=== PATIENT | female | born 1995 | race Caucasian/White ===

== ENCOUNTER 2024-01-06 08:07 | Outpatient (OUT) | payer MEDICAID, SELFPAY ==
--- NOTE | 2024-01-06 08:10 | US_ITS ---
[address] [address] Patient Name: MELE HAAS MRN: [id number] date: 1995 Sex: F Assigned Patient Location: [facility] Current Patient Location: [facility] Accession/Order Number: [id number] Exam Date: 01/06/2024 08:11 Report Date: 01/06/2024 09:13 At the request of: SURYA GARCIA Procedure: US OB growth EXAMINATION: US OB growth HISTORY: SIZE INCONSISTENT WITH DATES COMPARISON: No relevant comparison available. FINDINGS: Heart Rate: 152 bpm Amniotic Fluid Volume: 13.3 cm, largest fluid pocket 5.4 cm Number: 1 Position: Cephalic presentation, longitudinal lie BIOMETRY: BPD: 7.63 cm; 30 weeks 4 days; 39.30 % HC: 28.74 cm; 31 weeks 4 days; 42.40 % AC: 27.92 cm; 32 weeks 0 days; 83.90 % FL: 5.85 cm; 30 weeks 4 days; 34.90 % EFW: 1729.91 g; 66.30 %, 3 lbs. 14 oz. FL/AC: 20.95 FL/BPD: 76.67 HC/AC: 1.03 GESTATIONAL AGE: Age by EDC: 30 weeks 4 days KAREY by EDC: 2024-03-12 Age by US: 31 weeks 1 day KAREY by US: 2024-03-08 US/US OB growth IMPRESSION: Normal growth Electronically authenticated by: YAKOV DAWSON Date: 01/06/2024 09:13
== END 2024-01-06 08:08 | disposition home or self-care (01) ==
LOC: NOMS 08:08
PROVIDERS: Visit Provider Obstetrics & Gynecology
DX: O26.843 Uterine size-date discrepancy, third trimester (principal); Z3A.31 31 weeks gestation of pregnancy
CPT/HCPCS: 76816

== ENCOUNTER 2024-01-17 13:52 | Observation (INO) | payer MEDICAID, SELFPAY ==
[2024-01-17 14:08] VITALS: BP 131/81; PULSE 93
[2024-01-17 14:15] VITALS: TEMP 37
--- NOTE | 2024-01-17 14:28 | PC.NURSE ---
1400- Pt arrives to [facility] with officer. Pt taken to room 254. Pt given urine specimen cup to obtain urine lab order. Pt c/o contractions that started this morning and were occurring q3min at times but at current moment they are occurring here and there. Pt states they are mild pain intensity. Pt denies vaginal bleeding or leaking of fluid. Pt denies recent UTI/yeast infection. Pt history reviewed. Pt reports very active movement. RN palpates pt abdomen with pt consent. Abdomen palpated soft.
[2024-01-17 14:30] LABS: Bilirubin Urine NEGATIVE (NEGATIVE); Blood Urine NEGATIVE (NEGATIVE); Clarity Urine SL CLOUDY (CLEAR); Color Urine LT. YELLOW (YELLOW); Glucose Urine UA NEGATIVE (NEGATIVE); Ketones Urine NEGATIVE (NEGATIVE); Leukocyte Esterase Urine NEGATIVE (NEGATIVE); Nitrite Urine NEGATIVE (NEGATIVE); Protein Urine NEGATIVE (NEG/TRACE); Urobilinogen Urine 0.2 EU/dL (0.2-1.0)
[2024-01-17 15:00] LABS: Urine Microscopic Indicated NO
--- NOTE | 2024-01-17 15:19 | US_ITS ---
The [address] [address] Patient Name: MELE HAAS MRN: [id number] date: 1995 Sex: F Assigned Patient Location: [facility] Current Patient Location: [facility] Accession/Order Number: [id number] Exam Date: 01/17/2024 15:59 Report Date: 01/17/2024 18:18 At the request of: HERIBERTO PURCELL Procedure: US OB cervical length EXAM: US OB cervical length HISTORY: Cxt's COMPARISON: None. TECHNIQUE: Limited ultrasound for assessment of the amniotic fluid FINDINGS and impression: There is a single live intrauterine with the fetus in the cephalic presentation lies longitudinal. Comminuted fluid measures 16.2 cm (between the 50th and 95th percentile). The largest fluid pocket measures 5.3 cm. heart rate is 139 bpm. The cervical length measures 3.9 cm and is close. There is a small amount of fluid in the canal. Electronically authenticated by: YIMI ACEVEDO Date: 01/17/2024 18:18
--- NOTE | 2024-01-17 15:19 | US_ITS ---
The [address] [address] Patient Name: MELE HAAS MRN: [id number] date: 1995 Sex: F Assigned Patient Location: [facility] Current Patient Location: [facility] Accession/Order Number: [id number] Exam Date: 01/17/2024 15:59 Report Date: 01/17/2024 18:17 At the request of: HERIBERTO PURCELL Procedure: US OB amniotic fluid vol EXAM: US OB amniotic fluid vol HISTORY: Cxt's COMPARISON: None. TECHNIQUE: Limited ultrasound for assessment of the amniotic fluid FINDINGS and impression: There is a single live intrauterine with the fetus in the cephalic presentation lies longitudinal. Comminuted fluid measures 16.2 cm (between the 50th and 95th percentile). The largest fluid pocket measures 5.3 cm. heart rate is 139 bpm. The cervical length measures 3.9 cm and is close. There is a small amount of fluid in the canal. Electronically authenticated by: YIMI ACEVEDO Date: 01/17/2024 18:17
--- NOTE | 2024-01-17 17:34 | US_ITS ---
[address] [address] Patient Name: MELE HAAS MRN: [id number] date: 1995 Sex: F Assigned Patient Location: [facility] Current Patient Location: [facility] Accession/Order Number: [id number] Exam Date: 01/17/2024 18:23 Report Date: 01/17/2024 20:59 At the request of: HERIBERTO PURCELL Procedure: US OB BPP wo non-stress EXAM: US OB BPP wo non-stress HISTORY: Non-reassuring FHR COMPARISON: None. TECHNIQUE: Limited OB ultrasound is performed for evaluation of biophysical profile. Multiple grayscale images are submitted for review. FINDINGS: Single live intrauterine is seen with cephalic presentation. heart rate is 152 beats per minute. Normal amniotic fluid volume is seen. The REKHA measures 15.3 cm. Biophysical profile: breathing movements: 2 Gross body movements: 2 tone: 2 Qualitative amniotic fluid volume: 2 Total biophysical profile score is 8 out of 8. US/US OB BPP wo non-stress IMPRESSION: Single live intrauterine with cephalic presentation. Total biophysical profile score is 8 out of 8. Electronically authenticated by: PEYTON JOHN Date: 01/17/2024 20:59
[2024-01-17 17:56] VITALS: BP 130/74; PULSE 98
[2024-01-17] MEDS: NIFEdipine 10 MG CAPSULE 20 MG PO (18:43)
[2024-01-17 18:45] VITALS: BP 115/61; PULSE 87; TEMP 36.5
[2024-01-17] MEDS: LACTATED RINGER'S SOLUTION 1,000 ML 125 ML IV (19:04)
[2024-01-17 19:29] LABS: Basophils Absolute Auto 0.1 10^3/uL (0.0-0.1); Basophils Percent Auto 0.5 % (0.2-2.0); Eosinophils Absolute Auto 0.1 10^3/uL (0.0-0.7); Eosinophils Percent Auto 0.7 % (0.9-7.0); Hematocrit 34.9 % (36.0-48.0); Hemoglobin 11.9 g/dL (12.0-16.0); Immature Granulocytes Abs Auto 0.18 10^3/uL (0.00-0.03); Immature Granulocytes Pct Auto 1.4 % (0.0-0.5); Lymphocytes Absolute Auto 2.4 10^3/uL (1.2-3.8); Lymphocytes Percent Auto 18.8 % (20.5-60.0); Mean Corpuscular HGB Conc 34.1 g/dL (29.9-35.2); Mean Corpuscular Hemoglobin 33.1 pg (26.7-34.0); Mean Corpuscular Volume 96.9 fL (81.0-99.0); Mean Platelet Volume 9.6 fL (9.5-13.5); Monocytes Percent Auto 7.7 % (1.7-12.0); Neutrophils Absolute Auto 8.9 10^3/uL (1.4-6.5); Neutrophils Percent Auto 70.9 % (43.0-75.0); Platelet Count 317 10^3/uL (150-450); Red Cell Distribution Width 11.9 % (11.0-15.0); White Blood Count 12.6 10^3/uL (4.0-11.0)
--- NOTE | 2024-01-17 19:56 | P.OBPN_ITS ---
OB - PN: Subj Subjective Interval history: PATIENT BROUGHT FROM [facility] FOR COMPLAINT OF CRAMPING. MAGNETIC TESTER WITH PATIENT. . LAST FULL TERM. CHIEF COMPLAINT: CRAMPING. DENIES LOSS OF FLUID, VAGINAL BLEEDING, ABNORMAL VAGINAL DISCHARGE. HAS BEEN TREATED FOR SYPHILIS IN THE PAST. IS A PATIENT OF DR. GARCIA. EDC MAR 12, 2024. GESTATIONAL AGE 31 WEEKS. RATES THE CRAMPING 3 OUT OF 10. Exam Narrative Exam Narrative: REMOTE CHARTING FROM HOME WITH COMPUTER LOGGED ON TO Xtime. RECEIVED EXAM ASSESSMENT FROM NURSE. ABDOMEN SOFT AND NONTENDER. CERVIX IS CLOSED. ULTRASOUND MEASURED LENGTH AT 3.8 CM. TOCO IS RECORDING CONTRACTIONS INITIALLY EVERY 3 TO 4 MIN APART. BPP WAS PERFORMED BECAUSE BABY ON CUSP OF GESTATIONAL AGE WHEN HEART TRACINGS REACTIVE. THE BPP WAS 8/8. AFTER THE BPP DONE, THE HEART RATE STRIP WAS CAT I Constitutional Vital Signs, click to edit/add: Last Vital Signs Temp 98.6 F 01/17/24 14:15 Pulse 87 01/17/24 18:45 Resp 16 01/17/24 14:15 BP 115/61 01/17/24 18:45 O2 Del Method Room Air 01/17/24 14:15 Results Labs Labs: Short CBC 01/17/24 Range/Units 18:41 WBC 12.6 H (4.0-11.0) 10^3/uL Hgb 11.9 L (12.0-16.0) g/dL Hct 34.9 L (36.0-48.0) % Plt Count 317 (150-450) 10^3/uL Urine 01/17/24 Range/Units 14:13 Urine Color Lt. yellow (YELLOW) Urine Clarity Sl cloudy (CLEAR) Urine pH 7.0 (5.0-9.0) Ur Specific [place] 1.020 (1.005-1.025) Urine Protein Negative (NEG/TRACE) mg/dL Urine Glucose (UA) Negative (NEGATIVE) mg/dL OB - PN: A/P Assessment and Plan (1) contractions: Assessment and Plan: CERVIX NOT CHANGING. URINE DEMONSTRATES NO DEHYDRATION NO KETONES, NO BLOOD, NO NITRITES, NO BACTERIA. ULTRASOUND SHOWS NORMAL REKHA AT 16. BPP 8/8 AND FHR REACTIVE...CAT I Plan NOT LABOR BUT NEED TO HAVE CONTRACTIONS LESS THAN OR EQUAL TO 6 IN ONE HOUR BEFORE DISCHARGING BACK TO [facility]. WILL PLACE ON NIFEDIPINE PROTOCOL. WILL START IV OF LR AT 125CC PER HOUR. HAS PO HYDRATED A LITTLE OVER 500 CC SINCE ON MATERNITY. OF NOTE, CBC NORMAL WITH NO ELEVATED WHITE COUNT. MATERNAL VSS ARE NORMAL AND AFECBRILE. HAVE ADMITTED OBSERVATION STATUS TO WATCH FOR DISSIPATION OF CONTRACTIONS TO < OR = TO 6 PER HOUR. IF THERE IS A CHANGE IN CLINICAL STATUS AND CONTRACTION BECOME PAINFUL AND OR EVERY 2 TO THREE MIN CONSISTENTLY, WILL TRANSFER TO [facility]. Time Spent with Patient Time: Total time spent is greater than 50% in coordination of care (as documented) at patient's floor/unit and/or counseling patient: Total time spent with greater than 50% in coordination of care (as documented) at patient's floor/unit and/or counseling patient: less than 15 minutes (THIS NOTE WRITTEN AT HOME BASED ON REVIEW OF CHART AND NURSES REPORT)
[2024-01-17] MEDS: NALBUPHINE HCL 10 MG/ML AMPULE 5 MG IV (20:05)
--- NOTE | 2024-01-17 20:38 | PC.NURSE ---
1610- Pr removed from monitors at this time. Ultrasound at bedside. Cervical length 3.8.
--- NOTE | 2024-01-17 20:39 | PC.NURSE ---
0234-3024: Pt eating dinner at this time. Per pt request monitors remain off.
[2024-01-17] MEDS: ZOLPIDEM TARTRATE 5 MG TABLET PO (23:24)
[2024-01-17 23:25] VITALS: BP 118/76; PULSE 77; TEMP 36.3
[2024-01-18 01:08] VITALS: BP 121/68
[2024-01-18] MEDS: NIFEdipine 10 MG CAPSULE PO ×2 (01:08→07:24)
[2024-01-18 01:09] VITALS: BP 121/68; PULSE 101
[2024-01-18] MEDS: ACETAMINOPHEN 500 MG TABLET 1000 MG PO ×2 (01:09→07:56)
[2024-01-18] MEDS: LACTATED RINGER'S SOLUTION 1,000 ML 125 ML IV (03:03)
[2024-01-18 07:24] VITALS: BP 102/50
[2024-01-18 07:25] VITALS: BP 102/50; PULSE 74
== END 2024-01-18 08:07 ==
LOC: FBC 13:55
PROVIDERS: Admitting Provider Obstetrics & Gynecology; Visit Provider Obstetrics & Gynecology
DX: O47.03 False labor before 37 completed weeks of gestation, third trimester (principal); Z3A.31 31 weeks gestation of pregnancy
CPT/HCPCS: 36415; 59025; 76815; 76817; 76819; 81003; 85025; 96374; G0378; G0379; J2300

== ENCOUNTER 2024-02-09 07:01 | Outpatient (OUT) | payer MEDICAID, SELFPAY ==
--- OUTSIDE RECORDS SUMMARY | 2024-02-09 07:03 | XMS_ITS | CCD ---
Author Organization [facility] Care Team Providers Care Professor Of Violin Name Role Phone MISC, DOCTOR Primary Care Unavailable LISHA SAENZ Admitting Unavailable LISHA SAENZ Attending Unavailable JUAN PABLO CANELA Consulting Unavailable LISHA SAENZ Consulting Unavailable Jude Mcdaniel Consulting Unavailable ASIA, HELENA Admitting Unavailable PAZANDER, HELENA Attending Unavailable TIESHA CASTILLO Consulting Unavailable HIGHLANDER, HELENA Consulting Unavailable HIGHLANDER, HELENA Admitting Unavailable HIGHLANDER, HELENA Attending Unavailable YAKOV DAWSON V Consulting Unavailable HIGHLANDER, HELENA Consulting Unavailable CATHRYN BARNES Admitting Unavailable CATHRYN BARNES Attending Unavailable MISJoan, DOCTOR Primary Care Unavailable CATHRYN BARNES Consulting Unavailable ASIA, HELENA Admitting Unavailable PAZANDER, HELENA Attending Unavailable TIESHA CASTILLO Consulting Unavailable HIGHLANDER, HELENA Consulting Unavailable HIGHLANDER, HELENA Admitting Unavailable PAZANDER, HELENA Attending Unavailable Janny Gonzalez Unavailable Inessa Lewis Unavailable NIURKA Lewis Attending Provider [phone] Inessa Lewis Attending Unavailable Inessa Lewis Admitting Unavailable SONAM TENORIO Referring Unavailable ROMI RIDER Primary Care Unavailable SONAM TENORIO Attending Unavailable ROMI RIDER Referring Unavailable ROMI RIDER A Primary Care Unavailable ROMI RIDER Referring Unavailable ROMI RIDER A Primary Care Unavailable ROMI RIDER A Referring Unavailable ROMI RIDER A Primary Care Unavailable LIZZETTE, ROMI A Referring Unavailable LIZZETTE, ROMI A Primary Care Unavailable DANDY RAMSEY Attending Unavailable LIZZETTE, ROMI A Referring Unavailable LIZZETTE, ROMI A Primary Care Unavailable SONAM TENORIO Referring Unavailable LIZZETTE, ROMI A Primary Care Unavailable EDELMIRA WEBSTER Attending Unavailable LIZZETTE, ROMI A Referring Unavailable LIZZETTE, ROMI A Primary Care Unavailable KROTZERSONAM M Attending Unavailable KROTZER, SONAM M Referring Unavailable LIZZETTE, ROMI A Primary Care Unavailable LIZZETTE, ROMI A Referring Unavailable LIZZETTE, ROMI A Primary Care Unavailable KROTZER, SONAM M Referring Unavailable LIZZETTE, ROMI A Primary Care Unavailable LIZZETTE, ROMI A Primary Care Unavailable JEANNE SMART Attending Unavailable RIOSONYA FOWLER Admitting Unavailable SONYA PATE Attending Unavailable LIZZETTE, ROMI A Primary Care Unavailable LIZZETTE, ROMI A Primary Care Unavailable OSVALDO, TIBERIU S Admitting Unavailable OSVALDO, TIBERIU S Attending Unavailable LIZZETTE, ROMI A Primary Care Unavailable ROSALINO THOMAS Attending Unavailable JOSE, SURYA Attending Unavailable ROSALINO THOMAS Attending Unavailable SURYA GARCIA Attending Unavailable WILLIAM, ROSALINO Attending Unavailable Medications Current Medications Medication Drug Class(es) Dates Sig (Normalized) Sig (Original) fluconazole 150 mg oral tablet (3 sources) Azole Antifungal Start: 12-19-2022 take 1 tablet by mouth once Fluconazole 150 MG 1 tablet Orally once for 1 days Nov, Active Start: 08-15-2021 Fluconazole 15 0 MG 1 tablet Orally once, repeat dose in 72 hours if needed for 1 day Jul, Active metroNIDAZOLE 500 mg oral tablet (2 sources) Nitroimidazole Antimicrobial Start: 12-19-2022 take 1 tablet by mouth every twelve hours metroNIDAZOLE 500 MG 1 tablet Orally Twice a day for 7 days Nov, Active Start: 08-19-2021 take 1 tablet by neal th every twelve hours metroNIDAZOLE 500 MG 1 tablet Orally Twice a day for 7 day(s) Jul, Active Completed/Discontinued Medications Medication Drug Class(es) Dates Sig (Normalized) Sig (Original) lidocaine hydrochloride 20 mg/ml mucous membrane topical solution (2 sources) Antiarrhythmic, Amide Local Anesthetic Start: 01-14-2018 take 10 mL by mouth every three hours Lidocaine Viscous 2 % 10 ml swish in mouth, gargle, and spit. DO NOT swallow every 3 hrs for 2 days Dec, Not-Taking Problems Active Problems Problem Classification Problem Date Documented Date Episodic/Chronic Abdominal pain (1 source) Abdominal pain Onset: 11-30-2023 Episodic Administrative/social admission (2 sources) Patient encounter status; Translations: [Encounter for pre-employment examination] 06-16-2023 Episodic Disorders of teeth and jaw (3 sources) Other specified disorders of teeth and supporting structures; Translations: [Toothache] Onset: 10-05-2023 Episodic External cause codes: Fall (2 sources) Fall (on) (from) unspecified stairs and steps, initial encounter; Translations: [Fall] Onset: 12-20-2019 Fracture of lower limb (1 source) Other fracture of upper and lower end of left fibula, initial encounter for closed fracture; Translations: [OTH FX UP LOW LT FIB INIT CLOS FX] Onset: 12-20-2019 Episodic Immunizations and screening for infectious disease (5 sources) Contact with and (suspected) exposure to infections with a predominantly sexual mode of transmission; Translations: [Encounter for immunization] Onset: 12-20-2019 Episodic Other complications of (1 source) Syphilis complicating , second trimester; Translations: [Syphilis complicating , second trimester] Onset: 09-21-2023 Episodic Other complications of (1 source) Vomiting of , unspecified; Translations: [Vomiting of , unspecified] Onset: 09-21-2023 Episodic Other connective tissue disease (1 source) Pain in left foot; Translations: [PAIN IN LEFT FOOT] Onset: 12-20-2019 Episodic Other female genital disorders (3 sources) Vaginal discharge; Translations: [Other specified noninflammatory disorders of vagina] Episodic Other female genital disorders (2 sources) Other specified noninflammatory disorders of vagina Onset: 08-15-2021 Resolved: 08-15-2021 Episodic Other female genital disorders (1 source) Other specified noninflammatory disorders of vagina; Translations: [Other specified noninflammatory disorders of vagina] Onset: 12-19-2022 Episodic Other injuries and conditions due to external causes (1 source) Elevated urine levels of drugs, medicaments and biological substances; Translations: [Elevated urine levels of drugs, medicaments and biological substances] Onset: 09-23-2023 Episodic Other lower respiratory disease (1 source) Personal history of other diseases of the respiratory system; Translations: [Personal history of other diseases of the respiratory system] Onset: 09-21-2023 Episodic Other non-traumatic joint disorders (4 sources) Pain in left ankle and joints of left foot; Translations: [PAIN IN LEFT ANKLE] Onset: 01-30-2020 Episodic Other non-traumatic joint disorders (3 sources) Pain in left knee; Translations: [PAIN IN LEFT KNEE] Onset: 11-28-2019 Episodic Previous (1 source) Maternal care for unspecified type scar from previous delivery; Translations: [Maternal care for unspecified type scar from previous delivery] Onset: 09-21-2023 Episodic Residual codes; unclassified (1 source) 21 weeks gestation of ; Translations: [21 weeks gestation of ] Onset: 11-04-2023 Episodic Substance-related disorders (1 source) Nicotine dependence, cigarettes, uncomplicated; Translations: [NICOTINE DEPEND CIGARETTES UNCOMP] Onset: 12-20-2019 Chronic Superficial injury; contusion (2 sources) Abrasion, left lower leg, initial encounter; Translations: [Contusion of left knee, initial encounter] Onset: 12-20-2019 Episodic Unclassified (1 source) + syphillis Onset: 11-04-2023 Unclassified (1 source) Initial Visit Onset: 09-21-2023 Past or Other Problems Problem Classification Problem Date Documented Da te Episodic/Chronic Other and delivery including normal (4 sources) Encounter for test, result positive; Translations: [Encounter for supervision of normal , unspecified, second trimester] Onset: 08-13-2023 Episodic Results Test Name Value Interpretation Reference Range Facility URINALYSISon 11-30-2023 Bilirubin Ql (U) Negative Normal NEG [facility] Comment on above: Performed By: #### C BC, 75510-6, AHP, 96385-1, 30131-6, 55887- 4, 32244-4 #### [facility] ([id number]) [address], [address] [place] [address] #### 92766-8, 01197-1 #### [facility] ([id number]) [address] [place] [address]98 BLOOD/HGB Negative Normal NEG [facility] Comment on above: Performed By: #### C BC, 72974-1, AHP, 07787-0, 60960-6, 43645- 4, 84777-4 #### [facility] ([id number]) [address], [address] [place] [address] #### 04515-6, 54341-5 #### [facility] ([id number]) [address] [place] [address] 79291 Color (U) YELLOW Normal YELLOW [facility] Comment on above: Performed By: #### C ERICK, 81694-3, AHP, 33560-5, 27254-2, 13300- 4, 75445-2 #### [facility] ([id number]) [address], [address] [place] [address] #### 27171-8, 01289-6 #### [facility] ([id number]) [address] [place] [address] 70264 Glucose Ql (U) Negative Normal NEG [facility] Comment on above: Performed By: #### Joan BC, 11601-0, AHP, 54958-2, 09645-1, 76694- 4, 48304-4 #### [facility] ([id number]) [address], [address] [place] [address] #### 60446-1, 64535-1 #### [facility] ([id number]) [address] [place] [address] 23012 Ketones Ql (U) Negative Normal NEG [facility] Comment on above: Performed By: #### Joan BC, 92508-8, AHP, 04964-7, 72867-7, 89300- 4, 91539-0 #### [facility] ([id number]) [address] [facility], [address] [place] [address] #### 71504-8, 60854-5 #### [facility] ([id number]) [address] [place] [address] 09115 Leukocyte esterase Test strip Ql (U) Negative Normal NEG [facility] Comment on above: Performed By: #### C BC, 00223-4, AHP, 53148-5, 19276-8, 47652- 4, 90508-6 #### [facility] ([id number]) [address] [facility], [address] [address] #### 94556-9, 47994-2 #### [facility] ([id number]) [address] [place] [address] 95269 Nitrite Ql (U) Negative Normal NEG [facility] Comment on above: Performed By: #### C ERICK, 72747-1, AHP, 00607-5, 72621-6, 87307- 4, 79677-5 #### [facility] ([id number]) [address] [facility], [address] [place] [address] #### 29487-2, 92364-7 #### [facility] ([id number]) [address] [place] [address] 12888 pH (U) 7.0 [pH] Normal 5.0-8.5 [facility] Comment on above: Performed By: #### Joan BC, 43677-3, AHP, 65728-5, 20803-6, 60321- 4, 00029-7 #### [facility] ([id number]) [address] [facility], [address] [place] [address] #### 68495-6, 36205-8 #### [facility] ([id number]) [address] [place] [address] 15612 Protein Ql (U) Negative Normal NEG [facility] Comment on above: Performed By: #### C ERICK, 41979-1, AHP, 36818-6, 44288-4, 84131- 4, 82848-5 #### [facility] ([id number]) [address], [address] [place] [address] #### 56239-9, 15366-5 #### [facility] ([id number]) [address] [place] [address] 49721 Specific gravity (U) [Rel density] 1.025 Normal 1.003-1.035 [facility] Comment on above: Performed By: #### C ERICK, 53565-3, AHP, 45743-5, 11726-0, 86611- 4, 74836-9 #### [facility] ([id number]) [address], [address] [place] [address] #### 49493-6, 46088-1 #### [facility] ([id number]) [address] [place] [address] 66764 TURBIDITY CLEAR Normal CLEAR [facility] Comment on above: Performed By: #### Joan SUAREZ, 30443-8, AHP, 32036-1, 48207-7, 99611- 4, 46862-6 #### [facility] ([id number]) [address], [address] [place] [address] #### 87696-2, 58577-4 #### [facility] ([id number]) [address] [place] [address] 13824 Urobilinogen Qn (U) 0.2 {Saleem'U}/dL Normal <1.1 [facility] Comment on above: Performed By: #### Joan SUAREZ, 27658-3, AHP, 12987-0, 20957-1, 98363- 4, 47664-9 #### [facility] ([id number]) [address], [address] [place] [address] #### 62262-8, 74841-6 #### [facility] ([id number]) [address] [place] [address]377 CHLAMYDIA/GC PCR, FLon 09-20 CHLAMYDIA/GC PCR, FL SPECIMEN SOURCE ThinPrep CHLAMYDIA DNA(PCR) Negative (qualifier value) Chlamydia trachomatis not detected by nucleic acid amplification. This does not exclude the possibility of infection because results are dependent on adequate specimen collection. GONORRHOEAE DNA(PCR) Negative (qualifier value) Neisseria gonorrhoeae not detected by nucleic acid amplification. This does not exclude the possibility of infection because results are dependent on adequate specimen collection. Normal [facility] Comment on above: Performed By: #### C BC, 86986-3, AHP, 73003-3, 47220-5, 61160- 4, 65776-2 #### [facility] ([id number]) [address] [place] [address], [address] [place] [address] #### 65663-7, 34280-2 #### [facility] ([id number]) [address] [place] [address] 41227 DRUG SCREEN, URINEon 024 AMPHETAMINE/METHAMP Negative Normal NEG [facility] Comment on above: Result Comment: AMPH /METH screening cut off = 1000 ng/mL Performed By: #### D DOWNING #### [facility] ([id number]) [address] [place] [address], [address] [place] [address] BARBITURATES Negative Normal NEG [facility] Comment on above: Result Comment: Venita iturates screening cut off value = 200 ng/mL Performed By: #### D DOWNING #### [facility] ([id number]) [address], [address] [place] [address] BENZODIAZEPINES Negative Normal NEG [facility] Comment on above: Result Comment: Ander odiazepines screening cut off value = 200 ng/mL Performed By: #### D DOWNING #### [facility] ([id number]) [address], [address] [place] [address] CANNABINOIDS Positive Abnormal NEG [facility] Comment on above: Result Comment: Conf irmation available upon request. Cannabinoids/THC screening cut off value = 50 ng/mL Performed By: #### D DOWNING #### [facility] ([id number]) [address], [address] [place] [address] COCAINE METABOLITE Negative Normal NEG [facility] Comment on above: Result Comment: Coca ine screening cut off value = 300 ng/mL Performed By: #### D DOWNING #### [facility] ([id number]) [address], [address] [place] [address] ECSTASY Negative Normal NEG [facility] Comment on above: Result Comment: Ecst asy screening cut off value = 500 ng/mL This report is intended for use in clinical monitoring or management of patients. Performed By: #### D DOWNING #### [facility] ([id number]) [address], [address] [place] [address] METHADONE Negative Normal NEG [facility] Comment on above: Result Comment: Meth adone screening cut off value = 300 ng/mL. Performed By: #### D DOWNING #### [facility] ([id number]) [address], [address] [place] [address] OPIATES Negative Normal NEG [facility] Comment on above: Result Comment: Opia monica screening cut off value = 300 ng/mL NOTE: This test is used for the detection of codeine, hydrocodone (>1000 ng/mL), morphine and hydromorphone (>900 ng/mL) in urine. Performed By: #### D DOWNING #### [facility] ([id number]) [address], [address] [place] [address] OXYCODONE Negative Normal NEG [facility] Comment on above: Result Comment: Oxyc odone screening cut off value = 300 ng/mL NOTE: This test is used for the detection of oxycodone and oxymorphone in urine. Performed By: #### D DOWNING #### [facility] ([id number]) [address], [address] [place] [address] PHENCYCLIDINE Negative Normal NEG [facility] Comment on above: Result Comment: Phen cyclidine screening cut off value = 25 ng/mL Performed By: #### D DOWNING #### [facility] ([id number]) [address], [address] [place] [address] URINALYSISon 09-21-2023 Bilirubin Ql (U) Negative Normal NEG [facility] Comment on above: Performed By: #### U A #### [facility] ([id number]) [address], [address] [place] [address] BLOOD/HGB Negative Normal NEG [facility] Comment on above: Performed By: #### U A #### [facility] ([id number]) [address], [address] [place] [address] Color (U) YELLOW Normal YELLOW [facility] Comment on above: Performed By: #### U A #### [facility] ([id number]) [address], [address] [place] [address] Glucose Ql (U) Negative Normal NEG [facility] Comment on above: Performed By: #### U A #### [facility] ([id number]) [address], [address] [place] [address] Ketones Ql (U) >150 Abnormal NEG [facility] Comment on above: Performed By: #### U A #### [facility] ([id number]) [address], [address] [place] [address] Leukocyte esterase Test strip Ql (U) Negative Normal NEG [facility] Comment on above: Performed By: #### U A #### [facility] ([id number]) [address], [address] [place] [address] Nitrite Ql (U) Negative Normal NEG [facility] Comment on above: Performed By: #### U A #### [facility] ([id number]) [address], [address] [place] [address] pH (U) 6.0 [pH] Normal 5.0-8.5 [facility] Comment on above: Performed By: #### U A #### [facility] ([id number]) [address], [address] [place] [address] Protein Ql (U) Negative Normal NEG [facility] Comment on above: Performed By: #### U A #### [facility] ([id number]) [address], [address] [place] [address] Specific gravity (U) [Rel density] 1.019 Normal 1.003-1.035 [facility] Comment on above: Performed By: #### U A #### [facility] ([id number]) [address], [address] [place] [address] TURBIDITY CLEAR Normal CLEAR [facility] Comment on above: Performed By: #### U A #### [facility] ([id number]) [address] [address] [place] [address] Urobilinogen (U) [Mass/Vol] mg/dL Normal <1.1 [facility] Comment on above: Performed By: #### U A #### [facility] ([id number]) [address] [address] [place] [address] URINE CULTUREon 09-21-2023 Bacteria identified Cx Nom (U) CULTURE RESULTS 10,000 to 50,000 ORGANISMS/mL ESCHERICHIA COLI <10,000 ORGANISMS/mL NORMAL URO GENITAL JACKIE Normal [facility] Comment on above: Performed By: #### 6 30-4 #### [facility] ([id number]) [address] [facility], [address] [place] [address] ACUTE HEPATITIS PANELon 08-25 ANTI HCV W/PCR REFLX Non-Reactive [facility] Comment on above: Result Comment: If recent infection suspected, recommend repeat testing (>2 months). Lvngdo-ml-ffckpw ratio is <0.80. Performed By: #### C BC, 17212-0, AHP, 73073-3, 97978-7, 60179-5, 28725-4 #### [facility] ([id number]) [address] [facility], [address] [place] [address] #### 58420-6, 31459-5 #### [facility] ([id number]) [address] [place] [address] HEPATITIS A IGM [facility]-Reactive [facility] Comment on above: Performed By: #### C BC, 25753-5, AHP, 42884-8, 00909-2, 88418- 4, 36210-1 #### [facility] ([id number]) [address] [facility], [address] [place] [address] #### 49051-7, 54781-6 #### [facility] ([id number]) [address] [place] [address] HEPATITIS B CORE IGM Negative Normal NEG [facility] Comment on above: Performed By: #### C BC, 02417-4, AHP, 74325-9, 63706-4, 23110- 4, 36745-3 #### [facility] ([id number]) [address] [facility], [address] [place] [address] #### 95661-0, 37993-6 #### [facility] ([id number]) [address] [place] [address] HEPATITIS B SURF AG Negative Normal NEG [facility] Comment on above: Performed By: #### C BC, 83108-7, AHP, 13239-0, 73224-9, 69199- 4, 81313-8 #### [facility] ([id number]) [address], [address] [place] [address] #### 60551-7, 88360-7 #### [facility] ([id number]) [address] [place] [address] COMPLETE BLOOD COUNTon 09-16 Erythrocyte distribution width (RBC) [Ratio] 13.0 % Normal 11.5-15.0 [facility] Comment on above: Performed By: #### C ERICK, 18347-4, AHP, 09338-5, 12860-9, 88389- 4, 88017-2 #### [facility] ([id number]) [address], [address] [place] [address] #### 04695-8, 35538-0 #### [facility] ([id number]) [address] [place] [address] Hematocrit (Bld) [Volume fraction] 36.1 % Normal 35-47 [facility] Comment on above: Performed By: #### C ERICK, 32313-9, AHP, 21129-0, 32546-9, 57033- 4, 55868-4 #### [facility] ([id number]) [address], [address] [place] [address] #### 07182-4, 71077-1 #### [facility] ([id number]) [address] [place] [address] Hemoglobin (Bld) [Mass/Vol] 12.5 g/dL Normal 11.7-15.5 [facility] Comment on above: Performed By: #### Joan BC, 46914-9, AHP, 64589-8, 46336-0, 57957- 4, 14414-9 #### [facility] ([id number]) [address], [address] [place] [address] #### 32270-8, 88119-2 #### [facility] ([id number]) [address] [place] [address] 40005 MCH (RBC) [Entitic mass] 32.0 pg Normal 27-34 [facility] Comment on above: Performed By: #### C BC, 98613-4, AHP, 01304-3, 55176-6, 33794- 4, 90131-1 #### [facility] ([id number]) [address], [address] [place] [address] #### 31006-9, 87423-0 #### [facility] ([id number]) [address] [place] [address] 16654 MCHC (RBC) [Mass/Vol] 34.6 g/dL Normal 32-36 [facility] Comment on above: Performed By: #### C BC, 61159-3, AHP, 64454-1, 18756-4, 09533- 4, 32572-9 #### [facility] ([id number]) [address], [address] [place] [address] #### 35810-2, 26936-8 #### [facility] ([id number]) [address] [place] [address] 90615 MCV (RBC) [Entitic vol] 93 fL Normal 80-100 [facility] Comment on above: Performed By: #### C BC, 12668-1, AHP, 32789-2, 39494-1, 61822- 4, 17672-8 #### [facility] ([id number]) [address], [address] [place] [address] #### 42718-2, 46189-8 #### [facility] ([id number]) [address] [place] [address] 12121 Platelet mean volume (Bld) [Entitic vol] 8.7 fL Normal 7-12 [facility] Comment on above: Performed By: #### C ERICK, 96623-0, AHP, 00541-8, 74051-7, 46854- 4, 55172-0 #### [facility] ([id number]) [address], [address] [place] [address] #### 19017-9, 57847-2 #### [facility] ([id number]) [address] [place] [address] 10577 Platelets (Bld) [#/Vol] 300 10*3/uL Normal 150-450 [facility] Comment on above: Performed By: #### Joan SUAREZ, 09438-9, P, 04901-3, 21443-1, 22009- 4, 03177-1 #### [facility] ([id number]) [address], [address] [place] [address] #### 00353-0, 74330-0 #### [facility] ([id number]) [address] [place] [address]3850 RBC COUNT 3.90 X10E12/L Normal 3.80-5.20 [facility] Comment on above: Performed By: #### Joan SUAREZ, 51397-6, P, 24075-9, 35793-5, 64015- 4, 04423-0 #### [facility] ([id number]) [address], [address] [place] [address] #### 09293-2, 40500-3 #### [facility] ([id number]) [address] [place] [address] WBC (Bld) [#/Vol] 9.7 10*3/uL Normal 4.0-11.0 [facility] Comment on above: Performed By: #### Joan , 04067-1, P, 03133-3, 33996-2, 21064- 4, 82280-6 #### [facility] ([id number]) [address] [place] [address] #### 14026-8, 41438-6 #### [facility] ([id number]) [address] [place] [address]40 HCG.beta subunit IA 3rd IS Q non 09-17-2023 [place] [address] m[IU]/mL Normal P [facility] Comment on above: Result Comment: NEW REFERENCE RANGE WEEKS (SINCE LMP) MIU/mL 3 WEEKS 5 - 50 4 WEEKS 5 - 426 5 WEEKS 18 - 7,340 6 WEEKS 1,080 - 56,500 7-8 WEEKS 7,650 - 229,000 9-12 WEEKS 25,700 - 288,000 13-16 WEEKS 13,300 - 254,000 17-24 WEEKS 4,060 - 165,400 25-40 WEEKS 3,640 - 117,000 MALES AND NON- FEMALES - <5 MIU/mL This test has been FDA approved for use in only. Elevated levels are not necessarily diagnostic for trophoblastic or nontrophoblastic neoplasms. Performed By: #### Joan , 75927-8, [facility], 32113-7, 17093-0, 56700-7, 74404-7 #### [facility] ([id number]) [address], [address] [place] [address] #### 16059-7, 74797-8 #### [facility] ([id number]) [address] [place] [address] HIV 1+2 Ab+HIV1 p24 Ag IA Ql on 09-17-2023 HIV 1 and 2 Ab/Ag Screen Non-Reactive Normal NR[facility] Comment on above: Result Comment: This information has been disclosed to you from confidential records protected from disclosure by state law. You shall make no further disclosure of this information without the specific, written and informed release of the individual to whom it pertains, or as otherwise permitted by state law. A general authorization for the release of medical or other information is not sufficient for the purpose of the release of HIV test results or diagnoses. Performed By: #### C ERICK, 51648-8, AHP, 56683-1, 30442-2, 73307-1, 63374-2 #### [facility] ([id number]) [address] [place] [address] [address] [place] [address] #### 30857-2, 73779-0 #### [facility] ([id number]) [address] [place] [address], [place] [address] Reagin Ab RPR (S) [Titer]on 09-17-2023 RPR TITER, SERUM SEE COMMENTS 09/21/2023 10:37 AM Abnormal [facility] Comment on above: Result Comment: NOTE Test Result Flag Unit RefValue RPR, Titer, S 1:1 A Negative Results consistent with untreated or recently treated syphilis. Clinical correlation required. For additional information on interpretation of the syphilis reverse algorithm and results, see: [email or web address] it-mmfiles/Syphilis_Serology_Algorithm.pdf Test Performed by: [facility] [address] [place] [address] Office Clin Asst: Luke Downey M.D. Ph.D.; CLIA# [id number] Performed By: #### Joan SUAREZ, 23281-0, AHP, 51448-8, 44727-3, 98421-7, 85373-1 #### [facility] ([id number]) [address] [place] [address], [address] [address] #### 60881-1, 83830-9 #### [facility] ([id number]) [address] [place] [address] Reagin Ab RPR Ql (S)on 09-16 RPR WITH REFLEX TO RTPPA Positive Abnormal Negative [facility] Comment on above: Result Comment: NOTE Specimen reflexed to determine RPR titer. For additional information on interpretation of the syphilis reverse algorithm and results, see: [email or web address] it-[email or web address]_Serology_Algorithm.pdf Test Performed by: [place] [address] Office Clin Asst: Luke Downey M.D. Ph.D.; CLIA# [id number] Performed By: #### Joan SUAREZ, 08291-1, P, 75005-0, 64033-8, 50574-9, 30452-7 #### [facility] ([id number]) [address] [place] [address], [address] [address] #### 81096-6, 59747-8 #### [facility] ([id number]) [address] [place] [address] Rubella virus Ab Ql (S)on RUBELLA IMMUNE IgG 1.0 AI Normal [facility] Comment on above: Result Comment: Interpretation-------- <0.8 NEGATIVE-considered Not Immune 0.8-0.9 EQUIVOCAL-consider retesting with new specimen >0.9 POSITIVE-considered Immune Performed By: #### C BC, 71454-0, AHP, 36826-0, 04476-4, 74194-5, 43795-1 #### [facility] ([id number]) [address] [place] [address], [address] [place] [address] #### 74256-5, 59043-8 #### [facility] ([id number]) [address] [place] [address] T. pallidum IgG+IgM IA Ql (S )on 09-17-2023 Syphilis Total >8.0 High 0.0-0.8 [facility] Comment on above: Result Comment: REAC TIVE This specimen will be sent to a reference lab for additional testing which includes RPR with reflex to TP-PA if RPR is negative. The RPR will help distinguish between infections with T.pallidum (syphilis) versus a falsely reactive treponemal antibody result. Please see the syphilis testing algorithm link below for more information. [email or web address] Performed By: #### C BC, 68082-9, AHP, 64930-7, 81978-1, 04917-2, 73326-5 #### [facility] ([id number]) [address] [place] [address], [address] [address] #### 04856-7, 71146-2 #### [facility] ([id number]) [address] [place] [address] US PREG TRANSABD FU PER FETU on 09-17-2023 US PREG TRANSABD FU PER FETU US PREG TRANSABD FU PER FETU US PREG TRANSABD FU PER FETU: 09/17/2023 8:25 AM Clinical: Check dates and viability. Real-time transabdominal sonography pelvis performed.. Transvaginal sonography pelvis performed for better evaluation of the pelvic organs. No comparison. There is a single live intrauterine . [place]-rump length of 8.8 cm corresponds to 14 week 5 day gestation. Yolk sac, pole, and heart motion 150 beats per minute noted. Amount amniotic fluid is normal. Placenta is developing anteriorly. Maternal ovaries are unremarkable with color flow demonstrated. No cul-de-sac fluid seen. Impression: * Single live intrauterine 14 week 5 day gestation. * Ultrasound KAREY 03/12/2024. Finalized by Fish Frances MD on 09/17/2023 11:55 AM Normal [facility] VZV IgG IA Ql (S)on 09-17-19 VARICELLA IgG 3.1 AI High <0.9 [facility] Comment on above: Result Comment: Interpretation-------- <0.9 Negative 0.9 - 1.0 Equivocal >1.0 Positive Performed By: #### C , 83287-0, [facility], 91266-6, 60577-3, 81520-0, 42037-0 #### [facility] ([id number]) [address] [place] [address], [address] [place] [address] #### 04510-4, 73848-2 #### [facility] ([id number]) [address] [place] [address], [place] [address] Urinalysis - AUTOMATEDon Appearance (U) CLEAR [employer] Other Bilirubin Ql (U) Negative [facility] Other Color (U) YELLOW [employer] Other Glucose Ql (U) Negative [employer] Other Hemoglobin Ql (U) NEGTIVE [employer] Other Ketones Ql (U) Negative [employer] Other Leukocyte esterase Test strip Ql (U) Negative [employer] Other Nitrite Ql (U) Negative [employer] Other pH (U) 7.5 [pH] [employer] Other Protein Ql (U) Negative [employer] Other Specific gravity (U) [Rel density] 1.015 [employer] Other Urobilinogen (U) [Mass/Vol] 0.2 mg/dL [employer] Other Urinalysis - AUTOMATED [employer] Other Vaginitis Plus (VG+)on 12-19 Atopobium Vaginae High - 2 Critically abnormal . [facility] Comment on above: Performed By: #### V AGINITIS+ #### [facility] , BVAB2 High - 2 Critically abnormal . [facility] Comment on above: Performed By: #### V AGINITIS+ #### [facility] , Makenzie Albicans, KENNETH Negative Normal Negative [facility] Comment on above: Result Comment: This test was developed and its performance characteristics determined by [facility]. It has not been cleared or approved by the Food and Drug Administration. Performed By: #### V AGINITIS+ #### [facility] , Makenzie Glabrata, KENNETH Negative Normal Negative [facility] Comment on above: Result Comment: This test was developed and its performance characteristics determined by [facility]. It has not been cleared or approved by the Food and Drug Administration. PERFORMED BY: [address] [address] PATHOLOGIST CORE SHAPER TOP LEO PATEL M.D. Performed By: #### V AGINITIS+ #### [facility] , Chlamydia Trachomotis, KENNETH Positive Critically abnormal Negative [facility] Comment on above: Performed By: #### V AGINITIS+ #### [facility] , Megasphaera High - 2 Critically abnormal . [facility] Comment on above: Result Comment: Calc ulate total score by adding the 3 individual bacterial vaginosis (BV) marker scores together. Total score is interpreted as follows: Total score 0-1: Indicates the absence of BV. Total score 2: Indeterminate for BV. Additional clinical data should be evaluated to establish a diagnosis. Total score 3-6: Indicates the presence of BV. This test was developed and its performance characteristics determined by [employer]. It has not been cleared or approved by the Food and Drug Administration. Performed By: #### V AGINITIS+ #### [facility] , Neisseria Gonorrhoeae, KENNETH Negative Normal Negative [facility] Comment on above: Result Comment: Perf ormed at: =G - [facility] [address] [place] [id number] Office Clin Asst: Brianne Shabazz MD, Phone: [phone] Performed By: #### V AGINITIS+ #### [facility] , Tric Vag KENNETH Negative Normal Negative [facility] Comment on above: Performed By: #### V AGINITIS+ #### [facility] , XR ANKLE LT MIN 3 Von 2019 XR ANKLE LT MIN 3 V PROCEDURE: XR ANKLE LT MIN 3 V HISTORY: Pain of left ankle joint ; follow-up left ankle fracture COMPARISON: 12/27/2019 left ankle radiographs FINDINGS: BONES:Nondisplaced oblique fracture of the distal fibula extending cephalad from the level of the ankle joint. Intact ankle mortise without cortical irregularity. SOFT TISSUES:Mild soft tissue swelling. EFFUSION:None visible. OTHER: Negative. IMPRESSION: 1. Stable, nondisplaced distal fibular fracture with mild callus formation consistent with early bone healing. Electronically authenticated by: TIESHA CASTILLO Date: 2020-01-30 14:39 Normal [facility] XR ANKLE LT MIN 3 Von 2019 XR ANKLE LT MIN 3 V PROCEDURE: XR ANKLE LT MIN 3 V COMPARISON: 11/29/2019 HISTORY: Pain of left ankle joint FINDINGS: BONES:Again observed is a spiral fracture of the distal fibula with distraction up to 2 mm. Increase lytic changes with minimal periosteal reaction. No dislocation. SOFT TISSUES:Negative. No visible soft tissue swelling. EFFUSION:Ankle joint effusion seen on the lateral projection OTHER: Negative. IMPRESSION: Spiral fracture distal fibula with minimal interval healing and slight increase in distraction Electronically authenticated by: YAKOV DAWSON Date: 2019-12-27 09:54 Normal [facility] XR ANKLE LT MIN 3 Von 2019 XR ANKLE LT MIN 3 V PROCEDURE: XR FOOT LT MIN 3 VIEWS, XR ANKLE LT MIN 3 V HISTORY: Pain in left foot ; follow-up fracture of distal fibula, lateral foot pain after falling COMPARISON: 11/28/2019 left tib-fib radiographs FINDINGS: BONES:Nondisplaced spiral fracture of the distal fibula at the level of the ankle joint. Unremarkable tibia and talus. Normal appearance of the bones the foot. SOFT TISSUES:Prominent lateral soft tissue swelling at the level of the ankle. EFFUSION:None visible. OTHER: Negative. IMPRESSION: 1. Stable, nondisplaced spiral fracture of the distal fibula. 2. No acute bone abnormality of the foot. Electronically authenticated by: TIESHA CASTILLO Date: 2019-11-29 13:43 Normal [facility] XR FOOT RT MIN 3 VIEWSon XR FOOT RT MIN 3 VIEWS EXAM: Right foot HISTORY: Pain after a fall. TECHNIQUE: 3 views of the right foot were obtained. FINDINGS: There is no evidence of fracture or dislocation. There are no suspicious bone lesions. Soft tissues are normal. IMPRESSION: Unremarkable exam. Electronically authenticated by: JUDE MCDANIEL Date: 2019-11-28 16:48 Normal [facility] XR TIB_FIB LT 2Von 0 XR TIB_FIB LT 2V EXAM: Left tibia and fibula HISTORY: Pain after a fall. TECHNIQUE: 4 views of the left tibia and fibula were obtained. FINDINGS: There is a nondisplaced spiral fracture of the distal fibula. No other fractures are seen. There are no suspicious bone lesions. There is mild soft tissue swelling over the lateral malleolus. IMPRESSION: Nondisplaced spiral fracture of the distal fibula with mild overlying soft tissue swelling. Electronically authenticated by: JUDE MCDANIEL Date: 2019-11-28 16:47 Normal [facility] Vital Signs Date Time Vital Sign Value Performing Clinician Facility 06-16-2023 13:06-0500 Body temperature 98.6 [degF] [facility] 06-16-2023 13:06-0500 Body weight 63.5 kg [facility] 06-16-2023 13:06-0500 Diastolic blood pressure 76 mm[Hg] [facility] 06-16-2023 13:06-0500 Heart rate 87 /min [facility] 06-16-2023 13:06-0500 Respiratory rate 18 /min [facility] 06-16-2023 13:06-0500 SaO2% (BldA) [Mass fraction] 98 % [facility] 06-16-2023 13:06-0500 Systolic blood pressure 119 mm[Hg] [facility] 12-19-2022 11:25-0400 Body height 160.02 cm Inessa Lewis Other [facility] [employer] Other 12-19-2022 11:25-0400 Body mass index (BMI) [Ratio] 24.3 kg/m2 Inessa Lewis Other [employer] Other 12-19-2022 11:25-0400 Body temperature 98.7 [degF] Inessa Lewis Other [employer] Other 12-19-2022 11:25-0400 Body weight 62.23 kg Inessa Lewis Other [employer] Other 12-19-2022 11:25-0400 Diastolic blood pressure 66 mm[Hg] Inessa Lewis Other [employer] Other 12-19-2022 11:25-0400 Respiratory rate 18 /min Inessa Lewis Other [employer] Other 12-19-2022 11:25-0400 SaO2% (BldA) [Mass fraction] 99 % Inessa Lewis Other [employer] Other 12-19-2022 11:25-0400 Systolic blood pressure 104 mm[Hg] Inessa Lewis Other [employer] Other 08-15-2021 11:45-0400 Body height 160.02 cm Janny Gonzalez Other [employer] Other 08-15-2021 11:45-0400 Body mass index (BMI) [Ratio] 22.32 kg/m2 Janny Gonzalez Other [employer] Other 08-15-2021 11:45-0400 Body temperature 97.9 [degF] Janny Gonzalez Other [employer] Other 08-15-2021 11:45-0400 Body weight 57.15 kg Janny Gonzalez Other [employer] Other 08-15-2021 11:45-0400 Diastolic blood pressure 71 mm[Hg] Janny Gonzalez Other [employer] Other 08-15-2021 11:45-0400 Respiratory rate 18 /min Janny Gonzalez Other [employer] Other 08-15-2021 11:45-0400 SaO2% (BldA) [Mass fraction] 100 % Janny Gonzalez Other [employer] Other 08-15-2021 11:45-0400 Systolic blood pressure 123 mm[Hg] Janny Gonzalez Other [employer] Other Encounters Encounter Date Encounter Type Care Provider Facility Start: 02-07-2024 End: 02-07-2024 ambulatory ROSALINO THOMAS Not Available Start: 01-20-2024 End: 01-20-2024 ambulatory SURYA GARCIA Not Available Start: 01-06-2024 End: 01-06-2024 ambulatory ROSALINO THOMAS Not Available Start: 01-02-2024 End: 01-02-2024 ambulatory YOLANDE RILEY [facility] Start: 01-02-2024 End: 01-02-2024 Emergency department patient visit [facility] Start: 12-23-2023 End: 12-23-2023 ambulatory SURYA GARCIA Not Available Start: 12-02-2023 End: 12-02-2023 ambulatory ROSALINO THOMAS Not Available Start: 11-30-2023 End: 11-30-2023 ambulatory SONYA [facility] Start: 11-04-2023 End: 11-04-2023 ambulatory [facility] Start: 10-06-2023 End: 10-06-2023 ambulatory DANDY [facility] Start: 10-05-2023 End: 10-05-2023 Emergency department patient visit [facility] Start: 09-29-2023 End: 09-29-2023 ambulatory [facility] Start: 09-22-2023 End: 09-22-2023 ambulatory [facility] Start: 09-21-2023 End: 09-22-2023 ambulatory [facility] Start: 09-21-2023 End: 09-21-2023 ambulatory [facility] Start: 09-21-2023 Encounter for gynecological examination (general) (routine) without abnormal findings [facility] Start: 09-21-2023 End: 09-21-2023 ambulatory SONAM Andre [facility] Start: 09-21-2023 Encounter for gynecological examination (general) (routine) without abnormal findings [facility] Start: 09-17-2023 End: 09-17-2023 ambulatory [facility] Start: 08-13-2023 End: 08-13-2023 ambulatory SONAM [facility] Start: 06-16-2023 End: 06-16-2023 ambulatory [facility] Work Phone: Start: 06-16-2023 End: 06-16-2023 Patient encounter procedure [facility] Physician [facility] [place] Work Phone: Start: 12-19-2022 Office outpatient vi sit 15 minutes Inessa Lewis [facility] [place] Start: 12-19-2022 End: 12-19-2022 ambulatory Inessa Andre Debbie [facility] [employer] Other Start: 12-19-2022 End: 12-19-2022 Departed Referred DIRECTOR OF PROMOTIONS Inessa Lewis Work Phone: [facility] [place] Work Phone: Start: 08-19-2021 End: 08-19-2021 ambulatory Janny Gonzalez Other [employer] Other Start: 08-19-2021 Telephone encounter Janny Gonzalez [facility] [address] Start: 08-15-2021 End: 08-15-2021 ambulatory Janny Gonzalez Other [employer] Other Start: 08-15-2021 Office outpatient ne w 20 minutes Janny Gonzalez [facility] [place] Start: 02-27-2020 Patient encounter procedure [facility] Facility:[facility]1 Start: 01-30-2020 End: 01-31-2020 Patient encounter procedure [facility] Facility:[facility] Start: 01-16-2020 End: 01-16-2020 Patient encounter procedure CATHRYN BARNES Facility:[facility]1 Start: 12-27-2019 End: 12-28-2019 Patient encounter procedure [facility] Facility:[facility]1 Start: 11-29-2019 End: 11-30-2019 Patient encounter procedure [facility] Facility:[facility] Start: 11-28-2019 End: 11-28-2019 Patient encounter procedure [facility] Facility:[facility] Plan of Treatment Date Care Activity Detail Author Start: 12-19-2022 [facility] Atopobium vaginae DN A [Presence] in Vaginal fluid by KENNETH with probe detection [facility] Bacterial vaginosis associated bacterium 2 DNA [Presence] in Vaginal fluid by KENNETH with probe detection [facility] Megasphaera sp type 1 DNA [Presence] in Vaginal fluid by KENNETH with probe detection [facility] Payers Date Payer Category Payer Self-pay [id number] 2022 Medicaid [id number] 2. [id number] 2019 Unknown [id number] 1997 Unknown [id number] 2.16.84 0.1.749886.3.579.2.593 1997 Unknown [id number] 2.16.84 0.1.704559.3.579.2.593 1997 Unknown [id number] 2.16.84 0.1.236111.3.579.2.593 1997 Unknown [id number] 2.16.84 0.1.073842.3.579.2.593 1997 Unknown [id number] 2.16.84 0.1.366440.3.579.2.593 1997 Unknown [id number] 2.16.84 0.1.309525.3.579.2.593 1997 Unknown [id number] 2.16.8 40.1.774109.3.579.2.1286 1997 Unknown [id number] 2.16.8 40.1.504125.3.579.2.128 1997 Unknown [id number] 2.16.8 40.1.350024.3.579.2.128 1997 Unknown [id number] 2.16.8 40.1.899362.3.579.2.128 1997 Unknown [id number] 2.16.8 40.1.547211.3.579.2.1285 1997 Unknown [id number] 2.16.8 40.1.831972.3.579.2.1285 1997 Unknown [id number] 2.16.8 40.1.608809.3.579.2.1285 1997 Unknown [id number] 2.16.8 40.1.828772.3.579.2.1285 1997 Unknown [id number] 2.16.8 40.1.030542.3.579.2.1285 1997 Unknown [id number] 2.16.8 40.1.037755.3.579.2.1285 1997 Unknown [id number] 2.16.8 40.1.049949.3.579.2.1285 1997 Unknown [id number] 2.16.8 40.1.371458.3.579.2.1285 1997 Unknown [id number] 2.16.8 40.1.281616.3.579.2.1285 1997 Unknown [id number] 2.16.8 40.1.125829.3.579.2.1285 1997 Unknown [id number] 2.16.8 40.1.307967.3.579.2.1285 1997 Unknown [id number] 2.16.84 0.1.359512.3.579.2.1258 1997 Unknown [id number] 2.16.84 0.1.764885.3.579.2.1258 1997 Unknown [id number] 2.16.84 0.1.966620.3.579.2.1258 1997 Unknown [id number] 2.16.84 0.1.398241.3.579.2.1258 1997 Unknown [id number] 2.16.84 0.1.769484.3.579.2.1258 1959 Unknown [id number] Unknown [id number] 2.1 6.840.1.829220.19 Unknown [id number] 2.16.8 40.1.689853.3.579.2.531 Social History Date Type Detail Facility Unknown if ever smoked [employer] Other Sex Assigned At Sex Assigned At Bir th [employer] Other Start: 1995 Sex Assigned At Female F [facility] Start: 06-16-2023 Tobacco smoking status NHIS Never smoked tobacco (finding) [facility] Evaluation note 12-19-2022 Note Date & Type Note Facility 12-19-2022 Evaluation note Encounter Date Diagnosis Assessment Notes Nov, Vaginal irritation (ICD-10 - N89.8) Patient has no new concerns for STD exposure. However he is agreeable to chlamydia, gonorrhea, trichomonas testing. Self vaginal swab was done for STD testing as well as BV, yeast. Discussed for now we will treat with Flagyl and Diflucan to cover for yeast and BV based on symptoms. Discussed no alcohol use while on Flagyl or will cause vomiting. We will call with results of testing in 4-6 days. FU with PCP or [facility] in not improving over next 5-7 days. [employer] Other Evaluation note 08-15-2021 Note Date & Type Note Facility 08-15-2021 Evaluation note Encounter Date Diagnosis Assessment Notes Jul, Vaginal discharge (ICD-10 - N89.8) Vag + performed in office today. Will treat prophylactically for yeast based on physical exam and symptoms. Specimen was sent to lab and patient will be notified of results. Tx plan may be altered at time of results. Patient to follow with PCP or [employer] as needed for persistent or worsening symptoms. Immediate eval if abdominal pain, fever, chills, body aches, back/flank pain, nausea, urinary complaints. Patient may use OTC external yeast infection creams for external irritation, do not insert creams or meds as Diflucan rx will treat. Avoid scratching and douching. Patient verbalizes understanding and is agreeable to treatment plan [employer] Other Evaluation note Note Date & Type Note Facility Evaluation note No Information [facility] [employer] Other Evaluation note Note Date & Type Note Facility Evaluation note No assessment information availyeison ndiaye [facility] Work Phone: Evaluation note Note Date & Type Note Facility Evaluation note Diagnosis Onset Date Pre-employment examination [employer] [facility] Work Phone: History general Narrative - Reported Note Date & Type Note Facility History general Narrative - Reported Type Surgical History wisdom teeth Hospitalization History Fall Pneumothorax 2021 [employer] Other History general Narrative - Reported Note Date & Type Note Facility History general Narrative - Reported Type Surgical History wisdom teeth Surgical History 1 Hospitalization History Fall Pneumothorax 2021 Hospitalization History 2016 [employer] Other Summary Purpose Family History No Family History Records FoundNo Family History Records FoundNo Family History Records FoundNo Family History Records FoundNo Family History Records FoundNo Family History Records Found Advance Directives No Advanced Directives Records Found Advance Directive Response Recorded Date/ Time Advance Directives No December 4:26pm Advance Directive Response Recorded Date/ Time Advance Directives No December 3:26pm Chief Complaint and Reason for Visit Chief Complaint physical Reason for Visit Pre-employment exami [place] Additional Source Comments INFORMATION SOURCE (unrecogn ized section and content) DATE CREATED AUTHOR 02/19/2020 [facility] DATE CREATED AUTHOR AUTHOR'S ORGANIZ ATION 01/06/2023 [facility] DATE CREATED AUTHOR AUTHOR'S ORGANIZ ATION 09/22/2023 [facility] DATE CREATED AUTHOR AUTHOR'S ORGANIZ ATION 11/10/2023 [facility] DATE CREATED AUTHOR AUTHOR'S ORGANIZ ATION 01/03/2024 [facility] DATE CREATED AUTHOR AUTHOR'S ORGANIZ ATION 02/08/2024 [facility] EPIC REASON FOR VISIT (unrecogniz ed section and content) POSS BVPOSS YEAST INFECTION Care Teams (unrecognized sec tion and content) Team Status: Inactive Member Role Status Dates Inessa Lewis APRN Attending Provider Active Team Status: Active Member Role Status Dates Romi Rider APRN STEWARD/STEWARDESS-C Primary Care Provider Active Team Status: Inactive Member Role Status Dates Romi Rider APRN STEWARD/STEWARDESS-C Primary Care Provider Active Start: June 162023 End: June 16, 2023 NUVIA Godoy Attending Provider Active S tart: June 16, 2023 End: June 16, 2023 Goals (unrecognized section and content) Goals may be documented in a n alternate section FOR RECORDS PERTAINING TO PATIENTS WHO ARE OR HAVE BEEN ENROLLED IN A CHEMICAL DEPENDENCY/SUBSTANCEABUSE PROGRAM, SOME INFORMATION MAY BE OMITTED. This clinical summary was aggregated from multiple sources. Caution should be exercised in using it in the provision of clinical care. This summary normalizes information from multiple sources, and as a consequence, information in this document may materially change the coding, format and clinical context of patient data. In addition, data may be omitted in some cases. CLINICAL DECISIONS SHOULD BE BASED ON THE PRIMARY CLINICAL RECORDS. [facility]. provides no warranty or guarantee of the accuracy or completeness of information in this document.
--- NOTE | 2024-02-09 16:03 | US_ITS ---
[address] [address] Patient Name: MELE HAAS MRN: [id number] date: 1995 Sex: F Assigned Patient [facility]: [facility] Current Patient Location: Accession/Order Number: [id number] Exam Date: 02/09/2024 16:07 Report Date: 02/10/2024 07:19 At the request of: SURYA GARCIA Procedure: US OB BPP w non-stress EXAMINATION: US OB BPP w non-stress HISTORY: CONTRACTIONS O47.00 COMPARISON: No relevant comparison available. TECHNIQUE: Ultrasound biophysical profile was performed in the radiology department. non-reactive stress testing was performed by nursing staff in the birthing center. FINDINGS: BREATHING MOVEMENTS: 0 GROSS BODY MOVEMENTS: 2 TONE: 2 QUALITATIVE AMNIOTIC FLUID VOLUME: 2 PRESENTATION: CEPHALIC HEART RATE: 149.17 bpm AMNIOTIC FLUID VOLUME: 12.2 cm GESTATIONAL AGE: 35 weeks 3 days US/US OB BPP w non-stress IMPRESSION: Total biophysical profile score: 6 Electronically authenticated by: YAKOV DAWSON Date: 02/10/2024 07:19
[2024-02-09 16:56] VITALS: BP 126/71; PULSE 82
== END 2024-02-09 17:34 | disposition home or self-care (01) ==
LOC: US 07:01 → FBC 15:59
PROVIDERS: Visit Provider Obstetrics & Gynecology
DX: O47.00 False labor before 37 completed weeks of gestation, unspecified trimester (principal); Z3A.35 35 weeks gestation of pregnancy
CPT/HCPCS: 76818

== ENCOUNTER 2024-02-12 07:26 | Outpatient (OUT) | payer MEDICAID, SELFPAY ==
--- OUTSIDE RECORDS SUMMARY | 2024-02-12 07:28 | XMS_ITS | CCD ---
Author Organization [facility] CliniSyct Care Team Providers Care Cold Roll Catcher Name Role Phone MISC, DOCTOR Primary Care Unavailable LISHA SAENZ Admitting Unavailable LISHA SAENZ Attending Unavailable JUAN PABLO CANELA Consulting Unavailable LISHA SAENZ Consulting Unavailable Jude Mcdaniel Consulting Unavailable HIGHLANDER, HELENA Admitting Unavailable HIGHLANDER, HELENA Attending Unavailable TIESHA CASTILLO Consulting Unavailable HIGHLANDER, HELENA Consulting Unavailable HIGHLANDER, HELENA Admitting Unavailable HIGHLANDER, HELENA Attending Unavailable YAKOV DAWSON V Consulting Unavailable PAZANDER, HELENA Consulting Unavailable CATHRYN BARNES Admitting Unavailable CATHRYN BARNES Attending Unavailable MISJoan, DOCTOR Primary Care Unavailable CATHRYN BARNES Consulting Unavailable HIGHLANDER, HELENA Admitting Unavailable HIGHLANDER, HELENA Attending Unavailable TIESHA CASTILLO Consulting Unavailable HIGHLANDER, HELENA Consulting Unavailable HIGHLANDER, HELENA Admitting Unavailable HIGHLANDER, HELENA Attending Unavailable Janny Gonzalez Unavailable Inessa Lewis Unavailable NIURKA Lewis Attending Provider Inessa Lewis Attending Unavailable Inessa Lewis Admitting Unavailable SONAM TENORIO Referring Unavailable LIZZETTE, ROMI A Primary Care Unavailable SONAM TENORIO Attending Unavailable LIZZETTE, ROMI A Referring Unavailable [...] LIZZETTE, ROMI A Primary Care Unavailable SONAM JO Attending Unavailable SONAM JO Referring Unavailable LIZZETTE, ROMI A Primary Care Unavailable LIZZETTE, ROMI A Referring Unavailable LIZZETTE, ROMI A Primary Care Unavailable SONAM JO Referring Unavailable LIZZETTE, ROMI A Primary Care Unavailable LIZZETTE, ROMI A Primary Care Unavailable JEANNE SMART Attending Unavailable MALINDA PATE Admitting Unavailable MALINDA PATE Attending Unavailable LIZZETTE, ROMI A Primary Care Unavailable LIZZETTE, ROMI A Primary Care Unavailable OSVALDO, TIBERIU S Admitting Unavailable OSVALDO, TIBERIU S Attending Unavailable LIZZETTE, ROMI A Primary Care Unavailable JENNA THOMAS Attending Unavailable SURYA HAQ Attending Unavailable JENNA THOMAS Attending Unavailable SURYA HAQ Attending Unavailable JENNA THOMAS Attending Unavailable Unavailable Primary Care Provider Unavailabl e Medications Current Medications Medication Drug Class(es) Dates Sig (Normalized) Sig (Original) citalopram 20 mg oral tablet (3 sources) Serotonin Reuptake Inhibitor Start: 12-02-2023 End: 12-01-2024 take 1 tablet by mouth once daily citalopram (CeleXA) 20 MG tablet Indications: Anxiety, generalized (CMS/HCC) Take 1 tablet (20 mg) by mouth Daily 30 tablet 11 12/02/2023 02/07/2024 Discontinued (Other) diphenhydrAMINE hydrochloride 50 mg oral capsule (6 sources) Histamine-1 Receptor Antagonist Start: 12-23-2023 diphenhydrAMINE (Unisom) 50 MG capsule Indications: Other insomnia Take 1 capsule (50 mg) by mouth as needed at bedtime for sleep 30 capsule 1 12/23/2023 Active Start: 12-09-2023 End: 04-07-2024 diphenhydrAMINE (Benadryl Al lergy) 25 MG capsule Indications: Poor sleep Take 1 capsule (25 mg) by mouth as needed at bedtime for itching, allergies or sleep 30 capsule 3 12/09/2023 04/07/2024 Active fluconazole 150 mg oral tablet (3 sources) Azole Antifungal Start: 12-19-2022 take 1 tablet by mouth once Fluconazole 150 MG 1 tablet Orally once for 1 days Nov, Active Start: 08-15-2021 Fluconazole 15 0 MG 1 tablet Orally once, repeat dose in 72 hours if needed for 1 day Jul, Active Magnesium (3 sources) Start: 12-09-2023 End: 03-08-2024 take 1 tablet by mouth once daily magnesium 200 MG tablet Indications: Nonintractable headache, unspecified chronicity pattern, unspecified headache type Take 1 tablet (200 mg) by mouth Daily 90 tablet 12/09/2023 03/08/2024 Active metroNIDAZOLE 500 mg oral tablet (2 sources) Nitroimidazole Antimicrobial Start: 12-19-2022 take 1 tablet by mouth every twelve hours metroNIDAZOLE 500 MG 1 tablet Orally Twice a day for 7 days Nov, Active Start: 08-19-2021 take 1 tablet by neal th every twelve hours metroNIDAZOLE 500 MG 1 tablet Orally Twice a day for 7 day(s) Jul, Active omeprazole 20 mg delayed release oral capsule (3 sources) Proton Pump Inhibitor Start: 12-02-2023 End: 12-01-2024 take 1 capsule by mouth before mealtime omeprazole (PriLOSEC) [address] capsule Indications: Heartburn during , antepartum Take 1 capsule (20 mg) by mouth in the morning. Take before meals. Do not crush or chew.. 30 capsule 11 12/02/2023 12/01/2024 Active ondansetron 4 mg disintegrating oral tablet (3 sources) Serotonin-3 Receptor Antagonist Start: 09-21-2023 take 1 tablet by mouth every eight hours as needed ondansetron ODT (Zofran-ODT) 4 MG disintegrating tablet Take 4 mg by mouth every 8 (eight) hours if needed 09/21/2023 Active Prenat w/o J-DaFra-Dpgo-FA-DHA (TriStart DHA) 31-0.6-0.4-200 MG capsule (3 sources) Start: 08-13-2023 take 1 capsule by mouth in the morning Prenat w/o L-ChRvn-Poer-FA-DHA (TriStart DHA) 31-0.6-0.4-200 MG capsule Take 1 capsule by mouth in the morning. 08/13/2023 Active Vit-Fe Fumarate-FA (WesTab Plus) 27-1 MG tablet (3 sources) Start: 08-26-2023 take 1 tablet by mouth in the morning Vit-Fe Fumarate-FA (WesTab Plus) 27-1 MG tablet Take 1 tablet by mouth in the morning. 08/26/2023 Active Completed/Discontinued Medications Medication Drug Class(es) Dates Sig (Normalized) Sig (Original) lidocaine hydrochloride 20 mg/ml mucous membrane topical solution (2 sources) Antiarrhythmic, Amide Local Anesthetic Start: 01-14-2018 take 10 mL by mouth every three hours Lidocaine Viscous 2 % 10 ml swish in mouth, gargle, and spit. DO NOT swallow every 3 hrs for 2 days Dec, Not-Taking Problems Problem Classification Problem Date Documented Date Episodic/Chronic Abdominal pain (1 source) Abdominal pain Onset: 11-30-2023 Episodic Administrative/social admission (2 sources) Patient encounter status; Translations: [Encounter for pre-employment examination] 06-16-2023 Episodic Disorders of teeth and jaw (3 sources) Other specified disorders of teeth and supporting structures; Translations: [Toothache] Onset: 10-05-2023 Episodic Early or threatened labor (2 sources) Premature uterine contraction; Translations: [False labor before 37 completed weeks of gestation, unspecified trimester] 02-07-2024 Episodic External cause codes: Fall (2 sources) Fall (on) (from) unspecified stairs and steps, initial encounter; Translations: [Fall] Onset: 12-20-2019 Fracture of lower limb (1 source) Other fracture of upper and lower end of left fibula, initial encounter for closed fracture; Translations: [OTH FX UP LOW LT FIB INIT CLOS FX] Onset: 12-20-2019 Episodic Headache; including migraine (2 sources) Headache; Translations: [Nonintractable headache, unspecified chronicity pattern, unspecified headache type] 02-07-2024 Episodic Immunizations and screening for infectious disease [...] of , unspecified] Onset: 09-21-2023 Episodic Other complications of (2 sources) size does not accord with dates; Translations: [Uterine size-date discrepancy, unspecified trimester] 02-07-2024 Episodic Other connective tissue disease (1 source) [...] disorders of vagina] Onset: 12-19-2022 Episodic Other infections; including parasitic (2 sources) History of syphilis; Translations: [Personal history of other infectious and parasitic diseases] 02-07-2024 Episodic Other injuries and conditions due to [...] [PAIN IN LEFT KNEE] Onset: 11-28-2019 Episodic Other and delivery including normal (6 sources) Encounter for test, result positive; Translations: [Encounter for supervision of normal , unspecified, second trimester] Onset: 08-13-2023 02-07-2024 Episodic Previous (1 source) Maternal care for [...] Unclassified (1 source) Initial Visit Onset: 09-21-2023 Results Test Name Value Interpretation Reference Range Facility Urinalysis macro (dipstick) panel (U)on 02-07-2024 Bilirubin, UA Negative Negative - 4(70) +++ mg/dL [facility] Blood, UA Negative Negative - 50 Eriberto/mcL [facility] Clarity, UA Clear [facility] Color, UA Yellow [facility] Glucose, UA Negative Negative - 1999(110) ++++ mg/dL [facility] Interpretation and review of laboratory results Abnormal [facility] Ketones, UA Negative Negative - 160(16) ++++ mg/dL [facility] Leukocytes, UA Negative Negative - 500+++ Pk/mcL [facility] Nitrite, UA Negative Negative - Positive [facility] pH, UA 5.5 5 - 9 [facility] Protein, UA Negative Negative - 1999(20) ++++ mg/dL [facility] Spec Grav, UA 1.025 1 - 1.03 [facility] care Urobilinogen, UA 1.0 0.2 - 12 mg/dL [facility] URINALYSISon 11-30-2023 Bilirubin Ql (U) Negative Normal NEG [facility] Comment on above: Performed By: #### C BC, 10311-4, AHP, 58214-6, 98753-6, 19468- 4, 36289-7 #### [facility] ([id number]) [address] [place] [address], [address] [place] [address] #### 09508-8, 02920-4 #### [facility] ([id number]) [address] [place] [address] BLOOD/HGB Negative Normal NEG [facility] Comment on above: Performed By: #### Joan SUAREZ, 67908-4, AHP, 52047-4, 08508-6, 33753- 4, 07311-2 #### [facility] ([id number]) [address], [address] [place] [address] #### 22577-2, 04385-1 #### [facility] ([id number]) [address] [place] [address] Color (U) YELLOW Normal YELLOW [facility] Comment on above: Performed By: #### Joan SUAREZ, 05578-5, AHP, 37209-6, 57122-4, 16286- 4, 49291-2 #### [facility] ([id number]) [address], [address] [place] [address] #### 03470-4, 49875-6 #### [facility] ([id number]) [address] [place] [address] Glucose Ql (U) Negative Normal NEG [facility] Comment on above: Performed By: #### Joan SUAREZ, 91496-6, AHP, 70953-8, 44471-9, 81728- 4, 32769-2 #### [facility] ([id number]) [address], [address] [place] [address] #### 65609-7, 90712-3 #### [facility] ([id number]) [address] [place] [address]68 Ketones Ql (U) Negative Normal NEG [facility] Comment on above: Performed By: #### Joan SUAREZ, 08683-7, AHP, 33689-4, 18351-2, 82310- 4, 42670-4 #### [facility] ([id number]) [address], [address] [place] [address] #### 38233-4, 05753-5 #### [facility] ([id number]) [address] [place] [address]8110 Leukocyte esterase Test strip Ql (U) Negative Normal NEG [facility] Comment on above: Performed By: #### Joan SUAREZ, 64216-2, AHP, 58976-2, 09230-8, 20870- 4, 71684-7 #### [facility] ([id number]) [address], [address] [place] [address] #### 29738-8, 14134-1 #### [facility] ([id number]) [address] [place] [address] Nitrite Ql (U) Negative Normal NEG [facility] Comment on above: Performed By: #### Joan SUAREZ, 36974-4, AHP, 84564-0, 15311-1, 87313- 4, 68230-9 #### [facility] ([id number]) [address], [address] [place] [address] #### 39792-8, 27198-7 #### [facility] ([id number]) [address] [place] [address] 99167 pH (U) 7.0 [pH] Normal 5.0-8.5 [facility] Comment on above: Performed By: #### Joan SUAREZ, 00754-3, AHP, 09642-4, 62306-9, 61857- 4, 39718-0 #### [facility] ([id number]) [address], [address] [place] [address] #### 14506-9, 72036-0 #### [facility] ([id number]) [address] [place] [address] 94774 Protein Ql (U) Negative Normal NEG [facility] Comment on above: Performed By: #### Joan SUAREZ, 06912-5, AHP, 27322-5, 87600-0, 20166- 4, 94665-0 #### [facility] ([id number]) [address], [address] [place] [address] #### 11284-6, 84449-5 #### [facility] ([id number]) [address] [place] [address]91 Specific gravity (U) [Rel density] 1.025 Normal 1.003-1.035 [facility] Comment on above: Performed By: #### C ERICK, 63091-1, AHP, 25600-0, 30689-9, 48893- 4, 44293-0 #### [facility] ([id number]) [address], [address] [place] [address] #### 86592-5, 14985-6 #### [facility] ([id number]) [address] [place] [address] TURBIDITY CLEAR Normal CLEAR [facility] Comment on above: Performed By: #### Joan SUAREZ, 51252-7, AHP, 91849-8, 70849-2, 52649- 4, 27604-0 #### [facility] ([id number]) [address], [address] [place] [address] #### 78380-4, 85103-4 #### [facility] ([id number]) [address] [place] [address]661 Urobilinogen Qn (U) 0.2 {Saleem'U}/dL Normal <1.1 [facility] Comment on above: Performed By: #### Joan SUAREZ, 65761-2, AHP, 64756-0, 02044-0, 02399- 4, 96067-0 #### [facility] ([id number]) [address], [address] [place] [address] #### 82390-5, 47385-1 #### [facility] ([id number]) [address] [place] [address] CHLAMYDIA/GC PCR, FLon 09-20 CHLAMYDIA/GC PCR, FL [...] are dependent on adequate specimen collection. Normal [facility] Comment on above: Performed By: #### C BC, 09954-3, P, 75358-4, 28356-9, 54235- 4, 50471-6 #### [facility] ([id number]) [address], [address] [place] [address] #### 06987-5, 68567-2 #### [facility] ([id number]) [address] [place] [address] 22394 DRUG SCREEN, URINEon 024 AMPHETAMINE/METHAMP Negative Normal NEG [facility] Comment on above: Result Comment: AMPH /METH screening cut off = 1000 ng/mL Performed By: #### D DOWNING #### [facility] ([id number]) [address], [address] [place] [address] BARBITURATES Negative Normal NEG Comment on above: Result Comment: Venita iturates screening cut off value = 200 ng/mL Performed By: #### D DOWNING #### [facility] ([id number]) [address], [address] [place] [address] BENZODIAZEPINES Negative Normal NEG Comment on above: Result Comment: Ander odiazepines screening cut off value = 200 ng/mL Performed By: #### D DOWNING #### [facility] ([id number]) [address], [address] [place] [address] CANNABINOIDS Positive Abnormal NEG Comment on above: Result Comment: Conf irmation available upon request. Cannabinoids/THC screening cut off value = 50 ng/mL Performed By: #### D DOWNING #### [facility] ([id number]) [address], [address] [place] [address] COCAINE METABOLITE Negative Normal NEG [facility] Comment on above: Result Comment: Coca ine screening cut off value = 300 ng/mL Performed By: #### D DOWNING #### [facility] ([id number]) [address], [address] [place] [address] ECSTASY Negative Normal NEG Comment on above: Result Comment: Ecst asy screening cut off value = 500 ng/mL This report is intended for use in clinical monitoring or management of patients. Performed By: #### D DOWNING #### [facility] ([id number]) [address], [address] [place] [address] METHADONE Negative Normal NEG Comment on above: Result Comment: Meth adone screening cut off value = 300 ng/mL. Performed By: #### D DOWNING #### [facility] ([id number]) [address], [address] [place] [address] OPIATES Negative Normal NEG Comment on above: Result Comment: Opia monica screening cut off value = 300 ng/mL NOTE: This test is used for the detection of codeine, hydrocodone (>1000 ng/mL), morphine and hydromorphone (>900 ng/mL) in urine. Performed By: #### D DOWNING #### [facility] ([id number]) [address], [address] [place] [address] OXYCODONE Negative Normal NEG Comment on above: Result Comment: Oxyc odone screening cut off value = 300 ng/mL NOTE: This test is used for the detection of oxycodone and oxymorphone in urine. Performed By: #### D DOWNING #### [facility] ([id number]) [address] [place] [address], [address] [place] [address] PHENCYCLIDINE Negative Normal NEG Comment on above: Result Comment: Phen cyclidine screening cut off value = 25 ng/mL Performed By: #### D DOWNING #### [facility] ([id number]) [address] [place] [address], [address] [place] [address] URINALYSISon 09-21-2023 Bilirubin Ql (U) Negative Normal NEG [facility] Comment on above: Performed By: #### U A #### [facility] ([id number]) [address] [place] [address], [address] [place] [address] BLOOD/HGB Negative Normal NEG Comment on above: Performed By: #### U A #### [facility] ([id number]) [address] [place] [address], [address] [place] [address] Color (U) YELLOW Normal YELLOW Comment on above: Performed By: #### U A #### [facility] ([id number]) [address] [place] [address], [address] [place] [address] Glucose Ql (U) Negative Normal NEG Comment on above: Performed By: #### U A #### [facility] ([id number]) [address] [place] [address], [address] [place] [address] Ketones Ql (U) >150 Abnormal NEG Comment on above: Performed By: #### U A #### [facility] ([id number]) [address] [place] [address], [address] [place] [address] Leukocyte esterase Test strip Ql (U) Negative Normal NEG Comment on above: Performed By: #### U A #### [facility] ([id number]) [address] [place] [address], [address] [place] [address] Nitrite Ql (U) Negative Normal NEG Comment on above: Performed By: #### U A #### [facility] ([id number]) [address], [address] [place] [address] pH (U) 6.0 [pH] Normal 5.0-8.5 Comment on above: Performed By: #### U A #### [facility] ([id number]) [address], [address] [place] [address] Protein Ql (U) Negative Normal NEG Comment on above: Performed By: #### U A #### [facility] ([id number]) [address], [address] [place] [address] Specific gravity (U) [Rel density] 1.019 Normal 1.003-1.035 Comment on above: Performed By: #### U A #### [facility] ([id number]) [address] [facility] [address] [place] [address] TURBIDITY CLEAR Normal CLEAR Comment on above: Performed By: #### U A #### [facility] ([id number]) [address] [address] [place] [address] Urobilinogen (U) [Mass/Vol] mg/dL Normal <1.1 Comment on above: Performed By: #### U A #### [facility] ([id number]) [address] [address] [place] [address] URINE CULTUREon 09-21-2023 Bacteria identified Cx Nom (U) CULTURE RESULTS 10,000 to 50,000 ORGANISMS/mL ESCHERICHIA COLI <10,000 ORGANISMS/mL NORMAL URO GENITAL JACKIE Normal Comment on above: Performed By: #### 6 30-4 #### [facility] ([id number]) [address] [address] [place] [address] ACUTE HEPATITIS PANELon 08-25 ANTI HCV W/PCR REFLX Non-Reactive Normal NRCT [facility] Comment on above: Result Comment: If recent infection suspected, recommend repeat testing (>2 months). Mjyvxk-bj-uhfscs ratio is <0.80. Performed By: #### C BC, 26914-7, AHP, 35231-4, 05726-7, 42701-0, 66367-6 #### [facility] ([id number]) [address], [address] [place] [address] #### 38109-1, 27353-0 #### [facility] ([id number]) [address] [place] [address] HEPATITIS A IGM Non-Reactive Normal NRCT [facility] Comment on above: Performed By: #### C ERICK, 46434-5, AHP, 55897-1, 15045-8, 98421- 4, 28152-2 #### [facility] ([id number]) [address], [address] [place] [address] #### 85111-3, 69013-3 #### [facility] ([id number]) [address] [place] [address] HEPATITIS B CORE IGM Negative Normal NEG [facility] Comment on above: Performed By: #### Joan SUAREZ, 40719-4, AHP, 16288-8, 53301-4, 94528- 4, 43988-1 #### [facility] ([id number]) [address], [address] [place] [address] #### 47459-1, 29545-2 #### [facility] ([id number]) [address] [place] [address] HEPATITIS B SURF AG Negative Normal NEG [facility] Comment on above: Performed By: #### C BC, 84209-1, AHP, 90941-6, 55621-1, 68556- 4, 80482-9 #### [facility] ([id number]) [address] [facility] [address] [place] [address] #### 06006-1, 40539-7 #### [facility] ([id number]) [address] [place] [address] COMPLETE BLOOD COUNTon 09-16 Erythrocyte distribution width (RBC) [Ratio] 13.0 % Normal 11.5-15.0 [facility] Comment on above: Performed By: #### C BC, 10893-5, AHP, 50886-0, 05527-0, 93757- 4, 74428-2 #### [facility] ([id number]) [address] [address] #### 37334-9, 78525-3 #### [facility] ([id number]) [address] [place] [address] Hematocrit (Bld) [Volume fraction] 36.1 % Normal 35-47 [facility] Comment on above: Performed By: #### Joan BC, 19082-5, AHP, 68696-5, 21706-0, 18553- 4, 58064-2 #### [facility] ([id number]) [address] [address] #### 46464-7, 22514-0 #### [facility] ([id number]) [address] [place] [address] Hemoglobin (Bld) [Mass/Vol] 12.5 g/dL Normal 11.7-15.5 [facility] Comment on above: Performed By: #### Joan BC, 90592-3, AHP, 55261-3, 63339-7, 99223- 4, 35156-9 #### [facility] ([id number]) [address], [address] [place] [address] #### 86537-6, 43634-6 #### [facility] ([id number]) [address] [place] [address]2212 MCH (RBC) [Entitic mass] 32.0 pg Normal 27-34 [facility] Comment on above: Performed By: #### C BC, 01564-6, AHP, 26199-5, 33740-4, 38626- 4, 89559-4 #### [facility] ([id number]) [address], [address] [place] [address] #### 40838-2, 80381-8 #### [facility] ([id number]) [address] [place] [address]111 MCHC (RBC) [Mass/Vol] 34.6 g/dL Normal 32-36 [facility] Comment on above: Performed By: #### [place], 55626-9, AHP, 86485-9, 47767-8, 14157- 4, 22283-3 #### [facility] ([id number]) [address], [address] [place] [address] #### 73034-4, 31976-7 #### [facility] ([id number]) [address] [place] [address]73 MCV (RBC) [Entitic vol] 93 fL Normal 80-100 [facility] Comment on above: Performed By: #### C BC, 13000-8, AHP, 37547-5, 16560-8, 06205- 4, 18836-0 #### [facility] ([id number]) [address], [address] [place] [address] #### 71162-6, 47212-2 #### [facility] ([id number]) [address] [place] [address]90[address] Platelet mean volume (Bld) [Entitic vol] 8.7 fL Normal 7-12 [facility] Comment on above: Performed By: #### C ERICK, 85493-1, AHP, 10663-2, 89372-1, 86691- 4, 87659-8 #### [facility] ([id number]) [address], [address] [place] [address] #### 17440-6, 43054-7 #### [facility] ([id number]) [address] [place] [address] 22520 Platelets (Bld) [#/Vol] 300 10*3/uL Normal 150-450 [facility] Comment on above: Performed By: #### Joan SUAREZ, 54019-4, AHP, 85402-9, 29653-9, 32242- 4, 99703-9 #### [facility] ([id number]) [address], [address] [place] [address] #### 88282-2, 41808-5 #### [facility] ([id number]) [address] [place] [address] 80095 RBC COUNT 3.90 X10E12/L Normal 3.80-5.20 [facility] Comment on above: Performed By: #### Joan SUAREZ, 91841-7, AHP, 97773-5, 82756-3, 41469- 4, 40816-6 #### [facility] ([id number]) [address], [address] [place] [address] #### 26432-7, 96621-9 #### [facility] ([id number]) [address] [place] [address] 43517 WBC (Bld) [#/Vol] 9.7 10*3/uL Normal 4.0-11.0 [facility] Comment on above: Performed By: #### Joan SUAREZ, 71471-8, AHP, 68407-4, 73861-9, 98389- 4, 31591-5 #### [facility] ([id number]) [address], [address] [place] [address] #### 81399-2, 40236-1 #### [facility] ([id number]) [address] [place] [address] HCG.beta subunit IA 3rd IS Q non 09-17-2023 [place] [address] m[IU]/mL Normal P [facility] Comment on above: Result Comment: NEW REFERENCE [...] trophoblastic or nontrophoblastic neoplasms. Performed By: #### C , 85436-2, [facility], 83263-7, 33777-0, 21819-9, 13233-9 #### [facility] ([id number]) [address], [address] [place] [address] #### 96310-8, 09691-7 #### [facility] ([id number]) [address] [place] [address] HIV 1+2 Ab+HIV1 p24 Ag IA Ql on 09-17-2023 HIV 1 and 2 Ab/Ag Screen Non-Reactive Normal [facility] Comment on above: Result Comment: [...] results or diagnoses. Performed By: #### C BC, 06766-2, AHP, 46538-5, 28179-5, 29427-1, 74085-5 #### [facility] ([id number]) [address] [place] [address], [address] [place] [address] #### 30669-2, 70019-3 #### [facility] ([id number]) [address] [place] [address], [place] [address] Reagin Ab RPR (S) [Titer]on 09-17-2023 RPR TITER, SERUM SEE COMMENTS 09/21/2023 10:37 AM Abnormal [facility] Comment on above: Result Comment: NOTE Test Result Flag Unit RefValue RPR, Titer, S 1:1 A Negative Results consistent with untreated or recently treated syphilis. Clinical correlation required. For additional information on interpretation of the syphilis reverse algorithm and results, see: [email or web address] Test Performed by: [address] [address] Can Cleaner: Luke Downey M.D. Ph.D.; CLIA# [id number] Performed By: #### C BC, 86012-6, AHP, 83926-8, 56579-0, 00191-4, 88337-9 #### [facility] ([id number]) [address] [place] [address], [address] [place] [address] #### 44969-5, 84980-1 #### [facility] ([id number]) [address] [place] [address] Reagin Ab RPR Ql (S)on 09-16 RPR WITH REFLEX TO RTPPA Positive Abnormal Negative [facility] Comment on above: Result Comment: NOTE Specimen reflexed to determine RPR titer. For additional information on interpretation of the syphilis reverse algorithm and results, see: [email or web address] Test Performed by: [facility] [address] [place] [address] Can Cleaner: Luke Downey M.D. Ph.D.; CLIA# [id number] Performed By: #### Joan SUAREZ, 83724-8, AHP, 91871-3, 97774-3, 08898-3, 73335-8 #### [facility] ([id number]) [address] [place] [address], [address] [place] [address] #### 04801-2, 93607-6 #### [facility] ([id number]) [address] [place] [address] Rubella virus Ab Ql (S)on RUBELLA IMMUNE IgG 1.0 AI Normal [facility] Comment on above: Result Comment: Interpretation-------- <0.8 NEGATIVE-considered Not Immune 0.8-0.9 EQUIVOCAL-consider retesting with new specimen >0.9 POSITIVE-considered Immune Performed By: #### Joan SUAREZ, 26209-2, AHP, 05290-9, 53960-0, 43401-9, 68234-5 #### [facility] ([id number]) [address] [place] [address], [address] [place] [address] #### 97575-0, 13479-8 #### [facility] ([id number]) [address] [place] [address] T. pallidum IgG+IgM IA Ql (S )on 09-17-2023 Syphilis Total >8.0 High 0.0-0.8 [facility] Comment on above: Result Comment: REAC TIVE This specimen will be sent to a reference lab for additional testing which includes RPR with reflex to TP-PA if RPR is negative. The RPR will help distinguish between infections with T.pallidum (syphilis) versus a falsely reactive treponemal antibody result. Please see the syphilis testing algorithm link below for more information. [email or web address] Performed By: #### C BC, 50711-3, AHP, 74047-6, 84001-2, 07341-5, 53303-6 #### [facility] ([id number]) [address] [place] [address], [address] [place] [address] #### 43445-5, 36556-4 #### [facility] ([id number]) [address] [place] [address] US PREG TRANSABD FU PER FETU on 09-17-2023 US PREG TRANSABD FU PER FETU US PREG TRANSABD FU PER FETU US PREG TRANSABD FU PER FETU: 09/17/2023 8:25 AM Clinical: Check dates and viability. Real-time transabdominal sonography pelvis performed.. Transvaginal sonography pelvis performed for better evaluation of the pelvic organs. No comparison. There is a single live intrauterine . Longbranch-rump length of 8.8 cm corresponds to 14 [...] Frances MD on 09/17/2023 11:55 AM Normal [facility] VZV IgG IA Ql (S)on 09-17-19 VARICELLA IgG 3.1 AI High <0.9 [facility] Comment on above: Result Comment: Interpretation-------- <0.9 Negative 0.9 - 1.0 Equivocal >1.0 Positive Performed By: #### C , 71905-6, AHP, 47139-3, 29611-7, 38906-7, 05663-9 #### [facility] ([id number]) [address] [place] [address], [address] [place] [address] #### 66950-0, 67895-2 #### [facility] ([id number]) [address] [place] [address], [place] [address] Urinalysis - AUTOMATEDon Appearance (U) CLEAR [employer] Other Bilirubin Ql (U) Negative [employer] Other Color (U) YELLOW [facility] Other Glucose Ql (U) Negative [employer] Other Hemoglobin Ql (U) NEGTIVE [employer] Other Ketones Ql (U) Negative [employer] Other Leukocyte esterase Test strip Ql (U) Negative [facility] Other Nitrite Ql (U) Negative [employer] Other pH (U) 7.5 [pH] [facility] Other Protein Ql (U) Negative [employer] Other Specific gravity (U) [Rel density] 1.015 [facility] Other Urobilinogen (U) [Mass/Vol] 0.2 mg/dL [facility] Other Urinalysis - AUTOMATED [facility] Other Vaginitis Plus (VG+)on 12-19 Atop[employer] Vaginae High - 2 Critically abnormal . [facility] Comment on above: Performed By: #### V AGINITIS+ #### [facility] , BVAB2 High - 2 Critically abnormal . [facility] Comment on above: Performed By: #### V AGINITIS+ #### [facility] , Makenzie Albicans, KENNETH Negative Normal Negative [facility] Comment on above: Result Comment: This test was developed and its performance characteristics determined by [facility]. It has not been cleared or approved by the Food and Drug Administration. Performed By: #### V AGINITIS+ #### [facility] , Makenzie Glabrata, KENNETH Negative Normal Negative [facility] Comment on above: Result Comment: This test was developed and its performance characteristics determined by [facility]. It has not been cleared or approved by the Food and Drug Administration. PERFORMED BY: [address] [address] PATHOLOGIST POOL INSTALLER LEO PATEL M.D. Performed By: #### V AGINITIS+ #### [facility] , Chlamydia Trachomotis, KENNETH Positive Critically abnormal Negative [facility] Comment on above: Performed By: #### V AGINITIS+ #### [facility] , Megasphaera High - 2 Critically abnormal . [facility] Comment on above: Result Comment: Calc ulate [...] , Neisseria Gonorrhoeae, KENNETH Negative Normal Negative [facility] Comment on above: Result Comment: Perf ormed at: =G - [facility] [address] [id number] Can Cleaner: Brianne Shabazz MD, Phone: [phone] Performed By: #### V AGINITIS+ #### [facility] , Tric Vag KENNETH Negative Normal Negative [facility] Comment on above: Performed By: #### V [...] by: TIESHA CASTILLO Date: 2020-01-30 14:39 Normal [facility] XR ANKLE LT MIN 3 Von 2019 [...] YAKOV DAWSON Date: 2019-12-27 09:54 Normal [facility] XR ANKLE LT MIN 3 Von [...] TIESHA CASTILLO Date: 2019-11-29 13:43 Normal [facility] XR FOOT RT MIN 3 VIEWSon XR FOOT RT MIN 3 VIEWS EXAM: Right foot HISTORY: Pain after a fall. TECHNIQUE: 3 views of the right foot were obtained. FINDINGS: There is no evidence of fracture or dislocation. There are no suspicious bone lesions. Soft tissues are normal. IMPRESSION: Unremarkable exam. Electronically authenticated by: JUDE MCDANIEL Date: 2019-11-28 16:48 Normal [facility] XR TIB_FIB LT 2Von 0 XR [...] JUDE MCDANIEL Date: 2019-11-28 16:47 Normal [facility] Vital Signs Date Time Vital Sign Value Performing Clinician Facility 02-07-2024 10:03-0400 Body weight 82.01 kg Jenna TOBIAS Work Phone: [facility] 02-07-2024 10:03-0400 Diastolic blood pressure 70 mm[Hg] Jenna TOBIAS Work Phone: [facility] 02-07-2024 10:03-0400 Systolic blood pressure 114 mm[Hg] Jenna William JATINDER Work Phone: [facility] 06-16-2023 13:06-0500 Body temperature 98.6 [degF] [facility] 06-16-2023 13:06-0500 Body weight 63.5 kg [facility] 06-16-2023 13:06-0500 Diastolic blood pressure 76 mm[Hg] [facility] 06-16-2023 13:06-0500 Heart rate 87 /min [facility] 06-16-2023 13:06-0500 Respiratory rate 18 /min [facility] 06-16-2023 13:06-0500 SaO2% (BldA) [Mass fraction] 98 % [facility] 06-16-2023 13:06-0500 Systolic blood pressure 119 mm[Hg] [facility] 12-19-2022 11:25-0400 Body height 160.02 cm Inessa Lewis Other [employer] [facility] Other 12-19-2022 11:25-0400 Body mass index (BMI) [Ratio] 24.3 kg/m2 Inessa Lewis Other [facility] Other 12-19-2022 11:25-0400 Body temperature 98.7 [degF] Inessa Lewis Other [facility] Other 12-19-2022 11:25-0400 Body weight 62.23 kg Inessa Lewis Other [facility] Other 12-19-2022 11:25-0400 Diastolic blood pressure 66 mm[Hg] Inessa Lewis Other [facility] Other 12-19-2022 11:25-0400 Respiratory rate 18 /min Inessa Lewis Other [facility] Other 12-19-2022 11:25-0400 SaO2% (BldA) [Mass fraction] 99 % Inessa Lewis Other [facility] Other 12-19-2022 11:25-0400 Systolic blood pressure 104 mm[Hg] Inessa Lewis Other [facility] Other 08-15-2021 11:45-0400 Body height 160.02 cm Janny Gonzalez Other [facility] Other 08-15-2021 11:45-0400 Body mass index (BMI) [Ratio] 22.32 kg/m2 Janny Gonzalez Other [facility] Other 08-15-2021 11:45-0400 Body temperature 97.9 [degF] Janny Gonzalez Other [facility] Other 08-15-2021 11:45-0400 Body weight 57.15 kg Janny Gonzalez Other [facility] Other 08-15-2021 11:45-0400 Diastolic blood pressure 71 mm[Hg] Janny Gonzalez Other [facility] Other 08-15-2021 11:45-0400 Respiratory rate 18 /min Janny Gonzalez Other [facility] Other 08-15-2021 11:45-0400 SaO2% (BldA) [Mass fraction] 100 % Janny Gonzalez Other [facility] Other 08-15-2021 11:45-0400 Systolic blood pressure 123 mm[Hg] Janny Gonzalez Other [facility] Other Encounters Encounter Date Encounter Type Care Provider Facility Start: 02-07-2024 End: 02-07-2024 Bamboo flowsheet Jenna TOBIAS Work Phone: [facility] Start: 02-07-2024 End: 02-07-2024 Bamboo flowsheet Jenna TOBIAS Work Phone: [facility] Start: 02-07-2024 End: 02-07-2024 flow sheet Jenna TOBIAS Work Phone: [facility] Comment on above: Third trimester preg emerald; contractions; Size of fetus inconsistent with dates, antepartum; Nonintractable headache, unspecified chronicity pattern, unspecified headache type; History of syphilis Start: 02-07-2024 End: 02-07-2024 ambulatory JENNA THOMAS Not Available Start: 01-20-2024 End: 01-20-2024 ambulatory SURYA GONZALEZO Not Available Start: 01-06-2024 End: 01-06-2024 ambulatory JENNA THOMAS Not Available Start: 01-02-2024 End: 01-02-[facility]24 [facility] Start: 01-02-2024 End: 01-02-2024 Emergency department patient visit [facility] Start: 12-23-2023 End: 12-23-2023 ambulatory SURYA JOSE Not Available Start: 12-02-2023 End: 12-02-2023 ambulatory JENNA WILLIAM Not Available Start: 11-30-2023 End: 11-30-2023 ambulatory MALINDA PATE [facility] Start: 11-04-2023 End: 11-04-2023 ambulatory SONAM TENORIO [facility] Start: 10-06-2023 End: 10-06-2023 ambulatory DANDY PLATANVRICHY [facility] Start: 10-05-2023 End: 10-05-2023 Emergency department patient visit [facility] Start: 09-29-2023 End: 09-29-2023 ambulatory [facility] Start: 09-22-2023 End: 09-22-2023 ambulatory [facility] Start: 09-21-2023 End: 09-22-2023 ambulatory [facility] Start: 09-21-2023 End: 09-21-2023 ambulatory [facility] Start: 09-21-2023 Encounter for gynecological examination (general) (routine) without abnormal findings [facility] Start: 09-21-2023 End: 09-21-2023 ambulatory SONAM Andre [facility] Start: 09-21-2023 Encounter for gynecological examination (general) (routine) without abnormal findings [facility] Start: 09-17-2023 End: 09-17-2023 ambulatory [facility] Start: 08-13-2023 End: 08-13-2023 ambulatory SONAM [facility] Start: 06-16-2023 End: 06-16-2023 ambulatory [facility] Work Phone: Start: 06-16-2023 End: 06-16-2023 Patient encounter procedure [facility] [place] Work Phone: Start: 12-19-2022 Office outpatient vi sit 15 minutes Inessa Lewis [facility] [place] Start: 12-19-2022 End: 12-19-2022 ambulatory Inessa Lewis [facility] Other Start: 12-19-2022 End: 12-19-2022 Departed Referred CONCRETE FINISHER Inessa Lewis Work Phone: [facility] [place] Work Phone: Start: 08-19-2021 End: 08-19-2021 ambulatory Janny Gonzalez Other [facility] Other Start: 08-19-2021 Telephone encounter Janny Carlos [facility] [address] Start: 08-15-2021 End: 08-15-2021 ambulatory Janny Gonzalez Other [facility] Other Start: 08-15-2021 Office outpatient ne w 20 minutes Janny Carlos [facility] [place] Start: 02-27-2020 Patient encounter procedure [facility] 2[facility] Facility:[facility] Start: 01-30-2020 End: 01-31-2020 Patient encounter procedure [facility] 2] Facility:[facility] Start: 01-16-2020 End: 01-16-2020 Patient encounter procedure CATHRYN BARNES Facility:[facility] Start: 12-27-2019 End: 12-28-2019 Patient encounter procedure [facility] 2] Facility:[facility] Start: 11-29-2019 End: 11-30-2019 Patient encounter procedure [facility] Facility:[facility] Start: 11-28-2019 End: 11-28-2019 Patient encounter procedure DOCTOR MISC Facility:[facility] Procedures Date Procedure Procedure Detail Performing Clinician Start: 02-07-2024 Urnls dip stick/tabl et rgnt non-auto w/o micrscp Surya Haq DO Work Phone: Plan of Treatment Date Care Activity Detail Author Start: 02-14-2024 End: 02-14-2024 Patient encounter procedure 02/14/2024 2:30 PM EDT Routine [facility] [address] [place] [address] Surya Haq, DO [address] [place] [address] [facility] Start: 02-07-2024 End: 02-06-2025 US biophysical profile w non stress test US biophysical profile w non stress test Imaging Routine contractions Size of fetus inconsistent with dates, antepartum Nonintractable headache, unspecified chronicity pattern, unspecified headache type History of syphilis Expected: 02/07/2024 (Approximate), Expires: 02/06/2025 [facility] Work Phone: Comment on above: Expected: 02/07/2024 (Approximate), Expires: 02/06/2025 Start: 02-07-2024 End: 02-07-2024 Patient encounter procedure 02/07/2024 9:50 AM EDT Routine [facility] [address] [place] [id number] Jenna Thomas PA [address] [place], [place] [id number] Arrived [facility] Comment on above: Arrived Start: 12-19-2022 [facility] Atopobium vaginae DN A [Presence] in Vaginal fluid by KENNETH with probe detection [facility] Bacterial vaginosis associated bacterium 2 DNA [Presence] in Vaginal fluid by KENNETH with probe detection [facility] Megasphaera sp type 1 DNA [Presence] in Vaginal fluid by KENNETH with probe detection [facility] Payers Date Payer Category Payer Self-pay [id number] 2022 Medicaid [facility] [id number] 2022 Medicaid [id number] 2.16.840.1.621007.19 2019 Unknown [id number] 1997 Unknown [id number] 2..840.1.313754.3.579.2.593 1997 Unknown [id number] 2.840.1.381811.3.579.2.59 1997 Unknown [id number] 2.16.840.1.249823.3.579.2.593 1997 Unknown [id number] 2.16.840.1.837088.3.579.2. 1997 Unknown [id number] 2.16.840.1.671410.3.579.2.59 1997 Unknown [id number] 2.16.840.1.214579.3.579.2. 1997 Unknown [id number] 2.16.840.1.246770.3.579.2.1285 1997 Unknown [id number] 2.16.840.1.609547.3.579.2.1285 1997 Unknown [id number] 2.16.840.1.934436.3.579.2.1285 1997 Unknown [id number] 2.16.840.1.127856.3.579.2.1285 1997 Unknown [id number] 2.16.840.1.450459.3.579.2.1285 1997 Unknown [id number] 2.16.840.1.936330.3.579.2.1285 1997 Unknown [id number] 2.16.840.1.196366.3.579.2.1285 1997 Unknown [id number] 2.16.840.1.278786.3.579.2.1285 1997 Unknown [id number] 2.16.840.1.172676.3.579.2.1285 1997 Unknown [id number] 2.16.840.1.220578.3.579.2.1285 1997 Unknown [id number] 2.16.840.1.939562.3.579.2.1285 1997 Unknown [id number] 2.16.840.1.618891.3.579.2.6 1997 Unknown [id number] 2.16.840.1.875011.3.579.2.1285 1997 Unknown [id number] 2.16.840.1.111969.3.579.2.1285 1997 Unknown [id number] 2.16.840.1.105990.3.579.2.1285 1997 Unknown [id number] 2.16.840.1.175927.3.579.2.9 1997 Unknown [id number] 2.16.840.1.095878.3.579.2.1258 1997 Unknown [id number] 2.16.840.1.303241.3.579.2.9 1997 Unknown [id number] 2.16.840.1.452759.3.579.2.1258 1997 Unknown [id number] 2.16.840.1.581270.3.579.2.1259 1959 Unknown [id number] Unknown [id number] 2.16.840.1.785073.19 Unknown [id number] 2.16.840.1.779327.3.579.2.531 Social History Date Type Detail Facility Unknown if ever smoked [facility] Other Sex Assigned At [facility] Other Start: 1995 Sex Assigned At Female F [facility] Start: 06-16-2023 Tobacco smoking status NJIS Never smoked tobacco (finding) [facility] Tobacco smoking status [facility] Tobacco smoking consumption unknown [facility] Start: 06-20-2023 [facility] Start: 1995 Sex assigned at Not on file [facility] History of Present illness Narrative 02-07-2024 Malinda Bundy LPN - 02/07/2024 9:50 AM EDT Note Date & Type Note Facility 02-07-2024 History of Presen t illness Narrative Reason for Appointment: Patient ID: Kelly Harrell is a 28 y.o. female who presents for Routine Visit Patient presents today for Return OB appointment. MEDICATIONS Current Outpatient Medications Medication Instructions diphenhydrAMINE (BENADRYL ALLERGY) 25 mg, Oral, Nightly PRN diphenhydrAMINE (UNISOM) 50 mg, Oral, Nightly PRN magnesium 200 mg, Oral, Daily omeprazole (PRILOSEC) 20 mg, Oral, Daily before breakfast, Do not crush or chew. ondansetron ODT (ZOFRAN-ODT) 4 mg, Oral, Every 8 hours PRN Prenat w/o C-KfTkt-Hdcn-FA-DHA (TriStart DHA) 31-0.6-0.4-200 MG capsule 1 capsule, Oral, Daily RT Vit-Fe Fumarate-FA (WesTab Plus) 27-1 MG tablet 1 tablet, Oral, Every morning ALLERGIES No Known Allergies PROBLEMS Active Ambulatory Problems Diagnosis Date Noted No Active Ambulatory Problems Resolved Ambulatory Problems Diagnosis Date Noted No Resolved Ambulatory Problems No Additional Past Medical History HISTORY PAST MEDICAL HISTORY SOCIAL HISTORY History reviewed. No pertinent past medical history. Social History Tobacco Use Smoking status: Not on file Smokeless tobacco: Not on file Substance Use Topics Alcohol use: Not on file Drug use: Not on file FAMILY HISTORY No family history on file. SURGICAL HISTORY History reviewed. No pertinent surgical history. REVIEW OF SYSTEMS Review of Systems: Review of Systems All other systems reviewed and are negative. OBJECTIVE Objective: Physical Exam Constitutional: Appearance: Normal appearance. She is well-developed. Cardiovascular: Rate and Rhythm: Normal rate and regular rhythm. Pulmonary: Effort: Pulmonary effort is normal. Breath sounds: Normal breath sounds. Abdominal: General: Bowel sounds are normal. There is no distension. Palpations: Abdomen is soft. Tenderness: There is no abdominal tenderness. There is no guarding or rebound. Musculoskeletal: General: No swelling. Normal range of motion. Right lower leg: No edema. Left lower leg: No edema. Neurological: Mental Status: She is alert and oriented to person, place, and time. Skin: General: Skin is warm and dry. Psychiatric: Mood and Affect: Mood normal. Behavior: Behavior normal. Vitals and nursing note reviewed. Exam conducted with a engraver set up operator present. Vitals: There is no height or weight on file to calculate BMI. BP: 114/70 Patient's last menstrual period was 06/06/2023. ASSESSMENT & PLAN ICD-10-CM 1. Third trimester Z34.93 Urine dip 2. contractions O47.00 US biophysical profile w non stress test 3. Size of fetus inconsistent with dates, antepartum O26.849 US biophysical profile w non stress test 4. Nonintractable headache, unspecified chronicity pattern, unspecified headache type R51.9 US biophysical profile w non stress test 5. History of syphilis Z86.19 US biophysical profile w non stress test Patient presents today for a routine obstetrics appointment. Patient is currently 35w1d with a Estimated Date of Delivery: 03/12/24. Patient to schedule NST/BPP's at [facility]. Order given to patient and also faxed to [facility] scheduling and [facility]. Patient to return to clinic in 1 week. Documented by Malinda Bundy LPN on behalf of: JATINDER Pineda documented in this encounter [facility] Evaluation note 12-19-2022 Note Date & Type [...] in 4-6 days. FU with PCP or womens health in not improving over next 5-7 days. [facility] Other Evaluation note 08-15-2021 Note Date & [...] results. Patient to follow with PCP or PERSONAL ASSISTANT as needed for persistent or worsening symptoms. Immediate eval if abdominal pain, fever, chills, body aches, back/flank pain, nausea, urinary complaints. Patient may use OTC external yeast infection creams for external irritation, do not insert creams or meds as Diflucan rx will treat. Avoid scratching and douching. Patient verbalizes understanding and is agreeable to treatment plan [facility] Other Evaluation note Note Date & Type Note Facility Evaluation note No Information [facility] Other Evaluation note Note Date & Type Note Facility Evaluation note No assessment information availa [facility] Work Phone: Evaluation note Note Date & Type Note Facility Evaluation note Diagnosis Onset Date Pre-employment examination [facility] Work Phone: Evaluation note Note Date & Type Note Facility Evaluation note Diagnosis Third trimester state, incidental contractions Size of fetus inconsistent with dates, antepartum Nonintractable headache, unspecified chronicity pattern, unspecified headache type History of syphilis documented in this encounter [facility] History general Narrative - Reported Note Date & Type Note Facility History general Narrative - Reported Type Surgical History wisdom teeth Hospitalization History Fall Pneumothorax 2021 [facility] Other History general Narrative - Reported Note Date & Type Note Facility History general Narrative - Reported Type Surgical History wisdom teeth Surgical History 1 Hospitalization History Fall Pneumothorax 2021 Hospitalization History 2016 [facility] Other Summary Purpose Family History No Family History Records FoundNo Family History Records FoundNo Family History Records FoundNo Family History Records FoundNo Family History Records FoundNo Family History Records Found Advance Directives Advance Directive Response Recorded Date/ Time Advance Directives No December 4:26pm Advance Directive Response Recorded Date/ Time Advance Directives No December 3:26pm Chief Complaint and Reason for Visit Chief Complaint physical Reason for Visit Pre-employment exami nation Additional Source Comments INFORMATION SOURCE (unrecogn ized section and content) DATE CREATED AUTHOR 02/19/2020 Kiel bustos DATE CREATED AUTHOR AUTHOR'S ORGANIZ ATION 01/06/2023 [facility] DATE CREATED AUTHOR AUTHOR'S ORGANIZ ATION 09/22/2023 DATE CREATED AUTHOR AUTHOR'S ORGANIZ ATION 11/10/2023 [facility] DATE CREATED AUTHOR AUTHOR'S ORGANIZ ATION 01/03/2024 [facility] DATE CREATED AUTHOR AUTHOR'S ORGANIZ ATION 02/08/2024 [facility] EPIC REASON FOR VISIT (unrecogniz ed section and content) Reason Comments Routine Visit POSS BVPOSS YEAST INFECTION Care Teams (unrecognized sec tion and content) Team Status: Inactive Member Role Status Dates Inessa Lewis APRN Attending Provider Active Team Status: Active Member Role Status Dates Romi Rider APRN GRAIN CLEANER AND TRANSFER OPERATOR-C Primary Care Provider Active Team Status: Inactive Member Role Status Dates Romi Rider APRN GRAIN CLEANER AND TRANSFER OPERATOR-C Primary Care Provider Active Start: June 162023 End: June 16, 2023 Vianca Flowers NP-C Attending Provider Active S tart: June 16, [...] BE BASED ON THE PRIMARY CLINICAL RECORDS. [facility] [employer] provides no warranty or guarantee of the accuracy or completeness of information in this document.
[2024-02-12 11:11] VITALS: BP 125/74; PULSE 106
--- NOTE | 2024-02-12 11:28 | US_ITS ---
[address] [address] Patient Name: MELE HAAS MRN: [id number] date: 1995 Sex: F Assigned Patient Location: [facility] Current Patient Location: [facility] Accession/Order Number: [id number] Exam Date: 02/12/2024 11:30 Report Date: 02/12/2024 15:41 At the request of: SURYA GARCIA Procedure: US OB BPP w non-stress EXAM: US OB BPP w non-stress HISTORY: gestational dm COMPARISON: BPP performed 3 days ago TECHNIQUE: Transabdominal images obtained FINDINGS: Single intrauterine . 4 quadrant REKHA 15.6 cm. heart tones of 137 bpm. Normal score of 2 given for breathing, gross body movement, tone, and amniotic fluid. US/US OB BPP w non-stress IMPRESSION: Biophysical profile score 8 out of 8. Electronically authenticated by: BILLIE BEARD Date: 02/12/2024 15:41
== END 2024-02-12 12:01 | disposition home or self-care (01) ==
LOC: FBCO 07:27 → FBC 10:56
PROVIDERS: Visit Provider Obstetrics & Gynecology
DX: O36.5930 Maternal care for other known or suspected poor fetal growth, third trimester, not applicable or unspecified (principal)
CPT/HCPCS: 76818

== ENCOUNTER 2024-02-14 19:50 | Outpatient (REF) | payer MEDICAID, SELFPAY ==
--- OUTSIDE RECORDS SUMMARY | 2024-02-14 19:55 | XMS_ITS | CCD ---
Author Organization [facility] CliniSywy Care Team Providers Care Snow Removal/Plowing Name Role Phone MISC, DOCTOR Primary Care [...] hours if needed 09/21/2023 Active Prenat w/o V-EdLlk-Iybq-FA-DHA (TriStart DHA) 31-0.6-0.4-200 MG capsule (3 sources) Start: 08-13-2023 take 1 capsule by mouth in the morning Prenat w/o D-EvWrk-Page-FA-DHA (TriStart DHA) 31-0.6-0.4-200 MG capsule Take 1 [...] UA Negative Negative - 4(70) +++ mg/dL [facility] Blood, UA Negative Negative - 50 Eriberto/mcL [facility] Clarity, UA Clear [facility] Color, UA Yellow [facility] Glucose, UA Negative Negative - 1999(110) ++++ mg/dL [facility] Interpretation and review of laboratory results Abnormal [facility] Ketones, UA Negative Negative - 160(16) ++++ mg/dL [facility] Leukocytes, UA Negative Negative - 500+++ Pk/mcL [facility] Nitrite, UA Negative Negative - Positive [facility] pH, UA 5.5 5 - 9 [facility] Protein, UA Negative Negative - 1999(20) ++++ mg/dL [facility] Spec Grav, UA 1.025 1 - 1.03 [facility] care Urobilinogen, UA 1.0 0.2 - 12 mg/dL [facility] URINALYSISon 11-30-2023 Bilirubin Ql (U) Negative Normal NEG [facility] Comment on above: Performed By: #### [place], 55306-9, AHP, 97773-5, 09478-7, 90523- 4, 57918-0 #### [facility] ([id number]) [address] [place] [address], [address] [place] [address] #### 67037-9, 15941-8 #### [facility] ([id number]) [address] [place] [address] 17160 BLOOD/HGB Negative Normal NEG [facility] Comment on above: Performed By: #### Joan SUAREZ, 87691-4, AHP, 30974-1, 96483-2, 45261- 4, 12321-1 #### [facility] ([id number]) [address], [address] [place] [address] #### 92271-0, 95709-5 #### [facility] ([id number]) [address] [place] [address] 67631 Color (U) YELLOW Normal YELLOW [facility] Comment on above: Performed By: #### Joan SUAREZ, 91992-9, AHP, 02534-5, 37615-9, 90706- 4, 08063-5 #### [facility] ([id number]) [address], [address] [place] [address] #### 50532-6, 55858-5 #### [facility] ([id number]) [address] [place] [address] 31576 Glucose Ql (U) Negative Normal NEG [facility] Comment on above: Performed By: #### Joan SUAREZ, 59268-9, AHP, 09505-2, 63876-0, 83275- 4, 62566-0 #### [facility] ([id number]) [address], [address] [place] [address] #### 11791-7, 64737-7 #### [facility] ([id number]) [address] [place] [address] 57883 Ketones Ql (U) Negative Normal NEG [facility] Comment on above: Performed By: #### Joan SUAREZ, 24693-0, AHP, 26784-6, 22888-2, 03637- 4, 31100-2 #### [facility] ([id number]) [address], [address] [place] [address] #### 62579-2, 25046-4 #### [facility] ([id number]) [address] [place] [address] 49297 Leukocyte esterase Test strip Ql (U) Negative Normal NEG [facility] Comment on above: Performed By: #### Joan SUAREZ, 74541-1, AHP, 71218-4, 62761-1, 88925- 4, 04793-5 #### [facility] ([id number]) [address], [address] [place] [address] #### 25353-9, 67477-8 #### [facility] ([id number]) [address] [place] [address] 15279 Nitrite Ql (U) Negative Normal NEG [facility] Comment on above: Performed By: #### Joan SUAREZ, 17915-2, AHP, 92932-8, 55277-0, 88099- 4, 75754-3 #### [facility] ([id number]) [address], [address] [place] [address] #### 36893-8, 24596-0 #### [facility] ([id number]) [address] [place] [address] 08805 pH (U) 7.0 [pH] Normal 5.0-8.5 [facility] Comment on above: Performed By: #### Joan SUAREZ, 77947-7, AHP, 38157-7, 98666-1, 47867- 4, 06055-2 #### [facility] ([id number]) [address], [address] [place] [address] #### 92529-3, 33754-9 #### [facility] ([id number]) [address] [place] [address] 32681 Protein Ql (U) Negative Normal NEG [facility] Comment on above: Performed By: #### Joan SUAREZ, 63147-9, AHP, 43151-5, 53014-9, 98367- 4, 79041-3 #### [facility] ([id number]) [address], [address] [place] [address] #### 27430-5, 11345-8 #### [facility] ([id number]) [address] [place] [address] 96703 Specific gravity (U) [Rel density] 1.025 Normal 1.003-1.035 [facility] Comment on above: Performed By: #### C ERICK, 82346-7, AHP, 46180-6, 11119-5, 98552- 4, 68728-7 #### [facility] ([id number]) [address], [address] [place] [address] #### 62371-9, 70869-7 #### [facility] ([id number]) [address] [place] [address] 44949 TURBIDITY CLEAR Normal CLEAR [facility] Comment on above: Performed By: #### Joan SUAREZ, 03330-2, AHP, 16559-3, 58703-5, 31399- 4, 70221-0 #### [facility] ([id number]) [address], [address] [place] [address] #### 50200-3, 09911-9 #### [facility] ([id number]) [address] [place] [address] 15739 Urobilinogen Qn (U) 0.2 {Saleem'U}/dL Normal <1.1 [facility] Comment on above: Performed By: #### Joan SUAREZ, 17210-7, AHP, 38709-7, 59898-5, 83102- 4, 40583-9 #### [facility] ([id number]) [address], [address] [place] [address] #### 17435-0, 12493-1 #### [facility] ([id number]) [address] [place] [address] 68318 CHLAMYDIA/GC PCR, FLon 09-20 CHLAMYDIA/GC PCR, FL [...] are dependent on adequate specimen collection. Normal [facility] Comment on above: Performed By: #### C BC, 34595-7, P, 11457-7, 71507-9, 26431- 4, 17627-2 #### [facility] ([id number]) [address], [address] [place] [address] #### 91595-9, 02523-5 #### [facility] ([id number]) [address] [place] [address] 13166 DRUG SCREEN, URINEon 024 AMPHETAMINE/METHAMP Negative Normal NEG [facility] Comment on above: Result Comment: AMPH /METH screening cut off = 1000 ng/mL Performed By: #### D DOWNING #### [facility] ([id number]) [address], [address] [place] [address] 39259 BARBITURATES Negative Normal NEG [facility] Comment on above: Result Comment: Venita iturates screening cut off value = 200 ng/mL Performed By: #### D DOWNING #### [facility] ([id number]) [address], [address] [place] [address] BENZODIAZEPINES Negative Normal NEG [facility] Comment on above: Result Comment: Ander odiazepines screening cut off value = 200 ng/mL Performed By: #### D DOWNING #### [facility] ([id number]) [address], [address] [place] [address] CANNABINOIDS Positive Abnormal NEG [facility] Comment on above: Result Comment: Conf irmation available upon request. Cannabinoids/THC screening cut off value = 50 ng/mL Performed By: #### D DOWNING #### [facility] ([id number]) [address], [address] [place] [address] COCAINE METABOLITE Negative Normal NEG [facility] Comment on above: Result Comment: Coca ine screening cut off value = 300 ng/mL Performed By: #### D DOWNING #### [facility] ([id number]) [address], [address] [place] [address] ECSTASY Negative Normal NEG [facility] Comment on above: Result Comment: Ecst asy screening cut off value = 500 ng/mL This report is intended for use in clinical monitoring or management of patients. Performed By: #### D DOWNING #### [facility] ([id number]) [address], [address] [place] [address] METHADONE Negative Normal NEG [facility] Comment on above: Result Comment: Meth adone screening cut off value = 300 ng/mL. Performed By: #### D DOWNING #### [facility] ([id number]) [address], [address] [place] [address] OPIATES Negative Normal NEG [facility] Comment on above: Result Comment: Opia monica screening cut off value = 300 ng/mL NOTE: This test is used for the detection of codeine, hydrocodone (>1000 ng/mL), morphine and hydromorphone (>900 ng/mL) in urine. Performed By: #### D DOWNING #### [facility] ([id number]) [address], [address] [place] [address] OXYCODONE Negative Normal NEG [facility] Comment on above: Result Comment: Oxyc odone screening cut off value = 300 ng/mL NOTE: This test is used for the detection of oxycodone and oxymorphone in urine. Performed By: #### D DOWNING #### [facility] ([id number]) [address] [place] [address], [address] [place] [address] PHENCYCLIDINE Negative Normal NEG [facility] Comment on above: Result Comment: Phen cyclidine screening cut off value = 25 ng/mL Performed By: #### D DOWNING #### [facility] ([id number]) [address] [place] [address], [address] [place] [address] URINALYSISon 09-21-2023 Bilirubin Ql (U) Negative Normal NEG [facility] Comment on above: Performed By: #### U A #### [facility] ([id number]) [address] [place] [address], [address] [place] [address] BLOOD/HGB Negative Normal NEG [facility] Comment on above: Performed By: #### U A #### [facility] ([id number]) [address] [place] [address], [address] [place] [address] Color (U) YELLOW Normal YELLOW [facility] Comment on above: Performed By: #### U A #### [facility] ([id number]) [address] [place] [address], [address] [place] [address] Glucose Ql (U) Negative Normal NEG [facility] Comment on above: Performed By: #### U A #### [facility] ([id number]) [address] [place] [address], [address] [place] [address] Ketones Ql (U) >150 Abnormal NEG [facility] Comment on above: Performed By: #### U A #### [facility] ([id number]) [address] [place] [address], [address] [place] [address] Leukocyte esterase Test strip Ql (U) Negative Normal NEG [facility] Comment on above: Performed By: #### U A #### [facility] ([id number]) [address] [place] [address], [address] [place] [address] Nitrite Ql (U) Negative Normal NEG [facility] Comment on above: Performed By: #### U A #### [facility] ([id number]) [address], [address] [place] [address] pH (U) 6.0 [pH] Normal 5.0-8.5 [facility] Comment on above: Performed By: #### U A #### [facility] ([id number]) [address], [address] [place] [address] Protein Ql (U) Negative Normal NEG [facility] Comment on above: Performed By: #### U A #### [facility] ([id number]) [address], [address] [place] [address] Specific gravity (U) [Rel density] 1.019 Normal 1.003-1.035 [facility] Comment on above: Performed By: #### U A #### [facility] ([id number]) [address] [address] [place] [address] TURBIDITY CLEAR Normal CLEAR [facility] Comment on above: Performed By: #### U A #### [facility] ([id number]) [address] [address] [place] [address] Urobilinogen (U) [Mass/Vol] mg/dL Normal <1.1 [facility] Comment on above: Performed By: #### U A #### [facility] ([id number]) [address] [address] [place] [address] URINE CULTUREon 09-21-2023 Bacteria identified Cx Nom (U) CULTURE RESULTS 10,000 to 50,000 ORGANISMS/mL ESCHERICHIA COLI <10,000 ORGANISMS/mL NORMAL URO GENITAL JACKIE Normal [facility] Comment on above: Performed By: #### 6 30-4 #### [facility] ([id number]) [address] [address] [place] [address] ACUTE HEPATITIS PANELon 08-25 ANTI HCV W/PCR REFLX Non-Reactive Normal NRCT [facility] Comment on above: Result Comment: If recent infection suspected, recommend repeat testing (>2 months). Tvpnir-om-xgzkyp ratio is <0.80. Performed By: #### [place], 88187-1, AHP, 15160-9, 61055-2, 52912-0, 56062-8 #### [facility] ([id number]) [address], [address] [place] [address] #### 09223-6, 01835-3 #### [facility] ([id number]) [address] [place] [address] 49873 HEPATITIS A IGM Non-Reactive Normal NRCT [facility] Comment on above: Performed By: #### C ERICK, 12082-5, AHP, 29868-0, 42805-1, 79565- 4, 17602-1 #### [facility] ([id number]) [address], [address] [place] [address] #### 09233-9, 53292-5 #### [facility] ([id number]) [address] [place] [address] 87672 HEPATITIS B CORE IGM Negative Normal NEG [facility] Comment on above: Performed By: #### Joan SUAREZ, 33221-2, AHP, 56999-4, 91449-4, 25306- 4, 01361-4 #### [facility] ([id number]) [address], [address] [place] [address] #### 27665-1, 15925-2 #### [facility] ([id number]) [address] [place] [address] 26992 HEPATITIS B SURF AG Negative Normal NEG [facility] Comment on above: Performed By: #### C BC, 52834-2, AHP, 88018-3, 94773-4, 61615- 4, 09278-9 #### [facility] ([id number]) [address] [address] [place] [address] #### 16471-3, 68885-1 #### [facility] ([id number]) [address] [place] [address] 21884 COMPLETE BLOOD COUNTon 09-16 Erythrocyte distribution width (RBC) [Ratio] 13.0 % Normal 11.5-15.0 [facility] Comment on above: Performed By: #### C BC, 01127-3, AHP, 13415-7, 65123-7, 83245- 4, 95662-6 #### [facility] ([id number]) [address] [address] #### 68695-4, 28060-7 #### [facility] ([id number]) [address] [place] [address] 84606 Hematocrit (Bld) [Volume fraction] 36.1 % Normal 35-47 [facility] Comment on above: Performed By: #### [place], 55466-5, AHP, 49195-8, 75930-5, 30010- 4, 91834-0 #### [facility] ([id number]) [address] [address] #### 67988-3, 72241-2 #### [facility] ([id number]) [address] [place] [address] 51194 Hemoglobin (Bld) [Mass/Vol] 12.5 g/dL Normal 11.7-15.5 [facility] Comment on above: Performed By: #### Joan BC, 93411-6, AHP, 17724-2, 13721-2, 64212- 4, 13473-5 #### [facility] ([id number]) [address], [address] [place] [address] #### 96596-8, 62740-6 #### [facility] ([id number]) [address] [place] [address] 98816 MCH (RBC) [Entitic mass] 32.0 pg Normal 27-34 [facility] Comment on above: Performed By: #### C BC, 48022-2, AHP, 47598-5, 39346-7, 65489- 4, 67074-2 #### [facility] ([id number]) [address], [address] [place] [address] #### 17214-2, 25674-9 #### [facility] ([id number]) [address] [place] [address] 53751 MCHC (RBC) [Mass/Vol] 34.6 g/dL Normal 32-36 [facility] Comment on above: Performed By: #### Joan BC, 93027-1, AHP, 49646-5, 32195-5, 64042- 4, 90573-3 #### [facility] ([id number]) [address], [address] [place] [address] #### 25476-1, 40761-0 #### [facility] ([id number]) [address] [place] [address] 01721 MCV (RBC) [Entitic vol] 93 fL Normal 80-100 [facility] Comment on above: Performed By: #### C BC, 47813-2, AHP, 45150-0, 27093-7, 04230- 4, 80888-1 #### [facility] ([id number]) [address], [address] [place] [address] #### 25949-6, 91554-2 #### [facility] ([id number]) [address] [place] [address] 38001 Platelet mean volume (Bld) [Entitic vol] 8.7 fL Normal 7-12 [facility] Comment on above: Performed By: #### C ERICK, 91123-3, AHP, 49870-5, 04624-6, 50219- 4, 96682-8 #### [facility] ([id number]) [address], [address] [place] [address] #### 80812-6, 40951-0 #### [facility] ([id number]) [address] [place] [address] 04088 Platelets (Bld) [#/Vol] 300 10*3/uL Normal 150-450 [facility] Comment on above: Performed By: #### Joan SUAREZ, 19876-4, AHP, 96596-7, 99665-2, 40350- 4, 90804-5 #### [facility] ([id number]) [address], [address] [place] [address] #### 75650-5, 89683-4 #### [facility] ([id number]) [address] [place] [address] 78659 RBC COUNT 3.90 X10E12/L Normal 3.80-5.20 [facility] Comment on above: Performed By: #### Joan SUAREZ, 84716-8, AHP, 72052-6, 69025-4, 42857- 4, 04734-1 #### [facility] ([id number]) [address], [address] [place] [address] #### 83622-4, 59382-6 #### [facility] ([id number]) [address] [place] [address] 27207 WBC (Bld) [#/Vol] 9.7 10*3/uL Normal 4.0-11.0 [facility] Comment on above: Performed By: #### Joan SUAREZ, 00704-4, AHP, 40408-7, 01542-7, 68619- 4, 67872-9 #### [facility] ([id number]) [address] [facility], [address] [place] [address] #### 35757-7, 55567-7 #### [facility] ([id number]) [address] [place] [address] HCG.beta subunit IA 3rd IS Q non 09-17-2023 [place] [address] m[IU]/mL Normal P [facility] Comment on above: Result Comment: NEW REFERENCE [...] nontrophoblastic neoplasms. Performed By: #### C , 02320-4, [facility], 28891-2, 85784-0, 06821-7, 54615-3 #### [facility] ([id number]) [address] [facility], [address] [place] [address] #### 55550-9, 27231-8 #### [facility] ([id number]) [address] [place] [address] 29603 HIV 1+2 Ab+HIV1 p24 Ag IA Ql on 09-17-2023 HIV 1 and 2 Ab/Ag Screen Non-Reactive Normal NRCT [facility] Comment on above: Result Comment: This information [...] or diagnoses. Performed By: #### C BC, 72591-6, AHP, 33782-9, 86736-9, 52759-9, 34709-8 #### [facility] ([id number]) [address] [place] [address], [address] [place] [address] #### 01996-1, 68174-4 #### [facility] ([id number]) [address] [place] [address], [place] [address] Reagin Ab RPR (S) [Titer]on 09-17-2023 RPR TITER, SERUM SEE COMMENTS 09/21/2023 10:37 AM Abnormal [facility] Comment on above: Result Comment: NOTE Test Result Flag Unit RefValue RPR, Titer, S 1:1 A Negative Results consistent with untreated or recently treated syphilis. Clinical correlation required. For additional information on interpretation of the syphilis reverse algorithm and results, see: [email or web address] Test Performed by: [address] [address] Medical Director Occupational Health: Luke Downey M.D. Ph.D.; CLIA# [id number] Performed By: #### C BC, 52349-3, AHP, 09946-2, 67101-5, 49562-5, 59053-2 #### [facility] ([id number]) [address] [place] [address], [address] [place] [address] #### 02094-6, 32574-3 #### [facility] ([id number]) [address] [place] [address] 17153 Reagin Ab RPR Ql (S)on 09-16 RPR WITH REFLEX TO RTPPA Positive Abnormal Negative [facility] Comment on above: Result Comment: NOTE Specimen reflexed to determine RPR titer. For additional information on interpretation of the syphilis reverse algorithm and results, see: [email or web address] Test Performed by: [facility] [address] [place] [address] Medical Director Occupational Health: Luke Downey M.D. Ph.D.; CLIA# [id number] Performed By: #### Joan SUAREZ, 19339-9, AHP, 77121-7, 85219-4, 77403-1, 33171-7 #### [facility] ([id number]) [address] [place] [address], [address] [place] [address] #### 47742-4, 69621-8 #### [facility] ([id number]) [address] [place] [address]1781 Rubella virus Ab Ql (S)on RUBELLA IMMUNE IgG 1.0 AI Normal [facility] Comment on above: Result Comment: Interpretation-------- <0.8 NEGATIVE-considered Not Immune 0.8-0.9 EQUIVOCAL-consider retesting with new specimen >0.9 POSITIVE-considered Immune Performed By: #### Joan SUAREZ, 50573-2, AHP, 64106-3, 44909-1, 46349-5, 94494-3 #### [facility] ([id number]) [address] [place] [address], [address] [place] [address] #### 04794-2, 75488-3 #### [facility] ([id number]) [address] [place] [address] 49982 T. pallidum IgG+IgM IA Ql (S )on 09-17-2023 Syphilis Total >8.0 High 0.0-0.8 [facility] Comment on above: Result Comment: REAC TIVE This specimen will be sent to a reference lab for additional testing which includes RPR with reflex to TP-PA if RPR is negative. The RPR will help distinguish between infections with T.pallidum (syphilis) versus a falsely reactive treponemal antibody result. Please see the syphilis testing algorithm link below for more information. [email or web address] Performed By: #### C BC, 04377-4, AHP, 07635-2, 13481-6, 90777-5, 90899-1 #### [facility] ([id number]) [address] [place] [address], [address] [place] [address] #### 57174-3, 52447-8 #### [facility] ([id number]) [address] [place] [address] 24559 US PREG TRANSABD FU PER FETU on 09-17-2023 US PREG TRANSABD FU PER FETU US PREG TRANSABD FU PER FETU US PREG TRANSABD FU PER FETU: 09/17/2023 8:25 AM Clinical: Check dates and viability. Real-time transabdominal sonography pelvis performed.. Transvaginal sonography pelvis performed for better evaluation of the pelvic organs. No comparison. There is a single live intrauterine . Oketo-rump length of 8.8 cm corresponds to 14 [...] Frances MD on 09/17/2023 11:55 AM Normal [facility] VZV IgG IA Ql (S)on 09-17-19 VARICELLA IgG 3.1 AI High <0.9 [facility] Comment on above: Result Comment: Interpretation-------- <0.9 Negative 0.9 - 1.0 Equivocal >1.0 Positive Performed By: #### C , 89726-3, AHP, 62982-9, 81790-9, 55882-8, 78780-4 #### [facility] ([id number]) [address] [place] [address], [address] [place] [address] #### [id number], 65969-2 #### [facility] ([id number]) [address] [place] [address], [place] [address] Urinalysis - AUTOMATEDon Appearance (U) CLEAR [employer] Other Bilirubin Ql (U) Negative [employer] Other Color (U) YELLOW [employer] Other Glucose Ql (U) Negative [employer] Other Hemoglobin Ql (U) NEGTIVE [employer] Other Ketones Ql (U) Negative [employer] Other Leukocyte esterase Test strip Ql (U) Negative [employer] Other Nitrite Ql (U) Negative [employer] Other pH (U) 7.5 [pH] [employer] Other Protein Ql (U) Negative [employer] Other Specific gravity (U) [Rel density] 1.015 [employer] Other Urobilinogen (U) [Mass/Vol] 0.2 mg/dL [employer] Other Urinalysis - AUTOMATED [employer] Other Vaginitis Plus (VG+)on 12-19 [employer] Vaginae High - 2 Critically abnormal . [facility] Comment on above: Performed By: #### V AGINITIS+ #### [facility] , BVAB2 High - 2 Critically abnormal . [facility] Comment on above: Performed By: #### V AGINITIS+ #### [facility] , Makenzie Albicans, KENNETH Negative Normal Negative [facility] Comment on above: Result Comment: This test was developed and its performance characteristics determined by [employer]. It has not been cleared or approved by the Food and Drug Administration. Performed By: #### V AGINITIS+ #### [facility] , Makenzie Glabrata, KENNETH Negative Normal Negative [facility] Comment on above: Result Comment: This test was developed and its performance characteristics determined by [facility]. It has not been cleared or approved by the Food and Drug Administration. PERFORMED BY: [address] [address] PATHOLOGIST PLATFORM ARCHITECT LEO PATEL M.D. Performed By: #### V AGINITIS+ #### [facility] , Chlamydia Trachomotis, KENNETH Positive Critically abnormal Negative [facility] Comment on above: Performed By: #### V AGINITIS+ #### [facility] , Megasphaera High - 2 Critically abnormal . [facility] Comment on above: Result Comment: Calc [...] , Neisseria Gonorrhoeae, KENNETH Negative Normal Negative [facility] Comment on above: Result Comment: Perf ormed at: =G - [facility] [address] [id number] Medical Director Occupational Health: Brianne Shabazz MD, Phone: [phone] Performed By: #### V AGINITIS+ #### [facility] , Tric Vag KENNETH Negative Normal Negative [facility] Comment on above: Performed By: #### [...] by: TIESHA CASTILLO Date: 2020-01-30 14:39 Normal [facility] XR ANKLE LT MIN 3 Von 2019 [...] YAKOV DAWSON Date: 2019-12-27 09:54 Normal [facility] XR ANKLE LT MIN 3 Von [...] TIESHA CASTILLO Date: 2019-11-29 13:43 Normal [facility] XR FOOT RT MIN 3 VIEWSon XR FOOT RT MIN 3 VIEWS EXAM: Right foot HISTORY: Pain after a fall. TECHNIQUE: 3 views of the right foot were obtained. FINDINGS: There is no evidence of fracture or dislocation. There are no suspicious bone lesions. Soft tissues are normal. IMPRESSION: Unremarkable exam. Electronically authenticated by: JUDE MCDANIEL Date: 2019-11-28 16:48 Normal [facility] XR TIB_FIB LT 2Von 0 XR [...] JUDE MCDANIEL Date: 2019-11-28 16:47 Normal [facility] Vital Signs Date Time Vital Sign Value Performing Clinician Facility 02-07-2024 10:03-0400 Body weight 82.01 kg Jenna TOBIAS Work Phone: [facility] 02-07-2024 10:03-0400 Diastolic blood pressure 70 mm[Hg] Jenna TOBIAS Work Phone: [facility] 02-07-2024 10:03-0400 Systolic blood pressure 114 mm[Hg] Jenna William JATINDER Work Phone: [facility] 06-16-2023 13:06-0500 Body temperature 98.6 [degF] [facility] 06-16-2023 13:06-0500 Body weight 63.5 kg [facility] 06-16-2023 13:06-0500 Diastolic blood pressure 76 mm[Hg] [facility] 06-16-2023 13:06-0500 Heart rate 87 /min [facility] 06-16-2023 13:06-0500 Respiratory rate 18 /min [facility] 06-16-2023 13:06-0500 SaO2% (BldA) [Mass fraction] 98 % [facility] 06-16-2023 13:06-0500 Systolic blood pressure 119 mm[Hg] [facility] 12-19-2022 11:25-0400 Body height 160.02 cm Inessa Lewis Other [employer] [facility] Other 12-19-2022 11:25-0400 Body mass index (BMI) [Ratio] 24.3 kg/m2 Inessa Lewis Other [facility] Other 12-19-2022 11:25-0400 Body temperature 98.7 [degF] Inessa Lewis Other [facility] Other 12-19-2022 11:25-0400 Body weight 62.23 kg Inessa Lewis Other [facility] Other 12-19-2022 11:25-0400 Diastolic blood pressure 66 mm[Hg] Inessa Lewis Other [facility] Other 12-19-2022 11:25-0400 Respiratory rate 18 /min Inessa Lewis Other [facility] Other 12-19-2022 11:25-0400 SaO2% (BldA) [Mass fraction] 99 % Inessa Lewis Other [facility] Other 12-19-2022 11:25-0400 Systolic blood pressure 104 mm[Hg] Inessa Lewis Other [facility] Other 08-15-2021 11:45-0400 Body height 160.02 cm Janny Gonzalez Other [facility] Other 08-15-2021 11:45-0400 Body mass index (BMI) [Ratio] 22.32 kg/m2 Janny Gonzalez Other [facility] Other 08-15-2021 11:45-0400 Body temperature 97.9 [degF] Janny Gonzalez Other [facility] Other 08-15-2021 11:45-0400 Body weight 57.15 kg Janny Gonzalez Other [facility] Other 08-15-2021 11:45-0400 Diastolic blood pressure 71 mm[Hg] Janny Gonzalez Other [facility] Other 08-15-2021 11:45-0400 Respiratory rate 18 /min Janny Gonzalez Other [facility] Other 08-15-2021 11:45-0400 SaO2% (BldA) [Mass fraction] 100 % Janny Gonzalez Other [facility] Other 08-15-2021 11:45-0400 Systolic blood pressure 123 mm[Hg] Janny Gonzalez Other [facility] Other Encounters Encounter Date Encounter Type Care Provider Facility Start: 02-07-2024 End: 02-07-2024 Bamboo flowsheet Jenna TOBIAS Work Phone: [facility] Start: 02-07-2024 End: 02-07-2024 Bamboo flowsheet Jenna TOBIAS Work Phone: [facility] Start: 02-07-2024 End: 02-07-2024 flow [...] Available Start: 01-02-2024 End: 01-02-[facility] Start: 01-02-2024 End: 01-02-2024 Emergency department patient visit [facility] Start: 12-23-2023 End: 12-23-2023 ambulatory SURYA JOSE Not Available Start: 12-02-2023 End: 12-02-2023 ambulatory JENNA WILLIAM Not Available Start: 11-30-2023 End: 11-30-2023 ambulatory MALINDA PATE [facility] Start: 11-04-2023 End: 11-04-2023 ambulatory SONAM TENORIO [facility] Start: 10-06-2023 End: 10-06-2023 ambulatory DANDY PLATAALRICHY [facility] Start: 10-05-2023 End: 10-05-2023 Emergency department patient visit [facility] Start: 09-29-2023 End: 09-29-2023 ambulatory [facility] Start: 09-22-2023 End: 09-22-2023 ambulatory [facility] Start: 09-21-2023 End: 09-22-2023 ambulatory [facility] Start: 09-21-2023 End: 09-21-2023 ambulatory [facility] Start: 09-21-2023 Encounter for gynecological examination (general) (routine) without abnormal findings [facility] Start: 09-21-2023 End: 09-21-2023 ambulatory SONAM Andre [facility] Start: 09-21-2023 Encounter for gynecological examination (general) (routine) without abnormal findings [facility] Start: 09-17-2023 End: 09-17-2023 ambulatory [facility] Start: 08-13-2023 End: 08-13-2023 ambulatory SONAM [facility] Start: 06-16-2023 End: 06-16-2023 ambulatory [facility] Work Phone: Start: 06-16-2023 End: 06-16-2023 Patient encounter procedure [facility] [place] Work Phone: Start: 12-19-2022 Office outpatient vi sit 15 minutes Inessa Lewis [facility] [place] Start: 12-19-2022 End: 12-19-2022 ambulatory Inessa Lewis [facility] Other Start: 12-19-2022 End: 12-19-2022 Departed Referred CHIEF NURSE ANESTHETIST Inessa Lewis Work Phone: [facility] [place] Work Phone: Start: 08-19-2021 End: 08-19-2021 ambulatory Janny Gonzalez Other [facility] Other Start: 08-19-2021 Telephone encounter Janny Carlos [facility] [address] Start: 08-15-2021 End: 08-15-2021 ambulatory Janny Gonzalez Other [facility] Other Start: 08-15-2021 Office outpatient ne w 20 minutes Janny Carlos [facility] [place] Start: 02-27-2020 Patient encounter procedure [facility] Facility:[facility] Start: 01-30-2020 End: 01-31-2020 Patient encounter procedure [facility] Facility:[facility] Start: 01-16-2020 End: 01-16-2020 Patient encounter procedure CATHRYN BARNES Facility:[facility] Start: 12-27-2019 End: 12-28-2019 Patient encounter procedure [facility] Facility:[facility] Start: 11-29-2019 End: 11-30-2019 Patient encounter procedure [facility] Facility:[facility] Start: 11-28-2019 End: 11-28-2019 Patient encounter procedure DO[facility] MISC Facility:[facility] Procedures Date Procedure Procedure Detail Performing Clinician Start: 02-07-2024 Urnls dip stick/tabl et rgnt non-auto w/o micrscp Surya Haq DO Work Phone: Plan of Treatment Date Care Activity Detail Author Start: 02-14-2024 End: 02-14-2024 Patient encounter procedure 02/14/2024 2:30 PM EDT Routine [facility] [address] [place] [address] Surya Haq, DO [address] [place] [address] [facility] Start: 02-07-2024 End: 02-06-2025 [...] AM EDT Routine [facility] [address] [place] [id number] Jenna Thomas PA [address] [place], [place] [id number] Arrived [facility] Comment on above: Arrived Start: 12-19-2022 [facility] Atopobium vaginae DN A [Presence] in Vaginal fluid by KENNETH with probe detection [facility] Bacterial vaginosis associated bacterium 2 DNA [Presence] in Vaginal fluid by KENNETH with probe detection [facility] Megasphaera sp type 1 DNA [Presence] in Vaginal fluid by KENNETH with probe detection [facility] Payers Date Payer Category Payer Self-pay [id number] 2022 Medicaid [facility] [id number] 2022 Medicaid [id number] 2.16.840.1.341744.19 2019 Unknown [id number] 1997 Unknown [id number] 2..840.1.267825.3.579.2.593 1997 Unknown [id number] 2.840.1.161187.3.579.2.59 1997 Unknown [id number] 2.16.840.1.084342.3.579.2.593 1997 Unknown [id number] 2.16.840.1.544715.3.579.2. 1997 Unknown [id number] 2.16.840.1.452141.3.579.2.59 1997 Unknown [id number] 2.16.840.1.978356.3.579.2. 1997 Unknown [id number] 2.16.840.1.177995.3.579.2.1285 1997 Unknown [id number] 2.16.840.1.752691.3.579.2.1285 1997 Unknown [id number] 2.16.840.1.384943.3.579.2.1285 1997 Unknown [id number] 2.16.840.1.440410.3.579.2.1285 1997 Unknown [id number] 2.16.840.1.155524.3.579.2.1285 1997 Unknown [id number] 2.16.840.1.507688.3.579.2.1285 1997 Unknown [id number] 2.16.840.1.138454.3.579.2.1285 1997 Unknown [id number] 2.16.840.1.010971.3.579.2.1285 1997 Unknown [id number] 2.16.840.1.532847.3.579.2.1285 1997 Unknown [id number] 2.16.840.1.483085.3.579.2.1285 1997 Unknown [id number] 2.16.840.1.731509.3.579.2.1285 1997 Unknown [id number] 2.16.840.1.651446.3.579.2.6 1997 Unknown [id number] 2.16.840.1.166124.3.579.2.1285 1997 Unknown [id number] 2.16.840.1.492636.3.579.2.1285 1997 Unknown [id number] 2.16.840.1.746655.3.579.2.1285 1997 Unknown [id number] 2.16.840.1.207336.3.579.2.9 1997 Unknown [id number] 2.16.840.1.582417.3.579.2.1258 1997 Unknown [id number] 2.16.840.1.800901.3.579.2.9 1997 Unknown [id number] 2.16.840.1.181609.3.579.2.1258 1997 Unknown [id number] 2.16.840.1.900958.3.579.2.1259 1959 Unknown [id number] Unknown [id number] 2.16.840.1.462289.19 Unknown [id number] 2.16.840.1.206873.3.579.2.531 Social History Date Type Detail Facility Unknown if ever smoked [facility] Other Sex Assigned At [facility] Other Start: 1995 Sex Assigned At Female F [facility] Start: 06-16-2023 Tobacco smoking status ORIS Never smoked tobacco (finding) [facility] Tobacco smoking status [facility] Tobacco smoking consumption unknown [facility] [...] Oral, Every 8 hours PRN Prenat w/o C-TcSkd-Ywsg-FA-DHA (TriStart DHA) 31-0.6-0.4-200 MG capsule 1 capsule, [...] nursing note reviewed. Exam conducted with a physician neonatology present. Vitals: There is no height or [...] Delivery: 03/12/24. Patient to schedule NST/BPP's at [facility]. Order given to patient and also faxed to [facility] scheduling and FBC. Patient to return to clinic in 1 week. Documented by Malinda Bundy LPN on behalf of: JATINDER Pineda documented in this encounter [facility] Evaluation note 12-19-2022 Note Date [...] in not improving over next 5-7 days. [facility] Other Evaluation note 08-15-2021 Note Date & [...] results. 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 Immediate eval if abdominal pain, fever, chills, body aches, back/flank pain, nausea, urinary complaints. Patient may use OTC external yeast infection creams for external irritation, do not insert creams or meds as Diflucan rx will treat. Avoid scratching and douching. Patient verbalizes understanding and is agreeable to treatment plan [facility] Other Evaluation note Note Date & Type Note Facility Evaluation note No Information [facility] Other Evaluation note Note Date & Type Note Facility Evaluation note No assessment information availa [facility] Work Phone: Evaluation note Note Date & Type Note Facility Evaluation note Diagnosis Onset Date Pre-employment examination a [facility] Work Phone: Evaluation note Note Date & [...] wisdom teeth Hospitalization History Fall Pneumothorax 2021 [facility] Other History general Narrative - Reported Note Date & Type Note Facility History general Narrative - Reported Type Surgical History wisdom teeth Surgical History 1 Hospitalization History Fall Pneumothorax 2021 Hospitalization History 2016 [facility] Other Summary Purpose Family History No Family [...] DATE CREATED AUTHOR AUTHOR'S ORGANIZ ATION 01/06/2023 [facility] DATE CREATED AUTHOR AUTHOR'S ORGANIZ ATION 09/22/2023 [facility] DATE CREATED AUTHOR AUTHOR'S ORGANIZ ATION 11/10/2023 [facility] DATE CREATED AUTHOR AUTHOR'S ORGANIZ ATION 01/03/2024 [facility] DATE CREATED AUTHOR AUTHOR'S ORGANIZ ATION 02/08/2024 [facility] EPIC REASON FOR VISIT (unrecogniz ed section and content) Reason Comments Routine Visit POSS BVPOSS YEAST INFECTION Care Teams (unrecognized sec tion and content) Team Status: Inactive Member Role Status Dates Inessa Lewis APRN Attending Provider Active Team Status: Active Member Role Status Dates Romi Rider APRN [employer]OPMENT TEAM LEAD-C Primary Care Provider Active Team Status: Inactive Member Role Status Dates Romi Rider APRN [employer] DEVELOPMENT TEAM LEAD-C Primary Care Provider Active Start: June 162023 [...] BE BASED ON THE PRIMARY CLINICAL RECORDS. [facility] [employer] provides no warranty or guarantee of the accuracy or completeness of information in this document.
== END 2024-02-14 19:51 | disposition home or self-care (01) ==
LOC: LAB 19:50
PROVIDERS: Visit Provider Obstetrics & Gynecology
DX: Z34.93 Encounter for supervision of normal pregnancy, unspecified, third trimester (principal)
CPT/HCPCS: 87081; 87150

== ENCOUNTER 2024-02-19 06:50 | Outpatient (OUT) | payer MEDICAID, SELFPAY ==
--- OUTSIDE RECORDS SUMMARY | 2024-02-19 06:53 | XMS_ITS | CCD ---
Author Organization [facility] Care Team Providers Care Oracle Bpm Developer Name Role Phone MISC, DOCTOR Primary Care [...] Primary Care Unavailable CATHRYN BARNES Consulting Unavailable PAZANDER, HELENA Admitting Unavailable HIGHLANDER, HELENA Attending Unavailable TIESHA CASTILLO Consulting Unavailable HIGHLANDER, HELENA Consulting Unavailable HIGHLANDER, HELENA Admitting Unavailable HIGHLANDER, HELENA Attending Unavailable Janny Gonzalez Unavailable Inessa Lewis Unavailable NIURKA Lewis Attending Provider Inessa Lewis Attending Unavailable Inessa Lewis Admitting Unavailable SONMA TENORIO Referring Unavailable LIZZETTE, ROMI A Primary [...] Unavailable LIZZETTE, ROMI A Primary Care Unavailable DARINEDELMIRAWALDO Attending Unavailable LIZZETTE, ROMI A Referring Unavailable LIZZETTE, ROMI A Primary Care Unavailable KROTZERSONAM M Attending Unavailable KROTZER, SONAM M Referring Unavailable LIZZETTE, ROMI A Primary Care Unavailable LIZZETTE, ROMI A Referring Unavailable LIZZETTE, ROMI A Primary Care Unavailable KROTZERTRACIA M Referring Unavailable LIZZETTE, ROMI A Primary Care Unavailable LIZZETTE, ROMI A Primary Care Unavailable JEANNE SMART Attending Unavailable MALINDA PATE Admitting Unavailable MALINDA PATE Attending Unavailable LIZZETTE, ROMI A Primary Care Unavailable LIZZETTE, ROMI A Primary Care Unavailable OSVALDO, TIBERIU S Admitting Unavailable OSVALDO, TIBERIU S Attending Unavailable LIZZETTE, ROMI A Primary Care Unavailable Unavailable Primary Care Provider UnavailJENNA Garcia Attending Unavailable SURYA HAQ Attending Unavailable JENNA THOMAS Attending Unavailable SURYA HAQ Attending Unavailable JENNA THOMAS Attending Unavailable SURYA HAQ Attending Unavailable Medications Current Medications Medication Drug [...] (Other) diphenhydrAMINE hydrochloride 50 mg oral capsule (12 sources) Histamine-1 Receptor Antagonist Start: 12-23-2023 diphenhydrAMINE [...] needed for 1 day Jul, Active Magnesium (6 sources) Start: 12-09-2023 End: 03-08-2024 take 1 [...] omeprazole 20 mg delayed release oral capsule (6 sources) Proton Pump Inhibitor Start: 12-02-2023 End: 12-01-2024 take 1 capsule by mouth before mealtime omeprazole (PriLOSEC) [address] capsule Indications: Heartburn during , antepartum Take 1 capsule (20 mg) by mouth in the morning. Take before meals. Do not crush or chew.. 30 capsule 11 12/02/2023 12/01/2024 Active ondansetron 4 mg disintegrating oral tablet (6 sources) Serotonin-3 Receptor Antagonist Start: 09-21-2023 take 1 tablet by mouth every eight hours as needed ondansetron ODT (Zofran-ODT) 4 MG disintegrating tablet Take 4 mg by mouth every 8 (eight) hours if needed 09/21/2023 Active Prenat w/o R-UfQlc-Dalc-FA-DHA (TriStart DHA) 31-0.6-0.4-200 MG capsule (6 sources) Start: 08-13-2023 take 1 capsule by mouth in the morning Prenat w/o J-WrUwg-Xrdy-FA-DHA (TriStart DHA) 31-0.6-0.4-200 MG capsule Take 1 capsule by mouth in the morning. 08/13/2023 Active Vit-Fe Fumarate-FA (WesTab Plus) 27-1 MG tablet (6 sources) Start: 08-26-2023 take 1 tablet by [...] 11-28-2019 Episodic Other and delivery including normal (10 sources) Encounter for test, result positive; Translations: [...] weeks gestation of ] Onset: 11-04-2023 Episodic Residual codes; unclassified (2 sources) Gestation period, 36 weeks; Translations: [36 weeks gestation of ] 02-14-2024 Episodic Substance-related disorders (1 source) Nicotine dependence, [...] Reference Range Facility Urinalysis macro (dipstick) panel (U)Ordered By: Carmenza Donovan on 02-15-2024 Bilirubin, UA Negative Negative - 4(70) +++ mg/dL [facility] Blood, UA Negative Negative - 50 Eriberto/mcL [facility] Clarity, UA Clear [facility] Color, UA Yellow [facility] Glucose, UA Negative Negative - 1999(110) ++++ mg/dL [facility] Interpretation and review of laboratory results Normal [facility] Ketones, UA Negative Negative - 160(16) ++++ mg/dL [facility] Leukocytes, UA Negative Negative - 500+++ Pk/mcL [facility] Nitrite, UA Negative Negative - Positive [facility] pH, UA 5.5 5 - 9 [facility] Protein, UA Negative Negative - 1999(20) ++++ mg/dL [facility] Spec Grav, UA 1.02 1 - 1.03 [facility] care Urobilinogen, UA 1.0 0.2 - 12 mg/dL [facility] Urinalysis macro (dipstick) panel (U)on 02-07-2024 Bilirubin, UA Negative Negative - 4(70) +++ mg/dL [facility] Blood, UA Negative Negative - 50 Eriberto/mcL [facility] Clarity, UA Clear [facility] Color, UA Yellow [facility] Glucose, UA Negative Negative - 1999(110) ++++ mg/dL [facility] Interpretation and review of laboratory results Abnormal [facility] re Ketones, UA Negative Negative - 160(16) ++++ mg/dL [facility] Leukocytes, UA Negative Negative - 500+++ Pk/mcL [facility] Nitrite, UA Negative Negative - Positive [facility] pH, UA 5.5 5 - 9 [facility] e Protein, UA Negative Negative - 1999(20) ++++ mg/dL [facility] Spec Grav, UA 1.025 1 - 1.03 [facility] Urobilinogen, UA 1.0 0.2 - 12 mg/dL [facility] URINALYSISon 11-30-2023 Bilirubin Ql (U) Negative Normal NEG [facility] Comment on above: Performed By: #### C ERICK, 98968-0, AHP, 01939-7, 89270-5, 15778- 4, 25785-5 #### [facility] ([id number]) [address] [place] [address], [address] [place] [address] #### 30533-9, 21577-0 #### [facility] ([id number]) [address] [place] [address]51 BLOOD/HGB Negative Normal NEG [facility] Comment on above: Performed By: #### Joan SUAREZ, 97886-1, AHP, 37184-0, 72949-9, 67526- 4, 69350-4 #### [facility] ([id number]) [address] [place] [address], [address] [place] [address] #### 93327-0, 99396-0 #### [facility] ([id number]) [address] [place] [address] 09700 Color (U) YELLOW Normal YELLOW [facility] Comment on above: Performed By: #### C ERICK, 51460-1, AHP, 56892-7, 49642-2, 78811- 4, 88838-7 #### [facility] ([id number]) [address] [facility], [address] [place] [address] #### 82328-0, 43677-9 #### [facility] ([id number]) [address] [place] [address] 76444 Glucose Ql (U) Negative Normal NEG [facility] Comment on above: Performed By: #### C BC, 23449-3, AHP, 12171-1, 91129-1, 65869- 4, 22410-6 #### [facility] ([id number]) [address] [facility], [address] [place] [address] #### 16487-6, 48619-9 #### [facility] ([id number]) [address] [place] [address] 39057 Ketones Ql (U) Negative Normal NEG [facility] Comment on above: Performed By: #### C ERICK, 52404-2, AHP, 77996-3, 71418-4, 40502- 4, 77518-6 #### [facility] ([id number]) [address] [place] [address], [address] [place] [address] #### 28881-0, 30411-9 #### [facility] ([id number]) [address] [place] [address] 53899 Leukocyte esterase Test strip Ql (U) Negative Normal NEG [facility] Comment on above: Performed By: #### Joan SUAREZ, 03170-6, AHP, 50433-5, 47129-4, 23270- 4, 82353-8 #### [facility] ([id number]) [facility] [facility], [address] [place] [address] #### 72934-7, 60767-4 #### [facility] ([id number]) [address] [place] [address] 00083 Nitrite Ql (U) Negative Normal NEG [facility] Comment on above: Performed By: #### C ERICK, 70196-1, AHP, 41918-0, 03487-0, 00724- 4, 13302-5 #### [facility] ([id number]) [address], [address] [place] [address] #### 84880-1, 08261-6 #### [facility] ([id number]) [address] [place] [address] 68770 pH (U) 7.0 [pH] Normal 5.0-8.5 [facility] Comment on above: Performed By: #### Joan SUAREZ, 56025-6, AHP, 73016-6, 15166-2, 37972- 4, 02186-8 #### [facility] ([id number]) [address], [facility] [address] [place] [address] #### 02414-5, 73522-8 #### [facility] ([id number]) [address] [place] [address] 19270 Protein Ql (U) Negative Normal NEG [facility] Comment on above: Performed By: #### Joan SUAREZ, 44410-3, AHP, 49933-0, 09656-9, 69986- 4, 34730-6 #### [facility] ([id number]) [address], [address] [place] [address] #### 74029-4, 56861-2 #### [facility] ([id number]) [address] [place] [address] 18978 Specific gravity (U) [Rel density] 1.025 Normal 1.003-1.035 [facility] Comment on above: Performed By: #### Joan SUAREZ, 54668-0, AHP, 93190-8, 49636-0, 21228- 4, 09463-3 #### [facility] ([id number]) [address], [address] [place] [address] #### 28483-5, 44729-5 #### [facility] ([id number]) [address] [place] [address] 77813 TURBIDITY CLEAR Normal CLEAR [facility] Comment on above: Performed By: #### C ERICK, 52263-9, AHP, 74872-4, 41952-0, 77999- 4, 05100-9 #### [facility] ([id number]) [address] [place] [address], [address] [place] [address] #### 47734-6, 12746-7 #### [facility] ([id number]) [address] [place] [address] 95961 Urobilinogen Qn (U) 0.2 {Saleem'U}/dL Normal <1.1 [facility] Comment on above: Performed By: #### Joan SUAREZ, 15426-7, AHP, 26018-1, 35083-5, 95664- 4, 38541-3 #### [facility] ([id number]) [address] [place] [address], [address] [place] [address] #### 37210-2, 52701-2 #### [facility] ([id number]) [address] [place] [address]235 [facility]/GC PCR, [place] SPECIMEN SOURCE ThinPrep CHLAMYDIA DNA(PCR) Negative (qualifier value) Chlamydia trachomatis not detected by nucleic acid amplification. This does not exclude the possibility of infection because results are dependent on adequate specimen collection. GONORRHOEAE DNA(PCR) Negative (qualifier value) Neisseria gonorrhoeae not detected by nucleic acid amplification. This does not exclude the possibility of infection because results are dependent on adequate specimen collection. Normal [facility] Comment on above: Performed By: #### C ERICK, 26326-0, AHP, 58079-9, 26673-9, 57146- 4, 30712-0 #### [facility] ([id number]) [address] [place] [address], [address] [place] [address] #### 72613-1, 04513-8 #### [facility] ([id number]) [address] [place] [address], [place] [address] DRUG SCREEN, URINEon 024 AMPHETAMINE/[facility]ETHAMP [facility] Comment on above: Result Comment: AMPH /METH screening cut off = 1000 ng/mL Performed By: #### D DOWNING #### [facility] ([id number]) [address], [address] [place] [address] BARBITURATES Negative Normal NEG [facility] Comment on above: Result Comment: Venita iturates screening cut off value = 200 ng/mL Performed By: #### D DOWNING #### [facility] ([id number]) [address], [address] [place] [address] BENZODIAZEPINES Negative Normal NEG [facility] Comment on above: Result Comment: Ander odiazepines screening cut off value = 200 ng/mL Performed By: #### D DOWNING #### [facility] ([id number]) [address], [address] [place] [address] CANNABINOIDS Positive Abnormal NEG [facility] Comment on above: Result Comment: Conf irmation available upon request. Cannabinoids/THC screening cut off value = 50 ng/mL Performed By: #### D DOWNING #### [facility] ([id number]) [address], [address] [place] [address] COCAINE METABOLITE Negative Normal NEG [facility] Comment on above: Result Comment: Coca ine screening cut off value = 300 ng/mL Performed By: #### D DOWNING #### [facility] ([id number]) [address], [address] [place] [address] ECSTASY Negative Normal NEG [facility] Comment on above: Result Comment: Ecst asy screening cut off value = 500 ng/mL This report is intended for use in clinical monitoring or management of patients. Performed By: #### D DOWNING #### [facility] ([id number]) [address], [address] [place] [address] METHADONE Negative Normal NEG [facility] Comment on above: Result Comment: Meth adone screening cut off value = 300 ng/mL. Performed By: #### D DOWNING #### [facility] ([id number]) [address], [address] [place] [address] OPIATES Negative Normal NEG [facility] Comment on above: Result Comment: Opia monica screening cut off value = 300 ng/mL NOTE: This test is used for the detection of codeine, hydrocodone (>1000 ng/mL), morphine and hydromorphone (>900 ng/mL) in urine. Performed By: #### D DOWNING #### [facility] ([id number]) [address], [address] [place] [address] OXYCODONE Negative Normal [facility] Comment on above: Result Comment: Oxyc odone screening cut off value = 300 ng/mL NOTE: This test is used for the detection of oxycodone and oxymorphone in urine. Performed By: #### D DOWNING #### [facility] ([id number]) [address], [address] [place] [address] PHENCYCLIDINE Negative Normal [facility] Comment on above: Result Comment: Phen cyclidine screening cut off value = 25 ng/mL Performed By: #### D DOWNING #### [facility] ([id number]) [address], [address] [place] [address] URINALYSISon 09-21-2023 Bilirubin Ql (U) Negative Normal NEG [facility] Comment on above: Performed By: #### U A #### [facility] ([id number]) [address], [address] [place] [address] BLOOD/HGB Negative Normal NEG [facility] Comment on above: Performed By: #### U A #### [facility] ([id number]) [address], [address] [place] [address] Color (U) YELLOW Normal YELLOW [facility] Comment on above: Performed By: #### U A #### [facility] ([id number]) [address], [address] [place] [address] Glucose Ql (U) Negative Normal NEG [facility] Comment on above: Performed By: #### U A #### [facility] ([id number]) [address], [address] [place] [address] Ketones Ql (U) >150 Abnormal NEG [facility] Comment on above: Performed By: #### U A #### [facility] ([id number]) [address], [address] [place] [address] Leukocyte esterase Test strip Ql (U) Negative Normal NEG [facility] Comment on above: Performed By: #### U A #### [facility] ([id number]) [address], [address] [place] [address] Nitrite Ql (U) Negative Normal NEG [facility] Comment on above: Performed By: #### U A #### [facility] ([id number]) [address], [address] [place] [address] pH (U) 6.0 [pH] Normal 5.0-8.5 [facility] Comment on above: Performed By: #### U A #### [facility] ([id number]) [address], [address] [place] [address] Protein Ql (U) Negative Normal NEG [facility] Comment on above: Performed By: #### U A #### [facility] ([id number]) [address], [address] [place] [address] Specific gravity (U) [Rel density] 1.019 Normal 1.003-1.035 [facility] Comment on above: Performed By: #### U A #### [facility] ([id number]) [address] [facility], [address] [place] [address] TURBIDITY CLEAR Normal CLEAR [facility] Comment on above: Performed By: #### U A #### [facility] ([id number]) [address] [place] [address], [address] [place] [address] Urobilinogen (U) [Mass/Vol] mg/dL Normal <1.1 [facility] Comment on above: Performed By: #### U A #### [facility] ([id number]) [address] [place] [address] URINE CULTUREon 09-21-2023 Bacteria identified Cx Nom (U) CULTURE RESULTS 10,000 to 50,000 ORGANISMS/mL ESCHERICHIA COLI <10,000 ORGANISMS/mL NORMAL URO GENITAL JACKIE Normal [facility] Comment on above: Performed By: #### 6 30-4 #### [facility] ([id number]) [address] [place] [address], [address] [address] ACUTE HEPATITIS PANELon 08-25 ANTI HCV W/PCR REFLX Non-Reactive [facility] Comment on above: Result Comment: If recent infection suspected, recommend repeat testing (>2 months). Brxazo-kn-yzwijm ratio is <0.80. Performed By: #### C BC, 35635-1, P, 14830-7, 33097-3, 32183-7, 21522-2 #### [facility] ([id number]) [address] [facility], [address] [address] #### 73875-7, 96438-6 #### [facility] ([id number]) [address] [place] [address], [place] [address] HEPATITIS A IGM Non-Reactive Normal NRCT [facility] Comment on above: Performed By: #### C BC, 21111-1, AHP, 91494-4, 00589-1, 31618- 4, 00204-2 #### [facility] ([id number]) [address] [facility], [address] [address] #### 50865-2, 53022-1 #### [facility] ([id number]) [address] [place] [address] HEPATITIS B CORE IGM Negative Normal NEG [facility] Comment on above: Performed By: #### C BC, 69616-5, AHP, 17644-9, 19652-1, 40731- 4, 33558-3 #### [facility] ([id number]) [address] [place] [address], [address] [address] #### 25523-6, 24249-2 #### [facility] ([id number]) [address] [place] [address] HEPATITIS B SURF AG Negative Normal NEG [facility] Comment on above: Performed By: #### C BC, 89449-0, AHP, 16861-8, 82216-1, 18266- 4, 90923-9 #### [facility] ([id number]) [address] [facility], [address] [address] #### 82737-1, 32011-0 #### [facility] ([id number]) [address] [place] [address] COMPLETE BLOOD COUNTon 09-16 Erythrocyte distribution width (RBC) [Ratio] 13.0 % Normal 11.5-15.0 [facility] Comment on above: Performed By: #### C BC, 96212-6, AHP, 07469-9, 22937-2, 67660- 4, 58094-6 #### [facility] ([id number]) [address] [place] [address], [address] [address] #### 63657-6, 46305-9 #### [facility] ([id number]) [address] [place] [address] Hematocrit (Bld) [Volume fraction] 36.1 % Normal 35-47 [facility] Comment on above: Performed By: #### C BC, 53251-0, AHP, 25288-2, 99655-5, 43128- 4, 62068-6 #### [facility] ([id number]) [address], [address] [place] [address] #### 79138-2, 83314-2 #### [facility] ([id number]) [address] [place] [address] Hemoglobin (Bld) [Mass/Vol] 12.5 g/dL Normal 11.7-15.5 [facility] Comment on above: Performed By: #### C BC, 27024-8, AHP, 38743-7, 92703-2, 46156- 4, 72233-9 #### [facility] ([id number]) [address], [address] [place] [address] #### 91991-0, 21044-7 #### [facility] ([id number]) [address] [place] [address]191 MCH (RBC) [Entitic mass] 32.0 pg Normal 27-34 [facility] Comment on above: Performed By: #### C BC, 82049-0, AHP, 93704-6, 18698-9, 39260- 4, 68961-1 #### [facility] ([id number]) [address], [address] [place] [address] #### 07624-2, 44543-9 #### [facility] ([id number]) [address] [place] [address] 88742 MCHC (RBC) [Mass/Vol] 34.6 g/dL Normal 32-36 [facility] Comment on above: Performed By: #### Joan SUAREZ, 73372-3, AHP, 54364-2, 69072-9, 70354- 4, 02441-3 #### [facility] ([id number]) [address], [address] [place] [address] #### 27468-8, 73745-7 #### [facility] ([id number]) [address] [place] [address] 99556 MCV (RBC) [Entitic vol] 93 fL Normal 80-100 [facility] Comment on above: Performed By: #### Joan SUAREZ, 99909-0, AHP, 21028-2, 78709-9, 83991- 4, 51705-1 #### [facility] ([id number]) [address], [address] [place] [address] #### 30516-8, 23285-5 #### [facility] ([id number]) [address] [place] [address] 46928 Platelet mean volume (Bld) [Entitic vol] 8.7 fL Normal 7-12 [facility] Comment on above: Performed By: #### Joan SUAREZ, 74405-0, AHP, 12653-1, 05327-2, 53814- 4, 27287-6 #### [facility] ([id number]) [address], [address] [place] [address] #### 23463-3, 45471-9 #### [facility] ([id number]) [address] [place] [address] 35083 Platelets (Bld) [#/Vol] 300 10*3/uL Normal 150-450 [facility] Comment on above: Performed By: #### Joan SUAREZ, 38554-6, AHP, 92002-1, 54227-3, 28460- 4, 78040-5 #### [facility] ([id number]) [address] [facility], [address] [place] [address] #### 79890-8, 04746-1 #### [facility] ([id number]) [address] [place] [address] 50098 RBC COUNT 3.90 X10E12/L Normal 3.80-5.20 [facility] Comment on above: Performed By: #### C BC, 85629-5, AHP, 12752-2, 42859-6, 12960- 4, 67755-1 #### [facility] ([id number]) [address] [facility], [address] [place] [address] #### 03733-7, 37162-7 #### [facility] ([id number]) [address] [place] [address] 59019 WBC (Bld) [#/Vol] 9.7 10*3/uL Normal 4.0-11.0 [facility] Comment on above: Performed By: #### C BC, 11965-9, AHP, 70313-2, 94731-2, 32335- 4, 44151-3 #### [facility] ([id number]) [address] [facility], [address] [place] [address] #### 57753-2, 63982-6 #### [facility] ([id number]) [address] [place] [address] 73072 HCG.beta subunit IA 3rd IS Q non 09-17-2023 [place] [address] m[IU]/mL Normal P [facility] Comment on above: Result Comment: NEW [...] or nontrophoblastic neoplasms. Performed By: #### C BC, 21738-5, AHP, 18559-3, 62157-7, 97213-7, 98842-5 #### [facility] ([id number]) [address] [place] [address], [address] [place] [address] #### 27715-1, 00801-4 #### [facility] ([id number]) [address] [place] [address] HIV 1+2 Ab+HIV1 p24 Ag IA Ql on 09-17-2023 HIV 1 and 2 Ab/Ag Screen Non-Reactive Normal NRCT [facility] Comment on above: Result Comment: [...] or diagnoses. Performed By: #### C BC, 31006-3, AHP, 49835-4, 30862-2, 03028-4, 17500-4 #### [facility] ([id number]) [address] [place] [address], [address] [place] [address] #### 43742-6, 45939-1 #### [facility] ([id number]) [address] [place] [address]34 Reagin Ab RPR (S) [Titer]on 09-17-2023 RPR TITER, SERUM SEE COMMENTS 09/21/2023 10:[address] [facility] Comment on above: Result Comment: NOTE Test Result Flag Unit RefValue RPR, Titer, S 1:1 A Negative Results consistent with untreated or recently treated syphilis. Clinical correlation required. For additional information on interpretation of the syphilis reverse algorithm and results, see: [email or web address] Test Performed by: [place] [address] [employer]: Luke Downey M.D. Ph.D.; CLIA# [id number] Performed By: #### C [place], 59385-6, AHP, 91381-5, 01363-1, 09484-0, 09074-5 #### [facility] ([id number]) [address] [place] [address], [address] [place] [address] #### 95039-1, 37504-2 #### [facility] ([id number]) [address] [place] [address] Reagin Ab RPR Ql (S)on 09-16 RPR WITH REFLEX TO RTPPA Positive Abnormal Negative [facility] Comment on above: Result Comment: NOTE Specimen reflexed to determine RPR titer. For additional information on interpretation of the syphilis reverse algorithm and results, see: [email or web address] Test Performed by: [place] [address] [employer]: Luke Downey M.D. Ph.D.; CLIA# [id number] Performed By: #### C , 56637-5, P, 81722-6, 19860-1, 34005-2, 08923-2 #### [facility] ([id number]) [address] [place] [address], [address] [address] #### 75887-9, 98389-6 #### [facility] ([id number]) [address] [place] [address] Rubella virus Ab Ql (S)on RUBELLA IMMUNE IgG 1.0 AI Normal [facility] Comment on above: Result Comment: Interpretation-------- <0.8 NEGATIVE-considered Not Immune 0.8-0.9 EQUIVOCAL-consider retesting with new specimen >0.9 POSITIVE-considered Immune Performed By: #### C , 17123-6, [facility], 97198-8, 96969-7, 02337-0, 18434-7 #### [facility] ([id number]) [address] [place] [address], [address] [address] #### 91320-2, 24233-5 #### [facility] ([id number]) [address] [place] [address]165 T. pallidum IgG+IgM IA Ql (S )on 09-17-2023 Syphilis Total >8.0 High 0.0-0.8 [facility] Comment on above: Result Comment: REAC TIVE This specimen will be sent to a reference lab for additional testing which includes RPR with reflex to TP-PA if RPR is negative. The RPR will help distinguish between infections with T.pallidum (syphilis) versus a falsely reactive treponemal antibody result. Please see the syphilis testing algorithm link below for more information. [email or web address] Performed By: #### C ERICK, 87238-7, EFREM, 10766-5, 42706-8, 12164-3, 14976-2 #### [facility] ([id number]) [address], [address] [place] [address] #### 91056-1, 86554-0 #### [facility] ([id number]) [address] [place] [address], [place] [address] US PREG TRANSABD FU PER FETU on 09-17-2023 US PREG TRANSABD FU PER FETU US PREG TRANSABD FU PER FETU US PREG TRANSABD FU PER FETU: 09/17/2023 8:25 AM Clinical: Check dates and viability. Real-time transabdominal sonography pelvis performed.. Transvaginal sonography pelvis performed for better evaluation of the pelvic organs. No comparison. There is a single live intrauterine . [place]-rump length of 8.8 cm corresponds to 14 [...] Frances MD on 09/17/2023 11:[address] [facility] VZV IgG IA Ql (S)on 09-17-19 24 VARICELLA IgG 3.1 AI High <0.9 [facility] Comment on above: Result Comment: Interpretation-------- <0.9 Negative 0.9 - 1.0 Equivocal >1.0 Positive Performed By: #### C ERICK, 81476-8, P, 52229-3, 72413-8, 58993-0, 97429-9 #### [facility] ([id number]) [address] [place] [address], [address] [place] [address] #### 71749-9, 10034-6 #### [facility] ([id number]) [address] [place] [address], [place] [address] Urinalysis - AUTOMATEDon Appearance (U) CLEAR [employer] Other Bilirubin Ql (U) Negative [employer] Other Color (U) YELLOW [employer] Other Glucose Ql (U) Negative [employer] Other Hemoglobin Ql (U) NEGTIVE [employer] Other Ketones Ql (U) Negative [employer] Other Leukocyte esterase Test strip Ql (U) Negative [employer] Other Nitrite Ql (U) Negative [employer] Other pH (U) 7.5 [pH] [employer] Other Protein Ql (U) Negative [employer] Other Specific gravity (U) [Rel density] 1.015 [employer] Other Urobilinogen (U) [Mass/Vol] 0.2 mg/dL [employer] Other Urinalysis - AUTOMATED [employer] Other Vaginitis Plus (VG+)on 12-19 Atopobium Vaginae High - 2 Critically abnormal . [facility] Comment on above: Performed By: #### V AGINITIS+ #### [facility] , BVAB2 High - 2 Critically abnormal . [facility] Comment on above: Performed By: #### V AGINITIS+ #### [facility] , Makenzie Albicans, KENNETH Negative Normal Negative [facility] Comment on above: Result Comment: This test was developed and its performance characteristics determined by [facility]. It has not been cleared or approved by the Food and Drug Administration. Performed By: #### V AGINITIS+ #### [facility] , Makenzie Glabrata, KENNETH Negative Normal Negative [facility] Comment on above: Result Comment: This test was developed and its performance characteristics determined by [facility]. It has not been cleared or approved by the Food and Drug Administration. PERFORMED BY: [facility] [address] [place] [address] PATHOLOGIST PLATFORM LOADER LEO PATEL M.D. Performed By: #### V AGINITIS+ #### [facility] , Chlamydia Trachomotis, KENNETH Positive Critically abnormal Negative [facility] Comment on above: Performed By: #### V AGINITIS+ #### [facility] , Megasphaera High - 2 Critically abnormal . [facility] Comment on above: Result Comment: [...] , Neisseria Gonorrhoeae, KENNETH Negative Normal Negative [facility] Comment on above: Result Comment: Perf ormed at: =[facility] [place] [place]os [place] [id number] T[employer] Builder Airplane: Brianne Shabazz MD, Phone: [phone] Performed By: #### V AGINITIS+ #### [facility] , Tric Vag KENNETH Negative Normal Negative [facility] Comment on above: Performed By: [...] by: TIESHA CASTILLO Date: 2020-01-30 14:39 Normal [facility] XR ANKLE LT MIN 3 Von [...] YAKOV DAWSON Date: 2019-12-27 09:54 Normal [facility] XR ANKLE LT MIN 3 Von [...] by: TIESHA CASTILLO Date: 2019-11-29 13:43 Normal [facility] XR FOOT RT MIN 3 VIEWSon XR FOOT RT MIN 3 VIEWS EXAM: Right foot HISTORY: Pain after a fall. TECHNIQUE: 3 views of the right foot were obtained. FINDINGS: There is no evidence of fracture or dislocation. There are no suspicious bone lesions. Soft tissues are normal. IMPRESSION: Unremarkable exam. Electronically authenticated by: JUDE MCDANIEL Date: 2019-11-28 16:48 Normal [facility] XR TIB_FIB LT 2Von 0 XR TIB_FIB [...] by: JUDE MCDANIEL Date: 2019-11-28 16:47 Normal [facility] Vital Signs Date Time Vital Sign Value Performing Clinician Facility 02-14-2024 15:25-0400 Body weight 83.01 kg [employer] Work Phone: [facility] 02-14-2024 15:25-0400 Diastolic blood pressure 72 mm[Hg] [employer] Work Phone: [facility] 02-14-2024 15:25-0400 Systolic blood pressure 118 mm[Hg] [employer] Work Phone: [facility] 02-07-2024 10:03-0400 Body weight 82.01 kg Jenna TOBIAS Work Phone: [facility] 02-07-2024 10:03-0400 Diastolic blood pressure 70 mm[Hg] Jenna TOBIAS Work Phone: [facility] 02-07-2024 10:03-0400 Systolic blood pressure 114 mm[Hg] Jenna TOBIAS Work Phone: [facility] 06-16-2023 13:06-0500 Body temperature 98.6 [degF] [facility] 06-16-2023 13:06-0500 Body weight 63.5 kg [facility] 06-16-2023 13:06-0500 Diastolic blood pressure 76 mm[Hg] [facility] 06-16-2023 13:06-0500 Heart rate 87 /min [facility] 06-16-2023 13:06-0500 Respiratory rate 18 /min [facility] 06-16-2023 13:06-0500 SaO2% (BldA) [Mass fraction] 98 % [facility] 06-16-2023 13:06-0500 Systolic blood pressure 119 mm[Hg] [facility] 12-19-2022 11:25-0400 Body height 160.02 cm Inessa Lewis Other [facility] [employer] Other 12-19-2022 11:25-0400 Body mass index (BMI) [Ratio] 24.3 kg/m2 Inessa Lewis Other [employer] Other 12-19-2022 11:25-0400 Body temperature 98.7 [degF] Inessa Lewis Other [employer] Other 12-19-2022 11:25-0400 Body weight 62.23 kg Inessa Lewis Other [employer] Other 12-19-2022 11:25-0400 Diastolic blood pressure 66 mm[Hg] Inessa Lewis Other [employer] Other 12-19-2022 11:25-0400 Respiratory rate 18 /min Inessa Lewis Other [employer] Other 12-19-2022 11:25-0400 SaO2% (BldA) [Mass fraction] 99 % Inessa Lewis Other [employer] Other 12-19-2022 11:25-0400 Systolic blood pressure 104 mm[Hg] Inessa Lewis Other [employer] Other 08-15-2021 11:45-0400 Body height 160.02 cm Janny Gonzalez Other [employer] Other 08-15-2021 11:45-0400 Body mass index (BMI) [Ratio] 22.32 kg/m2 Janny Gonzalez Other [employer] Other 08-15-2021 11:45-0400 Body temperature 97.9 [degF] Janny Gonzalez Other [employer] Other 08-15-2021 11:45-0400 Body weight 57.15 kg Janny Gonzalez Other [employer] Other 08-15-2021 11:45-0400 Diastolic blood pressure 71 mm[Hg] Janny Gonzalez Other [employer] Other 08-15-2021 11:45-0400 Respiratory rate 18 /min Janny Gonzalez Other [employer] Other 08-15-2021 11:45-0400 SaO2% (BldA) [Mass fraction] 100 % Janny Gonzalez Other [employer] Other 08-15-2021 11:45-0400 Systolic blood pressure 123 mm[Hg] Janny Gonzalez Other [employer] Other Encounters Encounter Date Encounter Type Care Provider Facility Start: 02-14-2024 End: 02-14-2024 ambulatory SURYA EUN Not Available Start: 02-14-2024 End: 02-14-2024 Office outpatient visit 15 minutes Surya Haq DO Work Phone: [facility] Comment on above: Second trimester pre gnancy; 36 weeks gestation of ; Third trimester Start: 02-14-2024 End: 02-14-2024 Bamboo flowsheet Surya Eun DO Work Phone: [facility] Start: 02-14-2024 End: 02-14-2024 Bamboo flowsheet Surya Eun DO Work Phone: [facility] Start: 02-07-2024 End: 02-07-2024 Bamboo flowsheet Jenna TOBIAS Work Phone: [facility] Start: 02-07-2024 End: 02-07-2024 Bamboo flowsheet Jenna TOBIAS Work Phone: [facility] Start: 02-07-2024 End: 02-07-2024 flow sheet Jenna TOBIAS Work Phone: [facility] Comment on above: Third trimester preg emerald; contractions; Size of fetus inconsistent with dates, antepartum; Nonintractable headache, unspecified chronicity pattern, unspecified headache type; History of syphilis Start: 02-07-2024 End: 02-07-2024 ambulatory JENNA THOMAS Not Available Start: 01-20-2024 End: 01-20-2024 ambulatory SURYA EUN Not Available Start: 01-06-2024 End: 01-06-2024 ambulatory JENNA THOMAS Not Available Start: 01-02-2024 End: 01-02-[address] [facility] Start: 01-02-2024 End: 01-02-2024 Emergency department patient visit ROMI RIDER [facility] Start: 12-23-2023 End: 12-23-2023 ambulatory SURYA EUN Not Available Start: 12-02-2023 End: 12-02-2023 ambulatory JENNA THOMAS Not Available Start: 11-30-2023 End: 11-30-[address] [facility] Start: 11-04-2023 End: 11-04-20[facility] Start: 10-06-2023 End: 10-06-2023 ambulatory DANDY RAMSEY [facility] Start: 10-05-2023 End: 10-05-2023 Emergency department patient visit [facility] Start: 09-29-2023 End: 09-29-2023 ambulatory [facility] Start: 09-22-2023 End: 09-22-2023 ambulatory [facility] Start: 09-21-2023 End: 09-22-2023 ambulatory SONAM [facility] Start: 09-21-2023 End: 09-21-2023 ambulatory [facility] Start: 09-21-2023 Encounter for gynecological examination (general) (routine) without abnormal findings [facility] Start: 09-21-2023 End: 09-21-2023 ambulatory SONAM Andre [facility] Start: 09-21-2023 Encounter for gynecological examination (general) (routine) without abnormal findings [facility] Start: 09-17-2023 End: 09-17-2023 ambulatory [facility] Start: 08-13-2023 End: 08-13-2023 ambulatory SONAM [facility] Start: 06-16-2023 End: 06-16-2023 ambulatory [facility] Work Phone: Start: 06-16-2023 End: 06-16-2023 Patient encounter procedure [facility] [place] Work Phone: Start: 12-19-2022 Office outpatient vi sit 15 minutes Inessa Lewis [facility] [place] Start: 12-19-2022 End: 12-19-2022 ambulatory Inessa Lewis [facility] [employer] Other Start: 12-19-2022 End: 12-19-2022 Departed Referred POST ANESTHESIA ROOM NURSE Inessa Lewis Work Phone: [facility] [place] Work Phone: Start: 08-19-2021 End: 08-19-2021 ambulatory Janny Gonzalez Other [employer] Other Start: 08-19-2021 Telephone encounter Janny Gonzalez [facility] [address] Start: 08-15-2021 End: 08-15-2021 ambulatory Janny Gonzalez Other [employer] Other Start: 08-15-2021 Office outpatient ne w 20 minutes Janny Gonzalez [facility] [place] Start: 02-27-2020 Patient encounter procedure [facility] Facility:H1 Start: 01-30-2020 End: 01-31-2020 Patient encounter procedure [facility] Facility:H1 Start: 01-16-2020 End: 01-16-2020 Patient encounter procedure CATHRYN BARNES Facility:H1 Start: 12-27-2019 End: 12-28-2019 Patient encounter procedure [facility] Facility:H1 Start: 11-29-2019 End: 11-30-2019 Patient encounter procedure [facility] Facility:H1 Start: 11-28-2019 End: 11-28-2019 Patient encounter procedure DOCTOR MISC Facility:H1 Procedures Date Procedure Procedure Detail Performing Clinician Start: 02-15-2024 Urnls dip stick/tabl et rgnt non-auto w/o micrscp Surya Eun DO Work Phone: Start: 02-07-2024 Urnls dip stick/tabl et rgnt non-auto w/o micrscp Surya Eun DO Work Phone: Plan of Treatment Date Care Activity Detail Author Start: 02-21-2024 End: 02-21-2024 Patient encounter procedure 02/21/2024 2:20 PM EDT Routine [facility] [address] [place] [address] Jenna Thomas PA [address] [place], [place] [id number] [facility] Start: 02-14-2024 End: 02-14-2024 Patient encounter procedure 02/14/2024 2:30 PM EDT Routine [facility] [address] [place] [id number] Eun DO Surya [address] [place], [place] [id number] [facility] Start: 02-07-2024 End: 02-06-2025 [...] AM EDT Routine [facility] [address] [place] [id number] Jenna Thomas PA [address] [place] [address] Arrived [facility] Comment on above: Arrived Start: 12-19-2022 [facility] Atopobium vaginae DN A [Presence] in Vaginal fluid by KENNETH with probe detection [facility] Bacterial vaginosis associated bacterium 2 DNA [Presence] in Vaginal fluid by KENNETH with probe detection [facility] Megasphaera sp type 1 DNA [Presence] in Vaginal fluid by KENNETH with probe detection [facility] Payers Date Payer Category Payer Self-pay [id number] 2022 Medicaid [employer] [place] [id number] 2022 Medicaid [id number] 2.16840.1.882358.19 2019 Unknown [id number] 1997 Unknown [id number] 2.16.840.1.708919.3.579.2.59 1997 Unknown [id number] 2.16840.1.815603.3.579.2.593 1997 Unknown [id number] 2.16840.1.409597.3.579.2.593 1997 Unknown [id number] 2.16.840.1.296696.3.579.2.593 1997 Unknown [id number] 2.16.840.1.697727.3.579.2.59 1997 Unknown [id number] 2.16.840.1.973016.3.579.2.593 1997 Unknown [id number] 2.16.840.1.950233.3.579.2.1285 1997 Unknown [id number] 2.16.840.1.241431.3.579.2.128 1997 Unknown [id number] 2.16.840.1.704862.3.579.2.1285 1997 Unknown [id number] 2.16.840.1.236267.3.579.2.1285 1997 Unknown [id number] 2.16.840.1.752017.3.579.2.1285 1997 Unknown [id number] 2.16.840.1.117998.3.579.2.1285 1997 Unknown [id number] 2.16.840.1.579269.3.579.2.1285 1997 Unknown [id number] 2.16.840.1.791576.3.579.2.1285 1997 Unknown [id number] 2.16.840.1.063604.3.579.2.1285 1997 Unknown [id number] 2.16.840.1.044633.3.579.2.1285 1997 Unknown [id number] 2.16.840.1.660314.3.579.2.1285 1997 Unknown [id number] 2.16.840.1.407819.3.579.2.1285 1997 Unknown [id number] 2.16.840.1.486316.3.579.2.1285 1997 Unknown [id number] 2.16.840.1.053366.3.579.2.1285 1997 Unknown [id number] 2.16.840.1.864319.3.579.2.1285 1997 Unknown [id number] 2.16.840.1.972776.3.579.2.1258 1997 Unknown [id number] 2.16.840.1.994045.3.579.2.1258 1997 Unknown [id number] 2.16.840.1.699091.3.579.2.1258 1997 Unknown [id number] 2.16.840.1.418869.3.579.2.1258 1997 Unknown [id number] 2.16.840.1.126308.3.579.2.1258 1997 Unknown [id number] 2.16.840.1.868518.3.579.2.1259 1959 Unknown [id number] Unknown [id number] 2.16.840.1.541763.19 Unknown [id number] 2.16.840.1.959060.3.579.2.531 Social History Date Type Detail Facility Unknown if ever smoked [facility] [employer] Other Sex Assigned At [facility] [employer] Other Start: 1995 Sex Assigned At Female F [facility] Start: 06-16-2023 Tobacco smoking status [facility] Never smoked tobacco (finding) [facility] Tobacco smoking status [facility] Tobacco smoking consumption unknown [facility] Start: 06-20-2023 [facility] Start: 1995 Sex assigned at Not on file [facility] Clinical Notes 08-15-2021 to 02-14-2024 Malinda Bundy LPN - 02/14/2024 2:30 PM EDTShi Bundy LPN - 02/07/2024 9:50 AM EDT Note Date & Type Note Facility 02-14-2024 History of Presen t illness Narrative Reason [...] Oral, Every 8 hours PRN Prenat w/o P-LaClb-Ffez-FA-DHA (TriStart DHA) 31-0.6-0.4-200 MG capsule 1 capsule, Oral, Daily RT Vit-Fe Fumarate-FA (WesTab Plus) 27-1 MG tablet 1 tablet, Oral, Every morning ALLERGIES No Known Allergies PROBLEMS Active Ambulatory Problems Diagnosis Date Noted No Active Ambulatory Problems Resolved Ambulatory Problems Diagnosis Date Noted No Resolved Ambulatory Problems No Additional Past Medical History HISTORY PAST MEDICAL HISTORY SOCIAL HISTORY No past medical history on file. Social History Tobacco Use Smoking status: Not on file Smokeless tobacco: Not on file Substance Use Topics Alcohol use: Not on file Drug use: Not on file FAMILY HISTORY No family history on file. SURGICAL HISTORY No past surgical history on file. REVIEW OF SYSTEMS Review of Systems: Review of Systems All other systems reviewed and are negative. OBJECTIVE Objective: Physical Exam Constitutional: Appearance: Normal appearance. She is well-developed. Genitourinary: Vulva normal. Cardiovascular: Rate and Rhythm: Normal rate and [...] nursing note reviewed. Exam conducted with a department store salesperson present. Vitals: There is no height or weight on file to calculate BMI. BP: 118/72 Patient's last menstrual period was 06/06/2023. ASSESSMENT & PLAN ICD-10-CM 1. Second trimester Z34.92 POCT urinalysis dipstick manually resulted 2. 36 weeks gestation of Z3A.36 POCT urinalysis dipstick manually resulted 3. Third trimester Z34.93 CANCELED: Strep B DNA probe, amplification Patient is doing well but has complaints of being tired and having maternal discomfort due to . Patient verbalized frequent movement and was instructed to perform kick counts three times per day. labor precautions were given, LARC consent was signed/declined, and GBS was obtained. Patient to sign consents for rpt consents prior to leaving office today. Orders Placed This Encounter Procedures POCT urinalysis dipstick manually resulted Follow Up: Patient is to return to office in 1 week for routine OB appointment Documented by Malinda Bundy LPN on behalf of: Surya Eun, DO documented in this encounter [facility] 02-07-2024 History of Presen t illness Narrative [...] Oral, Every 8 hours PRN Prenat w/o E-JyFff-Xwkx-FA-DHA (TriStart DHA) 31-0.6-0.4-200 MG capsule 1 capsule, [...] nursing note reviewed. Exam conducted with a department store salesperson present. Vitals: There is no height or [...] Delivery: 03/12/24. Patient to schedule NST/BPP's at [facility]. Order given to patient and also faxed to [facility] scheduling and FBC. Patient to return to clinic in 1 week. Documented by Malinda Bundy LPN on behalf of: JATINDER Pineda documented in this encounter [facility] 12-19-2022 Evaluation note Encounter Date Diagnosis Assessment [...] in not improving over next 5-7 days. [employer] Other 04-22-2022 Evaluation note* Encounter Date Diagnosis Assessment Notes Treatment Notes Treatment Clinical Notes Jul, Vaginal discharge (ICD-10 - N89.8) Vag + performed in office today. Will treat prophylactically for yeast based on physical exam and symptoms. Specimen was sent to lab and patient will be notified of results. Tx plan may be altered at time of results. Patient to follow with PCP or SEISMOGRAPH HELPER as needed for persistent or worsening symptoms. Immediate eval if abdominal pain, fever, chills, body aches, back/flank pain, nausea, urinary complaints. Patient may use OTC external yeast infection creams for external irritation, do not insert creams or meds as Diflucan rx will treat. Avoid scratching and douching. Patient verbalizes understanding and is agreeable to treatment plan [employer] Other Evaluation noteNo InformationNort Care-[employer]-Share Other Evaluation noteNo assessment information available [facility] Work Phone: Evldtation note* Diagnosis Onset Date Resolution Status Pre-employment examination a cute [facility] Work Phone: Evaluation note* Diagnosis Third trimester state, incidental contractions Size of fetus inconsistent with dates, antepartum Nonintractable headache, unspecified chronicity pattern, unspecified headache type History of syphilis [facility] Diagnosis Second trimester state, incidental 36 weeks gestation of Third trimester state, incidental documented in this encounter [facility] Narrative - Reported* Type Description Date Surgical History wisdom teeth Hospitalization History Fall Pneumothorax 2021 [employer] Other History general Narrative - Reported* Type Description Date Surgical History wisdom teeth Surgical History 1 Hospitalization History Fall Pneumothorax 2021 Hospitalization History 2016 [employer] Other Summary Purpose Family History No Family [...] DATE CREATED AUTHOR 02/19/2020 [facility] DATE CREATED AUTHOR AUTHOR'S ORGANIZ ATION 01/06/2023 [facility] DATE CREATED AUTHOR AUTHOR'S ORGANIZ ATION 09/22/2023 [facility] DATE CREATED AUTHOR AUTHOR'S ORGANIZ ATION 11/10/2023 [facility]ulatory [facility] DATE CREATED AUTHOR AUTHOR'S ORGANIZ ATION 01/03/2024 [facility] DATE CREATED AUTHOR AUTHOR'S ORGANIZ ATION 02/16/2024 [facility] EPIC REASON FOR VISIT (unrecogniz ed section and content) Reason Comments Routine Visit POSS BVPOSS YEAST INFECTION Care Teams (unrecognized sec tion and content) Team Status: Inactive Member Role Status Dates Inessa Lewis APRN Attending Provider Active Team Status: Active Member Role Status Dates Romi Rider APRN [employer] Primary Care Provider Active Team Status: Inactive Member Role Status Dates Romi Rider APRN [employer] Primary Care Provider Active Start: June [id number] End: June 16, 2023 Vianca Flowers NP-Joan Attending Provider Active S tart: June 16, [...] BE BASED ON THE PRIMARY CLINICAL RECORDS. [facility] [employer] [facility]. provides no warranty or guarantee of the accuracy or completeness of information in this document.
[2024-02-19 15:05] VITALS: BP 118/62; PULSE 93
== END 2024-02-19 15:28 | disposition home or self-care (01) ==
LOC: FBCO 06:51 → FBC 15:00
PROVIDERS: Visit Provider Obstetrics & Gynecology
DX: O26.893 Other specified pregnancy related conditions, third trimester (principal); Z3A.36 36 weeks gestation of pregnancy
CPT/HCPCS: 59025

== ENCOUNTER 2024-02-23 07:17 | Outpatient (OUT) | payer MEDICAID, SELFPAY ==
--- OUTSIDE RECORDS SUMMARY | 2024-02-23 07:19 | XMS_ITS | CCD ---
Author Organization [facility] Care Team Providers Care [employer] Name Role Phone MISC, DOCTOR Primary Care [...] Primary Care Unavailable KROTZERSONAM M Attending Unavailable KROTZERTRACIA M Referring Unavailable LIZZETTE, ROMI [...] Primary Care Provider UnavailJENNA Garcia Attending Unavailable EUN, SURYA Attending Unavailable JENNA THOMAS Attending Unavailable EUN, SURYA Attending Unavailable JENNA THOMAS Attending Unavailable SURYA HAQ Attending Unavailable WILLIAM, JENNA Attending Unavailable Medications Current Medications Medication Drug Class(es) Dates Sig (Normalized) Sig (Original) azithromycin 250 mg oral tablet (2 sources) Macrolide Antimicrobial Start: 02-21-2024 azithromycin (Zithromax Z-Uday) 250 MG tablet Indications: Sinusitis, unspecified chronicity, unspecified location As directed 6 tablet 02/21/2024 Active citalopram 20 mg oral tablet (3 sources) Serotonin Reuptake Inhibitor Start: 12-02-2023 End: 12-01-2024 take 1 tablet by mouth once daily citalopram (CeleXA) 20 MG tablet Indications: Anxiety, generalized (CMS/HCC) Take 1 tablet (20 mg) by mouth Daily 30 tablet 11 12/02/2023 02/07/2024 Discontinued (Other) diphenhydrAMINE hydrochloride 50 mg oral capsule (18 sources) Histamine-1 Receptor Antagonist Start: 12-23-2023 diphenhydrAMINE [...] needed for 1 day Jul, Active Magnesium (9 sources) Start: 12-09-2023 End: 03-08-2024 take 1 [...] omeprazole 20 mg delayed release oral capsule (9 sources) Proton Pump Inhibitor Start: 12-02-2023 End: 12-01-2024 take 1 capsule by mouth before mealtime omeprazole (PriLOSEC) [address] capsule Indications: Heartburn during , antepartum Take 1 capsule (20 mg) by mouth in the morning. Take before meals. Do not crush or chew.. 30 capsule 11 12/02/2023 12/01/2024 Active ondansetron 4 mg disintegrating oral tablet (9 sources) Serotonin-3 Receptor Antagonist Start: 09-21-2023 take 1 tablet by mouth every eight hours as needed ondansetron ODT (Zofran-ODT) 4 MG disintegrating tablet Take 4 mg by mouth every 8 (eight) hours if needed 09/21/2023 Active Prenat w/o E-YdYop-Qcbc-FA-DHA (TriStart DHA) 31-0.6-0.4-200 MG capsule (9 sources) Start: 08-13-2023 take 1 capsule by mouth in the morning Prenat w/o V-EvSus-Huui-FA-DHA (TriStart DHA) 31-0.6-0.4-200 MG capsule Take 1 capsule by mouth in the morning. 08/13/2023 Active Vit-Fe Fumarate-FA (WesTab Plus) 27-1 MG tablet (9 sources) Start: 08-26-2023 take 1 tablet by [...] 11-28-2019 Episodic Other and delivery including normal (12 sources) Encounter for test, result positive; Translations: [Encounter for supervision of normal , unspecified, second trimester] Onset: 08-13-2023 02-07-2024 Episodic Other upper respiratory infections (2 sources) Sinusitis; Translations: [Chronic sinusitis, unspecified] 02-21-2024 Chronic Previous (1 source) Maternal care for unspecified type scar from previous delivery; Translations: [Maternal care for unspecified type scar from previous delivery] Onset: 09-21-2023 Episodic Residual codes; unclassified (1 source) 21 weeks gestation of ; Translations: [21 weeks gestation of ] Onset: 11-04-2023 Episodic Residual codes; unclassified (2 sources) Gestation period, 36 weeks; Translations: [36 weeks gestation of ] 02-14-2024 Episodic Residual codes; unclassified (2 sources) Gestation period, 37 weeks; Translations: [37 weeks gestation of ] 02-21-2024 Episodic Substance-related disorders (1 source) Nicotine dependence, [...] UA Negative Negative - 4(70) +++ mg/dL [facility] Blood, UA Negative Negative - 50 Eriberto/mcL [facility] Clarity, UA Clear [facility] Color, UA Yellow [facility] Glucose, UA Negative Negative - 1999(110) ++++ mg/dL [facility] Interpretation and review of laboratory results Normal [facility] Ketones, UA Negative Negative - 160(16) ++++ mg/dL [facility] Leukocytes, UA Negative Negative - 500+++ Pk/mcL [facility] Nitrite, UA Negative Negative - Positive [facility] pH, UA 5.5 5 - 9 [facility] Protein, UA Negative Negative - 1999(20) ++++ mg/dL [facility] Healthcare Spec Grav, UA 1.02 1 - 1.03 [facility] Health care Urobilinogen, UA 1.0 0.2 - 12 mg/dL [facility] Urinalysis macro (dipstick) panel (U)on 02-07-2024 Bilirubin, UA Negative Negative - 4(70) +++ mg/dL [facility] Blood, UA Negative Negative - 50 Eriberto/mcL [facility] Clarity, UA Clear [facility] Color, UA Yellow [facility] Glucose, UA Negative Negative - 1999(110) ++++ mg/dL [facility] Interpretation and review of laboratory results Abnormal [facility] Ketones, UA Negative Negative - 160(16) ++++ mg/dL [facility] Leukocytes, UA Negative Negative - 500+++ Pk/mcL [facility] Nitrite, UA Negative Negative - Positive [facility] pH, UA 5.5 5 - 9 [facility] Protein, UA Negative Negative - 1999(20) ++++ mg/dL [facility] Spec Grav, UA 1.025 1 - 1.03 [facility] Health care Urobilinogen, UA 1.0 0.2 - 12 mg/dL [facility] URINALYSISon 11-30-2023 Bilirubin Ql (U) Negative Normal NEG [facility] Comment on above: Performed By: #### C ERICK, 41692-3, P, 33344-6, 53565-3, 49781- 4, 50293-6 #### [facility] ([id number]) [address] [place] [address], [address] [place] [address] #### 88900-7, 41531-5 #### [facility] ([id number]) [address] [place] [address], [place] [address] BLOOD/HGB Negative Normal NEG [facility] Comment on above: Performed By: #### Joan , 38964-2, P, 10450-6, 37007-2, 77680- 4, 90594-3 #### [facility] ([id number]) [address] [place] [address], [address] [place] [address] #### 26849-3, 27154-7 #### [facility] ([id number]) [address] [place] [address] Color (U) YELLOW Normal YELLOW [facility] Comment on above: Performed By: #### C BC, 42981-8, AHP, 12726-9, 99667-0, 98266- 4, 86536-3 #### [facility] ([id number]) [address] [facility], [address] [place] [address] #### 56100-4, 00556-5 #### [facility] ([id number]) [address] [place] [address] Glucose Ql (U) Negative Normal NEG [facility] Comment on above: Performed By: #### Joan SUAREZ, 79492-8, AHP, 15435-1, 48871-9, 79340- 4, 15349-6 #### [facility] ([id number]) [address] [facility], [address] [place] [address] #### 31612-0, 74014-3 #### [facility] ([id number]) [address] [place] [address] Ketones Ql (U) Negative Normal NEG [facility] Comment on above: Performed By: #### Joan BC, 85317-9, AHP, 67174-9, 63094-0, 31113- 4, 67963-4 #### [facility] ([id number]) [address], [address] [place] [address] #### 34900-5, 58545-1 #### [facility] ([id number]) [address] [place] [address] Leukocyte esterase Test strip Ql (U) Negative Normal NEG [facility] Comment on above: Performed By: #### Joan BC, 54212-0, AHP, 30168-5, 25632-5, 79798- 4, 52244-6 #### [facility] ([id number]) [address], [address] [place] [address] #### 14624-7, 33662-4 #### [facility] ([id number]) [address] [place] [address] Nitrite Ql (U) Negative Normal NEG [facility] Comment on above: Performed By: #### C BC, 12007-9, AHP, 68335-2, 69283-5, 60161- 4, 25747-3 #### [facility] ([id number]) [address] [facility], [address] [place] [address] #### 29771-7, 27069-0 #### [facility] ([id number]) [address] [place] [address] 35643 pH (U) 7.0 [pH] Normal 5.0-8.5 [facility] Comment on above: Performed By: #### C BC, 20011-0, AHP, 27762-4, 33098-2, 89441- 4, 80813-0 #### [facility] ([id number]) [address] [facility], [address] [place] [address] #### 84091-6, 38378-8 #### [facility] ([id number]) [address] [place] [address]39 Protein Ql (U) Negative Normal NEG [facility] Comment on above: Performed By: #### C BC, 61217-0, AHP, 74431-5, 82609-2, 88373- 4, 12634-0 #### [facility] ([id number]) [address], [address] [place] [address] #### 74290-8, 63359-3 #### [facility] ([id number]) [address] [place] [address] 17847 Specific gravity (U) [Rel density] 1.025 Normal 1.003-1.035 [facility] Comment on above: Performed By: #### C ERICK, 42975-8, AHP, 22353-3, 11830-3, 59343- 4, 79801-2 #### [facility] ([id number]) [address], [address] [place] [address] #### 16292-6, 29599-1 #### [facility] ([id number]) [address] [place] [address] 388[address] TURBIDITY CLEAR Normal CLEAR [facility] Comment on above: Performed By: #### C ERICK, 65145-8, AHP, 50996-3, 26263-1, 41310- 4, 63749-5 #### [facility] ([id number]) [address], [address] [place] [address] #### 74463-3, 24254-2 #### [facility] ([id number]) [address] [place] [address]86[address] Urobilinogen Qn (U) 0.2 {Saleem'U}/dL Normal <1.1 [facility] Comment on above: Performed By: #### Joan SUAREZ, 71736-3, AHP, 35202-0, 43077-2, 55825- 4, 05809-3 #### [facility] ([id number]) [address], [address] [place] [address] #### 99853-7, 28336-1 #### [facility] ([id number]) [address] [place] [address] CHLAMYDIA/GC PCR, FLon 09-20 CHLAMYDIA/GC PCR, FL [...] are dependent on adequate specimen collection. Normal [facility] Comment on above: Performed By: #### C BC, 17720-9, AHP, 63358-6, 82772-4, 02560- 4, 39031-4 #### [facility] ([id number]) [address], [address] [place] [address] #### 58084-1, 77401-2 #### [facility] ([id number]) [address] [place] [address], [place] [address] DRUG SCREEN, URINEon 024 AMPHETAMINE/METHAMP Negative Normal NEG [facility] Comment on above: Result Comment: AMPH /METH screening cut off = 1000 ng/mL Performed By: #### D DOWNING #### [facility] ([id number]) [address], [address] [place] [address] BARBITURATES Negative Normal NEG [facility] Comment on above: Result Comment: Venita iturates screening cut off value = 200 ng/mL Performed By: #### D DOWNING #### [facility] ([id number]) [address], [address] [place] [address] BENZODIAZEPINES Negative Normal NEG [facility] Comment on above: Result Comment: Ander odiazepines screening cut off value = 200 ng/mL Performed By: #### D DOWNING #### [facility] ([id number]) [address], [address] [place] [address] CANNABINOIDS Positive Abnormal NEG [facility] Comment on above: Result Comment: Conf irmation available upon request. Cannabinoids/THC screening cut off value = 50 ng/mL Performed By: #### D DOWNING #### [facility] ([id number]) [address], [address] [place] [address] COCAINE METABOLITE Negative Normal NEG [facility] Comment on above: Result Comment: Coca ine screening cut off value = 300 ng/mL Performed By: #### D DOWNING #### [facility] ([id number]) [address], [address] [place] [address] ECSTASY Negative Normal NEG [facility] Comment on above: Result Comment: Ecst asy screening cut off value = 500 ng/mL This report is intended for use in clinical monitoring or management of patients. Performed By: #### D DOWNING #### [facility] ([id number]) [address], [address] [place] [address] METHADONE Negative Normal NEG [facility] Comment on above: Result Comment: Meth adone screening cut off value = 300 ng/mL. Performed By: #### D DOWNING #### [facility] ([id number]) [address], [address] [place] [address] OPIATES Negative Normal [facility] Comment on above: Result Comment: Opia monica screening cut off value = 300 ng/mL NOTE: This test is used for the detection of codeine, hydrocodone (>1000 ng/mL), morphine and hydromorphone (>900 ng/mL) in urine. Performed By: #### D DOWNING #### [facility] ([id number]) [address], [address] [place] [address] OXYCODONE Negative Normal NEG [facility] Comment on above: Result Comment: Oxyc odone screening cut off value = 300 ng/mL NOTE: This test is used for the detection of oxycodone and oxymorphone in urine. Performed By: #### D DOWNING #### [facility] ([id number]) [address], [address] [place] [address] PHENCYCLIDINE Negative Normal NEG [facility] Comment on above: Result Comment: Phen cyclidine screening cut off value = 25 ng/mL Performed By: #### D DOWNING #### [facility] ([id number]) [address], [address] [place] [address] URINALYSISon 09-21-2023 Bilirubin Ql (U) Negative Normal NEG [facility] Comment on above: Performed By: #### U A #### [facility] ([id number]) [address], [address] [place] [address] BLOOD/HGB Negative Normal NEG [facility] Comment on above: Performed By: #### U A #### [facility] ([id number]) [address], [address] [place] [address] Color (U) YELLOW Normal YELLOW [facility] Comment on above: Performed By: #### U A #### [facility] ([id number]) [address], [address] [place] [address] Glucose Ql (U) Negative Normal NEG [facility] Comment on above: Performed By: #### U A #### [facility] ([id number]) [address], [address] [place] [address] Ketones Ql (U) >150 Abnormal NEG [facility] Comment on above: Performed By: #### U A #### [facility] ([id number]) [address], [address] [place] [address] Leukocyte esterase Test strip Ql (U) Negative Normal NEG [facility] Comment on above: Performed By: #### U A #### [facility] ([id number]) [address], [address] [place] [address] Nitrite Ql (U) Negative Normal NEG [facility] Comment on above: Performed By: #### U A #### [facility] ([id number]) [address], [address] [place] [address] pH (U) 6.0 [pH] Normal 5.0-8.5 [facility] Comment on above: Performed By: #### U A #### [facility] ([id number]) [address], [address] [place] [address] Protein Ql (U) Negative Normal NEG [facility] Comment on above: Performed By: #### U A #### [facility] ([id number]) [address], [address] [place] [address] Specific gravity (U) [Rel density] 1.019 Normal 1.003-1.035 [facility] Comment on above: Performed By: #### U A #### [facility] ([id number]) [address] [facility], [address] [place] [address] TURBIDITY CLEAR Normal CLEAR [facility] Comment on above: Performed By: #### U A #### [facility] ([id number]) [address] [place] [address], [address] [place] [address] Urobilinogen (U) [Mass/Vol] mg/dL Normal <1.1 [facility] Comment on above: Performed By: #### U A #### [facility] ([id number]) [facility], [address] [place] [address] URINE CULTUREon 09-21-2023 Bacteria identified Cx Nom (U) CULTURE RESULTS 10,000 to 50,000 ORGANISMS/mL ESCHERICHIA COLI <10,000 ORGANISMS/mL NORMAL URO GENITAL JACKIE Normal [facility] Comment on above: Performed By: #### 6 30-4 #### [facility] ([id number]) [address], [address] [place] [address] ACUTE HEPATITIS PANELon 08-25 ANTI HCV W/PCR REFLX Non-Reactive Normal NRCT [facility] Comment on above: Result Comment: If recent infection suspected, recommend repeat testing (>2 months). Ybcjnc-dr-ddlakw ratio is <0.80. Performed By: #### C BC, 52526-0, AHP, 74637-3, 73907-8, 93136-9, 68348-2 #### [facility] ([id number]) [address] [facility], [address] [place] [address] #### 76094-0, 80627-9 #### [facility] ([id number]) [address] [place] [address]43 HEPATITIS A IGM Non-Reactive Normal NRCT [facility] Comment on above: Performed By: #### C BC, 48372-5, AHP, 50405-6, 77632-9, 70106- 4, 35755-9 #### [facility] ([id number]) [address] [facility], [address] [place] [address] #### 39593-5, 13247-4 #### [facility] ([id number]) [address] [place] [address]35 HEPATITIS B CORE IGM Negative Normal NEG [facility] Comment on above: Performed By: #### C BC, 43803-4, AHP, 81740-2, 81143-7, 22615- 4, 33121-7 #### [facility] ([id number]) [address] [place] [address], [address] [place] [address] #### 15182-2, 90508-9 #### [facility] ([id number]) [address] [place] [address] HEPATITIS B SURF AG Negative Normal NEG [facility] Comment on above: Performed By: #### C BC, 46006-3, AHP, 29598-4, 98928-2, 53312- 4, 71174-0 #### [facility] ([id number]) [address] [facility], [address] [address] #### 85975-6, 46095-5 #### [facility] ([id number]) [address] [place] [address] [place] [address] COMPLETE BLOOD COUNTon 09-16 Erythrocyte distribution width (RBC) [Ratio] 13.0 % Normal 11.5-15.0 [facility] Comment on above: Performed By: #### C ERICK, 45933-3, AHP, 55564-1, 94353-0, 91807- 4, 08779-8 #### [facility] ([id number]) [address], [address] [place] [address] #### 16818-8, 38384-8 #### [facility] ([id number]) [address] [place] [address]24 Hematocrit (Bld) [Volume fraction] 36.1 % Normal 35-47 [facility] Comment on above: Performed By: #### C ERICK, , AHP, 25465-3, 79324-5, 65510- 4, 78958-9 #### [facility] ([id number]) [address], [address] [place] [address] #### 51226-4, 24459-5 #### [facility] ([id number]) [address] [place] [address]481 Hemoglobin (Bld) [Mass/Vol] 12.5 g/dL Normal 11.7-15.5 [facility] Comment on above: Performed By: #### C ERICK, 72576-6, AHP, 38506-4, 15195-3, 10533- 4, 30033-8 #### [facility] ([id number]) [address], [address] [place] [address] #### 83761-7, 12501-6 #### [facility] ([id number]) [address] [place] [address] 28171 MCH (RBC) [Entitic mass] 32.0 pg Normal 27-34 [facility] Comment on above: Performed By: #### Joan SUAREZ, 23168-3, AHP, 31475-3, 58706-0, 45060- 4, 16671-4 #### [facility] ([id number]) [address], [address] [place] [address] #### 12475-1, 17692-5 #### [facility] ([id number]) [address] [place] [address] 32417 MCHC (RBC) [Mass/Vol] 34.6 g/dL Normal 32-36 [facility] Comment on above: Performed By: #### C ERICK, 23135-5, AHP, 30301-1, 89535-7, 83211- 4, 19056-5 #### [facility] ([id number]) [address], [address] [place] [address] #### 59851-2, 21795-3 #### [facility] ([id number]) [address] [place] [address] 48837 MCV (RBC) [Entitic vol] 93 fL Normal 80-100 [facility] Comment on above: Performed By: #### C ERICK, 81026-8, AHP, 21933-8, 08149-3, 20911- 4, 58237-2 #### [facility] ([id number]) [address], [address] [place] [address] #### 85123-4, 16609-3 #### [facility] ([id number]) [address] [place] [address] 67790 Platelet mean volume (Bld) [Entitic vol] 8.7 fL Normal 7-12 [facility] Comment on above: Performed By: #### Joan BC, 86631-8, AHP, 27696-3, 32197-9, 56367- 4, 04950-7 #### [facility] ([id number]) [address], [address] [place] [address] #### 87202-3, 09316-0 #### [facility] ([id number]) [address] [place] [address] 33366 Platelets (Bld) [#/Vol] 300 10*3/uL Normal 150-450 [facility] Comment on above: Performed By: #### C BC, 73441-4, AHP, 09333-6, 08451-5, 65537- 4, 79881-5 #### [facility] ([id number]) [address] [facility], [address] [place] [address] #### 82830-2, 71787-4 #### [facility] ([id number]) [address] [place] [address] 13065 RBC COUNT 3.90 X10E12/L Normal 3.80-5.20 [facility] Comment on above: Performed By: #### Joan SUAREZ, 47471-0, AHP, 08480-3, 71074-6, 59185- 4, 46772-9 #### [facility] ([id number]) [address] [facility], [address] [place] [address] #### 61015-0, 18667-5 #### [facility] ([id number]) [address] [place] [address] 71183 WBC (Bld) [#/Vol] 9.7 10*3/uL Normal 4.0-11.0 [facility] Comment on above: Performed By: #### C BC, 18055-2, AHP, 85908-8, 89682-3, 26359- 4, 68606-6 #### [facility] ([id number]) [address] [facility], [address] [place] [address] #### 55228-2, 97435-5 #### [facility] ([id number]) [address] [place] [address]98 HCG.beta subunit IA 3rd IS Q non 09-17-2023 [place] [address] m[IU]/mL Normal P [facility] Comment on above: Result Comment: NEW [...] nontrophoblastic neoplasms. Performed By: #### C , 75965-8, [facility], 22356-4, 66946-8, 61858-5, 03467-0 #### [facility] ([id number]) [address] [place] [address], [address] [place] [address] #### 56428-3, 72884-0 #### [facility] ([id number]) [address] [place] [address], [place] [address] HIV 1+2 Ab+HIV1 p24 Ag IA Ql on 09-17-2023 HIV 1 and 2 Ab/Ag Screen Non-Reactive Normal NRCT [facility] Comment on above: Result Comment: [...] or diagnoses. Performed By: #### C ERICK, 78732-3, AHP, 78418-7, 97045-1, 90877-8, 20844-2 #### [facility] ([id number]) [address], [address] [place] [address] #### 81926-2, 55440-3 #### [facility] ([id number]) [address] [place] [id number] Reagin Ab RPR (S) [Titer]on 09-17-2023 RPR TITER, SERUM SEE COMMENTS 09/21/2023 10:37 AM Abnormal [facility] Comment on above: Result Comment: NOTE Test Result Flag Unit RefValue RPR, Titer, S 1:1 A Negative Results consistent with untreated or recently treated syphilis. Clinical correlation required. For additional information on interpretation of the syphilis reverse algorithm and results, see: [email or web address] Test Performed by: [place] [address] Toy Consultant: Luke Downey M.D. Ph.D.; CLIA# [id number] Performed By: #### Joan SUAREZ, 06725-9, AHP, 33306-2, 02746-6, 80033-6, 77106-7 #### [facility] ([id number]) [address], [address] [place] [address] #### 59757-9, 18756-1 #### [facility] ([id number]) [address] [place] [address] Reagin Ab RPR Ql (S)on 09-16 RPR WITH REFLEX TO RTPPA Positive Abnormal Negative [facility] Comment on above: Result Comment: NOTE Specimen reflexed to determine RPR titer. For additional information on interpretation of the syphilis reverse algorithm and results, see: [email or web address] Test Performed by: [facility] [address] [place] [address] Toy Consultant: Luke Downey M.D. Ph.D.; CLIA# [id number] Performed By: #### [place], 20123-5, AHP, 09362-2, 67987-9, 03469-1, 37389-5 #### [facility] ([id number]) [address] [place] [address] #### 66566-2, 00759-5 #### [facility] ([id number]) [address] [place] [address] Rubella virus Ab Ql (S)on RUBELLA IMMUNE IgG 1.0 AI Normal [facility] Comment on above: Result Comment: Interpretation-------- <0.8 NEGATIVE-considered Not Immune 0.8-0.9 EQUIVOCAL-consider retesting with new specimen >0.9 POSITIVE-considered Immune Performed By: #### [place], 83[address]-8, AHP, 96194-5, 44311-1, 43601-7, 72883-1 #### [facility] ([id number]) [address] [place] [address], [address] [address] #### 98764-3, 03216-7 #### [facility] ([id number]) [address] [place] [address] T. pallidum IgG+IgM IA Ql (S )on 09-17-2023 Syphilis Total >8.0 High 0.0-0.8 [facility] Comment on above: Result Comment: REAC TIVE This specimen will be sent to a reference lab for additional testing which includes RPR with reflex to TP-PA if RPR is negative. The RPR will help distinguish between infections with T.pallidum (syphilis) versus a falsely reactive treponemal antibody result. Please see the syphilis testing algorithm link below for more information. [email or web address] Performed By: #### C BC, 31079-7, AHP, 08504-1, 31637-6, 25480-4, 16971-5 #### [facility] ([id number]) [address] [place] [address], [address] [place] [address] #### 95011-9, 24326-9 #### [facility] ([id number]) [address] [place] [address], [place] [address] US PREG TRANSABD FU PER FETU on 09-17-2023 US PREG TRANSABD FU PER FETU US PREG TRANSABD FU PER FETU US PREG TRANSABD FU PER FETU: 09/17/2023 8:25 AM Clinical: Check dates and viability. Real-time transabdominal sonography pelvis performed.. Transvaginal sonography pelvis performed for better evaluation of the pelvic organs. No comparison. There is a single live intrauterine . [place]-rump length of 8.8 cm corresponds to 14 [...] Frances MD on 09/17/2023 11:55 AM Normal [facility] VZV IgG IA Ql (S)on 09-17-19 VARICELLA IgG 3.1 AI High <0.9 [facility] Comment on above: Result Comment: Interpretation-------- <0.9 Negative 0.9 - 1.0 Equivocal >1.0 Positive Performed By: #### C , 07161-8, AHP, 73040-8, 86135-6, 39495-4, 03341-5 #### [facility] ([id number]) [address] [place] [address], [address] [place] [address] #### 52925-6, 48677-2 #### [facility] ([id number]) [address] [place] [address], [place] [address] Urinalysis - AUTOMATEDon Appearance (U) CLEAR [facility] Other Bilirubin Ql (U) Negative [employer] Other Color (U) YELLOW [facility] Other Glucose Ql (U) Negative [facility] Other Hemoglobin Ql (U) NEGTIVE [employer] Other Ketones Ql (U) Negative [facility] Other Leukocyte esterase Test strip Ql (U) Negative [facility] Other Nitrite Ql (U) Negative [facility] Other pH (U) 7.5 [pH] [facility] Other Protein Ql (U) Negative [facility] Other Specific gravity (U) [Rel density] 1.015 [facility] Other Urobilinogen (U) [Mass/Vol] 0.2 mg/dL [facility] Other Urinalysis - AUTOMATED [facility] Other Vaginitis Plus (VG+)on 12-19 Atop[employer]ium Vaginae High - 2 Critically abnormal . [facility] Comment on above: Performed By: #### V AGINITIS+ #### [facility] , BVAB2 High - 2 Critically abnormal . [facility] Comment on above: Performed By: #### V AGINITIS+ #### [facility] , Makenzie Albicans, KENNETH Negative Normal Negative [facility] Comment on above: Result Comment: This test was developed and its performance characteristics determined by [facility]. It has not been cleared or approved by the Food and Drug Administration. Performed By: #### V AGINITIS+ #### [facility] , Makenzie Glabrata, KENNETH Negative Normal Negative [facility] Comment on above: Result Comment: This test was developed and its performance characteristics determined by [facility]. It has not been cleared or approved by the Food and Drug Administration. PERFORMED BY: [facility] [address] [place] [address] PATHOLOGIST DECORATOR INSPECTOR LEO PATEL M.D. Performed By: #### V AGINITIS+ #### [facility] , Chlamydia Trachomotis, KENNETH Positive Critically abnormal Negative [facility] Comment on above: Performed By: #### V AGINITIS+ #### [facility] , Megasphaera High - 2 Critically abnormal . [facility] Comment on above: Result Comment: [...] developed and its performance characteristics determined by [employer]. It has not been cleared or approved by the Food and Drug Administration. Performed By: #### V AGINITIS+ #### [facility] , Neisseria Gonorrhoeae, KENNETH Negative Normal Negative [facility] Comment on above: Result Comment: Perf ormed at: =G - [facility] [address] [place] [id number] Toy Consultant: Brianne Shabazz MD, Phone: [phone] Performed By: #### V AGINITIS+ #### [facility] , Tric Vag KENNETH Negative Normal Negative [facility] Comment on above: Performed By: [...] by: TIESHA CASTILLO Date: 2020-01-30 14:39 Normal [facility] XR ANKLE LT MIN 3 [...] by: YAKOV DAWSON Date: 2019-12-27 09:54 Normal [facility] XR ANKLE LT MIN 3 [...] TIESHA CASTILLO Date: 2019-11-29 13:43 Normal [facility] XR FOOT RT MIN 3 VIEWSon XR FOOT RT MIN 3 VIEWS EXAM: Right foot HISTORY: Pain after a fall. TECHNIQUE: 3 views of the right foot were obtained. FINDINGS: There is no evidence of fracture or dislocation. There are no suspicious bone lesions. Soft tissues are normal. IMPRESSION: Unremarkable exam. Electronically authenticated by: JUDE MCDANIEL Date: 2019-11-28 16:48 Normal [facility] XR TIB_FIB LT 2Von 0 XR [...] JUDE MCDANIEL Date: 2019-11-28 16:47 Normal [facility] Vital Signs Date Time Vital Sign Value Performing Clinician Facility 02-21-2024 14:34-0400 Body weight 84.82 kg Jenna TOBIAS Work Phone: [facility] 02-21-2024 14:34-0400 Diastolic blood pressure 70 mm[Hg] Jenna TOBIAS Work Phone: [facility] 02-21-2024 14:34-0400 Systolic blood pressure 118 mm[Hg] Jenna TOBIAS Work Phone: [facility] 02-14-2024 15:25-0400 Body weight 83.01 kg Surya Haq DO Work Phone: [facility] 02-14-2024 15:25-0400 Diastolic blood pressure 72 mm[Hg] Surya Eun DO Work Phone: [facility] 02-14-2024 15:25-0400 Systolic blood pressure 118 mm[Hg] Surya Eun DO Work Phone: [facility] 02-07-2024 10:03-0400 Body weight 82.01 kg Jenna Thomas PA Work Phone: [facility] 02-07-2024 10:03-0400 Diastolic blood pressure 70 mm[Hg] Jenna Carterey PA Work Phone: [facility] 02-07-2024 10:03-0400 Systolic blood pressure 114 mm[Hg] Jenna Cartersheba TOBIAS Work Phone: [facility] 06-16-2023 13:06-0500 Body temperature 98.6 [degF] [facility] 06-16-2023 13:06-0500 Body weight 63.5 kg [facility] 06-16-2023 13:06-0500 Diastolic blood pressure 76 mm[Hg] [facility] 06-16-2023 13:06-0500 Heart rate 87 /min [facility] 06-16-2023 13:06-0500 Respiratory rate 18 /min [facility] 06-16-2023 13:06-0500 SaO2% (BldA) [Mass fraction] 98 % [facility] 06-16-2023 13:06-0500 Systolic blood pressure 119 mm[Hg] [facility] 12-19-2022 11:25-0400 Body height 160.02 cm Inessa Lewis Other [facility] [employer] Other 12-19-2022 11:25-0400 Body mass index (BMI) [Ratio] 24.3 kg/m2 Inessa Lewis Other [facility] [employer] Other 12-19-2022 11:25-0400 Body temperature 98.7 [degF] Inessa Lewis Other [facility] Other 12-19-2022 11:25-0400 Body weight 62.23 kg Inessa Debbie Other [facility] Other 12-19-2022 11:25-0400 Diastolic blood pressure 66 mm[Hg] Inessa Lewis Other [facility] Other 12-19-2022 11:25-0400 Respiratory rate 18 /min Inessa Debbie Other [facility] Other 12-19-2022 11:25-0400 SaO2% (BldA) [Mass fraction] 99 % Inessa Debbie Other [facility] Other 12-19-2022 11:25-0400 Systolic blood pressure 104 mm[Hg] Ienssa Lewis Other [facility] Other 08-15-2021 11:45-0400 Body height 160.02 cm Janny Gonzalez Other [facility] Other 08-15-2021 11:45-0400 Body mass index (BMI) [Ratio] 22.32 kg/m2 Janny Gonzalez Other [facility] Other 08-15-2021 11:45-0400 Body temperature 97.9 [degF] Janny Gonzalez Other [facility] Other 08-15-2021 11:45-0400 Body weight 57.15 kg Janny Gonzalez Other [facility] Other 08-15-2021 11:45-0400 Diastolic blood pressure 71 mm[Hg] Janny Gonzalez Other [facility] Other 08-15-2021 11:45-0400 Respiratory rate 18 /min Janny Gonzalez Other [facility] Other 08-15-2021 11:45-0400 SaO2% (BldA) [Mass fraction] 100 % Janny Gonzalez Other [facility] Other 08-15-2021 11:45-0400 Systolic blood pressure 123 mm[Hg] Janny Gonzalez Other [facility] Other Encounters Encounter Date Encounter Type Care Provider Facility Start: 02-21-2024 End: 02-21-2024 ambulatory JENNA THOMAS Not Available Start: 02-21-2024 End: 02-21-2024 Office outpatient visit 15 minutes Jenna TOBIAS Work Phone: [facility] Comment on above: Third trimester preg emerald; 37 weeks gestation of ; Sinusitis, unspecified chronicity, unspecified location Start: 02-21-2024 End: 02-21-2024 Bamboo flowsheet Jenna TOBIAS Work Phone: [facility] Start: 02-21-2024 End: 02-21-2024 Bamboo flowsheet Jenna TOBIAS Work Phone: [facility] Start: 02-14-2024 End: 02-14-2024 ambulatory SURYA EUN Not Available Start: 02-14-2024 End: 02-14-2024 Office outpatient visit 15 minutes Surya Eun DO Work Phone: [facility] Comment on above: Second trimester pre gnancy; 36 weeks gestation of ; Third trimester Start: 02-14-2024 End: 02-14-2024 Bamboo flowsheet Surya Eun DO Work Phone: [facility] Start: 02-14-2024 End: 02-14-2024 Bamboo flowsheet Surya Eun DO Work Phone: [facility] Start: 02-07-2024 End: 02-07-2024 Bamboo flowsheet Jenna TOBIAS Work Phone: [facility] Start: 02-07-2024 End: 02-07-2024 Bamboo flowsheet Jenna TOBIAS Work Phone: [facility] Start: 02-07-2024 End: 02-07-2024 flow [...] Not Available Start: 01-02-2024 End: 01-02-2024 ambulatory [facility] Start: 01-02-2024 End: 01-02-2024 Emergency department patient visit [facility] Start: 12-23-2023 End: 12-23-2023 ambulatory SURYA EUN Not Available Start: 12-02-2023 End: 12-02-2023 ambulatory JENNA THOMAS Not Available Start: 11-30-2023 End: 11-30-2023 ambulatory MALINDA RIO [facility] Start: 11-04-2023 End: 11-04-2023 ambulatory SONAM TENORIO [facility] Start: 10-06-2023 End: 10-06-2023 ambulatory DANDY Andre [facility] Start: 10-05-2023 End: 10-05-2023 Emergency department patient visit [facility] Start: 09-29-2023 End: 09-29-2023 ambulatory [facility] Start: 09-22-2023 End: 09-22-2023 ambulatory [facility] Start: 09-21-2023 End: 09-22-2023 ambulatory [facility] Start: 09-21-2023 End: 09-21-2023 ambulatory [facility] Start: 09-21-2023 Encounter for gynecological examination (general) (routine) without abnormal findings [facility] Start: 09-21-2023 End: 09-21-2023 ambulatory SONAM Andre [facility] Start: 09-21-2023 Encounter for gynecological examination (general) (routine) without abnormal findings [facility] Start: 09-17-2023 End: 09-17-2023 ambulatory [facility] Start: 08-13-2023 End: 08-13-[address] 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 Inessa Lewis Work Phone: [facility] [place] Work Phone: Start: 08-19-2021 End: 08-19-2021 ambulatory Janny Gonzalez Other [facility] Other Start: 08-19-2021 Telephone encounter Janny Gonzalez [facility] Start: 08-15-2021 End: 08-15-2021 ambulatory Janny Carlos Other [facility] Other Start: 08-15-2021 Office outpatient ne w 20 minutes Janny Gonzalez [facility] [place] Start: 02-27-2020 [facility] Start: 01-30-2020 End: 01-31-2020 [facility] Start: 01-16-2020 End: 01-16-2020 Patient encounter procedure CATHRYN BARNES Facility:[facility]1 Start: 12-27-2019 End: 12-28-2019 Patient encounter procedure [facility] Facility:[facility] Start: 11-29-2019 End: 11-30-2019 Patient encounter procedure [facility] Facility:[facility] Start: 11-28-2019 End: 11-28-2019 Patient encounter procedure [facility] Facility:[facility]1 Procedures Date Procedure Procedure Detail Performing Clinician Start: 02-15-2024 Urnls dip stick/tabl et rgnt non-auto w/o micrscp Surya Eun DO Work Phone: Start: 02-07-2024 Urnls dip stick/tabl et rgnt non-auto w/o micrscp Surya Eun DO Work Phone: Plan of Treatment Date Care Activity Detail Author Start: 02-28-2024 End: 02-28-2024 Patient encounter procedure 02/28/2024 3:00 PM EST Routine [facility] [address] [place] [address] Surya Haq DO [facility] [place] [address] [facility] Start: 02-21-2024 End: 02-21-2024 Patient encounter procedure 02/21/2024 2:20 PM EDT Routine [facility] [address] [place] [address] Jenna Thomas PA [address] [place], [place] [address] [facility] Start: 02-14-2024 End: 02-14-2024 Patient encounter procedure 02/14/2024 2:30 PM EDT Routine [facility] [address] [place] [id number] Surya Haq DO [address] [place], [place] [id number] [facility] Start: 02-07-2024 End: 02-06-2025 [...] AM EDT Routine [facility] [address] [place] [id number] Jenna Thomas PA [address] [place] [address] Arrived [facility] Comment on above: Arrived Start: 12-19-2022 [facility] Atopobium vaginae DN A [Presence] in Vaginal fluid by KENNETH with probe detection [facility] Bacterial vaginosis associated bacterium 2 DNA [Presence] in Vaginal fluid by KENNETH with probe detection [facility] Megasphaera sp type 1 DNA [Presence] in Vaginal fluid by KENNETH with probe detection [facility] Payers Date Payer Category Payer Self-pay [id number] 2022 Medicaid [employer] [id number] 2022 Medicaid [id number] 2.16.840.1.403272.19 2019 Unknown [id number] 1997 Unknown [id number] 2.16.840.1.996043.3.579.2.593 1997 Unknown [id number] 2.16840.1.053153.3.579.2.593 1997 Unknown [id number] 2.16.840.1.552266.3.579.2.593 1997 Unknown [id number] 2.16.840.1.869445.3.579.2.593 1997 Unknown [id number] 2.16.840.1.493478.3.579.2.593 1997 Unknown [id number] 2.16840.1.370171.3.579.2.593 1997 Unknown [id number] 2.16.840.1.460059.3.579.2.128 1997 Unknown [id number] 2.16.840.1.072576.3.579.2.1285 1997 Unknown [id number] 2.16.840.1.546349.3.579.2.1285 1997 Unknown [id number] 2.16.840.1.191978.3.579.2.128 1997 Unknown [id number] 2.16.840.1.513959.3.579.2.1285 1997 Unknown [id number] 2.16.840.1.347424.3.579.2.1285 1997 Unknown [id number] 2.16.840.1.561140.3.579.2.1285 1997 Unknown [id number] 2.16.840.1.574732.3.579.2.1285 1997 Unknown [id number] 2.16.840.1.265685.3.579.2.1285 1997 Unknown [id number] 2.16.840.1.889161.3.579.2.1285 1997 Unknown [id number] 2.16.840.1.106875.3.579.2.1285 1997 Unknown [id number] 2.16840.1.671434.3.579.2.1285 1997 Unknown [id number] 2.16.840.1.100873.3.579.2.1285 1997 Unknown [id number] 2.16.840.1.203854.3.579.2.1285 1997 Unknown [id number] 2.16.840.1.929692.3.579.2.1285 1997 Unknown [id number] 2.16840.1.884939.3.579.2.1258 1997 Unknown [id number] 2.16.840.1.677388.3.579.2.1258 1997 Unknown [id number] 2.16.840.1.117378.3.579.2.1258 1997 Unknown [id number] 2.16.840.1.452510.3.579.2.1258 1997 Unknown [id number] 2.16.840.1.007089.3.579.2.1258 1997 Unknown [id number] 2.16.840.1.300433.3.579.2.1259 1997 Unknown [id number] 2.16.840.1.773082.3.579.2.1259 1959 Unknown [id number] Unknown [id number] 2.16.840.1.071940.19 Unknown [id number] 2.16.840.1.808834.3.579.2.531 Social History Date Type Detail Facility Unknown if ever smoked [facility] [employer] Other Sex Assigned At [facility] Other Start: 1995 Sex Assigned At Female F [facility] Start: 06-16-2023 Tobacco smoking status ORIS Never smoked tobacco (finding) [facility] Tobacco smoking status [facility] Tobacco smoking consumption unknown [facility] Start: 06-20-2023 [facility] Start: 1997 Sex assigned at Not on file N [facility] Clinical Notes 08-15-2021 to 02-21-2024 JATINDER Pineda - 02/21/2024 2:20 PM Hanny Bundy LPN - 02/14/2024 2:30 PM Hanny Bundy LPN - 02/07/2024 9:50 AM EDT Note Date & Type Note Facility 02-21-2024 History of Presen t illness Narrative Reason for Appointment: Patient ID: Kelly Harrell is a 28 y.o. female who presents for Routine Visit Patient presents today for Return OB appointment. MEDICATIONS Current Outpatient Medications Medication Instructions azithromycin (Zithromax Z-Uday) 250 MG tablet As directed diphenhydrAMINE (BENADRYL ALLERGY) 25 mg, Oral, Nightly PRN diphenhydrAMINE (UNISOM) 50 mg, Oral, Nightly PRN magnesium 200 mg, Oral, Daily omeprazole (PRILOSEC) 20 mg, Oral, Daily before breakfast, Do not crush or chew. ondansetron ODT (ZOFRAN-ODT) 4 mg, Oral, Every 8 hours PRN Prenat w/o A-QpNdq-Wvmc-FA-DHA (TriStart DHA) 31-0.6-0.4-200 MG capsule 1 capsule, [...] SYSTEMS Review of Systems: Review of Systems Constitutional: Negative. HENT: Negative. Eyes: Negative. Respiratory: Negative. Cardiovascular: Negative. Gastrointestinal: Negative. Genitourinary: Negative. Musculoskeletal: Negative. Skin: Negative. Neurological: Negative. All other systems reviewed and are negative. Hematological: Negative. Endocrine: Negative. Allergic/Immunologic: Negative. OBJECTIVE Objective: Physical Exam Constitutional: Appearance: Normal appearance. She is normal weight. HENT: Head: Normocephalic. Cardiovascular: Rate and Rhythm: Normal rate. Pulses: Normal pulses. Pulmonary: Effort: Pulmonary effort is normal. Breath sounds: Normal breath sounds. Abdominal: Palpations: Abdomen is soft. Musculoskeletal: General: Normal range of motion. Neurological: General: No focal deficit present. Mental Status: She is alert and oriented to person, place, and time. Psychiatric: Mood and Affect: Mood normal. Behavior: Behavior normal. Thought Content: Thought content normal. Judgment: Judgment normal. Vitals and nursing note reviewed. Vitals: There is no height or weight on file to calculate BMI. BP: 118/70 Patient's last menstrual period was 06/06/2023. ASSESSMENT & PLAN ICD-10-CM 1. Third trimester Z34.93 POCT urinalysis dipstick manually resulted 2. 37 weeks gestation of Z3A.37 3. Sinusitis, unspecified chronicity, unspecified location J32.9 azithromycin (Zithromax Z-Uday) 250 MG tablet Return OB: Patient presents today for a routine obstetrics appointment. Patient is currently 37w1d . Patient states she is doing well but has complaints of being tired due to current . Patient has verbalizes frequent movement. labor precautions was discussed/given and patient was instructed to perform kick counts three times a day. Pt complains of sinus infection and drainage. A Zpak was sent to pharmacy. Orders Placed This Encounter Procedures POCT urinalysis dipstick manually resulted Follow Up: Patient is to return to office in 1 week for routine OB appointment. Documented by Jeannette Cat MA on behalf of: JATINDER Pineda documented in this encounter [facility] 02-14-2024 History of Presen t illness Narrative [...] Oral, Every 8 hours PRN Prenat w/o Y-FkJfn-Xvlx-FA-DHA (TriStart DHA) 31-0.6-0.4-200 MG capsule 1 capsule, [...] nursing note reviewed. Exam conducted with a nick setter present. Vitals: There is no height or [...] Malinda Bundy LPN on behalf of: Surya Haq DO documented in this encounter [facility] 02-07-2024 History of Presen t [...] Oral, Every 8 hours PRN Prenat w/o J-LtWbl-Jnpm-FA-DHA (TriStart DHA) 31-0.6-0.4-200 MG capsule 1 capsule, [...] nursing note reviewed. Exam conducted with a nick setter present. Vitals: There is no height or [...] Delivery: 03/12/24. Patient to schedule NST/BPP's at [facility]. Order given to patient and also faxed to [facility] scheduling and [facility]BC. Patient to return to clinic in 1 week. Documented by Malinda Bundy LPN on behalf of: JATINDER Pineda documented in this encounter [facility] 12-19-2022 Evaluation note Encounter Date [...] in not improving over next 5-7 days. [facility] Other 04-22-2022 Evaluation note* Encounter Date Diagnosis [...] results. Patient to follow with PCP or 911 EMERGENCY SERVICES DISPATCHER as needed for persistent or worsening symptoms. Immediate eval if abdominal pain, fever, chills, body aches, back/flank pain, nausea, urinary complaints. Patient may use OTC external yeast infection creams for external irritation, do not insert creams or meds as Diflucan rx will treat. Avoid scratching and douching. Patient verbalizes understanding and is agreeable to treatment plan [facility] Other Evaluation noteNo InformationNort [employer] Other Evaluation noteNo assessment information available [facility] Work Phone: evaluation note* Diagnosis Onset Date Resolution Status Pre-employment examination [employer] [facility] Work Phone: Evaluation note* Diagnosis Third trimester state, incidental contractions Size of fetus inconsistent with dates, antepartum Nonintractable headache, unspecified chronicity pattern, unspecified headache type History of syphilis [facility] Diagnosis Second trimester state, incidental 36 weeks gestation of Third trimester state, incidental [facility] Diagnosis Third trimester state, incidental 37 weeks gestation of Sinusitis, unspecified chronicity, unspecified location documented in [facility] Narrative - Reported* Type Description Date Surgical History wisdom teeth Hospitalization History Fall Pneumothorax 2021 [facility] Other [place] general Narrative - Reported* Type Description Date Surgical History wisdom teeth Surgical History 1 Hospitalization History Fall Pneumothorax 2021 Hospitalization History 2016 [employer] Other Summary Purpose Family History No Family [...] Complaint physical Reason for Visit Pre-employment exami [facility] [place] Additional Source Comments INFORMATION SOURCE (unrecogn ized section and content) DATE CREATED AUTHOR 02/19/2020 [facility] DATE CREATED AUTHOR AUTHOR'S ORGANIZ ATION 01/06/2023 [facility] DATE CREATED AUTHOR AUTHOR'S ORGANIZ ATION 09/22/2023 [facility] DATE CREATED AUTHOR AUTHOR'S ORGANIZ ATION 11/10/2023 [facility] DATE CREATED AUTHOR AUTHOR'S ORGANIZ ATION 01/03/2024 [facility] DATE CREATED AUTHOR AUTHOR'S ORGANIZ ATION 02/22/2024 [facility] EPIC REASON FOR VISIT (unrecogniz ed section and content) Reason Comments Routine Visit POSS BVPOSS YEAST INFECTION Care Teams (unrecognized sec tion and content) Team Status: Inactive Member Role Status Dates Inessa Lewis APRN Attending Provider Active Team Status: Active Member Role Status Dates Romi Rider APRN RETAIL MANAGER IN TRAINING-C Primary Care Provider Active Team Status: Inactive Member Role Status Dates Romi Rider APRN RETAIL MANAGER IN TRAINING-C Primary Care Provider Active Start: June 162023 [...] BE BASED ON THE PRIMARY CLINICAL RECORDS. [facility] [employer] provides no warranty or guarantee of the accuracy or completeness of information in this document.
[2024-02-23 14:05] VITALS: BP 120/62; PULSE 123
--- NOTE | 2024-02-23 14:18 | US_ITS ---
[address] [address] Patient Name: MELE HAAS MRN: [id number] date: 1995 Sex: F Assigned Patient Location: [facility] Current Patient Location: Accession/Order Number: [id number] Exam Date: 02/23/2024 14:25 Report Date: 02/24/2024 04:26 At the request of: SURYA GARCIA Procedure: US OB BPP w non-stress EXAMINATION: US OB BPP w non-stress HISTORY:Size of fetus inconsistent with dates. contractions COMPARISON: Ultrasound OB biophysical 02/12/2024 TECHNIQUE: Ultrasound biophysical profile was performed in the radiology department. BREATHING MOVEMENTS: 2 GROSS BODY MOVEMENTS: 2 TONE: 2 QUALITATIVE AMNIOTIC FLUID VOLUME: 2 PRESENTATION: CEPHALIC HEART RATE: 129.19 bpm AMNIOTIC FLUID VOLUME: 18.52 cm GESTATIONAL AGE: 37 weeks 3 days US/US OB BPP w non-stress IMPRESSION: Total biophysical profile score: 8 Electronically authenticated by: TIESHA CASTILLO Date: 02/24/2024 04:26
== END 2024-02-23 14:25 | disposition home or self-care (01) ==
LOC: US 07:17 → FBC 13:55
PROVIDERS: Visit Provider Obstetrics & Gynecology
DX: O26.893 Other specified pregnancy related conditions, third trimester (principal); Z3A.37 37 weeks gestation of pregnancy
CPT/HCPCS: 76818

== ENCOUNTER 2024-03-01 07:09 | Outpatient (OUT) | payer MEDICAID, SELFPAY ==
--- OUTSIDE RECORDS SUMMARY | 2024-02-26 07:48 | XMS_ITS | CCD ---
Author Organization [facility] Care Team Providers Care Drilling Assistant Name Role Phone MISC, DOCTOR Primary Care [...] hours if needed 09/21/2023 Active Prenat w/o M-HeAzx-Otoi-FA-DHA (TriStart DHA) 31-0.6-0.4-200 MG capsule (9 sources) Start: 08-13-2023 take 1 capsule by mouth in the morning Prenat w/o F-CuXlx-Hgqp-FA-DHA (TriStart DHA) 31-0.6-0.4-200 MG capsule Take 1 [...] UA Negative Negative - 4(70) +++ mg/dL [facility] Blood, UA Negative Negative - 50 Eriberto/mcL [facility] Clarity, UA Clear [facility] Color, UA Yellow [facility] Glucose, UA Negative Negative - 1999(110) ++++ mg/dL [facility] Interpretation and review of laboratory results Normal [facility] Ketones, UA Negative Negative - 160(16) ++++ mg/dL [facility] Leukocytes, UA Negative Negative - 500+++ Pk/mcL [facility] Nitrite, UA Negative Negative - Positive [facility] pH, UA 5.5 5 - 9 [facility] Protein, UA Negative Negative - 1999(20) ++++ mg/dL [facility] Healthcare Spec Grav, UA 1.02 1 - 1.03 [facility] Health care Urobilinogen, UA 1.0 0.2 - 12 mg/dL [facility] Urinalysis macro (dipstick) panel (U)on 02-07-2024 Bilirubin, UA Negative Negative - 4(70) +++ mg/dL [facility] Blood, UA Negative Negative - 50 Eriberto/mcL [facility] Clarity, UA Clear [facility] Color, UA Yellow [facility] Glucose, UA Negative Negative - 1999(110) ++++ mg/dL [facility] Interpretation and review of laboratory results Abnormal [facility] Ketones, UA Negative Negative - 160(16) ++++ mg/dL [facility] Leukocytes, UA Negative Negative - 500+++ Pk/mcL [facility] Nitrite, UA Negative Negative - Positive [facility] pH, UA 5.5 5 - 9 [facility] Protein, UA Negative Negative - 1999(20) ++++ mg/dL [facility] Spec Grav, UA 1.025 1 - 1.03 [facility] Health care Urobilinogen, UA 1.0 0.2 - 12 mg/dL [facility] URINALYSISon 11-30-2023 Bilirubin Ql (U) Negative Normal NEG [facility] Comment on above: Performed By: #### C ERICK, 32144-8, P, 29653-9, 27757-2, 52700- 4, 28012-8 #### [facility] ([id number]) [address] [place] [address], [address] [place] [address] #### 66460-1, 01870-8 #### [facility] ([id number]) [address] [place] [address], [place] [address] BLOOD/HGB Negative Normal NEG [facility] Comment on above: Performed By: #### Joan , 87719-5, P, 72264-2, 16766-3, 77299- 4, 48406-1 #### [facility] ([id number]) [address] [place] [address], [address] [place] [address] #### 44692-5, 71788-3 #### [facility] ([id number]) [address] [place] [address] Color (U) YELLOW Normal YELLOW [facility] Comment on above: Performed By: #### C BC, 45962-2, AHP, 89288-8, 68248-0, 41018- 4, 46318-2 #### [facility] ([id number]) [address] [facility], [address] [place] [address] #### 91242-2, 93811-3 #### [facility] ([id number]) [address] [place] [address] Glucose Ql (U) Negative Normal NEG [facility] Comment on above: Performed By: #### Joan SUAREZ, 58618-0, AHP, 66149-1, 69402-7, 55157- 4, 26172-9 #### [facility] ([id number]) [address] [facility], [address] [place] [address] #### 80503-4, 39876-9 #### [facility] ([id number]) [address] [place] [address] Ketones Ql (U) Negative Normal NEG [facility] Comment on above: Performed By: #### Joan BC, 60481-7, AHP, 30918-0, 47151-9, 49039- 4, 65563-9 #### [facility] ([id number]) [address], [address] [place] [address] #### 56817-3, 26863-7 #### [facility] ([id number]) [address] [place] [address] Leukocyte esterase Test strip Ql (U) Negative Normal NEG [facility] Comment on above: Performed By: #### Joan BC, 22989-0, AHP, 86127-1, 85866-2, 40516- 4, 77634-0 #### [facility] ([id number]) [address], [address] [place] [address] #### 80016-7, 61162-4 #### [facility] ([id number]) [address] [place] [address] Nitrite Ql (U) Negative Normal NEG [facility] Comment on above: Performed By: #### C BC, 52214-5, AHP, 38581-1, 47042-5, 11209- 4, 23455-4 #### [facility] ([id number]) [address] [facility], [address] [place] [address] #### 14601-9, 04886-5 #### [facility] ([id number]) [address] [place] [address] 28465 pH (U) 7.0 [pH] Normal 5.0-8.5 [facility] Comment on above: Performed By: #### C BC, 92284-5, AHP, 42405-7, 64624-2, 10654- 4, 82303-1 #### [facility] ([id number]) [address] [facility], [address] [place] [address] #### 05149-4, 12430-7 #### [facility] ([id number]) [address] [place] [address]89 Protein Ql (U) Negative Normal NEG [facility] Comment on above: Performed By: #### C BC, 50623-8, AHP, 65901-1, 27967-7, 73874- 4, 93428-5 #### [facility] ([id number]) [address], [address] [place] [address] #### 22433-7, 59309-4 #### [facility] ([id number]) [address] [place] [address] Specific gravity (U) [Rel density] 1.025 Normal 1.003-1.035 [facility] Comment on above: Performed By: #### C ERICK, 06168-6, AHP, 71951-9, 75175-2, 83699- 4, 90086-4 #### [facility] ([id number]) [address], [address] [place] [address] #### 35001-0, 09726-9 #### [facility] ([id number]) [address] [place] [address] TURBIDITY CLEAR Normal CLEAR [facility] Comment on above: Performed By: #### C ERICK, 68523-8, AHP, 23392-8, 93013-2, 25159- 4, 64703-2 #### [facility] ([id number]) [address], [address] [place] [address] #### 50779-3, 42594-5 #### [facility] ([id number]) [address] [place] [address] Urobilinogen Qn (U) 0.2 {Saleem'U}/dL Normal <1.1 [facility] Comment on above: Performed By: #### Joan SUAREZ, 66147-2, AHP, 85854-3, 69232-0, 82298- 4, 54509-8 #### [facility] ([id number]) [address], [address] [place] [address] #### 96099-0, 76301-2 #### [facility] ([id number]) [address] [place] [address] CHLAMYDIA/GC PCR, FLon 09-20 CHLAMYDIA/GC PCR, FL [...] are dependent on adequate specimen collection. Normal [facility] Comment on above: Performed By: #### C BC, 72656-2, AHP, 96052-6, 67986-1, 86062- 4, 46640-6 #### [facility] ([id number]) [address], [address] [place] [address] #### 16041-2, 71260-7 #### [facility] ([id number]) [address] [place] [address], [place] [address] DRUG SCREEN, URINEon 024 AMPHETAMINE/METHAMP Negative Normal NEG [facility] Comment on above: Result Comment: AMPH /METH screening cut off = 1000 ng/mL Performed By: #### D DOWNING #### [facility] ([id number]) [address], [address] [place] [address] BARBITURATES Negative Normal NEG [facility] Comment on above: Result Comment: Venita iturates screening cut off value = 200 ng/mL Performed By: #### D DOWNING #### [facility] ([id number]) [address], [address] [place] [address] BENZODIAZEPINES Negative Normal NEG [facility] Comment on above: Result Comment: Ander odiazepines screening cut off value = 200 ng/mL Performed By: #### D DOWNING #### [facility] ([id number]) [address], [address] [place] [address] CANNABINOIDS Positive Abnormal NEG [facility] Comment on above: Result Comment: Conf irmation available upon request. Cannabinoids/THC screening cut off value = 50 ng/mL Performed By: #### D DOWNING #### [facility] ([id number]) [address], [address] [place] [address] COCAINE METABOLITE Negative Normal NEG [facility] Comment on above: Result Comment: Coca ine screening cut off value = 300 ng/mL Performed By: #### D DOWNING #### [facility] ([id number]) [address], [address] [place] [address] ECSTASY Negative Normal NEG [facility] Comment on above: Result Comment: Ecst asy screening cut off value = 500 ng/mL This report is intended for use in clinical monitoring or management of patients. Performed By: #### D DOWNING #### [facility] ([id number]) [address], [address] [place] [address] METHADONE Negative Normal NEG [facility] Comment on above: Result Comment: Meth adone screening cut off value = 300 ng/mL. Performed By: #### D DOWNING #### [facility] ([id number]) [address], [address] [place] [address] OPIATES Negative Normal [facility] Comment on above: Result Comment: Opia monica screening cut off value = 300 ng/mL NOTE: This test is used for the detection of codeine, hydrocodone (>1000 ng/mL), morphine and hydromorphone (>900 ng/mL) in urine. Performed By: #### D DOWNING #### [facility] ([id number]) [address], [address] [place] [address] OXYCODONE Negative Normal NEG [facility] Comment on above: Result Comment: Oxyc odone screening cut off value = 300 ng/mL NOTE: This test is used for the detection of oxycodone and oxymorphone in urine. Performed By: #### D DOWNING #### [facility] ([id number]) [address], [address] [place] [address] PHENCYCLIDINE Negative Normal NEG [facility] Comment on above: Result Comment: Phen cyclidine screening cut off value = 25 ng/mL Performed By: #### D DOWNING #### [facility] ([id number]) [address], [address] [place] [address] URINALYSISon 09-21-2023 Bilirubin Ql (U) Negative Normal NEG [facility] Comment on above: Performed By: #### U A #### [facility] ([id number]) [address], [address] [place] [address] BLOOD/HGB Negative Normal NEG [facility] Comment on above: Performed By: #### U A #### [facility] ([id number]) [address], [address] [place] [address] Color (U) YELLOW Normal YELLOW [facility] Comment on above: Performed By: #### U A #### [facility] ([id number]) [address], [address] [place] [address] Glucose Ql (U) Negative Normal NEG [facility] Comment on above: Performed By: #### U A #### [facility] ([id number]) [address], [address] [place] [address] Ketones Ql (U) >150 Abnormal NEG [facility] Comment on above: Performed By: #### U A #### [facility] ([id number]) [address], [address] [place] [address] Leukocyte esterase Test strip Ql (U) Negative Normal NEG [facility] Comment on above: Performed By: #### U A #### [facility] ([id number]) [address], [address] [place] [address] Nitrite Ql (U) Negative Normal NEG [facility] Comment on above: Performed By: #### U A #### [facility] ([id number]) [address], [address] [place] [address] pH (U) 6.0 [pH] Normal 5.0-8.5 [facility] Comment on above: Performed By: #### U A #### [facility] ([id number]) [address], [address] [place] [address] Protein Ql (U) Negative Normal NEG [facility] Comment on above: Performed By: #### U A #### [facility] ([id number]) [address], [address] [place] [address] Specific gravity (U) [Rel density] 1.019 Normal 1.003-1.035 [facility] Comment on above: Performed By: #### U A #### [facility] ([id number]) [address] [facility], [address] [place] [address] TURBIDITY CLEAR Normal CLEAR [facility] Comment on above: Performed By: #### U A #### [facility] ([id number]) [address] [place] [address], [address] [place] [address] Urobilinogen (U) [Mass/Vol] mg/dL Normal <1.1 [facility] Comment on above: Performed By: #### U A #### [facility] ([id number]) [facility], [address] [place] [address] URINE CULTUREon 09-21-2023 Bacteria identified Cx Nom (U) CULTURE RESULTS 10,000 to 50,000 ORGANISMS/mL ESCHERICHIA COLI <10,000 ORGANISMS/mL NORMAL URO GENITAL JACKIE Normal [facility] Comment on above: Performed By: #### 6 30-4 #### [facility] ([id number]) [address], [address] [place] [address] ACUTE HEPATITIS PANELon 08-25 ANTI HCV W/PCR REFLX Non-Reactive Normal NRCT [facility] Comment on above: Result Comment: If recent infection suspected, recommend repeat testing (>2 months). Dvfcda-qb-aqwctv ratio is <0.80. Performed By: #### C BC, 38646-2, AHP, 26420-2, 00407-6, 41780-4, 11460-3 #### [facility] ([id number]) [address] [facility], [address] [place] [address] #### 45823-8, 75888-6 #### [facility] ([id number]) [address] [place] [address] HEPATITIS A IGM Non-Reactive Normal NRCT [facility] Comment on above: Performed By: #### C BC, 44575-3, AHP, 50145-0, 09405-6, 97813- 4, 25178-3 #### [facility] ([id number]) [address] [facility], [address] [place] [address] #### 26596-3, 03982-5 #### [facility] ([id number]) [address] [place] [address]117 HEPATITIS B CORE IGM Negative Normal NEG [facility] Comment on above: Performed By: #### C BC, 67234-4, AHP, 74649-1, 76911-7, 45197- 4, 90300-2 #### [facility] ([id number]) [address] [place] [address], [address] [place] [address] #### 43951-9, 44509-7 #### [facility] ([id number]) [address] [place] [address] HEPATITIS B SURF AG Negative Normal NEG [facility] Comment on above: Performed By: #### C BC, 03196-0, AHP, 25096-0, 08970-7, 89096- 4, 21451-5 #### [facility] ([id number]) [address] [facility], [address] [address] #### 41750-1, 31127-7 #### [facility] ([id number]) [address] [place] [address] [place] [address] COMPLETE BLOOD COUNTon 09-16 Erythrocyte distribution width (RBC) [Ratio] 13.0 % Normal 11.5-15.0 [facility] Comment on above: Performed By: #### C ERICK, 57579-9, AHP, 51629-9, 34702-8, 27189- 4, 96672-9 #### [facility] ([id number]) [address], [address] [place] [address] #### 84245-3, 13946-6 #### [facility] ([id number]) [address] [place] [address]18[address] Hematocrit (Bld) [Volume fraction] 36.1 % Normal 35-47 [facility] Comment on above: Performed By: #### C ERICK, , AHP, 90175-8, 08188-7, 93260- 4, 08443-8 #### [facility] ([id number]) [address], [address] [place] [address] #### 01188-6, 55002-8 #### [facility] ([id number]) [address] [place] [address]150 Hemoglobin (Bld) [Mass/Vol] 12.5 g/dL Normal 11.7-15.5 [facility] Comment on above: Performed By: #### C ERICK, 64456-9, AHP, 36205-2, 18249-1, 71127- 4, 62781-6 #### [facility] ([id number]) [address], [address] [place] [address] #### 88343-3, 98770-8 #### [facility] ([id number]) [address] [place] [address] 00550 MCH (RBC) [Entitic mass] 32.0 pg Normal 27-34 [facility] Comment on above: Performed By: #### Joan SUAREZ, 06846-1, AHP, 88106-6, 26406-5, 53240- 4, 13784-5 #### [facility] ([id number]) [address], [address] [place] [address] #### 79687-7, 00817-1 #### [facility] ([id number]) [address] [place] [address]39 MCHC (RBC) [Mass/Vol] 34.6 g/dL Normal 32-36 [facility] Comment on above: Performed By: #### C ERICK, 10499-1, AHP, 72748-5, 07523-1, 91437- 4, 89557-2 #### [facility] ([id number]) [address], [address] [place] [address] #### 38048-2, 48679-3 #### [facility] ([id number]) [address] [place] [address] 30465 MCV (RBC) [Entitic vol] 93 fL Normal 80-100 [facility] Comment on above: Performed By: #### C ERICK, 98607-1, AHP, 80091-0, 11014-9, 51364- 4, 93290-0 #### [facility] ([id number]) [address], [address] [place] [address] #### 84692-9, 25495-6 #### [facility] ([id number]) [address] [place] [address]82 Platelet mean volume (Bld) [Entitic vol] 8.7 fL Normal 7-12 [facility] Comment on above: Performed By: #### Joan BC, 00251-2, AHP, 18284-5, 42893-0, 93683- 4, 89663-2 #### [facility] ([id number]) [address], [address] [place] [address] #### 04669-5, 73117-7 #### [facility] ([id number]) [address] [place] [address]341 Platelets (Bld) [#/Vol] 300 10*3/uL Normal 150-450 [facility] Comment on above: Performed By: #### C BC, 67209-0, AHP, 84905-8, 15833-9, 29426- 4, 85909-7 #### [facility] ([id number]) [address] [facility], [address] [place] [address] #### 95482-8, 50897-3 #### [facility] ([id number]) [address] [place] [address] 10281 RBC COUNT 3.90 X10E12/L Normal 3.80-5.20 [facility] Comment on above: Performed By: #### Joan SUAREZ, 92831-4, AHP, 11507-4, 83908-5, 89394- 4, 39897-1 #### [facility] ([id number]) [address] [facility], [address] [place] [address] #### 61089-5, 81739-8 #### [facility] ([id number]) [address] [place] [address] 84299 WBC (Bld) [#/Vol] 9.7 10*3/uL Normal 4.0-11.0 [facility] Comment on above: Performed By: #### C BC, 28656-3, AHP, 14617-9, 96489-2, 78040- 4, 60933-5 #### [facility] ([id number]) [address] [facility], [address] [place] [address] #### 92283-6, 97378-4 #### [facility] ([id number]) [address] [place] [address] HCG.beta subunit IA 3rd IS Q non 09-17-2023 [place] [address] m[IU]/mL Normal P [facility] Comment on above: Result Comment: NEW [...] nontrophoblastic neoplasms. Performed By: #### C , 60786-4, [facility], 42918-3, 98303-0, 42547-2, 13314-9 #### [facility] ([id number]) [address] [place] [address], [address] [place] [address] #### 65234-1, 88644-9 #### [facility] ([id number]) [address] [place] [address], [place] [address] HIV 1+2 Ab+HIV1 p24 Ag IA Ql on 09-17-2023 HIV 1 and 2 Ab/Ag Screen Non-Reactive Normal NRCT [facility] Comment on above: Result Comment: [...] or diagnoses. Performed By: #### C ERICK, 19304-0, AHP, 38651-9, 66831-0, 27380-5, 80351-8 #### [facility] ([id number]) [address] [facility], [address] [place] [address] #### 59072-2, 58357-4 #### [facility] ([id number]) [address] [place] [address]97[address] Reagin Ab RPR (S) [Titer]on 09-17-2023 RPR TITER, SERUM SEE COMMENTS 09/21/2023 10:37 AM Abnormal [facility] Comment on above: Result Comment: NOTE Test Result Flag Unit RefValue RPR, Titer, S 1:1 A Negative Results consistent with untreated or recently treated syphilis. Clinical correlation required. For additional information on interpretation of the syphilis reverse algorithm and results, see: [email or web address] Test Performed by: [place] [address] Public Health Assistant: Luke Downey M.D. Ph.D.; CLIA# [id number] Performed By: #### Joan SUAREZ, 07751-2, AHP, 84470-0, 00482-5, 88734-4, 48356-4 #### [facility] ([id number]) [address] [facility], [address] [place] [address] #### 55265-7, 71285-5 #### [facility] ([id number]) [address] [place] [address] Reagin Ab RPR Ql (S)on 09-16 RPR WITH REFLEX TO RTPPA Positive Abnormal Negative [facility] Comment on above: Result Comment: NOTE Specimen reflexed to determine RPR titer. For additional information on interpretation of the syphilis reverse algorithm and results, see: [email or web address] Test Performed by: [facility] [address] [place] [address] Public Health Assistant: Luke Downey M.D. Ph.D.; CLIA# [id number] Performed By: #### C BC, 06566-5, AHP, 66794-4, 66519-0, 11137-2, 02145-6 #### [facility] ([id number]) [address] [place] [address] #### 79433-2, 29870-9 #### [facility] ([id number]) [address] [place] [address] Rubella virus Ab Ql (S)on RUBELLA IMMUNE IgG 1.0 AI Normal [facility] Comment on above: Result Comment: Interpretation-------- <0.8 NEGATIVE-considered Not Immune 0.8-0.9 EQUIVOCAL-consider retesting with new specimen >0.9 POSITIVE-considered Immune Performed By: #### C BC, 37238-4, AHP, 36085-4, 64645-7, 76398-4, 25883-2 #### [facility] ([id number]) [address] [place] [address], [address] [address] #### 21015-6, 74117-2 #### [facility] ([id number]) [address] [place] [address] T. pallidum IgG+IgM IA Ql (S )on 09-17-2023 Syphilis Total >8.0 High 0.0-0.8 [facility] Comment on above: Result Comment: REAC TIVE This specimen will be sent to a reference lab for additional testing which includes RPR with reflex to TP-PA if RPR is negative. The RPR will help distinguish between infections with T.pallidum (syphilis) versus a falsely reactive treponemal antibody result. Please see the syphilis testing algorithm link below for more information. [email or web address] Performed By: #### C BC, 57985-2, AHP, 33510-7, 62712-4, 48405-2, 07571-5 #### [facility] ([id number]) [address] [place] [address], [address] [place] [address] #### 35692-8, 91529-1 #### [facility] ([id number]) [address] [place] [address], [place] [address] US PREG TRANSABD FU PER FETU on 09-17-2023 US PREG TRANSABD FU PER FETU US PREG TRANSABD FU PER FETU US PREG TRANSABD FU PER FETU: 09/17/2023 8:25 AM Clinical: Check dates and viability. Real-time transabdominal sonography pelvis performed.. Transvaginal sonography pelvis performed for better evaluation of the pelvic organs. No comparison. There is a single live intrauterine . [place]-rump length of 8.8 cm corresponds to 14 [...] Frances MD on 09/17/2023 11:55 AM Normal [facility] VZV IgG IA Ql (S)on 09-17-19 VARICELLA IgG 3.1 AI High <0.9 [facility] Comment on above: Result Comment: Interpretation-------- <0.9 Negative 0.9 - 1.0 Equivocal >1.0 Positive Performed By: #### C , 34516-8, AHP, 06302-4, 86310-3, 19114-4, 15269-7 #### [facility] ([id number]) [address] [place] [address], [address] [place] [address] #### 79584-6, 82867-6 #### [facility] ([id number]) [address] [place] [address], [place] [address] Urinalysis - AUTOMATEDon Appearance (U) CLEAR [employer] Other Bilirubin Ql (U) Negative [employer] Other Color (U) YELLOW [employer] Other Glucose Ql (U) Negative [employer] Other Hemoglobin Ql (U) NEGTIVE [employer] Other Ketones Ql (U) Negative [employer] Other Leukocyte esterase Test strip Ql (U) Negative [employer] Other Nitrite Ql (U) Negative [employer] Other pH (U) 7.5 [pH] [employer] Other Protein Ql (U) Negative [employer] Other Specific gravity (U) [Rel density] 1.015 [facility] Other Urobilinogen (U) [Mass/Vol] 0.2 mg/dL [facility] Other Urinalysis - AUTOMATED [facility] Other Vaginitis Plus (VG+)on 12-19 Atopobium Vaginae High - 2 Critically abnormal . [facility] Comment on above: Performed By: #### V AGINITIS+ #### [facility] , BVAB2 High - 2 Critically abnormal . [facility] Comment on above: Performed By: #### V AGINITIS+ #### [facility] , Makenzie Albicans, KENNETH Negative Normal Negative [facility] Comment on above: Result Comment: This test was developed and its performance characteristics determined by [employer]. It has not been cleared or approved by the Food and Drug Administration. Performed By: #### V AGINITIS+ #### [facility] , Makenzie Glabrata, KENNETH Negative Normal Negative [facility] Comment on above: Result Comment: This test was developed and its performance characteristics determined by [employer]. It has not been cleared or approved by the Food and Drug Administration. PERFORMED BY: [facility] [address] [place] [address] PATHOLOGIST RN EMERGENCY ROOM LEO PATEL M.D. Performed By: #### V AGINITIS+ #### [facility] , Chlamydia Trachomotis, KENNETH Positive Critically abnormal Negative [facility] Comment on above: Performed By: #### V AGINITIS+ #### [facility] , Megasphaera High - 2 Critically abnormal . [facility] Comment on above: Result [...] developed and its performance characteristics determined by [employer]. It has not been cleared or approved by the Food and Drug Administration. Performed By: #### V AGINITIS+ #### [facility] , Neisseria Gonorrhoeae, KENNETH Negative Normal Negative [facility] Comment on above: Result Comment: Perf ormed at: =G - [facility] [address] [place] [id number] Public Health Assistant: Brianne Shabazz MD, Phone: [phone] Performed By: #### V AGINITIS+ #### [facility] , Tric Vag KENNETH Negative Normal Negative [facility] Comment on above: Performed [...] by: YAKOV DAWSON Date: 2019-12-27 09:54 Normal [facility] XR ANKLE [...] TIESHA CASTILLO Date: 2019-11-29 13:43 Normal [facility] XR FOOT RT MIN 3 VIEWSon XR FOOT RT MIN 3 VIEWS EXAM: Right foot HISTORY: Pain after a fall. TECHNIQUE: 3 views of the right foot were obtained. FINDINGS: There is no evidence of fracture or dislocation. There are no suspicious bone lesions. Soft tissues are normal. IMPRESSION: Unremarkable exam. Electronically authenticated by: JUDE MCDANIEL Date: 2019-11-28 16:48 Normal [facility] XR TIB_FIB LT 2Von 0 XR [...] JUDE MCDANIEL Date: 2019-11-28 16:47 Normal [facility] Vital Signs Date Time Vital Sign Value Performing Clinician Facility 02-21-2024 14:34-0400 Body weight 84.82 kg Jenna TOBIAS Work Phone: [facility] 02-21-2024 14:34-0400 Diastolic blood pressure 70 mm[Hg] Jenna TOBIAS Work Phone: [facility] 02-21-2024 14:34-0400 Systolic blood pressure 118 mm[Hg] Jenna TOBIAS Work Phone: [facility] 02-14-2024 15:25-0400 Body weight 83.01 kg Surya Haq DO Work Phone: [facility] 02-14-2024 15:25-0400 Diastolic blood pressure 72 mm[Hg] Surya Eun DO Work Phone: [facility] 02-14-2024 15:25-0400 Systolic blood pressure 118 mm[Hg] Surya Eun DO Work Phone: [facility] 02-07-2024 10:03-0400 Body weight 82.01 kg Jenna Thomas PA Work Phone: [facility] 02-07-2024 10:03-0400 Diastolic blood pressure 70 mm[Hg] Jenna Carterey PA Work Phone: [facility] 02-07-2024 10:03-0400 Systolic blood pressure 114 mm[Hg] Jenna Cartersheba TOBIAS Work Phone: [facility] 06-16-2023 13:06-0500 Body temperature 98.6 [degF] [facility] 06-16-2023 13:06-0500 Body weight 63.5 kg [facility] 06-16-2023 13:06-0500 Diastolic blood pressure 76 mm[Hg] [facility] 06-16-2023 13:06-0500 Heart rate 87 /min [facility] 06-16-2023 13:06-0500 Respiratory rate 18 /min [facility] 06-16-2023 13:06-0500 SaO2% (BldA) [Mass fraction] 98 % [facility] 06-16-2023 13:06-0500 Systolic blood pressure 119 mm[Hg] [facility] 12-19-2022 11:25-0400 Body height 160.02 cm Inessa Lewis Other [facility] [employer] Other 12-19-2022 11:25-0400 Body mass index (BMI) [Ratio] 24.3 kg/m2 Inessa Lewis Other [facility] [employer] Other 12-19-2022 11:25-0400 Body temperature 98.7 [degF] Inessa Lewis Other [employer] Other 12-19-2022 11:25-0400 Body weight 62.23 kg Inessa Debbie Other [employer] Other 12-19-2022 11:25-0400 Diastolic blood pressure 66 mm[Hg] Inessa Lewis Other [employer] Other 12-19-2022 11:25-0400 Respiratory rate 18 /min Inessa Debbie Other [employer] Other 12-19-2022 11:25-0400 SaO2% (BldA) [Mass fraction] 99 % Inessa Debbie Other [employer] Other 12-19-2022 11:25-0400 Systolic blood pressure 104 mm[Hg] Inessa Lewis Other [facility] Other 08-15-2021 11:45-0400 Body height 160.02 cm Janny Gonzalez Other [facility] Other 08-15-2021 11:45-0400 Body mass index (BMI) [Ratio] 22.32 kg/m2 Janny Gonzalez Other [employer] Other 08-15-2021 11:45-0400 Body temperature 97.9 [degF] Janny Gonzalez Other [facility] Other 08-15-2021 11:45-0400 Body weight 57.15 kg Janny Gonzalez Other [employer] Other 08-15-2021 11:45-0400 Diastolic blood pressure 71 mm[Hg] Janny Gonzalez Other [facility] Other 08-15-2021 11:45-0400 Respiratory rate 18 /min Janny Gonzalez Other [facility] Other 08-15-2021 11:45-0400 SaO2% (BldA) [Mass fraction] 100 % Janny Gonzalez Other [facility] Other 08-15-2021 11:45-0400 Systolic blood pressure 123 mm[Hg] Janny Gonzalez Other [employer] Other Encounters Encounter Date Encounter Type Care Provider Facility Start: 02-21-2024 End: 02-21-2024 ambulatory JENNA THOMAS Not Available Start: 02-21-2024 End: 02-21-2024 Office outpatient visit 15 minutes Jenna TOBIAS Work Phone: [facility] Comment on above: Third trimester [...] Not Available Start: 01-02-2024 End: 01-02-2024 ambulatory [facility] Start: 01-02-2024 End: 01-02-2024 Emergency department patient visit [facility] Start: 12-23-2023 End: 12-23-2023 ambulatory SURYA EUN Not Available Start: 12-02-2023 End: 12-02-2023 ambulatory JENNA THOMAS Not Available Start: 11-30-2023 End: 11-30-2023 ambulatory MALINDA RIO [facility] Start: 11-04-2023 End: 11-04-2023 ambulatory SONAM TENORIO [facility] Start: 10-06-2023 End: 10-06-2023 ambulatory DANDY Andre [facility] Start: 10-05-2023 End: 10-05-2023 Emergency department patient visit [facility] Start: 09-29-2023 End: 09-29-2023 ambulatory [facility] Start: 09-22-2023 End: 09-22-2023 ambulatory [facility] Start: 09-21-2023 End: 09-22-2023 ambulatory [facility] Start: 09-21-2023 End: 09-21-2023 ambulatory [facility] Start: 09-21-2023 Encounter for gynecological examination (general) (routine) without abnormal findings [facility] Start: 09-21-2023 End: 09-21-2023 ambulatory SONAM Andre [facility] Start: 09-21-2023 Encounter for gynecological examination (general) (routine) without abnormal findings [facility] Start: 09-17-2023 End: 09-17-[address] [facility] Start: 08-13-2023 End: 08-13-2023 ambulatory SONAM [facility] Start: 06-16-2023 End: 06-16-2023 ambulatory [facility] Work Phone: Start: 06-16-2023 End: 06-16-2023 Patient encounter procedure [facility] [place] Work Phone: Start: 12-19-2022 Office outpatient vi sit 15 minutes Inessa Lewis [facility] [place] Start: 12-19-2022 End: 12-19-2022 ambulatory Inessa Lewis [employer] Other Start: 12-19-2022 End: 12-19-2022 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 Inessa Lewis Work Phone: [facility] [place] Work Phone: Start: 08-19-2021 End: 08-19-2021 ambulatory Janny Gonzalez Other [employer] Other Start: 08-19-2021 Telephone encounter Janny Gonzalez [facility] Start: 08-15-2021 End: 08-15-2021 ambulatory Janny Carlos Other [employer] Other Start: 08-15-2021 Office outpatient ne w 20 minutes Janny Gonzalez [facility] [place] Start: 02-27-2020 [facility] Start: 01-30-2020 End: 01-31-2020 [facility] Start: 01-16-2020 End: 01-16-2020 Patient encounter procedure CATHRYN BARNES Facility:H1 Start: 12-27-2019 End: 12-28-2019 Patient encounter procedure [facility] Facility:[facility]1 Start: 11-29-2019 End: 11-30-2019 Patient encounter procedure [facility] Facility:[facility] Start: 11-28-2019 End: 11-28-2019 Patient encounter procedure [facility] Facility:H1 Procedures Date Procedure Procedure Detail Performing Clinician Start: 02-15-2024 Urnls dip stick/tabl et rgnt non-auto w/o micrscp Surya Eun DO Work Phone: Start: 02-07-2024 Urnls dip stick/tabl et rgnt non-auto w/o micrscp Surya Eun DO Work Phone: Plan of Treatment Date Care Activity Detail Author Start: 02-28-2024 End: 02-28-2024 Patient encounter procedure 02/28/2024 3:00 PM EST Routine [facility] [address] [place] [address] Surya Haq [place] [facility] [place] [address] [facility] Start: 02-21-2024 End: 02-21-2024 Patient encounter procedure 02/21/2024 2:20 PM EDT Routine [facility] [address] [place] [address] Jenna Thomas PA [address] [place], [place] [address] [facility] Start: 02-14-2024 End: 02-14-2024 Patient encounter procedure 02/14/2024 2:30 PM EDT Routine [facility] [address] [facility] [place] [id number] Surya Haq DO [address] [place], [place] [address] [facility] Start: 02-07-2024 End: 02-06-2025 [...] AM EDT Routine [facility] [address] [facility] [place] [id number] Jenna Thomas PA [address] [place] [address] Arrived [facility] Comment on above: Arrived Start: 12-19-2022 [facility] Atopobium vaginae DN A [Presence] in Vaginal fluid by KENNETH with probe detection [facility] Bacterial vaginosis associated bacterium 2 DNA [Presence] in Vaginal fluid by KENNETH with probe detection [facility] Megasphaera sp type 1 DNA [Presence] in Vaginal fluid by KENNETH with probe detection [facility] Payers Date Payer Category Payer Self-pay [id number] 2022 Medicaid [employer] [place] [id number] 2022 Medicaid [id number] 2.16.840.1.066304.19 2019 Unknown [id number] 1997 Unknown [id number] 2.16.840.1.645942.3.579.2.593 1997 Unknown [id number] 2.16840.1.559728.3.579.2.593 1997 Unknown [id number] 2.16.840.1.158805.3.579.2.593 1997 Unknown [id number] 2.16.840.1.709248.3.579.2.593 1997 Unknown [id number] 2.16.840.1.840684.3.579.2.593 1997 Unknown [id number] 2.16840.1.160652.3.579.2.593 1997 Unknown [id number] 2.16.840.1.635811.3.579.2.128 1997 Unknown [id number] 2.16.840.1.346365.3.579.2.1285 1997 Unknown [id number] 2.16.840.1.098565.3.579.2.1285 1997 Unknown [id number] 2.16.840.1.664834.3.579.2.128 1997 Unknown [id number] 2.16.840.1.402925.3.579.2.1285 1997 Unknown [id number] 2.16.840.1.244247.3.579.2.1285 1997 Unknown [id number] 2.16.840.1.003126.3.579.2.1285 1997 Unknown [id number] 2.16.840.1.757679.3.579.2.1285 1997 Unknown [id number] 2.16.840.1.614343.3.579.2.1285 1997 Unknown [id number] 2.16.840.1.721780.3.579.2.1285 1997 Unknown [id number] 2.16.840.1.825691.3.579.2.1285 1997 Unknown [id number] 2.16840.1.062913.3.579.2.1285 1997 Unknown [id number] 2.16.840.1.657619.3.579.2.1285 1997 Unknown [id number] 2.16.840.1.503825.3.579.2.1285 1997 Unknown [id number] 2.16.840.1.856017.3.579.2.1285 1997 Unknown [id number] 2.16840.1.210483.3.579.2.1258 1997 Unknown [id number] 2.16.840.1.774454.3.579.2.1258 1997 Unknown [id number] 2.16.840.1.500378.3.579.2.1258 1997 Unknown [id number] 2.16.840.1.753280.3.579.2.1258 1997 Unknown [id number] 2.16.840.1.715966.3.579.2.1258 1997 Unknown [id number] 2.16.840.1.966384.3.579.2.1259 1997 Unknown [id number] 2.16.840.1.840724.3.579.2.1259 1959 Unknown [id number] Unknown [id number] 2.16.840.1.861075.19 Unknown [id number] 2.16.840.1.361176.3.579.2.531 Social History Date Type Detail Facility Unknown if ever smoked [facility] [employer] Other Sex Assigned At [facility] [employer] Other Start: 1995 Sex Assigned At Female F [facility] Start: 06-16-2023 Tobacco smoking status CAIS Never smoked tobacco (finding) [facility] Tobacco smoking status [facility] Tobacco smoking consumption unknown [facility] Start: 06-20-2023 [facility] Start: 1995 Sex assigned at Not on file N [facility] Clinical Notes 08-15-2021 to 02-21-2024 JATINDER Pineda [...] Oral, Every 8 hours PRN Prenat w/o E-JzOtn-Omlf-FA-DHA ([employer] DHA) 31-0.6-0.4-200 MG capsule 1 capsule, [...] of: JATINDER Pineda documented in this encounter [facility] 02-14-2024 History of Presen t illness [...] Oral, Every 8 hours PRN Prenat w/o Y-QyVvg-Dolt-FA-DHA ([employer]Start DHA) 31-0.6-0.4-200 MG capsule 1 capsule, [...] nursing note reviewed. Exam conducted with a housekeeping associate present. Vitals: There is no height or [...] Surya Haq DO documented in this encounter [facility] 02-07-2024 History of Presen t illness [...] Oral, Every 8 hours PRN Prenat w/o Y-KcIbr-Eksl-FA-DHA ([employer]Start DHA) 31-0.6-0.4-200 MG capsule 1 capsule, [...] nursing note reviewed. Exam conducted with a housekeeping associate present. Vitals: There is no height or [...] Delivery: 03/12/24. Patient to schedule NST/BPP's at [facility]. Order given to patient and also faxed to [facility] scheduling and FBC. Patient to return to clinic in 1 week. Documented by Malinda Bundy LPN on behalf of: JATINDER Pineda documented in this encounter [facility] 12-19-2022 Evaluation note Encounter Date Diagnosis [...] in not improving over next 5-7 days. [facility] Other 04-22-2022 Evaluation note* Encounter Date Diagnosis [...] results. Patient to follow with PCP or DICTAPHONE TRANSCRIBER as needed for persistent or worsening symptoms. Immediate eval if abdominal pain, fever, chills, body aches, back/flank pain, nausea, urinary complaints. Patient may use OTC external yeast infection creams for external irritation, do not insert creams or meds as Diflucan rx will treat. Avoid scratching and douching. Patient verbalizes understanding and is agreeable to treatment plan [employer] Other Evaluation noteNo [employer]Nort [employer] Other Evaluation noteNo assessment information available [facility] Work Phone: evaluation note* Diagnosis Onset Date Resolution Status Pre-employment examination a [facility] Work Phone: Evaluation note* Diagnosis Third trimester [...] wisdom teeth Hospitalization History Fall Pneumothorax 2021 [facility] Other Hishlnb general Narrative - Reported* Type Description Date Surgical History wisdom teeth Surgical History 1 Hospitalization History Fall Pneumothorax 2021 Hospitalization History 2016 [facility] Other Summary Purpose Family History No Family [...] Complaint physical Reason for Visit Pre-employment exami [facility] Additional Source Comments INFORMATION SOURCE (unrecogn ized section and content) DATE CREATED AUTHOR 02/19/2020 [facility] DATE CREATED AUTHOR AUTHOR'S ORGANIZ ATION 01/06/2023 [facility] DATE CREATED AUTHOR AUTHOR'S ORGANIZ ATION 09/22/2023 [facility] DATE CREATED AUTHOR AUTHOR'S ORGANIZ ATION 11/10/2023 [facility] DATE CREATED AUTHOR AUTHOR'S ORGANIZ ATION 01/03/2024 [facility] DATE CREATED AUTHOR AUTHOR'S ORGANIZ ATION 02/22/2024 [facility] EPIC REASON FOR VISIT (unrecogniz ed section and content) Reason Comments Routine Visit POSS BVPOSS YEAST INFECTION Care Teams (unrecognized sec tion and content) Team Status: Inactive Member Role Status Dates Inessa Lewis APRN Attending Provider Active Team Status: Active Member Role Status Dates Romi Rider APRN DIE SINKER APPRENTICE-C Primary Care Provider Active Team Status: Inactive Member Role Status Dates Romi Rider APRN DIE SINKER APPRENTICE-C Primary Care Provider Active Start: June 162023 [...] BE BASED ON THE PRIMARY CLINICAL RECORDS. [facility] [employer] provides no warranty or guarantee of the accuracy or completeness of information in this document.
--- OUTSIDE RECORDS SUMMARY | 2024-03-01 07:11 | XMS_ITS | CCD ---
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 Foreman Name Role Phone MISC, DOCTOR Primary Care [...] ROMI A Primary Care Unavailable KROTZERTRACIA M Attending Unavailable KROTZER, SONAM M Referring Unavailable LIZZETTE, ROMI A Primary Care Unavailable LIZZETTE, ROMI A Referring Unavailable LIZZETTE, ROMI A Primary Care Unavailable KROTZER, SONAM M Referring Unavailable LIZZETTE, ROMI A Primary Care Unavailable LIZZETTE, ROMI A Primary Care Unavailable JEANNE SMART Attending Unavailable RIOMALINDA FOWLER Admitting Unavailable RIOMALINDA Attending Unavailable LIZZETTE, ROMI A Primary Care Unavailable LIZZETTE, ROMI A Primary Care Unavailable OSVALDO, TIBERIU S Admitting Unavailable OSVALDO, TIBERIU S Attending Unavailable LIZZETTE, ROMI A Primary Care Unavailable Unavailable Primary Care Provider Unavaildot e JENNA THOMAS Attending Unavailable EUN, SURYA Attending Unavailable WILLIAM, JENNA Attending Unavailable EUN, SURYA Attending Unavailable WILLIAM, JENNA Attending Unavailable EUN, SURYA Attending Unavailable WILLIAM, JENNA Attending Unavailable EUN, SURYA Attending Unavailable Medications Current Medications Medication Drug [...] (Other) diphenhydrAMINE hydrochloride 50 mg oral capsule (20 sources) Histamine-1 Receptor Antagonist Start: 12-23-2023 diphenhydrAMINE [...] needed for 1 day Jul, Active Magnesium (12 sources) Start: 12-09-2023 End: 03-08-2024 take 1 [...] omeprazole 20 mg delayed release oral capsule (12 sources) Proton Pump Inhibitor Start: 12-02-2023 End: 12-01-2024 take 1 capsule by mouth before mealtime omeprazole (PriLOSEC) [address] capsule Indications: Heartburn during , antepartum Take 1 capsule (20 mg) by mouth in the morning. Take before meals. Do not crush or chew.. 30 capsule 11 12/02/2023 12/01/2024 Active ondansetron 4 mg disintegrating oral tablet (12 sources) Serotonin-3 Receptor Antagonist Start: 09-21-2023 take 1 tablet by mouth every eight hours as needed ondansetron ODT (Zofran-ODT) 4 MG disintegrating tablet Take 4 mg by mouth every 8 (eight) hours if needed 09/21/2023 Active Prenat w/o C-UiQkc-Hbhy-FA-DHA (TriStart DHA) 31-0.6-0.4-200 MG capsule (12 sources) Start: 08-13-2023 take 1 capsule by mouth in the morning Prenat w/o S-FgZra-Dbdg-FA-DHA (TriStart DHA) 31-0.6-0.4-200 MG capsule Take 1 capsule by mouth in the morning. 08/13/2023 Active Vit-Fe Fumarate-FA (WesTab Plus) 27-1 MG tablet (12 sources) Start: 08-26-2023 take 1 tablet by mouth in the morning Vit-Fe Fumarate-FA (WesTab Plus) 27-1 MG tablet Take 1 tablet by mouth in the morning. 08/26/2023 Active Completed/Discontinued Medications Medication Drug Class(es) Dates Sig (Normalized) Sig (Original) azithromycin 250 mg oral tablet (5 sources) Macrolide Antimicrobial Start: 02-21-2024 End: 02-28-2024 azithromycin (Zithromax Z-Uday) 250 MG tablet Indications: Sinusitis, unspecified chronicity, unspecified location As directed 6 tablet 02/21/2024 02/28/2024 Discontinued lidocaine hydrochloride 20 mg/ml mucous membrane topical [...] 11-28-2019 Episodic Other and delivery including normal (14 sources) Encounter for test, result positive; Translations: [...] [37 weeks gestation of ] 02-21-2024 Episodic Residual codes; unclassified (2 sources) Gestation period, 38 weeks; Translations: [38 weeks gestation of ] 02-28-2024 Episodic Substance-related disorders (1 source) Nicotine dependence, [...] Range Facility Urinalysis macro (dipstick) panel (U)on 02-28-2024 Bilirubin, UA Negative Negative - 4(70) +++ mg/dL [facility] Blood, UA Negative Negative - 50 Eriberto/mcL [facility] Clarity, UA Clear [facility] Color, [facility]A [facility] Gl[facility], [facility] Negative Negative - 2000(110) ++++ mg/dL [facility] Interpretation and review of laboratory results Normal [facility] re Ketones, UA Negative Negative - 160(16) ++++ mg/dL [facility] Leukocytes, UA Negative Negative - 500+++ Pk/mcL [facility] Healthcare Nitrite, UA Negative Negative - Positive [facility] Healthcare pH, UA 6.5 5 - 9 [facility] Protein, UA Negative Negative - 1999(20) ++++ mg/dL [facility] Healthcare Spec Grav, UA 1.025 1 - 1.03 [facility] care Urobilinogen, UA 0.2 0.2 - 12 mg/dL [facility]inal[facility] macro (dipstick) panel (U)Ordered By: Carmenza Donovan on 02-15-2024 Bilirubin, UA Negative Negative - 4(70) +++ mg/dL [facility] Blood, UA Negative Negative - 50 Eriberto/mcL [facility] Healthcare Clarity, UA Clear [facility] Color, UA Yellow [facility] Glucose, UA Negative Negative - 1999(110) ++++ mg/dL [facility] Interpretation and review of laboratory results Normal [facility] Ketones, UA Negative Negative - 160(16) ++++ mg/dL [facility] Leukocytes, UA Negative Negative - 500+++ Pk/mcL [facility] Healthcare Nitrite, UA Negative Negative - Positive [facility] pH, UA 5.5 5 - 9 [facility] Health[facility] e Protein, UA Negative Negative - 1999(20) ++++ mg/dL [facility] Spec Grav, UA 1.02 1 - 1.03 [facility] Urobilinogen, UA 1.0 0.2 - 12 mg/dL [facility] Urinalysis macro (dipstick) panel (U)on 02-07-2024 Bilirubin, UA Negative Negative - 4(70) +++ mg/dL [facility] Blood, UA Negative Negative - 50 Eriberto/mcL [facility] Healthcare Clarity, UA Clear [facility] Color, UA Yellow [facility] Glucose, UA Negative Negative - 1999(110) ++++ mg/dL [facility] Interpretation and review of laboratory results Abnormal [facility] Ketones, UA Negative Negative - 160(16) ++++ mg/dL [facility] Healthcare Leukocytes, UA Negative Negative - 500+++ Pk/mcL [facility] Healthcare Nitrite, UA Negative Negative - Positive [facility] pH, UA 5.5 5 - 9 [facility] Protein, UA Negative Negative - 1999(20) ++++ mg/dL [facility] Spec Grav, UA 1.025 1 - 1.03 [facility] Urobilinogen, UA 1.0 0.2 - 12 mg/dL [facility] Health[facility] e URINALYSISon 11-30-2023 Bilirubin Ql (U) Negative Normal NEG [facility] Comment on above: Performed By: #### C ERICK, 75004-5, AHP, 63521-7, 35013-3, 83892- 4, 24302-9 #### [facility] ([id number]) [address] [place] [address], [address] [place] [address] #### 76531-0, 65186-3 #### [facility] ([id number]) [address] [place] [address], [place] [address] BLOOD/HGB Negative Normal NEG [facility] Comment on above: Performed By: #### Joan SUAREZ, , AHP, 73511-0, 82350-6, 66263- 4, 35443-2 #### [facility] ([id number]) [address] [place] [address], [address] [place] [address] #### 76182-9, 71071-9 #### [facility] ([id number]) [address] [place] [address] Color (U) YELLOW Normal YELLOW [facility] Comment on above: Performed By: #### Joan SUAREZ, 06519-8, AHP, 74803-7, 23292-4, 33975- 4, 01799-1 #### [facility] ([id number]) [address] [place] [address], [address] [place] [address] #### 15474-2, 92034-7 #### [facility] ([id number]) [address] [place] [address], [place] [address] Glucose Ql (U) Negative Normal NEG [facility] Comment on above: Performed By: #### C BC, 40889-6, AHP, 82557-4, 63167-2, 04966- 4, 00642-3 #### [facility] ([id number]) [address] [facility], [address] [place] [address] #### 88186-7, 07938-6 #### [facility] ([id number]) [address] [place] [address] Ketones Ql (U) Negative Normal NEG [facility] Comment on above: Performed By: #### C BC, 45541-1, AHP, 40606-5, 34109-9, 62829- 4, 06908-6 #### [facility] ([id number]) [address] [facility], [address] [place] [address] #### 90987-5, 64544-4 #### [facility] ([id number]) [address] [place] [address] Leukocyte esterase Test strip Ql (U) Negative Normal NEG [facility] Comment on above: Performed By: #### C BC, 66965-3, AHP, 25612-2, 68995-0, 24519- 4, 56283-4 #### [facility] ([id number]) [address] [facility], [address] [place] [address] #### 90237-1, 07281-0 #### [facility] ([id number]) [address] [place] [address] Nitrite Ql (U) Negative Normal NEG [facility] Comment on above: Performed By: #### C BC, 14410-3, AHP, 60748-5, 06561-3, 66768- 4, 07507-3 #### [facility] ([id number]) [address] [facility], [address] [place] [address] #### 31767-3, 81250-0 #### [facility] ([id number]) [address] [place] [address] pH (U) 7.0 [pH] Normal 5.0-8.5 [facility] Comment on above: Performed By: #### Joan SUAREZ, 83046-4, AHP, 62702-4, 26672-2, 02400- 4, 93299-2 #### [facility] ([id number]) [address] [facility], [address] [place] [address] #### 31965-8, 89928-5 #### [facility] ([id number]) [address] [place] [address] Protein Ql (U) Negative Normal NEG [facility] Comment on above: Performed By: #### Joan SUAREZ, 03900-9, AHP, 02052-9, 34076-2, 77274- 4, 23195-1 #### [facility] ([id number]) Critical access hospital[facility], [address] [place] [address] #### 66260-1, 29719-7 #### [facility] ([id number]) [address] [place] [address] Specific gravity (U) [Rel density] 1.025 Normal 1.003-1.035 [facility] Comment on above: Performed By: #### Joan SUAREZ, 96530-5, AHP, 06363-8, 36200-4, 45104- 4, 54205-7 #### [facility] ([id number]) [address] [facility], [address] [place] [address] #### 74681-1, 44756-2 #### [facility] ([id number]) [address] [place] [address] TURBIDITY CLEAR Normal CLEAR [facility] Comment on above: Performed By: #### Joan SUAREZ, 23106-5, AHP, 35273-5, 15370-4, 37497- 4, 10330-0 #### [facility] ([id number]) [address] [place] [address], [address] [address] #### 61570-6, 95679-3 #### [facility] ([id number]) [address] [place] [address] Urobilinogen Qn (U) 0.2 {Saleem'U}/dL Normal <1.1 [facility] Comment on above: Performed By: #### C BC, 99152-9, AHP, 92268-1, 23315-0, 98100- 4, 67686-4 #### [facility] ([id number]) [address] [place] [address], [address] [address] #### 40691-6, 50185-5 #### [facility] ([id number]) [address] [place] [address] CHLAMYDIA/GC PCR, FLon 09-20 CHLAMYDIA/GC PCR, FL [...] are dependent on adequate specimen collection. Normal [facility] Comment on above: Performed By: #### C BC, 95106-1, P, 74495-0, 23989-1, 16983- 4, 30166-3 #### [facility] ([id number]) [address] [place] [address], [address] [address] #### 73499-6, 54452-5 #### [facility] ([id number]) [address] [place] [address] DRUG SCREEN, URINEon 024 AMPHETAMINE/METHAMP Negative Normal NEG [facility] Comment on above: Result Comment: AMPH /METH screening cut off = 1000 ng/mL Performed By: #### D DOWNING #### [facility] ([id number]) [address], [address] [place] [address] BARBITURATES Negative Normal NEG [facility] Comment on above: Result Comment: Venita iturates screening cut off value = 200 ng/mL Performed By: #### D DOWNING #### [facility] ([id number]) [address], [address] [place] [address] BENZODIAZEPINES Negative Normal NEG [facility] Comment on above: Result Comment: Ander odiazepines screening cut off value = 200 ng/mL Performed By: #### D DOWNING #### [facility] ([id number]) [address], [address] [place] [address] CANNABINOIDS Positive Abnormal NEG [facility] Comment on above: Result Comment: Conf irmation available upon request. Cannabinoids/THC screening cut off value = 50 ng/mL Performed By: #### D DOWNING #### [facility] ([id number]) [address], [address] [place] [address] COCAINE METABOLITE Negative Normal NEG [facility] Comment on above: Result Comment: Coca ine screening cut off value = 300 ng/mL Performed By: #### D DOWNING #### [facility] ([id number]) [address], [address] [place] [address] ECSTASY Negative Normal NEG [facility] Comment on above: Result Comment: Ecst asy screening cut off value = 500 ng/mL This report is intended for use in clinical monitoring or management of patients. Performed By: #### D DOWNING #### [facility] ([id number]) [address], [address] [place] [address] METHADONE Negative Normal NEG [facility] Comment on above: Result Comment: Meth adone screening cut off value = 300 ng/mL. Performed By: #### D DOWNING #### [facility] ([id number]) [address] [facility], [address] [place] [address] OPIATES Negative Normal NEG [facility] Comment on above: Result Comment: Opia monica screening cut off value = 300 ng/mL NOTE: This test is used for the detection of codeine, hydrocodone (>1000 ng/mL), morphine and hydromorphone (>900 ng/mL) in urine. Performed By: #### D DOWNING #### [facility] ([id number]) [address] [place] [address], [address] [place] [address] OXYCODONE Negative Normal NEG [facility] Comment on above: Result Comment: Oxyc odone screening cut off value = 300 ng/mL NOTE: This test is used for the detection of oxycodone and oxymorphone in urine. Performed By: #### D DOWNING #### [facility] ([id number]) [address] [place] [address] [place] [address] PHENCYCLIDINE Negative Normal NEG [facility] Comment on above: Result Comment: Phen cyclidine screening cut off value = 25 ng/mL Performed By: #### D DOWNING #### [facility] ([id number]) [address] [place] [address], [address] [place] [address] URINALYSISon 09-21-2023 Bilirubin Ql (U) Negative Normal NEG [facility] Comment on above: Performed By: #### U A #### [facility] ([id number]) [address] [place] [address] BLOOD/HGB Negative Normal NEG [facility] Comment on above: Performed By: #### U A #### [facility] ([id number]) [address] [place] [address] [place] [address] Color (U) YELLOW Normal YELLOW [facility] Comment on above: Performed By: #### U A #### [facility] ([id number]) [address] [place] [address] [address] [place] [address] Glucose Ql (U) Negative Normal NEG [facility] Comment on above: Performed By: #### U A #### [facility] ([id number]) [address], [address] [place] [address] Ketones Ql (U) >150 Abnormal NEG [facility] Comment on above: Performed By: #### U A #### [facility] ([id number]) [address], [address] [place] [address] Leukocyte esterase Test strip Ql (U) Negative Normal NEG [facility] Comment on above: Performed By: #### U A #### [facility] ([id number]) [address], [address] [place] [address] Nitrite Ql (U) Negative Normal NEG [facility] Comment on above: Performed By: #### U A #### [facility] ([id number]) [address], [address] [place] [address] pH (U) 6.0 [pH] Normal 5.0-8.5 [facility] Comment on above: Performed By: #### U A #### [facility] ([id number]) [address], [address] [place] [address] Protein Ql (U) Negative Normal NEG [facility] Comment on above: Performed By: #### U A #### [facility] ([id number]) [address], [address] [place] [address] Specific gravity (U) [Rel density] 1.019 Normal 1.003-1.035 [facility] Comment on above: Performed By: #### U A #### [facility] ([id number]) [address], [address] [place] [address] TURBIDITY CLEAR Normal CLEAR [facility] Comment on above: Performed By: #### U A #### [facility] ([id number]) [address] [facility], [address] [place] [address] Urobilinogen (U) [Mass/Vol] mg/dL Normal <1.1 [facility] Comment on above: Performed By: #### U A #### [facility] ([id number]) [address] [facility], [address] [place] [address] URINE CULTUREon 09-21-2023 Bacteria identified Cx Nom (U) CULTURE RESULTS 10,000 to 50,000 ORGANISMS/mL ESCHERICHIA COLI <10,000 ORGANISMS/mL NORMAL URO GENITAL JACKIE Normal [facility] Comment on above: Performed By: #### 6 30-4 #### [facility] ([id number]) [address] [place] [address], [address] [place] [address] ACUTE HEPATITIS PANELon 08-25 ANTI HCV W/PCR REFLX Non-Reactive Normal NRCT [facility] Comment on above: Result Comment: If recent infection suspected, recommend repeat testing (>2 months). Ktuydq-lo-aihjdm ratio is <0.80. Performed By: #### C BC, 43161-9, AHP, 12992-2, 57121-7, 36471-1, 03212-6 #### [facility] ([id number]) [address] [facility], [address] [place] [address] #### 53454-1, 57901-2 #### [facility] ([id number]) [address] [place] [address], [place] [address] HEPATITIS A IGM Non-Reactive Normal NRCT [facility] Comment on above: Performed By: #### C BC, 22322-9, AHP, 17051-8, 37637-0, 64339- 4, 04073-9 #### [facility] ([id number]) [address] [facility], [address] [place] [address] #### 31295-2, 61539-9 #### [facility] ([id number]) [address] [place] [address] HEPATITIS B CORE IGM Negative Normal NEG [facility] Comment on above: Performed By: #### C ERICK, 82395-4, AHP, 31234-7, 46332-4, 54872- 4, 03876-7 #### [facility] ([id number]) [address], [address] [place] [address] #### 35908-4, 54220-1 #### [facility] ([id number]) [address] [place] [address] HEPATITIS B SURF AG Negative Normal NEG [facility] Comment on above: Performed By: #### Joan SUAREZ, , AHP, 66410-8, 90803-8, 11761- 4, 42458-2 #### [facility] ([id number]) [address] [facility], [address] [place] [address] #### 65212-7, 18573-2 #### [facility] ([id number]) [address] [place] [address] COMPLETE BLOOD COUNTon 09-16 Erythrocyte distribution width (RBC) [Ratio] 13.0 % Normal 11.5-15.0 [facility] Comment on above: Performed By: #### Joan SUAREZ, 23708-3, AHP, 05053-0, 37393-4, 66148- 4, 21007-9 #### [facility] ([id number]) [address], [address] [place] [address] #### 88789-1, 71167-3 #### [facility] ([id number]) [address] [place] [address] Hematocrit (Bld) [Volume fraction] 36.1 % Normal 35-47 [facility] Comment on above: Performed By: #### Joan SUAREZ, 23201-4, AHP, 86404-2, 31698-7, 73545- 4, 82997-9 #### [facility] ([id number]) [address], [address] [place] [address] #### 92663-5, 96324-8 #### [facility] ([id number]) [address] [place] [address] Hemoglobin (Bld) [Mass/Vol] 12.5 g/dL Normal 11.7-15.5 [facility] Comment on above: Performed By: #### C BC, 83115-9, AHP, 27317-2, 25649-9, 08842- 4, 46654-7 #### [facility] ([id number]) [address], [address] [place] [address] #### 97458-8, 25688-2 #### [facility] ([id number]) [address] [place] [address]34 MCH (RBC) [Entitic mass] 32.0 pg Normal 27-34 [facility] Comment on above: Performed By: #### C BC, 62564-3, AHP, 49542-3, 49119-6, 24965- 4, 25865-5 #### [facility] ([id number]) [address], [address] [place] [address] #### 54509-7, 26540-6 #### [facility] ([id number]) [address] [place] [address]001 MCHC (RBC) [Mass/Vol] 34.6 g/dL Normal 32-36 [facility] Comment on above: Performed By: #### C BC, 84032-8, AHP, 98811-5, 68421-4, 67926- 4, 45494-9 #### [facility] ([id number]) [address], [address] [place] [address] #### 59305-1, 87674-1 #### [facility] ([id number]) [address] [place] [address] 41268 MCV (RBC) [Entitic vol] 93 fL Normal 80-100 [facility] Comment on above: Performed By: #### Joan SUAREZ, 38366-6, AHP, 85237-3, 27060-6, 84904- 4, 60486-4 #### [facility] ([id number]) [address], [address] [place] [address] #### 45686-5, 56859-4 #### [facility] ([id number]) [address] [place] [address] 29253 Platelet mean volume (Bld) [Entitic vol] 8.7 fL Normal 7-12 [facility] Comment on above: Performed By: #### Joan SUAREZ, , P, 68528-7, 25101-5, 03538- 4, 53360-5 #### [facility] ([id number]) [address] [facility] [address], [address] [place] [address] #### 83718-0, 18073-5 #### [facility] ([id number]) [address] [place] [id number] Platelets (Bld) [#/Vol] 300 10*3/uL Normal 150-450 [facility] Comment on above: Performed By: #### Joan SUAREZ, 86688-6, AHP, 75230-7, 47573-5, 23351- 4, 02049-5 #### [facility] ([id number]) [address], [address] [place] [address] #### 96459-6, 35155-7 #### [facility] ([id number]) [address] [place] [address] RBC COUNT 3.90 X10E12/L Normal 3.80-5.20 [facility] Comment on above: Performed By: #### C BC, 30009-3, AHP, 67249-5, 34276-4, 05355- 4, 49057-9 #### [facility] ([id number]) [address], [address] [place] [address] #### 24761-1, 29214-2 #### [facility] ([id number]) [address] [place] [address] WBC (Bld) [#/Vol] 9.7 10*3/uL Normal 4.0-11.0 [facility] Comment on above: Performed By: #### C , 55842-6, P, 47694-4, 92486-7, 77375- 4, 84854-7 #### [facility] ([id number]) [address] [facility] [address] [address], [address] [place] [address] #### 64338-2, 88284-1 #### [facility] ([id number]) [address] [place] [address] HCG.beta subunit IA 3rd IS Q non 09-17-2023 [place] [address] m[IU]/mL Normal P [facility] Comment on above: Result Comment: NEW [...] or nontrophoblastic neoplasms. Performed By: #### Joan SUAREZ, 48504-2, P, 07154-3, 18982-1, 44303-1, 52502-2 #### [facility] ([id number]) [address] [place] [address], [address] [place] [address] #### 13221-0, 76612-2 #### [facility] ([id number]) [address] [place] [address] HIV 1+2 Ab+HIV1 p24 Ag IA Ql on 09-17-2023 HIV 1 and 2 Ab/Ag Screen Non-Reactive Normal NRCT [facility] Comment on above: Result [...] test results or diagnoses. Performed By: #### Joan SUAREZ, 72160-4, P, 85343-8, 68724-8, 35601-7, 79101-3 #### [facility] ([id number]) [address] [place] [address], [address] [place] [address] #### 77310-3, 84776-1 #### [facility] ([id number]) [address] [place] [address] Reagin Ab RPR (S) [Titer]on 09-17-2023 RPR TITER, SERUM SEE COMMENTS 09/21/2023 10:37 AM Abnormal [facility] Comment on above: Result Comment: NOTE Test Result Flag Unit RefValue RPR, Titer, S 1:1 A Negative Results consistent with untreated or recently treated syphilis. Clinical correlation required. For additional information on interpretation of the syphilis reverse algorithm and results, see: [email or web address] Test Performed by: [place] [address] Brine Mixer Operator: Luke Downey M.D. Ph.D.; CLIA# [id number] Performed By: #### C ERICK, 83618-0, AHP, 66422-8, 57620-8, 66028-2, 30229-4 #### [facility] ([id number]) [address] [place] [address], [facility] [address] [place] [address] #### 74403-9, 86594-9 #### [facility] ([id number]) [address] [place] [address] Reagin Ab RPR Ql (S)on 09-16 RPR WITH REFLEX TO RTPPA Positive Abnormal Negative [facility] Comment on above: Result Comment: NOTE Specimen reflexed to determine RPR titer. For additional information on interpretation of the syphilis reverse algorithm and results, see: [email or web address] Test Performed by: [facility] [place] [address] Brine Mixer Operator: Luke Downey M.D. Ph.D.; CLIA# [id number] Performed By: #### C BC, 00150-2, AHP, 11258-8, 60100-4, 65055-0, 39409-9 #### [facility] ([id number]) [address] [place] [address], [address] [place] [address] #### 86518-5, 07929-2 #### [facility] ([id number]) [address] [place] [address] Rubella virus Ab Ql (S)on RUBELLA IMMUNE IgG 1.0 AI Normal [facility] Comment on above: Result Comment: Interpretation-------- <0.8 NEGATIVE-considered Not Immune 0.8-0.9 EQUIVOCAL-consider retesting with new specimen >0.9 POSITIVE-considered Immune Performed By: #### C ERICK, 25411-7, AHP, 25347-6, 83227-1, 52695-9, 33472-0 #### [facility] ([id number]) [address] [place] [address], [address] [place] [address] #### 86361-0, 51907-9 #### [facility] ([id number]) [address] [place] [address] T. pallidum IgG+IgM IA Ql (S )on 09-17-2023 Syphilis Total >8.0 High 0.0-0.8 [facility] Comment on above: Result Comment: REAC TIVE This specimen will be sent to a reference lab for additional testing which includes RPR with reflex to TP-PA if RPR is negative. The RPR will help distinguish between infections with T.pallidum (syphilis) versus a falsely reactive treponemal antibody result. Please see the syphilis testing algorithm link below for more information. [email or web address] Performed By: #### C BC, 86599-7, AHP, 95416-3, 98933-8, 69338-9, 52502-7 #### [facility] ([id number]) [address] [place] [address], [address] [place] [address] #### 11817-8, 44765-5 #### [facility] ([id number]) [address] [facility], [place] [address] US PREG TRANSABD FU PER FETU on 09-17-2023 US PREG TRANSABD FU PER FETU US PREG TRANSABD FU PER FETU US PREG TRANSABD FU PER FETU: 09/17/2023 8:25 AM Clinical: Check dates and viability. Real-time transabdominal sonography pelvis performed.. Transvaginal sonography pelvis performed for better evaluation of the pelvic organs. No comparison. There is a single live intrauterine . [place]-rump length of 8.8 cm corresponds to 14 [...] Frances MD on 09/17/2023 11:55 AM Normal [facility] VZV IgG IA Ql (S)on 09-17-19 VARICELLA IgG 3.1 AI High <0.9 [facility] Comment on above: Result Comment: Interpretation-------- <0.9 Negative 0.9 - 1.0 Equivocal >1.0 Positive Performed By: #### C , 83816-0, [facility], 60284-8, 85013-9, 59425-9, 40509-0 #### [facility] ([id number]) [address] [place] [address], [address] [place] [address] #### 15778-4, 89570-5 #### [facility] ([id number]) [address] [facility], [place] [address] Urinalysis - AUTOMATEDon Appearance (U) CLEAR [place] Other Bilirubin Ql (U) Negative [employer] ast [employer] Other Color (U) YELLOW [email or web address] Other Glucose Ql (U) Negative [place] Other Hemoglobin Ql (U) [employer] Other Ketones Ql (U) Negative [place] Other Leukocyte esterase Test strip Ql (U) Negative [email or web address] Other Nitrite Ql (U) Negative [place] Other pH (U) 7.5 [pH] [email or web address] Other Protein Ql (U) Negative [place] Other Specific gravity (U) [Rel density] 1.015 [email or web address] Other Urobilinogen (U) [Mass/Vol] 0.2 mg/dL [email or web address] Other Urinalysis - AUTOMATED [email or web address] Other Vaginitis Plus (VG+)on 12-19 Atop[employer]ium Vaginae High - 2 Critically abnormal . [facility] Comment on above: Performed By: #### V AGINITIS+ #### [facility] , BVAB2 High - 2 Critically abnormal . [facility] Comment on above: Performed By: #### V AGINITIS+ #### [facility] , Makenzie Albicans, KENNETH Negative Normal Negative [facility] Comment on above: Result Comment: This test was developed and its performance characteristics determined by [employer]. It has not been cleared or approved by the Food and Drug Administration. Performed By: #### V AGINITIS+ #### [facility] , Makenzie Glabrata, KENNETH Negative Normal Negative [facility] Comment on above: Result Comment: This test was developed and its performance characteristics determined by [employer]. It has not been cleared or approved by the Food and Drug Administration. PERFORMED BY: [facility] [place] [address] PATHOLOGIST FOLLOW UP REP LEO PATEL M.D. Performed By: #### V AGINITIS+ #### [facility] , Chlamydia Trachomotis, KENNETH Positive Critically abnormal Negative [facility] Comment on above: Performed By: #### V AGINITIS+ #### [facility] , Megasphaera High - 2 Critically abnormal . [facility] Comment on above: Result Comment: Calc [...] developed and its performance characteristics determined by [employer]. It has not been cleared or approved by the Food and Drug Administration. Performed By: #### V AGINITIS+ #### [facility] , Neisseria Gonorrhoeae, KENNETH Negative Normal Negative [facility] Comment on above: Result Comment: Perf ormed at: =G - [facility] [address] [id number] Brine Mixer Operator: Brianne Shabazz MD, Phone: [phone] Performed By: #### V AGINITIS+ #### [facility] , Tric Vag KENNETH Negative Normal Negative [facility] Comment on above: Performed By: #### [...] TIESHA CASTILLO Date: 2020-01-30 14:39 Normal [facility] XR ANKLE LT MIN 3 [...] YAKOV DAWSON Date: 2019-12-27 09:54 Normal [facility] XR ANKLE LT MIN 3 [...] TIESHA CASTILLO Date: 2019-11-29 13:43 Normal [facility] XR FOOT RT MIN [...] JUDE MCDANIEL Date: 2019-11-28 16:48 Normal [facility] XR TIB_FIB LT 2Von [...] by: JUDE MCDANIEL Date: 2019-11-28 16:47 Normal [facility] Vital Signs Date Time Vital Sign Value Performing Clinician Facility 02-28-2024 15:51-0500 Body weight 83.92 kg Surya Eun DO Work Phone: [facility] 02-28-2024 15:51-0500 Diastolic blood pressure 72 mm[Hg] Surya Eun DO Work Phone: [facility] 02-28-2024 15:51-0500 Systolic blood pressure 108 mm[Hg] Surya Eun DO Work Phone: [facility] 02-21-2024 14:34-0400 Body weight 84.82 kg Jenna TOBIAS Work Phone: [facility] 02-21-2024 14:34-0400 Diastolic blood pressure 70 mm[Hg] Jenna Thomas PA Work Phone: [facility] 02-21-2024 14:34-0400 Systolic blood pressure 118 mm[Hg] Jenna Thomas PA Work Phone: [facility] 02-14-2024 15:25-0400 Body weight 83.01 kg Surya Eun DO Work Phone: [facility] 02-14-2024 15:25-0400 Diastolic blood pressure 72 mm[Hg] Surya Eun DO Work Phone: [facility] 02-14-2024 15:25-0400 Systolic blood pressure 118 mm[Hg] Surya Eun DO Work Phone: [facility] 02-07-2024 10:03-0400 Body weight 82.01 kg Jenna Thomas PA Work Phone: [facility] 02-07-2024 10:03-0400 Diastolic blood pressure 70 mm[Hg] Jenna TOBIAS Work Phone: [facility] 02-07-2024 10:03-0400 Systolic blood pressure 114 mm[Hg] Jenna TOBIAS Work Phone: [facility] 06-16-2023 13:06-0500 Body temperature 98.6 [degF] [facility] 06-16-2023 13:06-0500 Body weight 63.5 kg [facility] 06-16-2023 13:06-0500 Diastolic blood pressure 76 mm[Hg] [facility] 06-16-2023 13:06-0500 Heart rate 87 /min [facility] 06-16-2023 13:06-0500 Respiratory rate 18 /min [facility] 06-16-2023 13:06-0500 SaO2% (BldA) [Mass fraction] 98 % [facility] 06-16-2023 13:06-0500 Systolic blood pressure 119 mm[Hg] [facility] 12-19-2022 11:25-0400 Body height 160.02 cm Inessa Lewis Other [employer] [facility] [employer] Other 12-19-2022 11:25-0400 Body mass index (BMI) [Ratio] 24.3 kg/m2 Inessa Lewis Other [email or web address] Other 12-19-2022 11:25-0400 Body temperature 98.7 [degF] Inessa Lewis Other [email or web address] Other 12-19-2022 11:25-0400 Body weight 62.23 kg Inessa Lewis Other [email or web address] Other 12-19-2022 11:25-0400 Diastolic blood pressure 66 mm[Hg] Inessa Lewis Other [email or web address] Other 12-19-2022 11:25-0400 Respiratory rate 18 /min Inessa Macedoley Other [email or web address] Other 12-19-2022 11:25-0400 SaO2% (BldA) [Mass fraction] 99 % Inessa Macedoley Other [email or web address] Other 12-19-2022 11:25-0400 Systolic blood pressure 104 mm[Hg] Inessa Macedoley Other [email or web address] Other 08-15-2021 11:45-0400 Body height 160.02 cm Janny Gonzalez Other [email or web address] Other 08-15-2021 11:45-0400 Body mass index (BMI) [Ratio] 22.32 kg/m2 Janny Gonzalez Other [email or web address] Other 08-15-2021 11:45-0400 Body temperature 97.9 [degF] Janny Gonzalez Other [email or web address] Other 08-15-2021 11:45-0400 Body weight 57.15 kg Janny Gonzalez Other [email or web address] Other 08-15-2021 11:45-0400 Diastolic blood pressure 71 mm[Hg] Janny Gonzalez Other [email or web address] Other 08-15-2021 11:45-0400 Respiratory rate 18 /min Janny Hardyler Other [email or web address] Other 08-15-2021 11:45-0400 SaO2% (BldA) [Mass fraction] 100 % Janny Gonzalez Other [email or web address] Other 08-15-2021 11:45-0400 Systolic blood pressure 123 mm[Hg] Janny Gonzalez Other [email or web address] Other Encounters Encounter Date Encounter Type Care Provider Facility Start: 02-28-2024 End: 02-28-2024 Office outpatient visit 15 minutes Surya Eun DO Work Phone: [facility] Comment on above: Third trimester preg emerald; 38 weeks gestation of Start: 02-28-2024 End: 02-28-2024 ambulatory SUYRA EUN Not Available Start: 02-28-2024 End: 02-28-2024 Bamboo flowsheet Surya Eun DO Work Phone: [facility] Start: 02-28-2024 End: 02-28-2024 Bamboo flowsheet Surya Eun DO Work Phone: [facility] Start: 02-21-2024 End: 02-21-2024 ambulatory JENNA THOMAS Not Available Start: 02-21-2024 End: 02-21-2024 Office outpatient visit 15 minutes Jenna TOBIAS Work Phone: [facility] [...] 02-07-2024 Bamboo flowsheet Jenna TOBIAS Work Phone: [facility] Start: 02-07-2024 End: 02-07-2024 Bamboo [...] Available Start: 01-06-2024 End: 01-06-2024 ambulatory JENNA WILLIAM Not Available Start: 01-02-2024 End: [facility]: 01-02-2024 End: 01-02-2024 Emergency department patient visit ROMI RIDER [facility] Start: 12-23-2023 End: 12-23-2023 ambulatory SURYA EUN Not Available Start: 12-02-2023 End: 12-02-2023 ambulatory JENNA WILLIAM Not Available Start: 11-30-2023 End: 11-30-2023 ambulatory MALINDA PATE [facility] Start: 11-04-2023 End: 11-04-2023 ambulatory SONAM TENORIO [facility] Start: 10-06-2023 End: 10-06-2023 ambulatory DANDY RAMSEY [facility] Start: 10-05-2023 End: 10-05-2023 Emergency department patient visit [facility] Start: 09-29-2023 End: 09-29-2023 ambulatory [facility] Start: 09-22-2023 End: 09-22-2023 ambulatory [facility] Start: 09-21-2023 End: 09-22-2023 ambulatory [facility] Start: 09-21-2023 End: 09-21-2023 ambulatory [facility] Start: 09-21-2023 Encounter for gynecological examination (general) (routine) without abnormal findings [facility] Start: 09-21-2023 End: 09-21-2023 ambulatory [facility] Start: 09-21-2023 Encounter for gynecological examination (general) (routine) without abnormal findings [facility] Start: 09-17-2023 End: 09-17-2023 ambulatory [facility] Start: 08-13-2023 End: 08-13-2023 ambulatory [facility] Start: 06-16-2023 End: 06-16-2023 ambulatory [facility] Work Phone: Start: 06-16-2023 End: 06-16-2023 Patient encounter procedure [facility] [place] Work Phone: Start: 12-19-2022 Office outpatient vi sit 15 minutes Inessa Lewis [facility] Start: 12-19-2022 End: 12-19-2022 ambulatory Inessa Lewis [facility] [employer] Other Start: 12-19-2022 End: 12-19-2022 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 Inessa Lewis Work Phone: [facility] [place] Work Phone: Start: 08-19-2021 End: 08-19-2021 ambulatory Janny Gonzalez Other [email or web address] Other Start: 08-19-2021 Telephone encounter Janny Gonzalez [facility] Start: 08-15-2021 End: 08-15-2021 ambulatory Janny Gonzalez Other [email or web address] Other Start: 08-15-2021 Office outpatient ne w 20 minutes Janny Gonzalez [facility] Start: 02-27-2020 Patient encounter procedure [facility] Facility:[facility] Start: 01-30-2020 End: 01-31-2020 Patient encounter procedure [facility] Facility:[facility] Start: 01-16-2020 End: 01-16-2020 Patient encounter procedure CATHRYN BARNES Facility:[facility]1 Start: 12-27-2019 End: 12-28-2019 Patient encounter procedure [facility] Facility:[facility] Start: 11-29-2019 End: 11-30-2019 Patient encounter procedure [facility] Facility:[facility] Start: 11-28-2019 End: 11-28-2019 Patient encounter procedure [facility] Facility:[facility] Procedures Date Procedure Procedure Detail Performing Clinician Start: 02-28-2024 Urnls dip stick/tabl et rgnt non-auto w/o micrscp Surya Eun DO Work Phone: Start: 02-15-2024 Urnls dip stick/tabl et rgnt non-auto w/o micrscp Surya Eun DO Work Phone: Start: 02-07-2024 Urnls dip stick/tabl et rgnt non-auto w/o micrscp Surya Eun DO Work Phone: Plan of Treatment Date Care Activity Detail Author Start: 02-28-2024 End: 02-28-2024 Patient encounter procedure [facility] Comment on above: Arrived Start: 02-21-2024 End: 02-21-2024 Patient encounter procedure 02/21/2024 2:20 PM EDT Routine [facility] [address] [place] [address] Jenna Thomas PA [address] [place] [address] [facility] Start: 02-14-2024 End: 02-14-2024 Patient encounter procedure 02/14/2024 2:30 PM EDT Routine [facility] [address] [place] [id number] Surya Haq DO [address] [place], [place] [id number] [facility] Start: 02-07-2024 End: 02-06-2025 US biophysical profile w non stress test US biophysical profile w non stress test Imaging Routine contractions Size of fetus inconsistent with dates, antepartum Nonintractable headache, unspecified chronicity pattern, unspecified headache type History of syphilis Expected: 02/07/2024 (Approximate), Expires: 02/06/2025 [facility] Work Phone: Comment on above: Expected: 02/07/2024 (Approximate), Expires: 02/06/2025 Start: 02-07-2024 End: 02-07-2024 Patient encounter procedure 02/07/2024 9:50 AM EDT Routine [facility] [address] [place] [id number] Jenna Thomas, PA [address] [place], [place] [id number] Arrived [facility] Comment on above: Arrived Start: 12-19-2022 [facility] Atopobium vaginae DN A [Presence] in Vaginal fluid by KENNETH with probe detection [facility] Bacterial vaginosis associated bacterium 2 DNA [Presence] in Vaginal fluid by KENNETH with probe detection [facility] Megasphaera sp type 1 DNA [Presence] in Vaginal fluid by KENNETH with probe detection [facility] Payers Date Payer Category Payer Self-pay [id number] 2022 Medicaid [facility] [id number] 2022 Medicaid [id number] 2.16840.1.726885.19 2019 Unknown [id number] 1997 Unknown [id number] 2.16.840.1.549968.3.579.2.593 1997 Unknown [id number] 2.16.840.1.044589.3.579.2.593 1997 Unknown [id number] 2.16.840.1.137771.3.579.2.59 1997 Unknown [id number] 2.16.840.1.857357.3.579.2.593 1997 Unknown [id number] 2.16.840.1.581102.3.579.2.593 1997 Unknown [id number] 2.16.840.1.826558.3.579.2.593 1997 Unknown [id number] 2.16.840.1.821589.3.579.2.128 1997 Unknown [id number] 2.16.840.1.296860.3.579.2.1285 1997 Unknown [id number] 2.16.840.1.920973.3.579.2.128 1997 Unknown [id number] 2.16.840.1.913486.3.579.2.1285 1997 Unknown [id number] 2.16.840.1.416587.3.579.2.1285 1997 Unknown [id number] 2.16.840.1.135000.3.579.2.1285 1997 Unknown [id number] 2.16.840.1.386533.3.579.2.1285 1997 Unknown [id number] 2.16.840.1.584770.3.579.2.1285 1997 Unknown [id number] 2.16.840.1.350081.3.579.2.1285 1997 Unknown [id number] 2.16.840.1.015379.3.579.2.1285 1997 Unknown [id number] 2.16840.1.161520.3.579.2.1285 1997 Unknown [id number] 2.16.840.1.535377.3.579.2.1285 1997 Unknown [id number] 2.16.840.1.679026.3.579.2.1285 1997 Unknown [id number] 2.16.840.1.272748.3.579.2.1285 1997 Unknown [id number] 2.16840.1.241168.3.579.2.1285 1997 Unknown [id number] 2.16.840.1.040956.3.579.2.1258 1997 Unknown [id number] 2.16.840.1.254093.3.579.2.1258 1997 Unknown [id number] 2.16.840.1.827847.3.579.2.1258 1997 Unknown [id number] 2.16.840.1.962557.3.579.2.1258 1997 Unknown [id number] 2.16.840.1.661190.3.579.2.1259 1997 Unknown [id number] 2.16.840.1.979902.3.579.2.9 1997 Unknown [id number] 2.16.840.1.273803.3.579.2.9 1997 Unknown [id number] 2.16.840.1.580788.3.579.2.1259 1959 Unknown [id number] Unknown [id number] 2.16.840.1.085610.19 Unknown [id number] 2.16.840.1.071822.3.579.2.531 Social History Date Type Detail Facility Unknown if ever smoked [facility] [employer] Other Sex Assigned At [facility] [employer] Other Start: 1995 Sex Assigned At Female [facility] Start: 06-16-[address] [facility] Never smoked tobacco (finding) [facility] Tobacco smoking status [facility] Tobacco smoking consumption unknown [facility] Start: 06-20-2023 [facility] Start: 1995 Sex assigned at Not on file [facility] Clinical Notes 08-15-2021 to 02-28-2024 Charmaine Calderon - 02/28/2024 3:00 PM JATINDER Garcia - 02/21/2024 2:20 PM Hanny Bundy LPN - 02/14/2024 2:30 PM Hanny Bundy LPN - 02/07/2024 9:50 AM EDT Note Date & Type Note Facility 02-28-2024 History of Presen t illness Narrative Reason [...] Oral, Every 8 hours PRN Prenat w/o V-XuWfu-Dihp-FA-DHA (TriStart DHA) 31-0.6-0.4-200 MG capsule 1 capsule, [...] nursing note reviewed. Exam conducted with a nuclear security officer present. Vitals: There is no height or weight on file to calculate BMI. BP: 108/72 Patient's last menstrual period was 06/06/2023. ASSESSMENT & PLAN Return OB: Patient presents today for a routine obstetrics appointment. Patient is currently 38w1d . Patient states she is doing well but has complaints of being tired due to current . Patient has verbalizes frequent movement. labor precautions was discussed/given and patient was instructed to perform kick counts three times a day. No orders of the defined types were placed in this encounter. Follow Up: Patient is to return to office in 1 week for routine OB appointment. Documented by Charmaine Calderon on behalf of: Surya Haq DO documented in this encounter [facility] 02-21-2024 History of Presen t illness Narrative [...] Oral, Every 8 hours PRN Prenat w/o V-YrIcc-Qrfz-FA-DHA (TriStart DHA) 31-0.6-0.4-200 MG capsule 1 capsule, [...] of: JATINDER Pineda documented in this encounter [facility] 02-14-2024 History of Presen t illness Narrative [...] Oral, Every 8 hours PRN Prenat w/o T-UyWwk-Ecnq-FA-DHA (TriStart DHA) 31-0.6-0.4-200 MG capsule 1 capsule, [...] nursing note reviewed. Exam conducted with a nuclear security officer present. Vitals: There is no height or [...] Surya Haq DO documented in this encounter [facility] 02-07-2024 History of Presen t illness Narrative [...] Oral, Every 8 hours PRN Prenat w/o L-CsXsm-Aqhn-FA-DHA (TriStart DHA) 31-0.6-0.4-200 MG capsule 1 capsule, [...] nursing note reviewed. Exam conducted with a nuclear security officer present. Vitals: There is no height or [...] Delivery: 03/12/24. Patient to schedule NST/BPP's at [facility]. Order given to patient and also faxed to [facility] scheduling and [facility]. Patient to return to clinic in 1 week. Documented by Malinda Bundy LPN on behalf of: JATINDER Pineda documented in this encounter [facility] 12-19-2022 Evaluation note Encounter Date Diagnosis Assessment [...] in 4-6 days. FU with PCP or [facility] in not improving over next 5-7 days. [email or web address] Other 04-22-2022 Evaluation note* Encounter Date Diagnosis [...] results. Patient to follow with PCP or PRODUCTION ASSISTANT as needed for persistent or worsening symptoms. Immediate eval if abdominal pain, fever, chills, body aches, back/flank pain, nausea, urinary complaints. Patient may use OTC external yeast infection creams for external irritation, do not insert creams or meds as Diflucan rx will treat. Avoid scratching and douching. Patient verbalizes understanding and is agreeable to treatment plan [email or web address] Other evaluation noteNo InformationNort [employer] Other evaluation noteNo assessment information available [facility] Work Phone: Evaluation note* Diagnosis Onset Date Resolution Status Pre-employment examination a [facility] Work Phone: Evaluation note* Diagnosis Third trimester [...] unspecified location [facility] encounter [facility] Diagnosis Third trimester state, incidental 38 weeks gestation of documented in this encounter [facility] Narrative - Reported* Type Description Date Surgical History wisdom teeth Hospitalization History Fall Pneumothorax 2021 [email or web address] Other History general Narrative - Reported* Type Description Date Surgical History wisdom teeth Surgical History 1 Hospitalization History Fall Pneumothorax 2021 Hospitalization History 2016 [email or web address] Other Summary Purpose Family History No Family [...] physical Reason for Visit Pre-employment exami [facility] Additional Source Comments INFORMATION SOURCE (unrecogn ized section and content) DATE CREATED AUTHOR 02/19/2020 [facility] DATE CREATED AUTHOR AUTHOR'S ORGANIZ ATION 01/06/2023 [facility] DATE CREATED AUTHOR AUTHOR'S ORGANIZ ATION 09/22/2023 [facility] DATE CREATED AUTHOR AUTHOR'S ORGANIZ ATION 11/10/2023 [facility] DATE CREATED AUTHOR AUTHOR'S ORGANIZ ATION 01/03/2024 [facility] DATE CREATED AUTHOR AUTHOR'S ORGANIZ ATION 02/29/2024 [facility] EPIC REASON FOR VISIT (unrecogniz ed section and content) Reason Comments Routine Visit POSS BVPOSS YEAST INFECTION Care Teams (unrecognized sec tion and content) Team Status: Inactive Member Role Status Dates Inessa Lewis APRN Attending Provider Active Team Status: Active Member Role Status Dates Romi Rider APRN NP-Joan Primary Care Provider Active Team Status: Inactive Member Role Status Dates NIURKA Merritt Primary Care Provider Active Start: June 162023 [...] BE BASED ON THE PRIMARY CLINICAL RECORDS. [facility] provides no warranty or guarantee of the accuracy or completeness of information in this document.
--- NOTE | 2024-03-01 16:19 | US_ITS ---
[address] [address] Patient Name: MELE HAAS MRN: [id number] date: 1995 Sex: F Assigned Patient Location: [place] Current Patient Location[place] [facility] Accession/Order Number: [id number] Exam Date: 03/01/2024 16:25 Report Date: 03/02/2024 06:42 At the request of: SURYA GARCIA Procedure: US OB BPP w non-stress EXAMINATION: US OB BPP w non-stress HISTORY: CONTRACTIONS O47.00 COMPARISON: Ultrasound OB biophysical 02/23/2024 TECHNIQUE: Ultrasound biophysical profile was performed in the radiology department. BREATHING MOVEMENTS: 0 GROSS BODY MOVEMENTS: 2 TONE: 2 QUALITATIVE AMNIOTIC FLUID VOLUME: 2 PRESENTATION: CEPHALIC HEART RATE: 131.71 bpm AMNIOTIC FLUID VOLUME: 16.89 cm GESTATIONAL AGE: 38 weeks 3 days US/US OB BPP w non-stress IMPRESSION: Total biophysical profile score: 6 Electronically authenticated by: TIESHA CASTILLO Date: 03/02/2024 06:42
[2024-03-01 17:08] VITALS: BP 126/75; PULSE 77
== END 2024-03-01 17:45 | disposition home or self-care (01) ==
LOC: US 07:09 → FBC 16:17
PROVIDERS: Visit Provider Obstetrics & Gynecology
DX: O47.03 False labor before 37 completed weeks of gestation, third trimester (principal); Z3A.38 38 weeks gestation of pregnancy
CPT/HCPCS: 76818

== ENCOUNTER 2024-03-03 17:11 | Outpatient (OUT) | payer MEDICAID, SELFPAY ==
--- OUTSIDE RECORDS SUMMARY | 2024-03-02 07:09 | XMS_ITS | CCD ---
Author Organization [facility] Care Team Providers Care Supervisor [place] Name Role Phone MISC, DOCTOR Primary Care [...] A Primary Care Unavailable DARINEDELMIRAWALDO Attending Unavailable ILZZETTE, ROMI A Referring Unavailable LIZZETTE, ROMI A [...] hours if needed 09/21/2023 Active Prenat w/o Y-TsWfl-Jeas-FA-DHA (TriStart DHA) 31-0.6-0.4-200 MG capsule (12 sources) Start: 08-13-2023 take 1 capsule by mouth in the morning Prenat w/o B-JtEzx-Vrtp-FA-DHA (TriStart DHA) 31-0.6-0.4-200 MG capsule Take 1 [...] UA Negative Negative - 4(70) +++ mg/dL [facility] Blood, UA Negative Negative - 50 Eriberto/mcL [facility] Clarity, UA Clear [facility] re Color, UA Yellow [facility] Glucose, UA Negative Negative - 2000(110) ++++ mg/dL [facility] Interpretation and review of laboratory results Normal [facility] re Ketones, UA Negative Negative - 160(16) ++++ mg/dL [facility] Leukocytes, UA Negative Negative - 500+++ Pk/mcL [facility] Healthcare Nitrite, UA Negative Negative - Positive [facility] Healthcare pH, UA 6.5 5 - 9 [facility] Protein, UA Negative Negative - 1999(20) ++++ mg/dL [facility] Healthcare Spec Grav, UA 1.025 1 - 1.03 [facility] care Urobilinogen, UA 0.2 0.2 - 12 mg/dL [facility] Urinalysis macro (dipstick) panel (U)Ordered By: Carmenza Donovan on 02-15-2024 Bilirubin, UA Negative Negative - 4(70) +++ mg/dL [facility] Blood, UA Negative Negative - 50 Eriberto/mcL [facility] Healthcare Clarity, UA Clear [facility] Color, UA Yellow [facility] Glucose, UA Negative Negative - 1999(110) ++++ mg/dL [facility] Interpretation and review of laboratory results Normal [facility] Ketones, UA Negative Negative - 160(16) ++++ mg/dL [facility] Leukocytes, UA Negative Negative - 500+++ Pk/mcL [facility] Healthcare Nitrite, UA Negative Negative - Positive [facility] pH, UA 5.5 5 - 9 [facility] Health[facility] e Protein, UA Negative Negative - 1999(20) ++++ mg/dL [facility] Spec Grav, UA 1.02 1 - 1.03 [facility] Urobilinogen, UA 1.0 0.2 - 12 mg/dL [facility] Urinalysis macro (dipstick) panel (U)on 02-07-2024 Bilirubin, UA Negative Negative - 4(70) +++ mg/dL [facility] Blood, UA Negative Negative - 50 Eriberto/mcL [facility] Healthcare Clarity, UA Clear [facility] Color, UA Yellow [facility] Glucose, UA Negative Negative - 1999(110) ++++ mg/dL [facility] Interpretation and review of laboratory results Abnormal [facility] Ketones, UA Negative Negative - 160(16) ++++ mg/dL [facility] Healthcare Leukocytes, UA Negative Negative - 500+++ Pk/mcL [facility] Healthcare Nitrite, UA Negative Negative - Positive [facility] pH, UA 5.5 5 - 9 [facility] Protein, UA Negative Negative - 1999(20) ++++ mg/dL [facility] Spec Grav, UA 1.025 1 - 1.03 [facility] Urobilinogen, UA 1.0 0.2 - 12 mg/dL [facility] e URINALYSISon 11-30-2023 Bilirubin Ql (U) Negative Normal NEG [facility] Comment on above: Performed By: #### C ERICK, 82930-3, AHP, 03353-4, 65596-4, 44983- 4, 93006-5 #### [facility] ([id number]) [address] [place] [address], [address] [place] [address] #### 78130-9, 33476-0 #### [facility] ([id number]) [address] [place] [address], [place] [address] BLOOD/HGB Negative Normal NEG [facility] Comment on above: Performed By: #### Joan SUAREZ, , AHP, 29304-1, 02088-5, 39594- 4, 52825-4 #### [facility] ([id number]) [address] [place] [address], [address] [place] [address] #### 17162-2, 24433-9 #### [facility] ([id number]) [address] [place] [address] Color (U) YELLOW Normal YELLOW [facility] Comment on above: Performed By: #### Joan SUAREZ, 31828-2, AHP, 41980-7, 31293-7, 81338- 4, 15296-2 #### [facility] ([id number]) [address] [place] [address], [address] [place] [address] #### 31864-5, 22890-3 #### [facility] ([id number]) [address] [place] [address], [place] [address] Glucose Ql (U) Negative Normal NEG [facility] Comment on above: Performed By: #### C BC, 22735-8, AHP, 73018-3, 47456-4, 72250- 4, 19313-3 #### [facility] ([id number]) [address] [facility] [address], [address] [place] [address] #### 76116-9, 79231-1 #### [facility] ([id number]) [address] [place] [address] Ketones Ql (U) Negative Normal NEG [facility] Comment on above: Performed By: #### C BC, 93438-8, AHP, 65670-5, 36370-3, 32459- 4, 74817-1 #### [facility] ([id number]) [address], [address] [place] [address] #### 81418-0, 37529-9 #### [facility] ([id number]) [address] [place] [address] Leukocyte esterase Test strip Ql (U) Negative Normal NEG [facility] Comment on above: Performed By: #### C BC, 35530-3, AHP, 40657-6, 86131-7, 04881- 4, 82525-7 #### [facility] ([id number]) [address] [facility], [address] [place] [address] #### 02127-0, 78343-9 #### [facility] ([id number]) [address] [place] [address] Nitrite Ql (U) Negative Normal NEG [facility] Comment on above: Performed By: #### C BC, 69377-3, AHP, 96875-3, 48118-0, 30057- 4, 30645-0 #### [facility] ([id number]) [address] [facility], [address] [place] [address] #### 53238-2, 12241-4 #### [facility] ([id number]) [address] [place] [address] pH (U) 7.0 [pH] Normal 5.0-8.5 [facility] Comment on above: Performed By: #### Joan SUAREZ, 51178-3, AHP, 35396-5, 25605-4, 42793- 4, 74554-2 #### [facility] ([id number]) [address], [address] [place] [address] #### 14380-2, 01478-4 #### [facility] ([id number]) [address] [place] [address] Protein Ql (U) Negative Normal NEG [facility] Comment on above: Performed By: #### Joan SUAREZ, 72670-1, AHP, 74970-6, 08400-0, 01109- 4, 93039-0 #### [facility] ([id number]) [facility] [facility], [address] [place] [address] #### 67857-5, 50944-1 #### [facility] ([id number]) [address] [place] [address] Specific gravity (U) [Rel density] 1.025 Normal 1.003-1.035 [facility] Comment on above: Performed By: #### Joan SUAREZ, 05452-3, AHP, 25858-6, 54444-4, 55733- 4, 33985-2 #### [facility] ([id number]) [address] [facility], [address] [place] [address] #### 38993-7, 96237-8 #### [facility] ([id number]) [address] [place] [address] TURBIDITY CLEAR Normal CLEAR [facility] Comment on above: Performed By: #### Joan SUAREZ, 17549-8, AHP, 84966-0, 95276-6, 00497- 4, 72411-8 #### [facility] ([id number]) [address] [place] [address], [address] [address] #### 03645-9, 50196-3 #### [facility] ([id number]) [address] [place] [address] Urobilinogen Qn (U) 0.2 {Saleem'U}/dL Normal <1.1 [facility] Comment on above: Performed By: #### C BC, 75012-8, AHP, 08841-1, 37830-4, 54312- 4, 62897-8 #### [facility] ([id number]) [address] [place] [address], [address] [address] #### 79088-2, 17470-4 #### [facility] ([id number]) [address] [place] [address] CHLAMYDIA/GC PCR, FLon 09-20 CHLAMYDIA/GC PCR, FL [...] are dependent on adequate specimen collection. Normal [facility] Comment on above: Performed By: #### C BC, 05249-0, P, 70068-2, 01850-3, 14431- 4, 56694-5 #### [facility] ([id number]) [address] [place] [address], [address] [address] #### 22437-8, 74677-2 #### [facility] ([id number]) [address] [place] [address] DRUG SCREEN, URINEon 024 AMPHETAMINE/METHAMP Negative Normal NEG [facility] Comment on above: Result Comment: AMPH /METH screening cut off = 1000 ng/mL Performed By: #### D DOWNING #### [facility] ([id number]) [address], [address] [place] [address] BARBITURATES Negative Normal NEG [facility] Comment on above: Result Comment: Venita iturates screening cut off value = 200 ng/mL Performed By: #### D DOWNING #### [facility] ([id number]) [address], [address] [place] [address] BENZODIAZEPINES Negative Normal NEG [facility] Comment on above: Result Comment: Ander odiazepines screening cut off value = 200 ng/mL Performed By: #### D DOWNING #### [facility] ([id number]) [address], [address] [place] [address] CANNABINOIDS Positive Abnormal NEG [facility] Comment on above: Result Comment: Conf irmation available upon request. Cannabinoids/THC screening cut off value = 50 ng/mL Performed By: #### D DOWNING #### [facility] ([id number]) [address], [address] [place] [address] COCAINE METABOLITE Negative Normal NEG [facility] Comment on above: Result Comment: Coca ine screening cut off value = 300 ng/mL Performed By: #### D DOWNING #### [facility] ([id number]) [address], [address] [place] [address] ECSTASY Negative Normal NEG [facility] Comment on above: Result Comment: Ecst asy screening cut off value = 500 ng/mL This report is intended for use in clinical monitoring or management of patients. Performed By: #### D DOWNING #### [facility] ([id number]) [address], [address] [place] [address] METHADONE Negative Normal NEG [facility] Comment on above: Result Comment: Meth adone screening cut off value = 300 ng/mL. Performed By: #### D DOWNING #### [facility] ([id number]) [address], [address] [place] [address] OPIATES Negative Normal NEG [facility] Comment on above: Result Comment: Opia monica screening cut off value = 300 ng/mL NOTE: This test is used for the detection of codeine, hydrocodone (>1000 ng/mL), morphine and hydromorphone (>900 ng/mL) in urine. Performed By: #### D DOWNING #### [facility] ([id number]) [address] [place] [address], [address] [place] [address] OXYCODONE Negative Normal NEG [facility] Comment on above: Result Comment: Oxyc odone screening cut off value = 300 ng/mL NOTE: This test is used for the detection of oxycodone and oxymorphone in urine. Performed By: #### D DOWNING #### [facility] ([id number]) [address] [place] [address] [place] [address] PHENCYCLIDINE Negative Normal NEG [facility] Comment on above: Result Comment: Phen cyclidine screening cut off value = 25 ng/mL Performed By: #### D DOWNING #### [facility] ([id number]) [address] [place] [address], [address] [place] [address] URINALYSISon 09-21-2023 Bilirubin Ql (U) Negative Normal NEG [facility] Comment on above: Performed By: #### U A #### [facility] ([id number]) [address] [place] [address] BLOOD/HGB Negative Normal NEG [facility] Comment on above: Performed By: #### U A #### [facility] ([id number]) [address] [place] [address] [place] [address] Color (U) YELLOW Normal YELLOW [facility] Comment on above: Performed By: #### U A #### [facility] ([id number]) [address] [place] [address] [address] [place] [address] Glucose Ql (U) Negative Normal NEG [facility] Comment on above: Performed By: #### U A #### [facility] ([id number]) [address], [address] [place] [address] Ketones Ql (U) >150 Abnormal NEG [facility] Comment on above: Performed By: #### U A #### [facility] ([id number]) [address], [address] [place] [address] Leukocyte esterase Test strip Ql (U) Negative Normal NEG [facility] Comment on above: Performed By: #### U A #### [facility] ([id number]) [address], [address] [place] [address] Nitrite Ql (U) Negative Normal NEG [facility] Comment on above: Performed By: #### U A #### [facility] ([id number]) [address], [address] [place] [address] pH (U) 6.0 [pH] Normal 5.0-8.5 [facility] Comment on above: Performed By: #### U A #### [facility] ([id number]) [address], [address] [place] [address] Protein Ql (U) Negative Normal NEG [facility] Comment on above: Performed By: #### U A #### [facility] ([id number]) [address], [address] [place] [address] Specific gravity (U) [Rel density] 1.019 Normal 1.003-1.035 [facility] Comment on above: Performed By: #### U A #### [facility] ([id number]) [address], [address] [place] [address] TURBIDITY CLEAR Normal CLEAR [facility] Comment on above: Performed By: #### U A #### [facility] ([id number]) [address], [address] [place] [address] Urobilinogen (U) [Mass/Vol] mg/dL Normal <1.1 [facility] Comment on above: Performed By: #### U A #### [facility] ([id number]) [address], [address] [place] [address] URINE CULTUREon 09-21-2023 Bacteria identified Cx Nom (U) CULTURE RESULTS 10,000 to 50,000 ORGANISMS/mL ESCHERICHIA COLI <10,000 ORGANISMS/mL NORMAL URO GENITAL JACKIE Normal [facility] Comment on above: Performed By: #### 6 30-4 #### [facility] ([id number]) [address] [place] [address], [address] [place] [address] ACUTE HEPATITIS PANELon 08-25 ANTI HCV W/PCR REFLX Non-Reactive Normal NRCT [facility] Comment on above: Result Comment: If recent infection suspected, recommend repeat testing (>2 months). Etuvcm-ms-rtoynk ratio is <0.80. Performed By: #### C BC, 55511-4, AHP, 86354-5, 82162-4, 28744-9, 82519-3 #### [facility] ([id number]) [address], [address] [place] [address] #### 87144-3, 66492-7 #### [facility] ([id number]) [address] [place] [address], [place] [address] HEPATITIS A IGM Non-Reactive Normal NRCT [facility] Comment on above: Performed By: #### C BC, 01080-1, AHP, 29797-1, 80422-8, 82593- 4, 62810-7 #### [facility] ([id number]) [address], [address] [place] [address] #### 07858-1, 49353-3 #### [facility] ([id number]) [address] [place] [address] HEPATITIS B CORE IGM Negative Normal NEG [facility] Comment on above: Performed By: #### C ERICK, 04097-8, AHP, 18113-0, 94812-5, 81695- 4, 20204-5 #### [facility] ([id number]) [address], [address] [place] [address] #### 57832-9, 99305-4 #### [facility] ([id number]) [address] [place] [address] HEPATITIS B SURF AG Negative Normal NEG [facility] Comment on above: Performed By: #### Joan SUAREZ, , AHP, 66878-0, 31680-9, 85351- 4, 02719-9 #### [facility] ([id number]) [address], [address] [place] [address] #### 50012-1, 53090-2 #### [facility] ([id number]) [address] [place] [address] COMPLETE BLOOD COUNTon 09-16 Erythrocyte distribution width (RBC) [Ratio] 13.0 % Normal 11.5-15.0 [facility] Comment on above: Performed By: #### Joan SUAREZ, 47635-6, AHP, 79334-5, 37554-8, 16472- 4, 26767-3 #### [facility] ([id number]) [address], [address] [place] [address] #### 50152-0, 22211-5 #### [facility] ([id number]) [address] [place] [address] Hematocrit (Bld) [Volume fraction] 36.1 % Normal 35-47 [facility] Comment on above: Performed By: #### Joan SUAREZ, 37798-9, AHP, 83335-7, 54349-9, 43112- 4, 52758-6 #### [facility] ([id number]) [address], [address] [place] [address] #### 78875-5, 10254-8 #### [facility] ([id number]) [address] [place] [address] Hemoglobin (Bld) [Mass/Vol] 12.5 g/dL Normal 11.7-15.5 [facility] Comment on above: Performed By: #### C BC, 97733-2, AHP, 36317-7, 33006-7, 14371- 4, 56620-9 #### [facility] ([id number]) [address], [address] [place] [address] #### 31031-5, 07560-0 #### [facility] ([id number]) [address] [place] [address] MCH (RBC) [Entitic mass] 32.0 pg Normal 27-34 [facility] Comment on above: Performed By: #### C BC, 36952-3, AHP, 87885-6, 45991-0, 54265- 4, 81422-3 #### [facility] ([id number]) [address], [address] [place] [address] #### 86888-9, 71537-8 #### [facility] ([id number]) [address] [place] [address]21 MCHC (RBC) [Mass/Vol] 34.6 g/dL Normal 32-36 [facility] Comment on above: Performed By: #### C BC, 18962-5, AHP, 50568-9, 62652-3, 70048- 4, 99755-9 #### [facility] ([id number]) [address], [address] [place] [address] #### 44607-2, 48936-0 #### [facility] ([id number]) [address] [place] [address] MCV (RBC) [Entitic vol] 93 fL Normal 80-100 [facility] Comment on above: Performed By: #### Joan SUAREZ, 20131-6, AHP, 55515-7, 48081-4, 69905- 4, 70021-2 #### [facility] ([id number]) [address], [address] [place] [address] #### 30118-4, 05732-0 #### [facility] ([id number]) [address] [place] [address] Platelet mean volume (Bld) [Entitic vol] 8.7 fL Normal 7-12 [facility] Comment on above: Performed By: #### Joan SUAREZ, , P, 73675-2, 82031-4, 31204- 4, 26358-2 #### [facility] ([id number]) [address], [address] [place] [address] #### 04058-8, 41187-8 #### [facility] ([id number]) [address] [place] [address]70[address] Platelets (Bld) [#/Vol] 300 10*3/uL Normal 150-450 [facility] Comment on above: Performed By: #### Joan SUAREZ, 82228-8, AHP, 86264-1, 71011-6, 83892- 4, 18635-3 #### [facility] ([id number]) [address], [address] [place] [address] #### 17630-6, 37717-9 #### [facility] ([id number]) [address] [place] [address] RBC COUNT 3.90 X10E12/L Normal 3.80-5.20 [facility] Comment on above: Performed By: #### C BC, 03789-8, AHP, 30086-9, 22744-8, 18182- 4, 38705-2 #### [facility] ([id number]) [address], [address] [place] [address] #### 73520-0, 47383-9 #### [facility] ([id number]) [address] [place] [address] WBC (Bld) [#/Vol] 9.7 10*3/uL Normal 4.0-11.0 [facility] Comment on above: Performed By: #### C , 19121-7, P, 13539-3, 75822-6, 29307- 4, 10892-4 #### [facility] ([id number]) [address], [address] [place] [address] #### 68250-0, 65920-0 #### [facility] ([id number]) [address] [place] [address] HCG.beta subunit IA 3rd IS Q non 09-17-2023 [place] [address] m[IU]/mL Normal P [facility] Comment on above: Result Comment: NEW REFERENCE [...] nontrophoblastic neoplasms. Performed By: #### Joan SUAREZ, 39470-4, P, 97351-1, 10967-4, 62260-6, 71728-7 #### [facility] ([id number]) [address] [place] [address], [address] [place] [address] #### 20499-8, 92577-1 #### [facility] ([id number]) [address] [place] [address]99 HIV 1+2 Ab+HIV1 p24 Ag IA Ql on 09-17-2023 HIV 1 and 2 Ab/Ag Screen Non-Reactive Normal NRCT [facility] Comment on above: Result Comment: This information [...] test results or diagnoses. Performed By: #### Jona SUAREZ, 97672-9, P, 92231-6, 00637-9, 33498-0, 35375-0 #### [facility] ([id number]) [address] [place] [address], [address] [place] [address] #### 23103-8, 87393-5 #### [facility] ([id number]) [address] [place] [address] Reagin Ab RPR (S) [Titer]on 09-17-2023 RPR TITER, SERUM SEE COMMENTS 09/21/2023 10:37 AM Abnormal [facility] Comment on above: Result Comment: NOTE Test Result Flag Unit RefValue RPR, Titer, S 1:1 A Negative Results consistent with untreated or recently treated syphilis. Clinical correlation required. For additional information on interpretation of the syphilis reverse algorithm and results, see: [email or web address] Test Performed by: [place] [address] [employer] Consultant: Luke Downey M.D. Ph.D.; CLIA# [id number] Performed By: #### C ERICK, 03522-5, AHP, 47657-3, 11300-7, 13598-1, 09733-5 #### [facility] ([id number]) [address] [place] [address], [facility] [place] [address] #### 71680-0, 43632-7 #### [facility] ([id number]) [address] [place] [address] Reagin Ab RPR Ql (S)on 09-16 RPR WITH REFLEX TO RTPPA Positive Abnormal Negative [facility] Comment on above: Result Comment: NOTE Specimen reflexed to determine RPR titer. For additional information on interpretation of the syphilis reverse algorithm and results, see: [email or web address] Test Performed by: [facility] [place] [address] [employer] Consultant: Luke Downey M.D. Ph.D.; CLIA# [id number] Performed By: #### C BC, 59668-4, AHP, 10746-1, 25768-9, 98644-3, 56322-2 #### [facility] ([id number]) [address] [place] [address], [address] [place] [address] #### 08507-5, 55307-0 #### [facility] ([id number]) [address] [place] [address] 36815 Rubella virus Ab Ql (S)on RUBELLA IMMUNE IgG 1.0 AI Normal [facility] Comment on above: Result Comment: Interpretation-------- <0.8 NEGATIVE-considered Not Immune 0.8-0.9 EQUIVOCAL-consider retesting with new specimen >0.9 POSITIVE-considered Immune Performed By: #### C ERICK, 72610-8, AHP, 48343-3, 21553-0, 91800-5, 58484-4 #### [facility] ([id number]) [address] [place] [address], [address] [place] [address] #### 24024-8, 01240-9 #### [facility] ([id number]) [address] [place] [address] T. pallidum IgG+IgM IA Ql (S )on 09-17-2023 Syphilis Total >8.0 High 0.0-0.8 [facility] Comment on above: Result Comment: REAC TIVE This specimen will be sent to a reference lab for additional testing which includes RPR with reflex to TP-PA if RPR is negative. The RPR will help distinguish between infections with T.pallidum (syphilis) versus a falsely reactive treponemal antibody result. Please see the syphilis testing algorithm link below for more information. [email or web address] Performed By: #### C BC, 90703-1, AHP, 37327-5, 77309-8, 27468-5, 63850-0 #### [facility] ([id number]) [address] [place] [address], [address] [place] [address] #### 85551-9, 11623-1 #### [facility] ([id number]) [address] [facility], [place] [address] US PREG TRANSABD FU PER FETU on 09-17-2023 US PREG TRANSABD FU PER FETU US PREG TRANSABD FU PER FETU US PREG TRANSABD FU PER FETU: 09/17/2023 8:25 AM Clinical: Check dates and viability. Real-time transabdominal sonography pelvis performed.. Transvaginal sonography pelvis performed for better evaluation of the pelvic organs. No comparison. There is a single live intrauterine . [place]-rump length of 8.8 cm corresponds to 14 [...] Frances MD on 09/17/2023 11:55 AM Normal [facility] VZV IgG IA Ql (S)on 09-17-19 VARICELLA IgG 3.1 AI High <0.9 [facility] Comment on above: Result Comment: Interpretation-------- <0.9 Negative 0.9 - 1.0 Equivocal >1.0 Positive Performed By: #### C , 67697-9, [facility], 52858-1, 07013-7, 65121-5, 25986-7 #### [facility] ([id number]) [address] [place] [address], [address] [place] [address] #### 26256-7, 48644-5 #### [facility] ([id number]) [address] [facility], [place] [address] Urinalysis - AUTOMATEDon Appearance (U) CLEAR [employer] Other Bilirubin Ql (U) Negative [email or web address] Other Color (U) YELLOW [employer] Other Glucose Ql (U) Negative [employer] Other Hemoglobin Ql (U) NEGTIVE [employer] Other Ketones Ql (U) Negative [employer] Other Leukocyte esterase Test strip Ql (U) Negative [employer] Other Nitrite Ql (U) Negative [employer] Other pH (U) 7.5 [pH] [employer] Other Protein Ql (U) Negative [employer] Other Specific gravity (U) [Rel density] 1.015 [employer] Other Urobilinogen (U) [Mass/Vol] 0.2 mg/dL [employer] Other Urinalysis - AUTOMATED [employer] Other Vaginitis Plus (VG+)on 12-19 [employer] Vaginae High - 2 Critically abnormal . [facility] Comment on above: Performed By: #### V AGINITIS+ #### [facility] , BVAB2 High - 2 Critically abnormal . [facility] Comment on above: Performed By: #### V AGINITIS+ #### [facility] , Makenzie Albicans, KENNETH Negative Normal Negative [facility] Comment on above: Result Comment: This test was developed and its performance characteristics determined by [employer]. It has not been cleared or approved by the Food and Drug Administration. Performed By: #### V AGINITIS+ #### [facility] , Makenzie Glabrata, KENNETH Negative Normal Negative [facility] Comment on above: Result Comment: This test was developed and its performance characteristics determined by [employer]. It has not been cleared or approved by the Food and Drug Administration. PERFORMED BY: [facility] [address] PATHOLOGIST MILITARY SOURCE OPERATIONS OFFICER LEO PATEL M.D. Performed By: #### V AGINITIS+ #### [facility] , Chlamydia Trachomotis, KENNETH Positive Critically abnormal Negative [facility] Comment on above: Performed By: #### V AGINITIS+ #### [facility] , Megasphaera High - 2 Critically abnormal . [facility] Comment on above: Result Comment: Calc [...] developed and its performance characteristics determined by [employer] in [place]. It has not been cleared or approved by the Food and Drug Administration. Performed By: #### V AGINITIS+ #### [facility] , Neisseria Gonorrhoeae, KENNETH Negative Normal Negative [facility] Comment on above: Result Comment: Perf ormed at: =G - [facility] [address] [id number] [employer] Consultant: Brianne Shabazz MD, Phone: [phone] Performed By: #### V AGINITIS+ #### [facility] , Tric Vag KENNETH Negative Normal Negative [facility] Comment on above: Performed By: #### [...] TIESHA CASTILLO Date: 2020-01-30 14:39 Normal [facility] XR ANKLE LT MIN 3 Von 2019 [...] increase in distraction Electronically authenticated by: YAKOV DAWSNO Date: 2019-12-27 09:54 Normal [facility] XR ANKLE LT MIN 3 Von 2019 [...] TIESHA CASTILLO Date: 2019-11-29 13:43 Normal [facility] XR FOOT RT MIN 3 VIEWSon XR FOOT RT MIN 3 VIEWS EXAM: Right foot HISTORY: Pain after a fall. TECHNIQUE: 3 views of the right foot were obtained. FINDINGS: There is no evidence of fracture or dislocation. There are no suspicious bone lesions. Soft tissues are normal. IMPRESSION: Unremarkable exam. Electronically authenticated by: JUDE MCDANIEL Date: 2019-11-28 16:48 Normal [facility] XR TIB_FIB LT 2Von 0 XR TIB_FIB [...] by: JUDE MCDANIEL Date: 2019-11-28 16:47 Normal [facility] Vital Signs Date Time Vital Sign Value Performing Clinician Facility 02-28-2024 15:51-0500 Body weight 83.92 kg Surya Eun DO Work Phone: [facility] 02-28-2024 15:51-0500 Diastolic blood pressure 72 mm[Hg] Surya Eun DO Work Phone: [facility] 02-28-2024 15:51-0500 Systolic blood pressure 108 mm[Hg] Surya Eun DO Work Phone: [facility] 02-21-2024 14:34-0400 Body weight 84.82 kg Jenna TOBIAS Work Phone: [facility] 02-21-2024 14:34-0400 Diastolic blood pressure 70 mm[Hg] Jenna Thomas PA Work Phone: [facility] 02-21-2024 14:34-0400 Systolic blood pressure 118 mm[Hg] Jenna Thomas PA Work Phone: [facility] 02-14-2024 15:25-0400 Body weight 83.01 kg Surya Eun DO Work Phone: [facility] 02-14-2024 15:25-0400 Diastolic blood pressure 72 mm[Hg] Surya Eun DO Work Phone: [facility] 02-14-2024 15:25-0400 Systolic blood pressure 118 mm[Hg] Surya Eun DO Work Phone: [facility] 02-07-2024 10:03-0400 Body weight 82.01 kg Jenna Thomas PA Work Phone: [facility] 02-07-2024 10:03-0400 Diastolic blood pressure 70 mm[Hg] Jenna TOBIAS Work Phone: [facility] 02-07-2024 10:03-0400 Systolic blood pressure 114 mm[Hg] Jenna TOBIAS Work Phone: [facility] 06-16-2023 13:06-0500 Body temperature 98.6 [degF] [facility] 06-16-2023 13:06-0500 Body weight 63.5 kg [facility] 06-16-2023 13:06-0500 Diastolic blood pressure 76 mm[Hg] [facility] 06-16-2023 13:06-0500 Heart rate 87 /min [facility] 06-16-2023 13:06-0500 Respiratory rate 18 /min [facility] 06-16-2023 13:06-0500 SaO2% (BldA) [Mass fraction] 98 % [facility] 06-16-2023 13:06-0500 Systolic blood pressure 119 mm[Hg] [facility] 12-19-2022 11:25-0400 Body height 160.02 cm Inessa Lewis Other [email or web address] [facility] [email or web address] Other 12-19-2022 11:25-0400 Body mass index (BMI) [Ratio] 24.3 kg/m2 Inessa Lewis Other [employer] Other 12-19-2022 11:25-0400 Body temperature 98.7 [degF] Inessa Lewis Other [employer] Other 12-19-2022 11:25-0400 Body weight 62.23 kg Inessa Lewis Other [employer] Other 12-19-2022 11:25-0400 Diastolic blood pressure 66 mm[Hg] Inessa Lewis Other [employer] Other 12-19-2022 11:25-0400 Respiratory rate 18 /min Inessa Macedoley Other [employer] Other 12-19-2022 11:25-0400 SaO2% (BldA) [Mass fraction] 99 % Inessa Macedoley Other [employer] Other 12-19-2022 11:25-0400 Systolic blood pressure 104 mm[Hg] Inessa Macedoley Other [employer] Other 08-15-2021 11:45-0400 Body height 160.02 cm Janny Gonzalez Other [employer] Other 08-15-2021 11:45-0400 Body mass index (BMI) [Ratio] 22.32 kg/m2 Janny Gonzalez Other [employer] Other 08-15-2021 11:45-0400 Body temperature 97.9 [degF] Janny Gonzalez Other [employer] Other 08-15-2021 11:45-0400 Body weight 57.15 kg Janny Gonzalez Other [employer] Other 08-15-2021 11:45-0400 Diastolic blood pressure 71 mm[Hg] Janny Gonzalez Other [employer] Other 08-15-2021 11:45-0400 Respiratory rate 18 /min Janny Hardyler Other [employer] Other 08-15-2021 11:45-0400 SaO2% (BldA) [Mass fraction] 100 % Janny Gonzalez Other [employer] Other 08-15-2021 11:45-0400 Systolic blood pressure 123 mm[Hg] Janny Gonzalez Other [employer] Other Encounters Encounter Date Encounter Type Care Provider Facility Start: 02-28-2024 End: 02-28-2024 Office outpatient visit 15 minutes Surya Eun DO Work Phone: [facility] Comment on above: Third trimester preg emerald; 38 weeks gestation of Start: 02-28-2024 End: 02-28-2024 ambulatory SURYA EUN Not Available Start: 02-28-2024 End: 02-28-2024 [...] 02-07-2024 Bamboo flowsheet Jenna TOBIAS Work Phone: [facility] Start: 02-07-2024 End: 02-07-2024 [...] Available Start: 01-02-2024 End: [facility]02[facility] Start: 01-02-2024 End: 01-02-2024 Emergency department patient visit ROMI RIDER [facility] Start: 12-23-2023 End: 12-23-2023 ambulatory SURYA EUN Not Available Start: 12-02-2023 End: 12-02-2023 ambulatory JENNA WILLIAM Not Available Start: 11-30-2023 End: 11-30-2023 ambulatory MALINDA PATE [facility] Start: 11-04-2023 End: 11-04-2023 ambulatory SONAM TENORIO [facility] Start: 10-06-2023 End: 10-06-2023 ambulatory DANDY RAMSEY [facility] Start: 10-05-2023 End: 10-05-2023 Emergency department patient visit [facility] Start: 09-29-2023 End: 09-29-2023 ambulatory [facility] Start: 09-22-2023 End: 09-22-2023 ambulatory [facility] Start: 09-21-2023 End: 09-22-2023 ambulatory [facility] Start: 09-21-2023 End: 09-21-2023 ambulatory [facility] Start: 09-21-2023 Encounter for gynecological examination (general) (routine) without abnormal findings [facility] Start: 09-21-2023 End: 09-21-2023 ambulatory [facility] Start: 09-21-2023 Encounter for gynecological examination (general) (routine) without abnormal findings [facility] Start: 09-17-2023 End: 09-17-2023 ambulatory [facility] Start: 08-13-2023 End: 08-13-2023 ambulatory [facility] Start: 06-16-2023 End: 06-16-2023 ambulatory [facility] Work Phone: Start: 06-16-2023 End: 06-16-2023 Patient encounter procedure [facility] [place] Work Phone: Start: 12-19-2022 Office outpatient vi sit 15 minutes Inessa Lewis [facility] [place] Start: 12-19-2022 End: 12-19-[address] [facility] [email or web address] Other Start: 12-19-2022 End: 12-19-2022 Departed Referred DESTINATION IMAGINATION COORDINATOR Inessa Lewis Work Phone: [facility] [place] Work Phone: Start: 08-19-2021 End: 08-19-2021 ambulatory Janny Gonzalez Other [employer] Other Start: 08-19-2021 Telephone encounter Janny Gonzalez [facility] Start: 08-15-2021 End: 08-15-2021 ambulatory Janny Gonzalez Other [employer] Other Start: 08-15-2021 Office outpatient ne w 20 minutes Janny Gonzalez [facility] [place] Start: 02-27-2020 Patient encounter procedure [facility] Facility:[facility] Start: 01-30-2020 End: 01-31-2020 Patient encounter procedure [facility] Facility:[facility] Start: 01-16-2020 End: 01-16-2020 Patient encounter procedure CATHRYN BARNES Facility:[facility]1 Start: 12-27-2019 End: 12-28-2019 Patient encounter procedure [facility] Facility:[facility] Start: 11-29-2019 End: 11-30-2019 Patient encounter procedure [facility] Facility:[facility] Start: 11-28-2019 End: 11-28-2019 Patient encounter procedure [facility] Facility:H1 Procedures Date [...] EDT Routine [facility] [address] [place] [address] Jenna Thomas PA [address] [place] [address] [facility] Start: 02-14-2024 End: 02-14-2024 Patient encounter procedure 02/14/2024 2:30 PM EDT Routine [facility] [address] [place] [id number] Surya Haq DO [address] [place], [place] [id number] [facility] Start: 02-07-2024 End: 02-06-2025 US biophysical profile w non stress test US biophysical profile w non stress test Imaging Routine contractions Size of fetus inconsistent with dates, antepartum Nonintractable headache, unspecified chronicity pattern, unspecified headache type History of syphilis Expected: 02/07/2024 (Approximate), Expires: 02/06/2025 [facility] Work Phone: Comment on above: Expected: 02/07/2024 (Approximate), Expires: 02/06/2025 Start: 02-07-2024 End: 02-07-2024 Patient encounter procedure 02/07/2024 9:50 AM EDT Routine [facility] [address] [place] [id number] Jenna Thomas, PA [address] [place], [place] [id number] Arrived [facility] Comment on above: Arrived Start: 12-19-2022 [facility] Atopobium vaginae DN A [Presence] in Vaginal fluid by KENNETH with probe detection [facility] Bacterial vaginosis associated bacterium 2 DNA [Presence] in Vaginal fluid by KENNETH with probe detection [facility] Megasphaera sp type 1 DNA [Presence] in Vaginal fluid by KENNETH with probe detection [facility] Payers Date Payer Category Payer Self-pay [id number] 2022 Medicaid [facility] [id number] 2022 Medicaid [id number] 2.16840.1.163474.19 2019 Unknown [id number] 1997 Unknown [id number] 2.16.840.1.384883.3.579.2.593 1997 Unknown [id number] 2.16.840.1.404977.3.579.2.593 1997 Unknown [id number] 2.16.840.1.871675.3.579.2.59 1997 Unknown [id number] 2.16.840.1.668375.3.579.2.593 1997 Unknown [id number] 2.16.840.1.421830.3.579.2.593 1997 Unknown [id number] 2.16.840.1.371954.3.579.2.593 1997 Unknown [id number] 2.16.840.1.862445.3.579.2.128 1997 Unknown [id number] 2.16.840.1.091705.3.579.2.1285 1997 Unknown [id number] 2.16.840.1.754295.3.579.2.128 1997 Unknown [id number] 2.16.840.1.473503.3.579.2.1285 1997 Unknown [id number] 2.16.840.1.455133.3.579.2.1285 1997 Unknown [id number] 2.16.840.1.603114.3.579.2.1285 1997 Unknown [id number] 2.16.840.1.244709.3.579.2.1285 1997 Unknown [id number] 2.16.840.1.371597.3.579.2.1285 1997 Unknown [id number] 2.16.840.1.415609.3.579.2.1285 1997 Unknown [id number] 2.16.840.1.998878.3.579.2.1285 1997 Unknown [id number] 2.16840.1.088900.3.579.2.1285 1997 Unknown [id number] 2.16.840.1.804800.3.579.2.1285 1997 Unknown [id number] 2.16.840.1.347851.3.579.2.1285 1997 Unknown [id number] 2.16.840.1.581798.3.579.2.1285 1997 Unknown [id number] 2.16840.1.728679.3.579.2.1285 1997 Unknown [id number] 2.16.840.1.027291.3.579.2.1258 1997 Unknown [id number] 2.16.840.1.034784.3.579.2.1258 1997 Unknown [id number] 2.16.840.1.343557.3.579.2.1258 1997 Unknown [id number] 2.16.840.1.197333.3.579.2.1258 1997 Unknown [id number] 2.16.840.1.437315.3.579.2.1259 1997 Unknown [id number] 2.16.840.1.865204.3.579.2.9 1997 Unknown [id number] 2.16.840.1.266300.3.579.2.9 1997 Unknown [id number] 2.16.840.1.444584.3.579.2.1259 1959 Unknown [id number] Unknown [id number] 2.16.840.1.606834.19 Unknown [id number] 2.16.840.1.513720.3.579.2.531 Social History Date Type Detail Facility Unknown if ever smoked [facility] [email or web address] Other Sex Assigned At [facility] [email or web address] Other Start: 1995 Sex Assigned At Female [facility] Start: 06-16-2023 Tobacco smoking status [facility] Never smoked tobacco (finding) [facility] Tobacco smoking status [facility] Tobacco smoking consumption unknown [facility] Start: 06-20-2023 [facility] Start: 1997 Sex assigned at Not on file N [facility] Clinical Notes 08-15-2021 to 02-28-2024 Charmaine Calderon [...] Oral, Every 8 hours PRN Prenat w/o S-ToRgt-Qkzt-FA-DHA ([employer] DHA) 31-0.6-0.4-200 MG capsule 1 capsule, [...] nursing note reviewed. Exam conducted with a fiscal accounting clerk present. Vitals: There is no height or [...] Surya Haq DO documented in this encounter [facility] 02-21-2024 History of Presen t illness Narrative [...] Oral, Every 8 hours PRN Prenat w/o F-WyYve-Jebu-FA-DHA ([employer] DHA) 31-0.6-0.4-200 MG capsule 1 capsule, [...] of: JATINDER Pineda documented in this encounter [facility] 02-14-2024 History of Presen t [...] Oral, Every 8 hours PRN Prenat w/o I-DaRyb-Alek-FA-DHA ([employer] DHA) 31-0.6-0.4-200 MG capsule 1 capsule, [...] nursing note reviewed. Exam conducted with a fiscal accounting clerk present. Vitals: There is no height or [...] Surya Haq DO documented in this encounter [facility] 02-07-2024 History of Presen t [...] Oral, Every 8 hours PRN Prenat w/o G-PeBof-Zuhl-FA-DHA ([employer] DHA) 31-0.6-0.4-200 MG capsule 1 capsule, [...] nursing note reviewed. Exam conducted with a fiscal accounting clerk present. Vitals: There is no height or [...] Delivery: 03/12/24. Patient to schedule NST/BPP's at [facility]. Order given to patient and also faxed to [facility] scheduling and FBC. Patient to return to clinic in 1 week. Documented by Malinda Bundy LPN on behalf of: JATINDER Pineda documented in this encounter [facility] 12-19-2022 Evaluation note Encounter Date [...] in 4-6 days. FU with PCP or [facility] in not improving over next 5-7 days. [employer] Other 04-22-2022 Evaluation note* Encounter Date Diagnosis [...] results. Patient to follow with PCP or [facility] as needed for persistent or worsening symptoms. Immediate eval if abdominal pain, fever, chills, body aches, back/flank pain, nausea, urinary complaints. Patient may use OTC external yeast infection creams for external irritation, do not insert creams or meds as Diflucan rx will treat. Avoid scratching and douching. Patient verbalizes understanding and is agreeable to treatment plan [employer] Other evaluation noteNo InformationNort [employer] Other evaluation noteNo assessment information available [facility] Work Phone: Evaluation note* Diagnosis Onset Date Resolution Status Pre-employment examination a [facility] Work Phone: Evaluation note* Diagnosis Third [...] wisdom teeth Hospitalization History Fall Pneumothorax 2021 [employer] Other History general Narrative - Reported* Type Description Date Surgical History wisdom teeth Surgical History 1 Hospitalization History Fall Pneumothorax 2021 Hospitalization History 2016 [employer] Other Summary Purpose Family History No Family [...] Complaint physical Reason for Visit Pre-employment exami [facility] Additional Source Comments INFORMATION SOURCE (unrecogn ized section and content) DATE CREATED AUTHOR 02/19/2020 [facility] DATE CREATED AUTHOR AUTHOR'S ORGANIZ ATION 01/06/2023 [facility] DATE CREATED AUTHOR AUTHOR'S ORGANIZ ATION 09/22/2023 [facility] DATE CREATED AUTHOR AUTHOR'S ORGANIZ ATION 11/10/2023 [facility] DATE CREATED AUTHOR AUTHOR'S ORGANIZ ATION 01/03/2024 [facility] DATE CREATED AUTHOR AUTHOR'S ORGANIZ ATION 02/29/2024 [facility] EPIC REASON FOR VISIT (unrecogniz [...] BE BASED ON THE PRIMARY CLINICAL RECORDS. [facility]. provides no warranty or guarantee of the accuracy or completeness of information in this document.
--- OUTSIDE RECORDS SUMMARY | 2024-03-03 07:13 | XMS_ITS | CCD ---
Author Organization [facility] Care Team Providers Care Mine Wirer Name Role Phone MISC, DOCTOR Primary Care [...] Inessa Lewis Unavailable NIURKA Lewis Attending Provider [phone] Inessa Lewis Attending Unavailable Inessa Lewis Admitting [...] hours if needed 09/21/2023 Active Prenat w/o L-UcDdv-Ahnv-FA-DHA (TriStart DHA) 31-0.6-0.4-200 MG capsule (12 sources) Start: 08-13-2023 take 1 capsule by mouth in the morning Prenat w/o E-CsCea-Fdgt-FA-DHA (TriStart DHA) 31-0.6-0.4-200 MG capsule Take 1 [...] UA Negative Negative - 4(70) +++ mg/dL [facility] Blood, UA Negative Negative - 50 Eriberto/mcL [facility] Clarity, UA Clear [facility]ca re Color, UA Yellow [facility] Glucose, UA Negative Negative - 2000(110) ++++ mg/dL [facility] Interpretation and review of laboratory results Normal [facility] re Ketones, UA Negative Negative - 160(16) ++++ mg/dL [facility] Leukocytes, UA Negative Negative - 500+++ Pk/mcL [facility] Healthcare Nitrite, UA Negative Negative - Positive [facility] Healthcare pH, UA 6.5 5 - 9 [facility] Protein, UA Negative Negative - 1999(20) ++++ mg/dL [facility] Healthcare Spec Grav, UA 1.025 1 - 1.03 [facility] care Urobilinogen, UA 0.2 0.2 - 12 mg/dL [facility]inalysis macro (dipstick) panel (U)Ordered By: Carmenza Donovan on 02-15-2024 Bilirubin, UA Negative Negative - 4(70) +++ mg/dL [facility] Blood, UA Negative Negative - 50 Eriberto/mcL [facility] Healthcare Clarity, UA Clear [facility] Color, UA Yellow [facility] Glucose, UA Negative Negative - 1999(110) ++++ mg/dL [facility] Interpretation and review of laboratory results Normal [facility] Ketones, UA Negative Negative - 160(16) ++++ mg/dL [facility] Leukocytes, UA Negative Negative - 500+++ Pk/mcL [facility] Healthcare Nitrite, UA Negative Negative - Positive [facility] pH, UA 5.5 5 - 9 [facility] Health[facility] e Protein, UA Negative Negative - 1999(20) ++++ mg/dL [facility] Spec Grav, UA 1.02 1 - 1.03 [facility] Urobilinogen, UA 1.0 0.2 - 12 mg/dL [facility] Urinalysis macro (dipstick) panel (U)on 02-07-2024 Bilirubin, UA Negative Negative - 4(70) +++ mg/dL [facility] Blood, UA Negative Negative - 50 Eriberto/mcL [facility] Healthcare Clarity, UA Clear [facility] Color, UA Yellow [facility] Glucose, UA Negative Negative - 1999(110) ++++ mg/dL [facility] Interpretation and review of laboratory results Abnormal [facility] Ketones, UA Negative Negative - 160(16) ++++ mg/dL [facility] Healthcare Leukocytes, UA Negative Negative - 500+++ Pk/mcL [facility] Healthcare Nitrite, UA Negative Negative - Positive [facility] pH, UA 5.5 5 - 9 [facility] Protein, UA Negative Negative - 1999(20) ++++ mg/dL [facility] Spec Grav, UA 1.025 1 - 1.03 [facility] Urobilinogen, UA 1.0 0.2 - 12 mg/dL [facility] Health[facility] e URINALYSISon 11-30-2023 Bilirubin Ql (U) Negative Normal NEG [facility] Comment on above: Performed By: #### C ERICK, 13147-9, AHP, 04579-2, 76058-7, 63622- 4, 78197-4 #### [facility] ([id number]) [address] [place] [address], [address] [place] [address] #### 14368-4, 08090-1 #### [facility] ([id number]) [address] [place] [address], [place] [address] BLOOD/HGB Negative Normal NEG [facility] Comment on above: Performed By: #### Joan SUAREZ, , AHP, 36423-7, 97216-1, 95798- 4, 32722-4 #### [facility] ([id number]) [address] [place] [address], [address] [place] [address] #### 71560-2, 20123-3 #### [facility] ([id number]) [address] [place] [address]24 Color (U) YELLOW Normal YELLOW [facility] Comment on above: Performed By: #### Joan SUAREZ, 39891-0, AHP, 94631-1, 84071-2, 58427- 4, 78844-1 #### [facility] ([id number]) [address] [place] [address], [address] [place] [address] #### 24453-3, 47105-1 #### [facility] ([id number]) [address] [place] [address], [place] [address] Glucose Ql (U) Negative Normal NEG [facility] Comment on above: Performed By: #### C BC, 70845-5, AHP, 52462-9, 97902-4, 68165- 4, 21152-9 #### [facility] ([id number]) [address] [facility], [address] [place] [address] #### 72042-9, 07970-4 #### [facility] ([id number]) [address] [place] [address] 87402 Ketones Ql (U) Negative Normal NEG [facility] Comment on above: Performed By: #### C BC, 78631-0, AHP, 07999-5, 80466-2, 72942- 4, 22967-1 #### [facility] ([id number]) [address] [facility], [address] [place] [address] #### 21973-1, 34092-3 #### [facility] ([id number]) [address] [place] [address] 17058 Leukocyte esterase Test strip Ql (U) Negative Normal NEG [facility] Comment on above: Performed By: #### C BC, 75814-2, AHP, 08338-6, 02505-7, 22805- 4, 86158-5 #### [facility] ([id number]) [address] [facility], [address] [place] [address] #### 24117-1, 96353-7 #### [facility] ([id number]) [address] [place] [address] 65557 Nitrite Ql (U) Negative Normal NEG [facility] Comment on above: Performed By: #### C BC, 46759-3, AHP, 20585-3, 55357-1, 81507- 4, 40503-7 #### [facility] ([id number]) [address] [facility], [address] [place] [address] #### 72197-4, 01159-1 #### [facility] ([id number]) [address] [place] [address] 13578 pH (U) 7.0 [pH] Normal 5.0-8.5 [facility] Comment on above: Performed By: #### Joan SUAREZ, 30816-3, AHP, 60575-8, 73217-7, 46999- 4, 12014-2 #### [facility] ([id number]) [address] [facility], [address] [place] [address] #### 29839-4, 99276-7 #### [facility] ([id number]) [address] [place] [address] 12170 Protein Ql (U) Negative Normal NEG [facility] Comment on above: Performed By: #### Joan SUAREZ, 18566-0, AHP, 55945-7, 75799-5, 77010- 4, 52854-0 #### [facility] ([id number]) [facility] [facility], [address] [place] [address] #### 37946-2, 66344-7 #### [facility] ([id number]) [address] [place] [address] 49993 Specific gravity (U) [Rel density] 1.025 Normal 1.003-1.035 [facility] Comment on above: Performed By: #### Joan SUAREZ, 99762-8, AHP, 79539-8, 03340-3, 75091- 4, 42172-1 #### [facility] ([id number]) [address] [facility], [address] [place] [address] #### 09949-2, 37870-9 #### [facility] ([id number]) [address] [place] [address]22 TURBIDITY CLEAR Normal CLEAR [facility] Comment on above: Performed By: #### Joan SUAREZ, 89494-4, AHP, 58666-7, 20149-1, 39884- 4, 52349-7 #### [facility] ([id number]) [address] [place] [address], [address] [address] #### 67734-0, 84557-8 #### [facility] ([id number]) [address] [place] [address] 88242 Urobilinogen Qn (U) 0.2 {Saleem'U}/dL Normal <1.1 [facility] Comment on above: Performed By: #### C BC, 55656-2, AHP, 50756-6, 33917-7, 11497- 4, 26810-3 #### [facility] ([id number]) [address] [place] [address], [address] [address] #### 12628-0, 76732-9 #### [facility] ([id number]) [address] [place] [address]55[address] CHLAMYDIA/GC PCR, FLon 09-20 CHLAMYDIA/GC PCR, FL [...] dependent on adequate specimen collection. Normal [facility] Comment on above: Performed By: #### C BC, 94106-1, P, 40079-6, 61613-1, 01948- 4, 82504-6 #### [facility] ([id number]) [address] [place] [address], [address] [address] #### 42874-9, 25650-1 #### [facility] ([id number]) [address] [place] [address] 50425 DRUG SCREEN, URINEon 024 AMPHETAMINE/METHAMP Negative Normal NEG [facility] Comment on above: Result Comment: AMPH /METH screening cut off = 1000 ng/mL Performed By: #### D DOWNING #### [facility] ([id number]) [address], [address] [place] [address] BARBITURATES Negative Normal NEG [facility] Comment on above: Result Comment: Venita iturates screening cut off value = 200 ng/mL Performed By: #### D DOWNING #### [facility] ([id number]) [address], [address] [place] [address] BENZODIAZEPINES Negative Normal NEG [facility] Comment on above: Result Comment: Ander odiazepines screening cut off value = 200 ng/mL Performed By: #### D DOWNING #### [facility] ([id number]) [address], [address] [place] [address] CANNABINOIDS Positive Abnormal NEG [facility] Comment on above: Result Comment: Conf irmation available upon request. Cannabinoids/THC screening cut off value = 50 ng/mL Performed By: #### D DOWNING #### [facility] ([id number]) [address], [address] [place] [address] COCAINE METABOLITE Negative Normal NEG [facility] Comment on above: Result Comment: Coca ine screening cut off value = 300 ng/mL Performed By: #### D DOWNING #### [facility] ([id number]) [address], [address] [place] [address] ECSTASY Negative Normal NEG [facility] Comment on above: Result Comment: Ecst asy screening cut off value = 500 ng/mL This report is intended for use in clinical monitoring or management of patients. Performed By: #### D DOWNING #### [facility] ([id number]) [address], [address] [place] [address] METHADONE Negative Normal NEG [facility] Comment on above: Result Comment: Meth adone screening cut off value = 300 ng/mL. Performed By: #### D DOWNING #### [facility] ([id number]) [address] [facility], [address] [place] [address] OPIATES Negative Normal NEG [facility] Comment on above: Result Comment: Opia monica screening cut off value = 300 ng/mL NOTE: This test is used for the detection of codeine, hydrocodone (>1000 ng/mL), morphine and hydromorphone (>900 ng/mL) in urine. Performed By: #### D DOWNING #### [facility] ([id number]) [address] [place] [address], [address] [place] [address] OXYCODONE Negative Normal NEG [facility] Comment on above: Result Comment: Oxyc odone screening cut off value = 300 ng/mL NOTE: This test is used for the detection of oxycodone and oxymorphone in urine. Performed By: #### D DOWNING #### [facility] ([id number]) [address] [place] [address] [place] [address] PHENCYCLIDINE Negative Normal NEG [facility] Comment on above: Result Comment: Phen cyclidine screening cut off value = 25 ng/mL Performed By: #### D DOWNING #### [facility] ([id number]) [address] [place] [address], [address] [place] [address] URINALYSISon 09-21-2023 Bilirubin Ql (U) Negative Normal NEG [facility] Comment on above: Performed By: #### U A #### [facility] ([id number]) [address] [place] [address] BLOOD/HGB Negative Normal NEG [facility] Comment on above: Performed By: #### U A #### [facility] ([id number]) [address] [place] [address] [place] [address] 21696 Color (U) YELLOW Normal YELLOW [facility] Comment on above: Performed By: #### U A #### [facility] ([id number]) [address] [place] [address] [address] [place] [address] Glucose Ql (U) Negative Normal NEG [facility] Comment on above: Performed By: #### U A #### [facility] ([id number]) [address], [address] [place] [address] Ketones Ql (U) >150 Abnormal NEG [facility] Comment on above: Performed By: #### U A #### [facility] ([id number]) [address], [address] [place] [address] Leukocyte esterase Test strip Ql (U) Negative Normal NEG [facility] Comment on above: Performed By: #### U A #### [facility] ([id number]) [address], [address] [place] [address] Nitrite Ql (U) Negative Normal NEG [facility] Comment on above: Performed By: #### U A #### [facility] ([id number]) [address], [address] [place] [address] pH (U) 6.0 [pH] Normal 5.0-8.5 [facility] Comment on above: Performed By: #### U A #### [facility] ([id number]) [address], [address] [place] [address] Protein Ql (U) Negative Normal NEG [facility] Comment on above: Performed By: #### U A #### [facility] ([id number]) [address], [address] [place] [address] Specific gravity (U) [Rel density] 1.019 Normal 1.003-1.035 [facility] Comment on above: Performed By: #### U A #### [facility] ([id number]) [address], [address] [place] [address] TURBIDITY CLEAR Normal CLEAR [facility] Comment on above: Performed By: #### U A #### [facility] ([id number]) [address] [facility], [address] [place] [address] Urobilinogen (U) [Mass/Vol] mg/dL Normal <1.1 [facility] Comment on above: Performed By: #### U A #### [facility] ([id number]) [address] [facility], [address] [place] [address] URINE CULTUREon 09-21-2023 Bacteria identified Cx Nom (U) CULTURE RESULTS 10,000 to 50,000 ORGANISMS/mL ESCHERICHIA COLI <10,000 ORGANISMS/mL NORMAL URO GENITAL JACKIE Normal [facility] Comment on above: Performed By: #### 6 30-4 #### [facility] ([id number]) [address] [place] [address], [address] [place] [address] ACUTE HEPATITIS PANELon 08-25 ANTI HCV W/PCR REFLX Non-Reactive Normal NRCT [facility] Comment on above: Result Comment: If recent infection suspected, recommend repeat testing (>2 months). Mlvgee-up-mmsrgv ratio is <0.80. Performed By: #### C BC, 01392-9, AHP, 23607-9, 18416-5, 87650-2, 97425-7 #### [facility] ([id number]) [address] [facility], [address] [place] [address] #### 28517-0, 63072-2 #### [facility] ([id number]) [address] [place] [address], [place] [address] HEPATITIS A IGM Non-Reactive Normal NRCT [facility] Comment on above: Performed By: #### C BC, 30269-3, AHP, 07846-8, 87765-4, 15857- 4, 76332-3 #### [facility] ([id number]) [address] [facility], [address] [place] [address] #### 55248-9, 01794-1 #### [facility] ([id number]) [address] [place] [address]47 HEPATITIS B CORE IGM Negative Normal NEG [facility] Comment on above: Performed By: #### C ERICK, 74958-8, AHP, 56826-7, 53872-7, 90831- 4, 06900-6 #### [facility] ([id number]) [address], [address] [place] [address] #### 65422-0, 24019-8 #### [facility] ([id number]) [address] [place] [address] 16485 HEPATITIS B SURF AG Negative Normal NEG [facility] Comment on above: Performed By: #### Joan SUAREZ, , AHP, 13171-8, 51050-4, 94579- 4, 55822-6 #### [facility] ([id number]) [address] [facility], [address] [place] [address] #### 64582-1, 58136-0 #### [facility] ([id number]) [address] [place] [address] COMPLETE BLOOD COUNTon 09-16 Erythrocyte distribution width (RBC) [Ratio] 13.0 % Normal 11.5-15.0 [facility] Comment on above: Performed By: #### Joan SUAREZ, 37944-5, AHP, 87824-0, 57278-0, 62294- 4, 15052-8 #### [facility] ([id number]) [address], [address] [place] [address] #### 49006-7, 42135-9 #### [facility] ([id number]) [address] [place] [address] 37980 Hematocrit (Bld) [Volume fraction] 36.1 % Normal 35-47 [facility] Comment on above: Performed By: #### Joan SUAREZ, 47984-1, AHP, 03909-1, 83013-0, 56556- 4, 16592-0 #### [facility] ([id number]) [address], [address] [place] [address] #### 31278-8, 50355-0 #### [facility] ([id number]) [address] [place] [address] 73060 Hemoglobin (Bld) [Mass/Vol] 12.5 g/dL Normal 11.7-15.5 [facility] Comment on above: Performed By: #### C BC, 55280-1, AHP, 27288-4, 75864-9, 45328- 4, 10287-7 #### [facility] ([id number]) [address], [address] [place] [address] #### 28730-2, 98039-3 #### [facility] ([id number]) [address] [place] [address] 69779 MCH (RBC) [Entitic mass] 32.0 pg Normal 27-34 [facility] Comment on above: Performed By: #### C BC, 86446-4, AHP, 71886-7, 10196-1, 80053- 4, 36813-7 #### [facility] ([id number]) [address], [address] [place] [address] #### 82482-9, 61277-6 #### [facility] ([id number]) [address] [place] [address] 77524 MCHC (RBC) [Mass/Vol] 34.6 g/dL Normal 32-36 [facility] Comment on above: Performed By: #### C BC, 66691-3, AHP, 85717-1, 84043-7, 45665- 4, 46043-1 #### [facility] ([id number]) [address], [address] [place] [address] #### 54307-2, 63984-8 #### [facility] ([id number]) [address] [place] [address] 63885 MCV (RBC) [Entitic vol] 93 fL Normal 80-100 [facility] Comment on above: Performed By: #### Joan SUAREZ, 20743-0, AHP, 24016-0, 79108-4, 43228- 4, 43719-9 #### [facility] ([id number]) [address], [address] [place] [address] #### 54858-8, 74156-0 #### [facility] ([id number]) [address] [place] [address] 20883 Platelet mean volume (Bld) [Entitic vol] 8.7 fL Normal 7-12 [facility] Comment on above: Performed By: #### Joan SUAREZ, , P, 69409-2, 53611-2, 99815- 4, 79910-5 #### [facility] ([id number]) [address] [facility], [address] [place] [address] #### 87900-0, 47139-8 #### [facility] ([id number]) [address] [place] [address] 15040 Platelets (Bld) [#/Vol] 300 10*3/uL Normal 150-450 [facility] Comment on above: Performed By: #### Joan SUAREZ, 39102-8, AHP, 80382-6, 97857-7, 74020- 4, 34782-5 #### [facility] ([id number]) [address] [facility], [address] [place] [address] #### 31915-9, 37815-4 #### [facility] ([id number]) [address] [place] [address] 08341 RBC COUNT 3.90 X10E12/L Normal 3.80-5.20 [facility] Comment on above: Performed By: #### C BC, 49308-6, AHP, 89136-1, 35550-8, 82275- 4, 61096-7 #### [facility] ([id number]) [address], [address] [place] [address] #### 99232-7, 41781-3 #### [facility] ([id number]) [address] [place] [address] WBC (Bld) [#/Vol] 9.7 10*3/uL Normal 4.0-11.0 [facility] Comment on above: Performed By: #### C , 38344-4, P, 18027-6, 87344-4, 32239- 4, 13355-2 #### [facility] ([id number]) [address] [facility], [address] [place] [address] #### 56275-6, 36063-2 #### [facility] ([id number]) [address] [place] [address] HCG.beta subunit IA 3rd IS Q non 09-17-2023 [place] [address] m[IU]/mL Normal P [facility] Comment on above: Result Comment: NEW [...] nontrophoblastic neoplasms. Performed By: #### Joan SUAREZ, 38635-3, P, 61561-6, 07834-1, 98312-9, 90156-9 #### [facility] ([id number]) [address] [place] [address], [address] [place] [address] #### 28475-6, 21790-5 #### [facility] ([id number]) [address] [place] [address] 14467 HIV 1+2 Ab+HIV1 p24 Ag IA Ql on 09-17-2023 HIV 1 and 2 Ab/Ag Screen Non-Reactive Normal NRCT [facility] Comment on above: Result Comment: This information [...] or diagnoses. Performed By: #### Joan SUAREZ, 64856-0, P, 51004-2, 94318-9, 50033-6, 19138-4 #### [facility] ([id number]) [address] [place] [address], [address] [place] [address] #### 92701-2, 82864-5 #### [facility] ([id number]) [address] [place] [address] 69398 Reagin Ab RPR (S) [Titer]on 09-17-2023 RPR TITER, SERUM SEE COMMENTS 09/21/2023 10:[address] [facility] Comment on above: Result Comment: NOTE Test Result Flag Unit RefValue RPR, Titer, S 1:1 A Negative Results consistent with untreated or recently treated syphilis. Clinical correlation required. For additional information on interpretation of the syphilis reverse algorithm and results, see: [email or web address] Test Performed by: [place] [address] Advertising Sales Executive: Luke Downey M.D. Ph.D.; CLIA# [id number] Performed By: #### C ERICK, 55822-2, AHP, 55605-4, 25238-2, 53530-1, 97531-0 #### [facility] ([id number]) [address] [place] [address], [facility] [address] [place] [address] #### 35042-8, 51664-9 #### [facility] ([id number]) [address] [place] [address] Reagin Ab RPR Ql (S)on 09-16 RPR WITH REFLEX TO RTPPA Positive Abnormal Negative [facility] Comment on above: Result Comment: NOTE Specimen reflexed to determine RPR titer. For additional information on interpretation of the syphilis reverse algorithm and results, see: [email or web address] Test Performed by: [facility] [place] [address] Advertising Sales Executive: Luke Downey M.D. Ph.D.; CLIA# [id number] Performed By: #### C BC, 71529-4, AHP, 78298-0, 51719-0, 01968-1, 04145-1 #### [facility] ([id number]) [address] [place] [address], [address] [place] [address] #### 10044-9, 75867-9 #### [facility] ([id number]) [address] [place] [address] Rubella virus Ab Ql (S)on RUBELLA IMMUNE IgG 1.0 AI Normal [facility] Comment on above: Result Comment: Interpretation-------- <0.8 NEGATIVE-considered Not Immune 0.8-0.9 EQUIVOCAL-consider retesting with new specimen >0.9 POSITIVE-considered Immune Performed By: #### C ERICK, 97556-8, AHP, 46335-8, 23380-1, 09596-0, 41864-6 #### [facility] ([id number]) [address] [place] [address], [address] [place] [address] #### 29603-7, 18523-0 #### [facility] ([id number]) [address] [place] [address] T. pallidum IgG+IgM IA Ql (S )on 09-17-2023 Syphilis Total >8.0 High 0.0-0.8 [facility] Comment on above: Result Comment: REAC TIVE This specimen will be sent to a reference lab for additional testing which includes RPR with reflex to TP-PA if RPR is negative. The RPR will help distinguish between infections with T.pallidum (syphilis) versus a falsely reactive treponemal antibody result. Please see the syphilis testing algorithm link below for more information. [email or web address] Performed By: #### [place], [address]-8, AHP, 66794-6, 97134-3, 90564-4, 51729-2 #### [facility] ([id number]) [address] [place] [address], [address] [place] [address] #### 25881-1, 28192-5 #### [facility] ([id number]) [address], [place] [address] US PREG TRANSABD FU PER FETU on 09-17-2023 US PREG TRANSABD FU PER FETU US PREG TRANSABD FU PER FETU US PREG TRANSABD FU PER FETU: 09/17/2023 8:25 AM Clinical: Check dates and viability. Real-time transabdominal sonography pelvis performed.. Transvaginal sonography pelvis performed for better evaluation of the pelvic organs. No comparison. There is a single live intrauterine . [place]-rump length of 8.8 cm corresponds to 14 [...] MD on 09/17/2023 11:[address] [facility] VZV IgG IA Ql (S)on 09-17-19 VARICELLA IgG 3.1 AI High <0.9 [facility] Comment on above: Result Comment: Interpretation-------- <0.9 Negative 0.9 - 1.0 Equivocal >1.0 Positive Performed By: #### C , 23962-5, [facility], 98321-8, 24063-5, 78100-0, 43883-2 #### [facility] ([id number]) [address] [place] [address], [address] [place] [address] #### 86456-0, 33683-2 #### [facility] ([id number]) [address] [facility] [address], [place] [address] Urinalysis - AUTOMATEDon Appearance (U) CLEAR [employer] Other Bilirubin Ql (U) Negative [employer] Other Color (U) YELLOW [employer] Other Glucose Ql (U) Negative [employer] Other Hemoglobin Ql (U) NEGTIVE [employer] Other Ketones Ql (U) Negative [employer] Other Leukocyte esterase Test strip Ql (U) Negative [employer] Other Nitrite Ql (U) Negative [employer] Other pH (U) 7.5 [pH] [employer] Other Protein Ql (U) Negative [employer] Other Specific gravity (U) [Rel density] 1.015 [employer] Other Urobilinogen (U) [Mass/Vol] 0.2 mg/dL [employer] Other Urinalysis - AUTOMATED [employer] Other Vaginitis Plus (VG+)on 12-19 Atopobium Vaginae High - 2 Critically abnormal . [facility] Comment on above: Performed By: #### V AGINITIS+ #### [facility] , BVAB2 High - 2 Critically abnormal . [facility] Comment on above: Performed By: #### V AGINITIS+ #### [facility] , Makenzie Albicans, KENNETH Negative Normal Negative [facility] Comment on above: Result Comment: This test was developed and its performance characteristics determined by [employer]. It has not been cleared or approved by the Food and Drug Administration. Performed By: #### V AGINITIS+ #### [facility] , Makenzie Glabrata, KENNETH Negative Normal Negative [facility] Comment on above: Result Comment: This test was developed and its performance characteristics determined by [employer]. It has not been cleared or approved by the Food and Drug Administration. PERFORMED BY: [facility] [place] [address] PATHOLOGIST FISHER SWORDFISH LEO PATEL M.D. Performed By: #### V AGINITIS+ #### [facility] , Chlamydia Trachomotis, KENNETH Positive Critically abnormal Negative [facility] Comment on above: Performed By: #### V AGINITIS+ #### [facility] , Megasphaera High - 2 Critically abnormal . [facility] Comment on above: Result Comment: Calc ulate [...] developed and its performance characteristics determined by [employer]. It has not been cleared or approved by the Food and Drug Administration. Performed By: #### V AGINITIS+ #### [facility] , Neisseria Gonorrhoeae, KENNETH Negative Normal Negative [facility] Comment on above: Result Comment: Perf ormed at: =G - [facility] [address] [id number] Advertising Sales Executive: Brianne Shabazz MD, Phone: [phone] Performed By: #### V AGINITIS+ #### [facility] , Tric Vag KENNETH Negative Normal Negative [facility] Comment on above: Performed By: #### V [...] TIESHA CASTILLO Date: 2020-01-30 14:39 Normal [facility] XR ANKLE LT MIN 3 Von [...] YAKOV DAWSON Date: 2019-12-27 09:54 Normal [facility] XR ANKLE LT MIN 3 Von [...] Date: 2019-11-29 13:43 Normal [facility] XR FOOT RT MIN 3 VIEWSon [...] Date: 2019-11-28 16:48 Normal [facility] XR TIB_FIB LT 2Von 0 XR [...] by: JUDE MCDANIEL Date: 2019-11-28 16:[address] [facility] Vital Signs Date Time Vital Sign Value Performing Clinician Facility 02-28-2024 15:51-0500 Body weight 83.92 kg Surya Eun DO Work Phone: [facility] 02-28-2024 15:51-0500 Diastolic blood pressure 72 mm[Hg] Surya Eun DO Work Phone: [facility] 02-28-2024 15:51-0500 Systolic blood pressure 108 mm[Hg] Surya Eun DO Work Phone: [facility] 02-21-2024 14:34-0400 Body weight 84.82 kg Jenna TOBIAS Work Phone: [facility] 02-21-2024 14:34-0400 Diastolic blood pressure 70 mm[Hg] Jenna Thomas PA Work Phone: [facility] 02-21-2024 14:34-0400 Systolic blood pressure 118 mm[Hg] Jenna Thomas PA Work Phone: [facility] 02-14-2024 15:25-0400 Body weight 83.01 kg Surya Eun DO Work Phone: [facility] 02-14-2024 15:25-0400 Diastolic blood pressure 72 mm[Hg] Surya Eun DO Work Phone: [facility] 02-14-2024 15:25-0400 Systolic blood pressure 118 mm[Hg] Surya Eun DO Work Phone: [facility] 02-07-2024 10:03-0400 Body weight 82.01 kg Jenna Thomas PA Work Phone: [facility] 02-07-2024 10:03-0400 Diastolic blood pressure 70 mm[Hg] Jenna TOBIAS Work Phone: [facility] 02-07-2024 10:03-0400 Systolic blood pressure 114 mm[Hg] Jenna TOBIAS Work Phone: [facility] 06-16-2023 13:06-0500 Body temperature 98.6 [degF] [facility] 06-16-2023 13:06-0500 Body weight 63.5 kg [facility] 06-16-2023 13:06-0500 Diastolic blood pressure 76 mm[Hg] [facility] 06-16-2023 13:06-0500 Heart rate 87 /min [facility] 06-16-2023 13:06-0500 Respiratory rate 18 /min [facility] 06-16-2023 13:06-0500 SaO2% (BldA) [Mass fraction] 98 % [facility] 06-16-2023 13:06-0500 Systolic blood pressure 119 mm[Hg] [facility] 12-19-2022 11:25-0400 Body height 160.02 cm Inessa Lewis Other [employer] [facility] [employer] Other 12-19-2022 11:25-0400 Body mass index (BMI) [Ratio] 24.3 kg/m2 Inessa Lewis Other [employer] Other 12-19-2022 11:25-0400 Body temperature 98.7 [degF] Inessa Lewis Other [employer] Other 12-19-2022 11:25-0400 Body weight 62.23 kg Inessa Lewis Other [employer] Other 12-19-2022 11:25-0400 Diastolic blood pressure 66 mm[Hg] Inessa Lewis Other [employer] Other 12-19-2022 11:25-0400 Respiratory rate 18 /min Inessa Macedoley Other [employer] Other 12-19-2022 11:25-0400 SaO2% (BldA) [Mass fraction] 99 % Inessa Macedoley Other [employer] Other 12-19-2022 11:25-0400 Systolic blood pressure 104 mm[Hg] Inessa Macedoley Other [employer] Other 08-15-2021 11:45-0400 Body height 160.02 cm Janny Gonzalez Other [employer] Other 08-15-2021 11:45-0400 Body mass index (BMI) [Ratio] 22.32 kg/m2 Janny Gonzalez Other [employer] Other 08-15-2021 11:45-0400 Body temperature 97.9 [degF] Janny Gonzalez Other [employer] Other 08-15-2021 11:45-0400 Body weight 57.15 kg Janny Gonzalez Other [employer] Other 08-15-2021 11:45-0400 Diastolic blood pressure 71 mm[Hg] Janny Gonzalez Other [employer] Other 08-15-2021 11:45-0400 Respiratory rate 18 /min Janny Hardyler Other [employer] Other 08-15-2021 11:45-0400 SaO2% (BldA) [Mass fraction] 100 % Janny Gonzalez Other [employer] Other 08-15-2021 11:45-0400 Systolic blood pressure 123 mm[Hg] Janny Gonzalez Other [employer] Other Encounters Encounter Date Encounter Type Care [...] 02-07-2024 Bamboo flowsheet Jenna TOBIAS Work Phone: [facility] Start: 02-07-2024 End: 02-07-2024 [...] Available Start: 01-02-2024 End: 01-02-2024 [facility] Start: 01-02-2024 End: 01-02-2024 Emergency department patient visit ROMI RIDER [facility] Start: 12-23-2023 End: 12-23-2023 ambulatory SURYA EUN Not Available Start: 12-02-2023 End: 12-02-2023 ambulatory JENNA WILLIAM Not Available Start: 11-30-2023 End: 11-30-[address] [facility] Start: 11-04-2023 End: 11-04-2023 ambulatory SONAM TENORIO [facility] Start: 10-06-2023 End: 10-06-2023 ambulatory DANDY RAMSEY [facility] Start: 10-05-2023 End: 10-05-2023 Emergency department patient visit [facility] Start: 09-29-2023 End: 09-29-2023 ambulatory [facility] Start: 09-22-2023 End: 09-22-2023 ambulatory [facility] Start: 09-21-2023 End: 09-22-2023 ambulatory [facility] Start: 09-21-2023 End: 09-21-2023 ambulatory [facility] Start: 09-21-2023 Encounter for gynecological examination (general) (routine) without abnormal findings [facility] Start: 09-21-2023 End: 09-21-2023 ambulatory [facility] Start: 09-21-2023 Encounter for gynecological examination (general) (routine) without abnormal findings [facility] Start: 09-17-2023 End: 09-17-2023 ambulatory [facility] Start: 08-13-2023 End: 08-13-2023 ambulatory [facility] Start: 06-16-2023 End: 06-16-2023 ambulatory [facility] Work Phone: Start: 06-16-2023 End: 06-16-2023 Patient encounter procedure [facility] Work Phone: Start: 12-19-2022 Office outpatient vi sit 15 minutes Inessa Lewis [facility] Start: 12-19-2022 End: 12-19-2022 ambulatory Inessa Lewis [facility] [employer] Other Start: 12-19-2022 End: 12-19-2022 Departed [facility]erred [facility]URNER Inessa Lewis Work Phone: [facility] [place] Work Phone: Start: 08-19-2021 End: 08-19-2021 ambulatory Janny Gonzalez Other [employer] Other Start: 08-19-2021 Telephone encounter Janny Gonzalez [facility] Start: 08-15-2021 End: 08-15-2021 ambulatory Janny Gonzalez Other [employer] Other Start: 08-15-2021 Office outpatient ne w 20 minutes Janny Gonzalez [facility] Start: 02-27-2020 Patient encounter procedure [facility] Facility:H1 Start: 01-30-2020 End: 01-31-2020 Patient encounter procedure [facility] Facility:[facility]1 Start: 01-16-2020 End: 01-16-2020 Patient encounter procedure CATHRYN BARNES Facility:H1 Start: 12-27-2019 End: 12-28-2019 Patient encounter procedure [facility] Facility:H1 Start: 11-29-2019 End: 11-30-2019 Patient encounter procedure [facility] Facility:H1 Start: 11-28-2019 End: 11-28-2019 Patient encounter procedure [facility] Facility:H1 Procedures Date Procedure Procedure Detail Performing [...] [facility] [address] [address] Jenna Thomas PA [address] [place] [address] [facility] Start: 02-14-2024 End: 02-14-2024 Patient encounter procedure 02/14/2024 2:30 PM EDT Routine [facility] [address] [id number] Surya Haq DO [address] [place], [place] [id number] [facility] Start: 02-07-2024 End: 02-06-2025 US biophysical profile w non stress test US biophysical profile w non stress test Imaging Routine contractions Size of fetus inconsistent with dates, antepartum Nonintractable headache, unspecified chronicity pattern, unspecified headache type History of syphilis Expected: 02/07/2024 (Approximate), Expires: 02/06/2025 [facility] Work Phone: Comment on above: Expected: 02/07/2024 (Approximate), Expires: 02/06/2025 Start: 02-07-2024 End: 02-07-2024 Patient encounter procedure 02/07/2024 9:50 AM EDT Routine [facility] [address] [id number] Jenna Thomas, PA [address] [place], [place] [id number] Arrived [facility] Comment on above: Arrived Start: 12-19-2022 [facility] Atopobium vaginae DN A [Presence] in Vaginal fluid by KENNETH with probe detection [facility] Bacterial vaginosis associated bacterium 2 DNA [Presence] in Vaginal fluid by KENNETH with probe detection [facility] Megasphaera sp type 1 DNA [Presence] in Vaginal fluid by KENNETH with probe detection [facility] Payers Date Payer Category Payer Self-pay [id number] 2022 Medicaid [facility] [id number] 2022 Medicaid [id number] 2.16840.1.287365.19 2019 Unknown [id number] 1997 Unknown [id number] 2.16.840.1.769583.3.579.2.593 1997 Unknown [id number] 2.16.840.1.170708.3.579.2.593 1997 Unknown [id number] 2.16.840.1.993323.3.579.2.59 1997 Unknown [id number] 2.16.840.1.975943.3.579.2.593 1997 Unknown [id number] 2.16.840.1.233312.3.579.2.593 1997 Unknown [id number] 2.16.840.1.017489.3.579.2.593 1997 Unknown [id number] 2.16.840.1.471801.3.579.2.128 1997 Unknown [id number] 2.16.840.1.491678.3.579.2.1285 1997 Unknown [id number] 2.16.840.1.298576.3.579.2.128 1997 Unknown [id number] 2.16.840.1.988389.3.579.2.1285 1997 Unknown [id number] 2.16.840.1.824342.3.579.2.1285 1997 Unknown [id number] 2.16.840.1.747356.3.579.2.1285 1997 Unknown [id number] 2.16.840.1.255402.3.579.2.1285 1997 Unknown [id number] 2.16.840.1.201804.3.579.2.1285 1997 Unknown [id number] 2.16.840.1.566850.3.579.2.1285 1997 Unknown [id number] 2.16.840.1.648245.3.579.2.1285 1997 Unknown [id number] 2.16840.1.293845.3.579.2.1285 1997 Unknown [id number] 2.16.840.1.130490.3.579.2.1285 1997 Unknown [id number] 2.16.840.1.241418.3.579.2.1285 1997 Unknown [id number] 2.16.840.1.132696.3.579.2.1285 1997 Unknown [id number] 2.16840.1.716868.3.579.2.1285 1997 Unknown [id number] 2.16.840.1.016512.3.579.2.1258 1997 Unknown [id number] 2.16.840.1.179797.3.579.2.1258 1997 Unknown [id number] 2.16.840.1.258638.3.579.2.1258 1997 Unknown [id number] 2.16.840.1.677913.3.579.2.1258 1997 Unknown [id number] 2.16.840.1.522435.3.579.2.1259 1997 Unknown [id number] 2.16.840.1.453032.3.579.2.9 1997 Unknown [id number] 2.16.840.1.324791.3.579.2.9 1997 Unknown [id number] 2.16.840.1.965664.3.579.2.1259 1959 Unknown [id number] Unknown [id number] 2.16.840.1.632701.19 Unknown [id number] 2.16.840.1.805979.3.579.2.531 Social History Date Type Detail Facility Unknown if ever smoked [facility] [employer] Other Sex Assigned At [facility] [employer] Other Start: 1995 Sex Assigned At Female F [facility] Start: 06-16-2023 Tobacco smoking status [facility] Never smoked tobacco (finding) [facility] Tobacco smoking status [facility] Tobacco smoking consumption unknown [facility] Start: 06-20-2023 [facility] Start: 1995 Sex assigned at Not on file N [facility] Clinical Notes 08-15-2021 to 02-28-2024 Charmaine Calderon [...] Oral, Every 8 hours PRN Prenat w/o P-FyZed-Fimc-FA-DHA ([employer]Start DHA) 31-0.6-0.4-200 MG capsule 1 capsule, [...] nursing note reviewed. Exam conducted with a medical technologist blood bank present. Vitals: There is no height or [...] Surya Haq DO documented in this encounter [facility] 02-21-2024 History of Presen t illness Narrative [...] Oral, Every 8 hours PRN Prenat w/o I-RaGdy-Vbxj-FA-DHA (TriStart DHA) 31-0.6-0.4-200 MG capsule 1 capsule, [...] of: JATINDER Pineda documented in this encounter [facility] 02-14-2024 History of Presen t illness Narrative [...] Oral, Every 8 hours PRN Prenat w/o R-UpNtp-Hiby-FA-DHA (TriStart DHA) 31-0.6-0.4-200 MG capsule 1 capsule, [...] nursing note reviewed. Exam conducted with a medical technologist blood bank present. Vitals: There is no height or [...] Surya Haq DO documented in this encounter [facility] 02-07-2024 History of Presen t illness Narrative Reason for Appointment: Patient ID: Kelly Hrarell is a 28 y.o. female who presents [...] Oral, Every 8 hours PRN Prenat w/o C-OoHln-Qczd-FA-DHA (TriStart DHA) 31-0.6-0.4-200 MG capsule 1 capsule, [...] nursing note reviewed. Exam conducted with a medical technologist blood bank present. Vitals: There is no height or [...] Delivery: 03/12/24. Patient to schedule NST/BPP's at [facility]. Order given to patient and also faxed to [facility] scheduling and [facility]. Patient to return to clinic in 1 week. Documented by Malinda Bundy LPN on behalf of: JATINDER Pineda documented in this encounter [facility] 12-19-2022 Evaluation note Encounter Date Diagnosis Assessment [...] in 4-6 days. FU with PCP or [facility] in not improving over next 5-7 days. [employer] Other 04-22-2022 Evaluation note* Encounter Date Diagnosis [...] results. Patient to follow with PCP or PUBLIC OPINION SURVEY TAKER as needed for persistent or worsening symptoms. Immediate eval if abdominal pain, fever, chills, body aches, back/flank pain, nausea, urinary complaints. Patient may use OTC external yeast infection creams for external irritation, do not insert creams or meds as Diflucan rx will treat. Avoid scratching and douching. Patient verbalizes understanding and is agreeable to treatment plan [employer] Other evaluation noteNo [employer] Other evaluation noteNo assessment information available [facility] Work Phone: Evaluation note* Diagnosis Onset Date Resolution Status Pre-employment examination a [facility] Work Phone: Evaluation note* Diagnosis [...] wisdom teeth Hospitalization History Fall Pneumothorax 2021 [employer] [facility] Other History general Narrative - Reported* Type Description Date Surgical History wisdom teeth Surgical History 1 Hospitalization History Fall Pneumothorax 2021 Hospitalization History 2016 [employer] [facility] Other Summary Purpose Family History No Family [...] Reason for Visit Pre-employment exami [facility] Additional Source Comments INFORMATION SOURCE (unrecogn ized section and content) DATE CREATED AUTHOR 02/19/2020 [facility] DATE CREATED AUTHOR AUTHOR'S ORGANIZ ATION 01/06/2023 [facility] DATE CREATED AUTHOR AUTHOR'S ORGANIZ ATION 09/22/2023 [facility] DATE CREATED AUTHOR AUTHOR'S ORGANIZ ATION 11/10/2023 [facility] DATE CREATED AUTHOR AUTHOR'S ORGANIZ ATION 01/03/2024 [facility] DATE CREATED AUTHOR AUTHOR'S ORGANIZ ATION 02/29/[address] [facility] dical Specialists EPIC REASON FOR VISIT [...] BE BASED ON THE PRIMARY CLINICAL RECORDS. [facility]. provides no warranty or guarantee of the accuracy or completeness of information in this document.
--- NOTE | 2024-03-03 17:04 | US_ITS ---
[address] [address] Patient Name: MELE HAAS MRN: [id number] date: 1995 Sex: F Assigned Patient Location: [facility] Current Patient Location: [facility] Accession/Order Number: [id number] Exam Date: 03/03/2024 17:35 Report Date: 03/06/2024 07:57 At the request of: SURYA GARCIA Procedure: US OB BPP w non-stress EXAMINATION: US OB BPP w non-stress HISTORY: CONTRACTIONS O47.00 COMPARISON: No relevant comparison available. TECHNIQUE: Ultrasound biophysical profile was performed in the radiology department. non-reactive stress testing was performed by nursing staff in the birthing center. FINDINGS: BREATHING MOVEMENTS: 2 GROSS BODY MOVEMENTS: 2 TONE: 2 QUALITATIVE AMNIOTIC FLUID VOLUME: 2 PRESENTATION: CEPHALIC HEART RATE: 141.36 bpm AMNIOTIC FLUID VOLUME: 12.7 cm GESTATIONAL AGE: 38 weeks 5 days US/US OB BPP w non-stress IMPRESSION: Total biophysical profile score: 8 Electronically authenticated by: YAKOV DAWSON Date: 03/06/2024 07:57
--- OUTSIDE RECORDS SUMMARY | 2024-03-03 17:14 | XMS_ITS | CCD ---
Author Organization [facility] Care Team Providers Care Power Transformer Inspector Name Role Phone MISC, DOCTOR Primary Care [...] Inessa Lewis Unavailable NIURKA Lewis Attending Provider [phone] Inessa Lewis Attending Unavailable Inessa Lewis Admitting [...] hours if needed 09/21/2023 Active Prenat w/o M-ViYtb-Tpwg-FA-DHA (TriStart DHA) 31-0.6-0.4-200 MG capsule (12 sources) Start: 08-13-2023 take 1 capsule by mouth in the morning Prenat w/o S-PvEsb-Vlrv-FA-DHA (TriStart DHA) 31-0.6-0.4-200 MG capsule Take 1 [...] UA Negative Negative - 4(70) +++ mg/dL [facility] Blood, UA Negative Negative - 50 Eriberto/mcL [facility] Clarity, UA Clear [facility] Color, UA Yellow [facility] Glucose, UA Negative Negative - 2000(110) ++++ mg/dL [facility] Interpretation and review of laboratory results Normal [facility] re Ketones, UA Negative Negative - 160(16) ++++ mg/dL [facility] Leukocytes, UA Negative Negative - 500+++ Pk/mcL [facility] Healthcare Nitrite, UA Negative Negative - Positive [facility] Healthcare pH, UA 6.5 5 - 9 [facility] Protein, UA Negative Negative - 1999(20) ++++ mg/dL [facility] Healthcare Spec Grav, UA 1.025 1 - 1.03 [facility] care Urobilinogen, UA 0.2 0.2 - 12 mg/dL [facility]inalysis macro (dipstick) panel (U)Ordered By: Carmenza Donovan on 02-15-2024 Bilirubin, UA Negative Negative - 4(70) +++ mg/dL [facility] Blood, UA Negative Negative - 50 Eriberto/mcL [facility] Healthcare Clarity, UA Clear [facility] Color, UA Yellow [facility] Glucose, UA Negative Negative - 1999(110) ++++ mg/dL [facility] Interpretation and review of laboratory results Normal [facility] Ketones, UA Negative Negative - 160(16) ++++ mg/dL [facility] Leukocytes, UA Negative Negative - 500+++ Pk/mcL [facility] Healthcare Nitrite, UA Negative Negative - Positive [facility] pH, UA 5.5 5 - 9 [facility] Health[facility] e Protein, UA Negative Negative - 1999(20) ++++ mg/dL [facility] Spec Grav, UA 1.02 1 - 1.03 [facility] Urobilinogen, UA 1.0 0.2 - 12 mg/dL [facility]inal[facility] macro (dipstick) panel (U)on 02-07-2024 Bilirubin, UA Negative Negative - 4(70) +++ mg/dL [facility] Blood, UA Negative Negative - 50 Eriberto/mcL [facility] Healthcare Clarity, UA Clear [facility] Color, UA Yellow [facility] Glucose, UA Negative Negative - 1999(110) ++++ mg/dL [facility] Interpretation and review of laboratory results Abnormal [facility] Ketones, UA Negative Negative - 160(16) ++++ mg/dL [facility] Healthcare Leukocytes, UA Negative Negative - 500+++ Pk/mcL [facility] Healthcare Nitrite, UA Negative Negative - Positive [facility] pH, UA 5.5 5 - 9 [facility] Protein, UA Negative Negative - 1999(20) ++++ mg/dL [facility] Spec Grav, UA 1.025 1 - 1.03 [facility] Urobilinogen, UA 1.0 0.2 - 12 mg/dL [facility] URINALYSISon 11-30-2023 Bilirubin Ql (U) Negative Normal NEG [facility] Comment on above: Performed By: #### C ERICK, 04316-8, AHP, 50049-6, 61450-5, 71656- 4, 98912-6 #### [facility] ([id number]) [address] [place] [address], [address] [place] [address] #### 50594-4, 06989-2 #### [facility] ([id number]) [address] [place] [address], [place] [address] BLOOD/HGB Negative Normal NEG [facility] Comment on above: Performed By: #### Joan SUAREZ, , AHP, 63508-0, 95615-1, 08784- 4, 17779-2 #### [facility] ([id number]) [address] [place] [address], [address] [place] [address] #### 02344-4, 52806-6 #### [facility] ([id number]) [address] [place] [address] Color (U) YELLOW Normal YELLOW [facility] Comment on above: Performed By: #### Joan SUAREZ, 35599-2, AHP, 39623-6, 03232-2, 47576- 4, 65673-8 #### [facility] ([id number]) [address] [place] [address], [address] [place] [address] #### 15825-9, 47265-1 #### [facility] ([id number]) [address] [place] [address], [place] [address] Glucose Ql (U) Negative Normal NEG [facility] Comment on above: Performed By: #### C BC, 23591-7, AHP, 49170-7, 84677-6, 04758- 4, 66844-2 #### [facility] ([id number]) [address], [address] [place] [address] #### 23453-1, 35449-9 #### [facility] ([id number]) [address] [place] [address] Ketones Ql (U) Negative Normal NEG [facility] Comment on above: Performed By: #### C BC, 02547-1, AHP, 41550-3, 53735-8, 19834- 4, 31331-7 #### [facility] ([id number]) [address] [facility], [address] [place] [address] #### 44297-5, 11875-7 #### [facility] ([id number]) [address] [place] [address] Leukocyte esterase Test strip Ql (U) Negative Normal NEG [facility] Comment on above: Performed By: #### C BC, 34631-5, AHP, 42955-6, 82486-0, 93786- 4, 17515-6 #### [facility] ([id number]) [address], [address] [place] [address] #### 83744-7, 86439-8 #### [facility] ([id number]) [address] [place] [address] Nitrite Ql (U) Negative Normal NEG [facility] Comment on above: Performed By: #### C BC, 74101-1, AHP, 49767-2, 49436-1, 39678- 4, 66738-8 #### [facility] ([id number]) [address], [address] [place] [address] #### 82237-1, 43152-5 #### [facility] ([id number]) [address] [place] [address] pH (U) 7.0 [pH] Normal 5.0-8.[address] [facility] Comment on above: Performed By: #### Joan SUAREZ, 27692-7, AHP, 72523-2, 17747-8, 82484- 4, 64589-9 #### [facility] ([id number]) [address] [facility], [address] [place] [address] #### 08733-0, 00032-4 #### [facility] ([id number]) [address] [place] [address] Protein Ql (U) Negative Normal NEG [facility] Comment on above: Performed By: #### Joan SUAREZ, 62298-2, AHP, 47035-2, 75088-7, 97623- 4, 16801-4 #### [facility] ([id number]) [facility], [address] [place] [address] #### 27429-0, 04088-0 #### [facility] ([id number]) [address] [place] [address] Specific gravity (U) [Rel density] 1.025 Normal 1.003-1.[address] [facility] Comment on above: Performed By: #### Joan SUAREZ, 32344-4, AHP, 96064-4, 79112-2, 78167- 4, 15425-7 #### [facility] ([id number]) [address], [address] [place] [address] #### 21897-2, 19947-0 #### [facility] ([id number]) [address] [place] [address] TURBIDITY CLEAR Normal CLEAR [facility] Comment on above: Performed By: #### Joan SUAREZ, 69832-1, AHP, 93650-6, 62639-1, 10832- 4, 74634-0 #### [facility] ([id number]) [address] [place] [address], [address] [address] #### 42084-4, 06517-5 #### [facility] ([id number]) [address] [place] [address] Urobilinogen Qn (U) 0.2 {Saleem'U}/dL Normal <1.[address] [facility] Comment on above: Performed By: #### C BC, 63233-0, AHP, 84510-9, 56026-9, 84320- 4, 33392-6 #### [facility] ([id number]) [address] [place] [address], [address] [address] #### 32263-2, 08100-5 #### [facility] ([id number]) [address] [place] [address] CHLAMYDIA/GC PCR, FLon 09-20 CHLAMYDIA/GC PCR, FL [...] on adequate specimen collection. Normal [facility] Comment on above: Performed By: #### C BC, 91201-7, P, 63897-3, 20677-1, 32098- 4, 93178-0 #### [facility] ([id number]) [address] [place] [address], [address] [address] #### 26338-8, 29553-3 #### [facility] ([id number]) [address] [place] [address] DRUG SCREEN, URINEon 024 AMPHETAMINE/METHAMP Negative Normal NEG [facility] Comment on above: Result Comment: AMPH /METH screening cut off = 1000 ng/mL Performed By: #### D DOWNING #### [facility] ([id number]) [address], [address] [place] [address] BARBITURATES Negative Normal NEG [facility] Comment on above: Result Comment: Venita iturates screening cut off value = 200 ng/mL Performed By: #### D DOWNING #### [facility] ([id number]) [address], [address] [place] [address] BENZODIAZEPINES Negative Normal NEG [facility] Comment on above: Result Comment: Ander odiazepines screening cut off value = 200 ng/mL Performed By: #### D DOWNING #### [facility] ([id number]) [address], [address] [place] [address] CANNABINOIDS Positive Abnormal NEG [facility] Comment on above: Result Comment: Conf irmation available upon request. Cannabinoids/THC screening cut off value = 50 ng/mL Performed By: #### D DOWNING #### [facility] ([id number]) [address], [address] [place] [address] COCAINE METABOLITE Negative Normal NEG [facility] Comment on above: Result Comment: Coca ine screening cut off value = 300 ng/mL Performed By: #### D DOWNING #### [facility] ([id number]) [address], [address] [place] [address] ECSTASY Negative Normal NEG [facility] Comment on above: Result Comment: Ecst asy screening cut off value = 500 ng/mL This report is intended for use in clinical monitoring or management of patients. Performed By: #### D DOWNING #### [facility] ([id number]) [address], [address] [place] [address] METHADONE Negative Normal NEG [facility] Comment on above: Result Comment: Meth adone screening cut off value = 300 ng/mL. Performed By: #### D DOWNING #### [facility] ([id number]) [address] [facility], [address] [place] [address] OPIATES Negative Normal NEG [facility] Comment on above: Result Comment: Opia monica screening cut off value = 300 ng/mL NOTE: This test is used for the detection of codeine, hydrocodone (>1000 ng/mL), morphine and hydromorphone (>900 ng/mL) in urine. Performed By: #### D DOWNING #### [facility] ([id number]) [address] [place] [address], [address] [place] [address] OXYCODONE Negative Normal NEG [facility] Comment on above: Result Comment: Oxyc odone screening cut off value = 300 ng/mL NOTE: This test is used for the detection of oxycodone and oxymorphone in urine. Performed By: #### D DOWNING #### [facility] ([id number]) [address] [place] [address] [place] [address] PHENCYCLIDINE Negative Normal NEG [facility] Comment on above: Result Comment: Phen cyclidine screening cut off value = 25 ng/mL Performed By: #### D DOWNING #### [facility] ([id number]) [address] [place] [address], [address] [place] [address] URINALYSISon 09-21-2023 Bilirubin Ql (U) Negative Normal NEG [facility] Comment on above: Performed By: #### U A #### [facility] ([id number]) [address] [place] [address] BLOOD/HGB Negative Normal NEG [facility] Comment on above: Performed By: #### U A #### [facility] ([id number]) [address] [place] [address] [place] [address] Color (U) YELLOW Normal YELLOW [facility] Comment on above: Performed By: #### U A #### [facility] ([id number]) [address] [place] [address] [address] [place] [address] Glucose Ql (U) Negative Normal NEG [facility] Comment on above: Performed By: #### U A #### [facility] ([id number]) [address], [address] [place] [address] Ketones Ql (U) >150 Abnormal NEG [facility] Comment on above: Performed By: #### U A #### [facility] ([id number]) [address], [address] [place] [address] Leukocyte esterase Test strip Ql (U) Negative Normal NEG [facility] Comment on above: Performed By: #### U A #### [facility] ([id number]) [address], [address] [place] [address] Nitrite Ql (U) Negative Normal NEG [facility] Comment on above: Performed By: #### U A #### [facility] ([id number]) [address], [address] [place] [address] pH (U) 6.0 [pH] Normal 5.0-8.5 [facility] Comment on above: Performed By: #### U A #### [facility] ([id number]) [address], [address] [place] [address] Protein Ql (U) Negative Normal NEG [facility] Comment on above: Performed By: #### U A #### [facility] ([id number]) [address], [address] [place] [address] Specific gravity (U) [Rel density] 1.019 Normal 1.003-1.035 [facility] Comment on above: Performed By: #### U A #### [facility] ([id number]) [address], [address] [place] [address] TURBIDITY CLEAR Normal CLEAR [facility] Comment on above: Performed By: #### U A #### [facility] ([id number]) [address] [facility], [address] [place] [address] Urobilinogen (U) [Mass/Vol] mg/dL Normal <1.1 [facility] Comment on above: Performed By: #### U A #### [facility] ([id number]) [address] [facility], [address] [place] [address] URINE CULTUREon 09-21-2023 Bacteria identified Cx Nom (U) CULTURE RESULTS 10,000 to 50,000 ORGANISMS/mL ESCHERICHIA COLI <10,000 ORGANISMS/mL NORMAL URO GENITAL JACKIE Normal [facility] Comment on above: Performed By: #### 6 30-4 #### [facility] ([id number]) [address] [place] [address], [address] [place] [address] ACUTE HEPATITIS PANELon 08-25 ANTI HCV W/PCR REFLX Non-Reactive Normal NRCT [facility] Comment on above: Result Comment: If recent infection suspected, recommend repeat testing (>2 months). Fhjyvu-dn-flfcli ratio is <0.80. Performed By: #### C BC, 29284-5, AHP, 94774-7, 13011-0, 18099-1, 01728-6 #### [facility] ([id number]) [address] [facility], [address] [place] [address] #### 36733-0, 84768-7 #### [facility] ([id number]) [address] [place] [address], [place] [address] HEPATITIS A IGM Non-Reactive Normal NRCT [facility] Comment on above: Performed By: #### C BC, 27387-2, AHP, 87131-6, 75798-6, 00643- 4, 42348-4 #### [facility] ([id number]) [address] [facility], [address] [place] [address] #### 50421-8, 54358-1 #### [facility] ([id number]) [address] [place] [address] HEPATITIS B CORE IGM Negative Normal NEG [facility] Comment on above: Performed By: #### C ERICK, 12568-2, AHP, 35767-7, 95445-3, 08040- 4, 13126-8 #### [facility] ([id number]) [address], [address] [place] [address] #### 94910-1, 22501-8 #### [facility] ([id number]) [address] [place] [address] HEPATITIS B SURF AG Negative Normal NEG [facility] Comment on above: Performed By: #### Joan SUAREZ, , AHP, 49432-5, 77718-8, 10284- 4, 19843-5 #### [facility] ([id number]) [address], [address] [place] [address] #### 53318-0, 37346-0 #### [facility] ([id number]) [address] [place] [address] COMPLETE BLOOD COUNTon 09-16 Erythrocyte distribution width (RBC) [Ratio] 13.0 % Normal 11.5-15.[address] [facility] Comment on above: Performed By: #### Joan SUAREZ, 47807-1, AHP, 08256-2, 30997-7, 24478- 4, 84714-6 #### [facility] ([id number]) [address], [address] [place] [address] #### 51515-4, 94181-7 #### [facility] ([id number]) [address] [place] [address] Hematocrit (Bld) [Volume fraction] 36.1 % Normal 35-[address] [facility] Comment on above: Performed By: #### Joan SUAREZ, 26774-6, AHP, 43287-8, 54512-5, 85733- 4, 72442-3 #### [facility] ([id number]) [address], [address] [place] [address] #### 16290-9, 18755-0 #### [facility] ([id number]) [address] [place] [address] Hemoglobin (Bld) [Mass/Vol] 12.5 g/dL Normal 11.7-15.[address] [facility] Comment on above: Performed By: #### C BC, 77513-1, AHP, 38955-6, 00984-7, 73342- 4, 50502-2 #### [facility] ([id number]) [address], [address] [place] [address] #### 81272-2, 88206-2 #### [facility] ([id number]) [address] [place] [address] MCH (RBC) [Entitic mass] 32.0 pg Normal 27-[address] [facility] Comment on above: Performed By: #### C BC, 22235-7, AHP, 14650-8, 48435-8, 52579- 4, 68287-1 #### [facility] ([id number]) [address], [address] [place] [address] #### 65523-1, 47044-2 #### [facility] ([id number]) [address] [place] [address] MCHC (RBC) [Mass/Vol] 34.6 g/dL Normal 32-[address] [facility] Comment on above: Performed By: #### C BC, 09652-2, AHP, 91771-2, 67949-9, 61035- 4, 63717-1 #### [facility] ([id number]) [address], [address] [place] [address] #### 16631-4, 95318-0 #### [facility] ([id number]) [address] [place] [address] MCV (RBC) [Entitic vol] 93 fL Normal 80-[address] [facility] Comment on above: Performed By: #### Joan SUAREZ, 69583-1, AHP, 79097-2, 37340-3, 83026- 4, 13166-0 #### [facility] ([id number]) [address], [address] [place] [address] #### 43565-2, 09168-8 #### [facility] ([id number]) [address] [place] [address] Platelet mean volume (Bld) [Entitic vol] 8.7 fL Normal 7-[address] [facility] Comment on above: Performed By: #### Joan SUAREZ, , P, 08424-5, 54961-2, 49257- 4, 06511-9 #### [facility] ([id number]) [address], [address] [place] [address] #### 88588-4, 07850-9 #### [facility] ([id number]) [address] [place] [address] Platelets (Bld) [#/Vol] 300 10*3/uL Normal 150-[address] [facility] Comment on above: Performed By: #### Joan SUAREZ, 20929-8, AHP, 16755-3, 83747-6, 00048- 4, 16198-8 #### [facility] ([id number]) [address], [address] [place] [address] #### 73662-5, 92671-7 #### [facility] ([id number]) [address] [place] [address] RBC COUNT 3.90 X10E12/L Normal 3.80-5.[address] [facility] Comment on above: Performed By: #### C BC, 14594-2, AHP, 29922-7, 58110-3, 76620- 4, 28906-3 #### [facility] ([id number]) [address], [address] [place] [address] #### 98807-2, 81056-9 #### [facility] ([id number]) [address] [place] [address] WBC (Bld) [#/Vol] 9.7 10*3/uL Normal 4.0-11.0 [facility] Comment on above: Performed By: #### C , 40331-0, P, 71634-2, 30246-3, 66502- 4, 51291-8 #### [facility] ([id number]) [address], [address] [place] [address] #### 65081-0, 62591-3 #### [facility] ([id number]) [address] [place] [address] HCG.beta subunit IA 3rd IS Q non 09-17-2023 [place] [address] m[IU]/mL Normal P [facility] Comment on above: Result Comment: NEW REFERENCE [...] nontrophoblastic neoplasms. Performed By: #### Joan SUAREZ, 26581-8, P, 84887-8, 47166-4, 15974-1, 69903-7 #### [facility] ([id number]) [address] [place] [address], [address] [place] [address] #### 23552-7, 42296-0 #### [facility] ([id number]) [address] [place] [address] HIV 1+2 Ab+HIV1 p24 Ag IA Ql on 09-17-2023 HIV 1 and 2 Ab/Ag Screen Non-Reactive Normal NRCT [facility] Comment on above: Result Comment: This [...] or diagnoses. Performed By: #### Joan SUAREZ, 31489-0, P, 89139-1, 56663-6, 11823-6, 59968-3 #### [facility] ([id number]) [address] [place] [address], [address] [place] [address] #### 79992-4, 44977-1 #### [facility] ([id number]) [address] [place] [address] Reagin Ab RPR (S) [Titer]on 09-17-2023 RPR TITER, SERUM SEE COMMENTS 09/21/2023 10:37 AM Abnormal [facility] Comment on above: Result Comment: NOTE Test Result Flag Unit RefValue RPR, Titer, S 1:1 A Negative Results consistent with untreated or recently treated syphilis. Clinical correlation required. For additional information on interpretation of the syphilis reverse algorithm and results, see: [email or web address] Test Performed by: [place] [address] [employer]: Luke Downey M.D. Ph.D.; CLIA# [id number] Performed By: #### C ERICK, 92361-4, AHP, 39841-8, 60490-4, 31674-2, 98133-2 #### [facility] ([id number]) [address] [place] [address], [facility] [address] [place] [address] #### 03882-9, 96020-8 #### [facility] ([id number]) [address] [place] [id number] Reagin Ab RPR Ql (S)on 09-16 RPR WITH REFLEX TO RTPPA Positive Abnormal Negative [facility] Comment on above: Result Comment: NOTE Specimen reflexed to determine RPR titer. For additional information on interpretation of the syphilis reverse algorithm and results, see: [email or web address] Test Performed by: [facility] [place] [address] [employer]inder: Luke Downey M.D. Ph.D.; CLIA# [id number] Performed By: #### C [place], 67396-3, AHP, 66208-0, 51968-0, 10006-5, 09233-1 #### [facility] ([id number]) [address] [place], [place] [address], [address] [place] [address] #### 24640-3, 36860-4 #### [facility] ([id number]) [address] [place] [address] Rubella virus Ab Ql (S)on RUBELLA IMMUNE IgG 1.0 AI Normal [facility] Comment on above: Result Comment: Interpretation-------- <0.8 NEGATIVE-considered Not Immune 0.8-0.9 EQUIVOCAL-consider retesting with new specimen >0.9 POSITIVE-considered Immune Performed By: #### C REICK, 61816-0, AHP, 20485-0, 47052-9, 01931-9, 90228-1 #### [facility] ([id number]) [address] [place] [address], [address] [place] [address] #### 16058-5, 16758-8 #### [facility] ([id number]) [address] [place] [address] T. pallidum IgG+IgM IA Ql (S )on 09-17-2023 Syphilis Total >8.0 High 0.0-0.[address] [facility] Comment on above: Result Comment: REAC TIVE This specimen will be sent to a reference lab for additional testing which includes RPR with reflex to TP-PA if RPR is negative. The RPR will help distinguish between infections with T.pallidum (syphilis) versus a falsely reactive treponemal antibody result. Please see the syphilis testing algorithm link below for more information. [email or web address] Performed By: #### [place], [address]-5, AHP, 38411-8, 17336-8, 44309-6, 31181-1 #### [facility] ([id number]) [address] [place] [address], [address] [place] [address] #### 80260-1, 99211-6 #### [facility] ([id number]) [address] [facility], [place] [address] US PREG TRANSABD FU PER FETU on 09-17-2023 US PREG TRANSABD FU PER FETU US PREG TRANSABD FU PER FETU US PREG TRANSABD FU PER FETU: 09/17/2023 8:25 AM Clinical: Check dates and viability. Real-time transabdominal sonography pelvis performed.. Transvaginal sonography pelvis performed for better evaluation of the pelvic organs. No comparison. There is a single live intrauterine . [place]-rump length of 8.8 cm corresponds to 14 [...] on 09/17/2023 11:55 AM Normal [facility] VZV IgG IA Ql (S)on 09-17-19 VARICELLA IgG 3.1 AI High <0.[address] [facility] Comment on above: Result Comment: Interpretation-------- <0.9 Negative 0.9 - 1.0 Equivocal >1.0 Positive Performed By: #### C , 63386-3, [facility], 13100-1, 30213-6, 31062-4, 71831-5 #### [facility] ([id number]) [address] [place] [address], [address] [place] [address] #### 50117-4, 18830-6 #### [facility] ([id number]) [address] [facility], [place] [address] Urinalysis - AUTOMATEDon Appearance (U) CLEAR [employer] Other Bilirubin Ql (U) Negative [employer] Other Color (U) YELLOW [facility] Other Glucose Ql (U) Negative [employer] Other Hemoglobin Ql (U) NEGTIVE [employer] Other Ketones Ql (U) Negative [employer] Other Leukocyte esterase Test strip Ql (U) Negative [employer] Other Nitrite Ql (U) Negative [employer] Other pH (U) 7.5 [pH] [employer] Other Protein Ql (U) Negative [employer] Other Specific gravity (U) [Rel density] 1.015 [employer] Other Urobilinogen (U) [Mass/Vol] 0.2 mg/dL [employer] Other Urinalysis - AUTOMATED [employer] Other Vaginitis Plus (VG+)on 12-19 Atopobium Vaginae High - 2 Critically abnormal . [facility] Comment on above: Performed By: #### V AGINITIS+ #### [facility] , BVAB2 High - 2 Critically abnormal . [facility] Comment on above: Performed By: #### V AGINITIS+ #### [facility] , Makenzie Albicans, KENNETH Negative Normal Negative [facility] Comment on above: Result Comment: This test was developed and its performance characteristics determined by [facility]. It has not been cleared or approved by the Food and Drug Administration. Performed By: #### V AGINITIS+ #### [facility] , Makenzie Glabrata, KENNETH Negative Normal Negative [facility] Comment on above: Result Comment: This test was developed and its performance characteristics determined by [facility]. It has not been cleared or approved by the Food and Drug Administration. PERFORMED BY: [facility] [place] [address] PATHOLOGIST EDI SPECIALIST LEO PATEL M.D. Performed By: #### V AGINITIS+ #### [facility] , Chlamydia Trachomotis, KENNETH Positive Critically abnormal Negative [facility] Comment on above: Performed By: #### V AGINITIS+ #### [facility] , Megasphaera High - 2 Critically abnormal . [facility] Comment on above: Result Comment: Calc ulate [...] developed and its performance characteristics determined by [employer]. It has not been cleared or approved by the Food and Drug Administration. Performed By: #### V AGINITIS+ #### [facility] , Neisseria Gonorrhoeae, KENNETH Negative Normal Negative [facility] Comment on above: Result Comment: Perf ormed at: =G - [facility] [address] [id number] Heavy Coil Winder: Brianne Shabazz MD, Phone: [phone] Performed By: #### V AGINITIS+ #### [facility] , Tric Vag KENNETH Negative Normal Negative [facility] Comment on above: Performed By: #### V [...] TIESHA CASTILLO Date: 2020-01-30 14:39 Normal [facility] XR ANKLE LT MIN 3 Von [...] YAKOV DAWSON Date: 2019-12-27 09:54 Normal [facility] XR ANKLE LT MIN 3 Von [...] TIESHA CASTILLO Date: 2019-11-29 13:43 Normal [facility] XR FOOT RT MIN 3 VIEWSon XR FOOT RT MIN 3 VIEWS EXAM: Right foot HISTORY: Pain after a fall. TECHNIQUE: 3 views of the right foot were obtained. FINDINGS: There is no evidence of fracture or dislocation. There are no suspicious bone lesions. Soft tissues are normal. IMPRESSION: Unremarkable exam. Electronically authenticated by: JUDE MCDANIEL Date: 2019-11-28 16:48 Normal [facility] XR TIB_FIB LT 2Von 0 XR [...] by: JUDE MCDANIEL Date: 2019-11-28 16:47 Normal [facility] Vital Signs Date Time Vital Sign Value Performing Clinician Facility 02-28-2024 15:51-0500 Body weight 83.92 kg Surya Eun DO Work Phone: [facility] 02-28-2024 15:51-0500 Diastolic blood pressure 72 mm[Hg] Surya Eun DO Work Phone: [facility] 02-28-2024 15:51-0500 Systolic blood pressure 108 mm[Hg] Surya Eun DO Work Phone: [facility] 02-21-2024 14:34-0400 Body weight 84.82 kg Jenna TOBIAS Work Phone: [facility] 02-21-2024 14:34-0400 Diastolic blood pressure 70 mm[Hg] Jenna Thomas PA Work Phone: [facility] 02-21-2024 14:34-0400 Systolic blood pressure 118 mm[Hg] Jenna Thomas PA Work Phone: [facility] 02-14-2024 15:25-0400 Body weight 83.01 kg Surya Eun DO Work Phone: [facility] 02-14-2024 15:25-0400 Diastolic blood pressure 72 mm[Hg] Surya Eun DO Work Phone: [facility] 02-14-2024 15:25-0400 Systolic blood pressure 118 mm[Hg] Surya Eun DO Work Phone: [facility] 02-07-2024 10:03-0400 Body weight 82.01 kg Jenna Thomas PA Work Phone: [facility] 02-07-2024 10:03-0400 Diastolic blood pressure 70 mm[Hg] Jenna TOBIAS Work Phone: [facility] 02-07-2024 10:03-0400 Systolic blood pressure 114 mm[Hg] Jenna TOBIAS Work Phone: [facility] 06-16-2023 13:06-0500 Body temperature 98.6 [degF] [facility] 06-16-2023 13:06-0500 Body weight 63.5 kg [facility] 06-16-2023 13:06-0500 Diastolic blood pressure 76 mm[Hg] [facility] 06-16-2023 13:06-0500 Heart rate 87 /min [facility] 06-16-2023 13:06-0500 Respiratory rate 18 /min [facility] 06-16-2023 13:06-0500 SaO2% (BldA) [Mass fraction] 98 % [facility] 06-16-2023 13:06-0500 Systolic blood pressure 119 mm[Hg] [facility] 12-19-2022 11:25-0400 Body height 160.02 cm Inessa Lewis Other [facility] [employer] Other 12-19-2022 11:25-0400 Body mass index (BMI) [Ratio] 24.3 kg/m2 Inessa Lewis Other [employer] Other 12-19-2022 11:25-0400 Body temperature 98.7 [degF] Inessa Lewis Other [employer] Other 12-19-2022 11:25-0400 Body weight 62.23 kg Inessa Lewis Other [employer] Other 12-19-2022 11:25-0400 Diastolic blood pressure 66 mm[Hg] Inessa Lewis Other [employer] Other 12-19-2022 11:25-0400 Respiratory rate 18 /min Inessa Macedoley Other [employer] Other 12-19-2022 11:25-0400 SaO2% (BldA) [Mass fraction] 99 % Inessa Macedoley Other [employer] Other 12-19-2022 11:25-0400 Systolic blood pressure 104 mm[Hg] Inessa Macedoley Other [employer] Other 08-15-2021 11:45-0400 Body height 160.02 cm Janny Gonzalez Other [employer] Other 08-15-2021 11:45-0400 Body mass index (BMI) [Ratio] 22.32 kg/m2 Janny Gonzalez Other [employer] Other 08-15-2021 11:45-0400 Body temperature 97.9 [degF] Janny Gonzalez Other [employer] Other 08-15-2021 11:45-0400 Body weight 57.15 kg Janny Gonzalez Other [employer] Other 08-15-2021 11:45-0400 Diastolic blood pressure 71 mm[Hg] Janny Gonzalez Other [employer] Other 08-15-2021 11:45-0400 Respiratory rate 18 /min Janny Hardyler Other [employer] Other 08-15-2021 11:45-0400 SaO2% (BldA) [Mass fraction] 100 % Janny Gonzalez Other [employer] Other 08-15-2021 11:45-0400 Systolic blood pressure 123 mm[Hg] Janny Gonzalez Other [employer] Other Encounters Encounter Date Encounter Type Care [...] 02-07-2024 Bamboo flowsheet Jenna TOBIAS Work Phone: [facility] Start: 02-07-2024 End: 02-07-2024 [...] Available Start: 01-02-2024 End: 01-02[facility]20[facility]: 01-02-2024 End: 01-02-2024 Emergency department patient visit ROMI RIDER [facility] Start: 12-23-2023 End: 12-23-2023 ambulatory SURYA EUN Not Available Start: 12-02-2023 End: 12-02-2023 ambulatory JENNA WILLIAM Not Available Start: 11-30-2023 End: 11-30-2023 ambulatory MALINDA PATE [facility] Start: 11-04-2023 End: 11-04-2023 ambulatory SONAM TENORIO [facility] Start: 10-06-2023 End: 10-06-2023 ambulatory DANDY RASMEY [facility] Start: 10-05-2023 End: 10-05-2023 Emergency department patient visit [facility] Start: 09-29-2023 End: 09-29-2023 ambulatory [facility] Start: 09-22-2023 End: 09-22-2023 ambulatory [facility] Start: 09-21-2023 End: 09-22-2023 ambulatory [facility] Start: 09-21-2023 End: 09-21-2023 ambulatory [facility] Start: 09-21-2023 Encounter for gynecological examination (general) (routine) without abnormal findings [facility] Start: 09-21-2023 End: 09-21-2023 ambulatory [facility] Start: 09-21-2023 Encounter for gynecological examination (general) (routine) without abnormal findings [facility] Start: 09-17-2023 End: 09-17-2023 ambulatory [facility] Start: 08-13-2023 End: 08-13-2023 ambulatory [facility] Start: 06-16-2023 End: 06-16-2023 ambulatory [facility] Work Phone: Start: 06-16-2023 End: 06-16-2023 Patient encounter procedure [facility] Work Phone: Start: 12-19-2022 Office outpatient vi sit 15 minutes Inessa Lewis [facility] Start: 12-19-2022 End: 12-19-2022 ambulatory Inessa Lewis [facility] [employer] Other Start: 12-19-2022 End: 12-19-2022 Departed [employer] Inessa Lewis Work Phone: [facility] [place] Work Phone: Start: 08-19-2021 End: 08-19-2021 ambulatory Janny Gonzalez Other [employer] Other Start: 08-19-2021 Telephone encounter Janny Gonzalez [facility] Start: 08-15-2021 End: 08-15-2021 ambulatory Janny Gonzalez Other [employer] Other Start: 08-15-2021 Office outpatient ne w 20 minutes Janny Gonzalez [facility] Start: 02-27-2020 Patient encounter procedure [facility] Facility:[facility] Start: 01-30-2020 End: 01-31-2020 Patient encounter procedure [facility] Facility:[facility] Start: 01-16-2020 End: 01-16-2020 Patient encounter procedure CATHRYN BARNES Facility:H1 Start: 12-27-2019 End: 12-28-2019 Patient encounter procedure [facility] Facility:[facility] Start: 11-29-2019 End: 11-30-2019 Patient encounter procedure [facility] Facility:[facility] Start: 11-28-2019 End: 11-28-2019 Patient encounter procedure [facility] Facility:H1 Procedures Date Procedure Procedure Detail [...] PM EDT Routine [facility] [address] [place] [address] Jenna Thomas PA [address] [place] [place] [address] [facility] Start: 02-14-2024 End: 02-14-2024 Patient encounter procedure 02/14/2024 2:30 PM EDT Routine [facility] [address] [facility] [place] [id number] Surya Haq DO [address] [place], [place] [id number] [facility] Start: 02-07-2024 End: 02-06-2025 US biophysical profile w non stress test US biophysical profile w non stress test Imaging Routine contractions Size of fetus inconsistent with dates, antepartum Nonintractable headache, unspecified chronicity pattern, unspecified headache type History of syphilis Expected: 02/07/2024 (Approximate), Expires: 02/06/2025 [facility] Work Phone: Comment on above: Expected: 02/07/2024 (Approximate), Expires: 02/06/2025 Start: 02-07-2024 End: 02-07-2024 Patient encounter procedure 02/07/2024 9:50 AM EDT Routine [facility] [address] [facility] [place] [id number] Jenna Thomas, PA [address] [place], [place] [id number] Arrived [facility] Comment on above: Arrived Start: 12-19-2022 [facility] Atopobium vaginae DN A [Presence] in Vaginal fluid by KENNETH with probe detection [facility] Bacterial vaginosis associated bacterium 2 DNA [Presence] in Vaginal fluid by KENNETH with probe detection [facility] Megasphaera sp type 1 DNA [Presence] in Vaginal fluid by KENNETH with probe detection [facility] Payers Date Payer Category Payer Self-pay [id number] 2022 Medicaid [facility] [id number] 2022 Medicaid [id number] 2.16840.1.408915.19 2019 Unknown [id number] 1997 Unknown [id number] 2.16.840.1.077777.3.579.2.593 1997 Unknown [id number] 2.16.840.1.605894.3.579.2.593 1997 Unknown [id number] 2.16.840.1.557039.3.579.2.59 1997 Unknown [id number] 2.16.840.1.532726.3.579.2.593 1997 Unknown [id number] 2.16.840.1.439552.3.579.2.593 1997 Unknown [id number] 2.16.840.1.473794.3.579.2.593 1997 Unknown [id number] 2.16.840.1.988707.3.579.2.128 1997 Unknown [id number] 2.16.840.1.143095.3.579.2.1285 1997 Unknown [id number] 2.16.840.1.734334.3.579.2.128 1997 Unknown [id number] 2.16.840.1.395015.3.579.2.1285 1997 Unknown [id number] 2.16.840.1.918328.3.579.2.1285 1997 Unknown [id number] 2.16.840.1.983471.3.579.2.1285 1997 Unknown [id number] 2.16.840.1.865466.3.579.2.1285 1997 Unknown [id number] 2.16.840.1.228639.3.579.2.1285 1997 Unknown [id number] 2.16.840.1.466265.3.579.2.1285 1997 Unknown [id number] 2.16.840.1.022994.3.579.2.1285 1997 Unknown [id number] 2.16840.1.248224.3.579.2.1285 1997 Unknown [id number] 2.16.840.1.746706.3.579.2.1285 1997 Unknown [id number] 2.16.840.1.116687.3.579.2.1285 1997 Unknown [id number] 2.16.840.1.592020.3.579.2.1285 1997 Unknown [id number] 2.16840.1.415222.3.579.2.1285 1997 Unknown [id number] 2.16.840.1.811800.3.579.2.1258 1997 Unknown [id number] 2.16.840.1.021751.3.579.2.1258 1997 Unknown [id number] 2.16.840.1.032265.3.579.2.1258 1997 Unknown [id number] 2.16.840.1.407533.3.579.2.1258 1997 Unknown [id number] 2.16.840.1.769383.3.579.2.1259 1997 Unknown [id number] 2.16.840.1.732745.3.579.2.9 1997 Unknown [id number] 2.16.840.1.984020.3.579.2.9 1997 Unknown [id number] 2.16.840.1.075484.3.579.2.1259 1959 Unknown [id number] Unknown [id number] 2.16.840.1.584584.19 Unknown [id number] 2.16.840.1.864553.3.579.2.531 Social History Date Type Detail Facility Unknown if ever smoked [facility] [employer] Other Sex Assigned At [facility] [employer] Other Start: 1995 Sex Assigned At Female [facility] Start: 06-16-2023 Tobacco smoking status [facility] Never smoked tobacco (finding) [facility] Tobacco smoking status [facility] Tobacco smoking consumption unknown [facility] Start: 06-20-2023 [facility] Start: 1997 Sex assigned at Not on file [facility] Clinical Notes 08-15-2021 to 02-28-2024 [...] Oral, Every 8 hours PRN Prenat w/o F-AzVnd-Zuvz-FA-DHA ([employer] DHA) 31-0.6-0.4-200 MG capsule 1 capsule, [...] nursing note reviewed. Exam conducted with a wrapping machine tender present. Vitals: There is no height or [...] Surya Haq DO documented in this encounter [facility] 02-21-2024 History of Presen t illness Narrative [...] Oral, Every 8 hours PRN Prenat w/o X-PaUyt-Efww-FA-DHA ([employer]Start DHA) 31-0.6-0.4-200 MG capsule 1 capsule, [...] of: JATINDER Pineda documented in this encounter [facility] 02-14-2024 History of Presen t illness Narrative [...] Oral, Every 8 hours PRN Prenat w/o F-BrVuq-Xinj-FA-DHA ([employer]Start DHA) 31-0.6-0.4-200 MG capsule 1 capsule, [...] nursing note reviewed. Exam conducted with a wrapping machine tender present. Vitals: There is no height or [...] Surya Haq DO documented in this encounter [facility] 02-07-2024 History of Presen t illness Narrative [...] Oral, Every 8 hours PRN Prenat w/o C-UoMun-Llmh-FA-DHA ([employer]Start DHA) 31-0.6-0.4-200 MG capsule 1 capsule, [...] nursing note reviewed. Exam conducted with a wrapping machine tender present. Vitals: There is no height or [...] Delivery: 03/12/24. Patient to schedule NST/BPP's at [facility]. Order given to patient and also faxed to [facility] scheduling and [facility]. Patient to return to clinic in 1 week. Documented by Malinda Bundy LPN on behalf of: JATINDER Pineda documented in this encounter [facility] 12-19-2022 Evaluation note Encounter Date Diagnosis Assessment [...] in 4-6 days. FU with PCP or [facility] in not improving over next 5-7 days. [facility] Other 04-22-2022 Evaluation note* Encounter Date Diagnosis [...] results. Patient to follow with PCP or [facility] as needed for persistent or worsening symptoms. Immediate eval if abdominal pain, fever, chills, body aches, back/flank pain, nausea, urinary complaints. Patient may use OTC external yeast infection creams for external irritation, do not insert creams or meds as Diflucan rx will treat. Avoid scratching and douching. Patient verbalizes understanding and is agreeable to treatment plan [employer] Other evaluation noteNo InformationNort [employer] Other evaluation noteNo assessment information available [facility] Work Phone: Evaluation note* Diagnosis Onset Date Resolution Status Pre-employment examination [facility] Work Phone: Evaluation note* Diagnosis [...] wisdom teeth Hospitalization History Fall Pneumothorax 2021 [facility] Other History general Narrative - Reported* Type Description Date Surgical History wisdom teeth Surgical History 1 Hospitalization History Fall Pneumothorax 2021 Hospitalization History 2016 [facility] Other Summary Purpose Family History No Family [...] physical Reason for Visit Pre-employment exami [facility] Additional Source Comments INFORMATION SOURCE (unrecogn ized section and content) DATE CREATED AUTHOR 02/19/[address] [facility] DATE CREATED AUTHOR AUTHOR'S ORGANIZ ATION 01/06/2023 [facility] DATE CREATED AUTHOR AUTHOR'S ORGANIZ ATION 09/22/2023 [facility] DATE CREATED AUTHOR AUTHOR'S ORGANIZ ATION 11/10/2023 [facility] DATE CREATED AUTHOR AUTHOR'S ORGANIZ ATION 01/03/2024 [facility] DATE CREATED AUTHOR AUTHOR'S ORGANIZ ATION 02/29/2024 [facility] dical Specialists EPIC REASON FOR VISIT (unrecogniz [...] BE BASED ON THE PRIMARY CLINICAL RECORDS. [facility] [employer] [facility]. provides no warranty or guarantee of the accuracy or completeness of information in this document.
[2024-03-03 17:15] VITALS: BP 132/75; PULSE 76
== END 2024-03-03 18:59 | disposition home or self-care (01) ==
LOC: FBC 17:12 → FBCO 03-06 08:52
PROVIDERS: Visit Provider Obstetrics & Gynecology
DX: O47.03 False labor before 37 completed weeks of gestation, third trimester (principal); Z3A.38 38 weeks gestation of pregnancy
CPT/HCPCS: 76818

== ENCOUNTER 2024-03-06 05:54 | Inpatient (IN) | payer MEDICAID, SELFPAY ==
[2024-03-06] VITALS (31 sets, daily range): BP systolic 92–131; BP diastolic 49–82; PULSE 56–82; TEMP 36.2–37.1; O2SAT 95–100
--- OUTSIDE RECORDS SUMMARY | 2024-03-06 05:56 | XMS_ITS | CCD ---
Author Organization [facility] Care Team Providers Care Contracts Analyst Name Role Phone MISC, DOCTOR Primary Care [...] hours if needed 09/21/2023 Active Prenat w/o J-CfVmd-Bwwi-FA-DHA (TriStart DHA) 31-0.6-0.4-200 MG capsule (12 sources) Start: 08-13-2023 take 1 capsule by mouth in the morning Prenat w/o P-VwDpf-Utpv-FA-DHA (TriStart DHA) 31-0.6-0.4-200 MG capsule Take 1 [...] Negative Negative - 4(70) +++ mg/dL [facility] Blood, UA Negative Negative - 50 Eriberto/mcL [facility] Clarity, UA Clear [facility] re Color, UA Yellow [facility] Glucose, UA Negative Negative - 2000(110) ++++ mg/dL [facility] Interpretation and review of laboratory results Normal [facility] re Ketones, UA Negative Negative - 160(16) ++++ mg/dL [facility] Leukocytes, UA Negative Negative - 500+++ Pk/mcL [facility] Healthcare Nitrite, UA Negative Negative - Positive [facility] Healthcare pH, UA 6.5 5 - 9 [facility] Protein, UA Negative Negative - 1999(20) ++++ mg/dL [facility] Spec Grav, UA 1.025 1 - 1.03 [facility] Urobilinogen, UA 0.2 0.2 - 12 mg/dL [facility] Urinalysis macro (dipstick) panel (U)Ordered By: Carmenza Donovan on 02-15-2024 Bilirubin, UA Negative Negative - 4(70) +++ mg/dL [facility] Blood, UA Negative Negative - 50 Eriberto/mcL [facility] Clarity, UA Clear [facility] Color, UA Yellow [facility] Glucose, UA Negative Negative - 1999(110) ++++ mg/dL [facility] Interpretation and review of laboratory results Normal [facility] Ketones, UA Negative Negative - 160(16) ++++ mg/dL [facility] Leukocytes, UA Negative Negative - 500+++ Pk/mcL [facility] Healthcare Nitrite, UA Negative Negative - Positive [facility] pH, UA 5.5 5 - 9 [facility] Health[facility] e Protein, UA Negative Negative - 1999(20) ++++ mg/dL [facility] Spec Grav, UA 1.02 1 - 1.03 [facility] Urobilinogen, UA 1.0 0.2 - 12 mg/dL [facility] Urinalysis macro (dipstick) panel (U)on 02-07-2024 Bilirubin, UA Negative Negative - 4(70) +++ mg/dL [facility] Blood, UA Negative Negative - 50 Eriberto/mcL [facility] Clarity, UA Clear [facility] Color, UA Yellow [facility] Glucose, UA Negative Negative - 1999(110) ++++ mg/dL [facility] Interpretation and review of laboratory results Abnormal [facility] Ketones, UA Negative Negative - 160(16) ++++ mg/dL [facility] Healthcare Leukocytes, UA Negative Negative - 500+++ Pk/mcL [facility] Healthcare Nitrite, UA Negative Negative - Positive [facility] pH, UA 5.5 5 - 9 [facility] Protein, UA Negative Negative - 1999(20) ++++ mg/dL [facility] Spec Grav, UA 1.025 1 - 1.03 [facility] Urobilinogen, UA 1.0 0.2 - 12 mg/dL [facility] URINALYSISon 11-30-2023 Bilirubin Ql (U) Negative Normal NEG [facility] Comment on above: Performed By: #### C ERICK, 26653-1, AHP, 76516-8, 08574-2, 29579- 4, 03417-1 #### [facility] ([id number]) [address] [place] [address], [address] [place] [address] #### 39527-8, 32503-5 #### [facility] ([id number]) [address] [place] [address], [place] [address] BLOOD/HGB Negative Normal NEG [facility] Comment on above: Performed By: #### Joan SUAREZ, , AHP, 31538-4, 39846-3, 59318- 4, 33573-3 #### [facility] ([id number]) [address] [place] [address], [address] [place] [address] #### 22337-8, 94023-3 #### [facility] ([id number]) [address] [place] [address] Color (U) YELLOW Normal YELLOW [facility] Comment on above: Performed By: #### Joan SUAREZ, 50845-6, AHP, 69039-3, 50875-6, 51570- 4, 10590-5 #### [facility] ([id number]) [address] [place] [address], [address] [place] [address] #### 84016-6, 36236-1 #### [facility] ([id number]) [address] [place] [address], [place] [address] Glucose Ql (U) Negative Normal NEG [facility] Comment on above: Performed By: #### C BC, 36207-6, AHP, 16548-5, 40791-2, 09479- 4, 59779-3 #### [facility] ([id number]) [address], [address] [place] [address] #### 70198-3, 53333-3 #### [facility] ([id number]) [address] [place] [address] Ketones Ql (U) Negative Normal NEG [facility] Comment on above: Performed By: #### C BC, 14057-0, AHP, 41402-7, 95922-9, 83214- 4, 78052-8 #### [facility] ([id number]) [address], [address] [place] [address] #### 73267-1, 24265-9 #### [facility] ([id number]) [address] [place] [address] Leukocyte esterase Test strip Ql (U) Negative Normal NEG [facility] Comment on above: Performed By: #### C BC, 81611-6, AHP, 41228-1, 47615-8, 10840- 4, 01430-2 #### [facility] ([id number]) [address], [address] [place] [address] #### 18654-2, 73184-2 #### [facility] ([id number]) [address] [place] [address] Nitrite Ql (U) Negative Normal NEG [facility] Comment on above: Performed By: #### C BC, 41434-5, AHP, 06360-1, 34258-7, 99671- 4, 76716-7 #### [facility] ([id number]) [address], [address] [place] [address] #### 43037-5, 36298-7 #### [facility] ([id number]) [address] [place] [address] pH (U) 7.0 [pH] Normal 5.0-8.5 [facility] Comment on above: Performed By: #### Joan SUAREZ, 73151-8, AHP, 01969-6, 95635-9, 98434- 4, 43102-5 #### [facility] ([id number]) [address], [address] [place] [address] #### 64219-8, 93617-7 #### [facility] ([id number]) [address] [place] [address] Protein Ql (U) Negative Normal NEG [facility] Comment on above: Performed By: #### Joan SUAREZ, 70055-1, AHP, 53896-8, 45912-2, 53968- 4, 30096-9 #### [facility] ([id number]) [facility], [address] [place] [address] #### 43431-4, 28306-7 #### [facility] ([id number]) [address] [place] [address] Specific gravity (U) [Rel density] 1.025 Normal 1.003-1.035 [facility] Comment on above: Performed By: #### Joan SUAREZ, 61755-8, AHP, 94588-2, 26314-2, 24671- 4, 46263-1 #### [facility] ([id number]) [address], [address] [place] [address] #### 10803-3, 25756-3 #### [facility] ([id number]) [address] [place] [address] TURBIDITY CLEAR Normal CLEAR [facility] Comment on above: Performed By: #### Joan SUAREZ, 32969-0, AHP, 73717-0, 56426-8, 58655- 4, 17800-8 #### [facility] ([id number]) [address] [place] [address], [address] [address] #### 12081-1, 97819-0 #### [facility] ([id number]) [address] [place] [address] Urobilinogen Qn (U) 0.2 {Saleem'U}/dL Normal <1.1 [facility] Comment on above: Performed By: #### C BC, 27028-5, AHP, 62632-3, 90400-4, 32071- 4, 56361-6 #### [facility] ([id number]) [address] [place] [address], [address] [address] #### 24964-5, 17646-9 #### [facility] ([id number]) [address] [place] [address] CHLAMYDIA/GC PCR, FLon 09-20 CHLAMYDIA/GC PCR, FL [...] on adequate specimen collection. Normal [facility] Comment on above: Performed By: #### C BC, 21450-2, P, 18103-4, 18155-1, 05654- 4, 52420-9 #### [facility] ([id number]) [address] [place] [address], [address] [address] #### 46327-3, 63167-2 #### [facility] ([id number]) [address] [place] [address] DRUG SCREEN, URINEon 024 AMPHETAMINE/METHAMP Negative Normal NEG [facility] Comment on above: Result Comment: AMPH /METH screening cut off = 1000 ng/mL Performed By: #### D DOWNING #### [facility] ([id number]) [address], [address] [place] [address] BARBITURATES Negative Normal NEG [facility] Comment on above: Result Comment: Venita iturates screening cut off value = 200 ng/mL Performed By: #### D DOWNING #### [facility] ([id number]) [address], [address] [place] [address] BENZODIAZEPINES Negative Normal NEG [facility] Comment on above: Result Comment: Ander odiazepines screening cut off value = 200 ng/mL Performed By: #### D DOWNING #### [facility] ([id number]) [address], [address] [place] [address] CANNABINOIDS Positive Abnormal NEG [facility] Comment on above: Result Comment: Conf irmation available upon request. Cannabinoids/THC screening cut off value = 50 ng/mL Performed By: #### D DOWNING #### [facility] ([id number]) [address], [address] [place] [address] COCAINE METABOLITE Negative Normal NEG [facility] Comment on above: Result Comment: Coca ine screening cut off value = 300 ng/mL Performed By: #### D DOWNING #### [facility] ([id number]) [address], [address] [place] [address] ECSTASY Negative Normal NEG [facility] Comment on above: Result Comment: Ecst asy screening cut off value = 500 ng/mL This report is intended for use in clinical monitoring or management of patients. Performed By: #### D DOWNING #### [facility] ([id number]) [address], [address] [place] [address] METHADONE Negative Normal NEG [facility] Comment on above: Result Comment: Meth adone screening cut off value = 300 ng/mL. Performed By: #### D DOWNING #### [facility] ([id number]) [address], [address] [place] [address] OPIATES Negative Normal NEG [facility] Comment on above: Result Comment: Opia monica screening cut off value = 300 ng/mL NOTE: This test is used for the detection of codeine, hydrocodone (>1000 ng/mL), morphine and hydromorphone (>900 ng/mL) in urine. Performed By: #### D DOWNING #### [facility] ([id number]) [address] [place] [address], [address] [place] [address] OXYCODONE Negative Normal NEG [facility] Comment on above: Result Comment: Oxyc odone screening cut off value = 300 ng/mL NOTE: This test is used for the detection of oxycodone and oxymorphone in urine. Performed By: #### D DOWNING #### [facility] ([id number]) [address] [place] [address] [place] [address] PHENCYCLIDINE Negative Normal NEG [facility] Comment on above: Result Comment: Phen cyclidine screening cut off value = 25 ng/mL Performed By: #### D DOWNING #### [facility] ([id number]) [address] [place] [address], [address] [place] [address] URINALYSISon 09-21-2023 Bilirubin Ql (U) Negative Normal NEG [facility] Comment on above: Performed By: #### U A #### [facility] ([id number]) [address] [place] [address] BLOOD/HGB Negative Normal NEG [facility] Comment on above: Performed By: #### U A #### [facility] ([id number]) [address] [place] [address] [place] [address] Color (U) YELLOW Normal YELLOW [facility] Comment on above: Performed By: #### U A #### [facility] ([id number]) [address] [place] [address] [address] [place] [address] Glucose Ql (U) Negative Normal NEG [facility] Comment on above: Performed By: #### U A #### [facility] ([id number]) [address], [address] [place] [address] Ketones Ql (U) >150 Abnormal NEG [facility] Comment on above: Performed By: #### U A #### [facility] ([id number]) [address], [address] [place] [address] Leukocyte esterase Test strip Ql (U) Negative Normal NEG [facility] Comment on above: Performed By: #### U A #### [facility] ([id number]) [address], [address] [place] [address] Nitrite Ql (U) Negative Normal NEG [facility] Comment on above: Performed By: #### U A #### [facility] ([id number]) [address], [address] [place] [address] pH (U) 6.0 [pH] Normal 5.0-8.5 [facility] Comment on above: Performed By: #### U A #### [facility] ([id number]) [address], [address] [place] [address] Protein Ql (U) Negative Normal NEG [facility] Comment on above: Performed By: #### U A #### [facility] ([id number]) [address], [address] [place] [address] Specific gravity (U) [Rel density] 1.019 Normal 1.003-1.035 [facility] Comment on above: Performed By: #### U A #### [facility] ([id number]) [address], [address] [place] [address] TURBIDITY CLEAR Normal CLEAR [facility] Comment on above: Performed By: #### U A #### [facility] ([id number]) [address], [address] [place] [address] Urobilinogen (U) [Mass/Vol] mg/dL Normal <1.1 [facility] Comment on above: Performed By: #### U A #### [facility] ([id number]) [address], [address] [place] [address] URINE CULTUREon 09-21-2023 Bacteria identified Cx Nom (U) CULTURE RESULTS 10,000 to 50,000 ORGANISMS/mL ESCHERICHIA COLI <10,000 ORGANISMS/mL NORMAL URO GENITAL JACKIE Normal [facility] Comment on above: Performed By: #### 6 30-4 #### [facility] ([id number]) [address] [place] [address], [address] [place] [address] ACUTE HEPATITIS PANELon 08-25 ANTI HCV W/PCR REFLX Non-Reactive Normal NRCT [facility] Comment on above: Result Comment: If recent infection suspected, recommend repeat testing (>2 months). Pgnzgh-tf-infeqk ratio is <0.80. Performed By: #### C BC, 41272-6, AHP, 59098-6, 11199-0, 50660-2, 58191-9 #### [facility] ([id number]) [address], [address] [place] [address] #### 81813-5, 73511-5 #### [facility] ([id number]) [address] [place] [address], [place] [address] HEPATITIS A IGM Non-Reactive Normal NRCT [facility] Comment on above: Performed By: #### C BC, 88856-5, AHP, 58525-7, 75915-2, 99368- 4, 27697-3 #### [facility] ([id number]) [address], [address] [place] [address] #### 04686-0, 64094-1 #### [facility] ([id number]) [address] [place] [address] HEPATITIS B CORE IGM Negative Normal NEG [facility] Comment on above: Performed By: #### C ERICK, 30113-7, AHP, 46505-8, 46631-7, 62032- 4, 06854-5 #### [facility] ([id number]) [address], [address] [place] [address] #### 33619-5, 98233-6 #### [facility] ([id number]) [address] [place] [address] HEPATITIS B SURF AG Negative Normal NEG [facility] Comment on above: Performed By: #### Joan SUAREZ, , AHP, 34861-5, 27186-9, 53367- 4, 51284-6 #### [facility] ([id number]) [address], [address] [place] [address] #### 46136-4, 04971-6 #### [facility] ([id number]) [address] [place] [address] COMPLETE BLOOD COUNTon 09-16 Erythrocyte distribution width (RBC) [Ratio] 13.0 % Normal 11.5-15.0 [facility] Comment on above: Performed By: #### Joan SUAREZ, 27575-8, AHP, 50960-7, 59186-9, 16577- 4, 14594-1 #### [facility] ([id number]) [address], [address] [place] [address] #### 39573-1, 97921-9 #### [facility] ([id number]) [address] [place] [address] Hematocrit (Bld) [Volume fraction] 36.1 % Normal 35-47 [facility] Comment on above: Performed By: #### Joan SUAREZ, 05502-3, AHP, 64302-7, 82177-4, 87637- 4, 62967-2 #### [facility] ([id number]) [address], [address] [place] [address] #### 15754-0, 05256-5 #### [facility] ([id number]) [address] [place] [address] Hemoglobin (Bld) [Mass/Vol] 12.5 g/dL Normal 11.7-15.5 [facility] Comment on above: Performed By: #### C BC, 63119-8, AHP, 33114-0, 67927-9, 67643- 4, 97600-6 #### [facility] ([id number]) [address], [address] [place] [address] #### 49428-0, 88469-3 #### [facility] ([id number]) [address] [place] [address] 26733 MCH (RBC) [Entitic mass] 32.0 pg Normal 27-34 [facility] Comment on above: Performed By: #### C BC, 71922-3, AHP, 86434-2, 81282-3, 57515- 4, 37761-9 #### [facility] ([id number]) [address], [address] [place] [address] #### 41045-1, 70282-3 #### [facility] ([id number]) [address] [place] [address]703 MCHC (RBC) [Mass/Vol] 34.6 g/dL Normal 32-36 [facility] Comment on above: Performed By: #### C BC, 73104-1, AHP, 35694-2, 14787-7, 96396- 4, 62691-9 #### [facility] ([id number]) [address], [address] [place] [address] #### 79235-7, 77654-0 #### [facility] ([id number]) [address] [place] [address]651 MCV (RBC) [Entitic vol] 93 fL Normal 80-100 [facility] Comment on above: Performed By: #### Joan SUAREZ, 91614-2, AHP, 14004-2, 50768-7, 14067- 4, 88152-4 #### [facility] ([id number]) [address], [address] [place] [address] #### 80772-2, 22241-9 #### [facility] ([id number]) [address] [place] [address]01 Platelet mean volume (Bld) [Entitic vol] 8.7 fL Normal 7-12 [facility] Comment on above: Performed By: #### Joan SUAREZ, , P, 79471-2, 91160-7, 49865- 4, 93061-8 #### [facility] ([id number]) [address], [address] [place] [address] #### 22532-7, 30185-6 #### [facility] ([id number]) [address] [place] [address] Platelets (Bld) [#/Vol] 300 10*3/uL Normal 150-450 [facility] Comment on above: Performed By: #### Joan SUAREZ, 70442-4, AHP, 65687-8, 50359-9, 21122- 4, 92180-8 #### [facility] ([id number]) [address], [address] [place] [address] #### 38675-8, 06578-7 #### [facility] ([id number]) [address] [place] [address] 10095 RBC COUNT 3.90 X10E12/L Normal 3.80-5.20 [facility] Comment on above: Performed By: #### C BC, 03507-0, AHP, 10283-4, 76519-0, 37927- 4, 37567-8 #### [facility] ([id number]) [address], [address] [place] [address] #### 97152-3, 92107-7 #### [facility] ([id number]) [address] [place] [address] WBC (Bld) [#/Vol] 9.7 10*3/uL Normal 4.0-11.0 [facility] Comment on above: Performed By: #### C , 91509-7, P, 43188-0, 88539-8, 73192- 4, 96367-1 #### [facility] ([id number]) [address], [address] [place] [address] #### 76107-5, 38409-9 #### [facility] ([id number]) [address] [place] [address] HCG.beta subunit IA 3rd IS Q non 09-17-2023 [place] [address] m[IU]/mL Normal P [facility] Comment on above: Result Comment: NEW [...] nontrophoblastic neoplasms. Performed By: #### Joan SUAREZ, 30146-8, P, 82729-6, 49336-0, 28917-8, 85357-8 #### [facility] ([id number]) [address] [place] [address], [address] [place] [address] #### 79975-7, 32314-4 #### [facility] ([id number]) [address] [place] [address] HIV 1+2 Ab+HIV1 p24 Ag IA Ql on 09-17-2023 HIV 1 and 2 Ab/Ag Screen Non-Reactive Normal NRCT [facility] Comment on above: Result Comment: This [...] or diagnoses. Performed By: #### Joan SUAREZ, 32663-7, P, 28333-1, 41027-4, 98755-6, 84182-6 #### [facility] ([id number]) [address] [place] [address], [address] [place] [address] #### 33507-6, 74717-2 #### [facility] ([id number]) [address] [place] [address]93 Reagin Ab RPR (S) [Titer]on 09-17-2023 RPR TITER, SERUM SEE COMMENTS 09/21/2023 10:37 AM Abnormal [facility] Comment on above: Result Comment: NOTE Test Result Flag Unit RefValue RPR, Titer, S 1:1 A Negative Results consistent with untreated or recently treated syphilis. Clinical correlation required. For additional information on interpretation of the syphilis reverse algorithm and results, see: [email or web address] Test Performed by: [place] [address] Film Sound Engineer: Luke Downey M.D. Ph.D.; CLIA# [id number] Performed By: #### C ERICK, 48149-2, AHP, 53184-6, 79104-8, 37959-0, 22684-2 #### [facility] ([id number]) [address] [place] [address], [facility] [address] [place] [address] #### 21979-0, 37980-4 #### [facility] ([id number]) [address] [place] [address] Reagin Ab RPR Ql (S)on 09-16 RPR WITH REFLEX TO RTPPA Positive Abnormal Negative [facility] Comment on above: Result Comment: NOTE Specimen reflexed to determine RPR titer. For additional information on interpretation of the syphilis reverse algorithm and results, see: [email or web address] Test Performed by: [facility] [place] [address] Film Sound Engineer: Luke Downey M.D. Ph.D.; CLIA# [id number] Performed By: #### C BC, 76210-2, AHP, 29568-7, 87934-6, 22766-4, 65017-4 #### [facility] ([id number]) [address] [place] [address], [address] [place] [address] #### 83333-1, 33905-3 #### [facility] ([id number]) [address] [place] [id number] Rubella virus Ab Ql (S)on RUBELLA IMMUNE IgG 1.0 AI Normal [facility] Comment on above: Result Comment: Interpretation-------- <0.8 NEGATIVE-considered Not Immune 0.8-0.9 EQUIVOCAL-consider retesting with new specimen >0.9 POSITIVE-considered Immune Performed By: #### C ERICK, 33276-0, AHP, 95173-6, 74502-6, 75609-9, 74906-5 #### [facility] ([id number]) [address] [place] [address], [address] [place] [address] #### 62114-9, 54352-8 #### [facility] ([id number]) [address] [place] [id number] T. pallidum IgG+IgM IA Ql (S )on 09-17-2023 Syphilis Total >8.0 High 0.0-0.8 [facility] Comment on above: Result Comment: REAC TIVE This specimen will be sent to a reference lab for additional testing which includes RPR with reflex to TP-PA if RPR is negative. The RPR will help distinguish between infections with T.pallidum (syphilis) versus a falsely reactive treponemal antibody result. Please see the syphilis testing algorithm link below for more information. [email or web address] Performed By: #### [place], 06775-9, AHP, 15384-1, 15296-5, 98497-2, 06531-7 #### [facility] ([id number]) [address] [place] [address], [address] [place] [address] #### 52527-1, 53972-2 #### [facility] ([id number]) [address] [facility], [place] [address] US PREG TRANSABD FU PER FETU on 09-17-2023 US PREG TRANSABD FU PER FETU US PREG TRANSABD FU PER FETU US PREG TRANSABD FU PER FETU: 09/17/2023 8:25 AM Clinical: Check dates and viability. Real-time transabdominal sonography pelvis performed.. Transvaginal sonography pelvis performed for better evaluation of the pelvic organs. No comparison. There is a single live intrauterine . [place]-rump length of 8.8 cm corresponds to 14 [...] on 09/17/2023 11:55 AM Normal [facility] VZV IgG IA Ql (S)on 09-17-19 VARICELLA IgG 3.1 AI High <0.9 [facility] Comment on above: Result Comment: Interpretation-------- <0.9 Negative 0.9 - 1.0 Equivocal >1.0 Positive Performed By: #### C , 33018-2, [facility], 59595-6, 65709-4, 37588-8, 89713-4 #### [facility] ([id number]) [address] [place] [address], [address] [place] [address] #### 12560-1, 43560-7 #### [facility] ([id number]) [address] [facility], [place] [address] Urinalysis - AUTOMATEDon Appearance (U) CLEAR [employer] Other Bilirubin Ql (U) Negative [employer] ast [employer] Other Color (U) YELLOW [employer] Other Glucose Ql (U) Negative [employer] Other Hemoglobin Ql (U) NEGTIVE [employer]Class [employer] Other Ketones Ql (U) Negative [employer] Other Leukocyte esterase Test strip Ql (U) Negative [employer] Other Nitrite Ql (U) Negative [employer] Other pH (U) 7.5 [pH] [employer] Other Protein Ql (U) Negative [employer] Other Specific gravity (U) [Rel density] 1.015 [employer] Other Urobilinogen (U) [Mass/Vol] 0.2 mg/dL [employer] Other Urinalysis - AUTOMATED [employer] Other Vaginitis Plus (VG+)on 12-19 Atopobium Vaginae High - 2 Critically abnormal . [facility] Comment on above: Performed By: #### V AGINITIS+ #### [facility] , BVAB2 High - 2 Critically abnormal . [facility] Comment on above: Performed By: #### V AGINITIS+ #### [facility] , Makenzie Albicans, KENNETH Negative Normal Negative [facility] Comment on above: Result Comment: This test was developed and its performance characteristics determined by [employer]. It has not been cleared or approved by the Food and Drug Administration. Performed By: #### V AGINITIS+ #### [facility] , Makenzie Glabrata, KENNETH Negative Normal Negative [facility] Comment on above: Result Comment: This test was developed and its performance characteristics determined by [employer]. It has not been cleared or approved by the Food and Drug Administration. PERFORMED BY: [facility] [place] [address] PATHOLOGIST ENGINEERING SURVEYOR LEO PATEL M.D. Performed By: #### V AGINITIS+ #### [facility] , Chlamydia Trachomotis, KENNETH Positive Critically abnormal Negative [facility] Comment on above: Performed By: #### V AGINITIS+ #### [facility] , Megasphaera High - 2 Critically abnormal . [facility] Comment on above: Result Comment: [...] developed and its performance characteristics determined by [employer]. It has not been cleared or approved by the Food and Drug Administration. Performed By: #### V AGINITIS+ #### [facility] , Neisseria Gonorrhoeae, KENNETH Negative Normal Negative [facility] Comment on above: Result Comment: Perf ormed at: =G - [facility] [address] [id number] Film Sound Engineer: Brianne Shabazz MD, Phone: [phone] Performed By: #### V AGINITIS+ #### [facility] , Tric Vag KENNETH Negative Normal Negative [facility] Comment on above: Performed By: [...] TIESHA CASTILLO Date: 2020-01-30 14:39 Normal [facility] XR ANKLE LT MIN 3 [...] YAKOV DAWSON Date: 2019-12-27 09:54 Normal [facility] XR ANKLE LT MIN 3 [...] TIESHA CASTILLO Date: 2019-11-29 13:43 Normal [facility] XR FOOT RT MIN 3 VIEWSon XR FOOT RT MIN 3 VIEWS EXAM: Right foot HISTORY: Pain after a fall. TECHNIQUE: 3 views of the right foot were obtained. FINDINGS: There is no evidence of fracture or dislocation. There are no suspicious bone lesions. Soft tissues are normal. IMPRESSION: Unremarkable exam. Electronically authenticated by: JUDE MCDANIEL Date: 2019-11-28 16:48 Normal [facility] XR TIB_FIB LT 2Von 0 [...] by: JUDE MCDANIEL Date: 2019-11-28 16:47 Normal [facility] Sign[facility] Date Time Vital Sign Value Performing Clinician Facility 02-28-2024 15:51-0500 Body weight 83.92 kg Surya Eun DO Work Phone: [facility] 02-28-2024 15:51-0500 Diastolic blood pressure 72 mm[Hg] Surya Eun DO Work Phone: [facility] 02-28-2024 15:51-0500 Systolic blood pressure 108 mm[Hg] Surya Eun DO Work Phone: [facility] 02-21-2024 14:34-0400 Body weight 84.82 kg Jenna TOBIAS Work Phone: [facility] 02-21-2024 14:34-0400 Diastolic blood pressure 70 mm[Hg] Jenna Thomas PA Work Phone: [facility] 02-21-2024 14:34-0400 Systolic blood pressure 118 mm[Hg] Jenna Thomas PA Work Phone: [facility] 02-14-2024 15:25-0400 Body weight 83.01 kg Surya Eun DO Work Phone: [facility] 02-14-2024 15:25-0400 Diastolic blood pressure 72 mm[Hg] Surya Eun DO Work Phone: [facility] 02-14-2024 15:25-0400 Systolic blood pressure 118 mm[Hg] Surya Eun DO Work Phone: [facility] 02-07-2024 10:03-0400 Body weight 82.01 kg Jenna Thomas PA Work Phone: [facility] 02-07-2024 10:03-0400 Diastolic blood pressure 70 mm[Hg] Jenna TOBIAS Work Phone: [facility] 02-07-2024 10:03-0400 Systolic blood pressure 114 mm[Hg] Jenna TOBIAS Work Phone: [facility] 06-16-2023 13:06-0500 Body temperature 98.6 [degF] [facility] 06-16-2023 13:06-0500 Body weight 63.5 kg [facility] 06-16-2023 13:06-0500 Diastolic blood pressure 76 mm[Hg] [facility] 06-16-2023 13:06-0500 Heart rate 87 /min [facility] 06-16-2023 13:06-0500 Respiratory rate 18 /min [facility] 06-16-2023 13:06-0500 SaO2% (BldA) [Mass fraction] 98 % [facility] 06-16-2023 13:06-0500 Systolic blood pressure 119 mm[Hg] [facility] 12-19-2022 11:25-0400 Body height 160.02 cm Inessa Lewis Other [employer] [facility] [employer] Other 12-19-2022 11:25-0400 Body mass index (BMI) [Ratio] 24.3 kg/m2 Inessa Lewis Other [employer] Other 12-19-2022 11:25-0400 Body temperature 98.7 [degF] Inessa Lewis Other [employer] Other 12-19-2022 11:25-0400 Body weight 62.23 kg Inessa Lewis Other [employer] Other 12-19-2022 11:25-0400 Diastolic blood pressure 66 mm[Hg] Inessa Lewis Other [employer] Other 12-19-2022 11:25-0400 Respiratory rate 18 /min Inessa Macedoley Other [employer] Other 12-19-2022 11:25-0400 SaO2% (BldA) [Mass fraction] 99 % Inessa Macedoley Other [employer] Other 12-19-2022 11:25-0400 Systolic blood pressure 104 mm[Hg] Inessa Macedoley Other [employer] Other 08-15-2021 11:45-0400 Body height 160.02 cm Janny Gonzalez Other [employer] Other 08-15-2021 11:45-0400 Body mass index (BMI) [Ratio] 22.32 kg/m2 Janny Gonzalez Other [employer] Other 08-15-2021 11:45-0400 Body temperature 97.9 [degF] Janny Gonzalez Other [employer] Other 08-15-2021 11:45-0400 Body weight 57.15 kg Janny Gonzalez Other [employer] Other 08-15-2021 11:45-0400 Diastolic blood pressure 71 mm[Hg] Janny Gonzalez Other [employer] Other 08-15-2021 11:45-0400 Respiratory rate 18 /min Janny Hardyler Other [employer] Other 08-15-2021 11:45-0400 SaO2% (BldA) [Mass fraction] 100 % Janny Gonzalez Other [employer] Other 08-15-2021 11:45-0400 Systolic blood pressure 123 mm[Hg] Janny Gonzalez Other [employer] Other Encounters Encounter Date Encounter Type Care [...] 02-07-2024 Bamboo flowsheet Jenna TOBIAS Work Phone: [facility] Start: 02-07-2024 End: 02-07-2024 Bamboo [...] Available Start: 01-02-2024 End: 01-02-2024 [facility] Start: 01-02-2024 End: 01-02-2024 Emergency department patient visit ROMI RIDER [facility] Start: 12-23-2023 End: 12-23-2023 ambulatory SURYA EUN Not Available Start: 12-02-2023 End: 12-02-2023 ambulatory JENNA WILLIAM Not Available Start: 11-30-2023 End: 11-30-2023 ambulatory MALINDA PATE [facility] Start: 11-04-2023 End: 11-04-2023 ambulatory SONAM TENORIO [facility] Start: 10-06-2023 End: 10-06-2023 ambulatory DANDY RAMSEY [facility] Start: 10-05-2023 End: 10-05-2023 Emergency department patient visit [facility] Start: 09-29-2023 End: 09-29-2023 ambulatory [facility] Start: 09-22-2023 End: 09-22-2023 ambulatory [facility] Start: 09-21-2023 End: 09-22-2023 ambulatory [facility] Start: 09-21-2023 End: 09-21-2023 ambulatory [facility] Start: 09-21-2023 Encounter for gynecological examination (general) (routine) without abnormal findings [facility] Start: 09-21-2023 End: 09-21-2023 ambulatory [facility] Start: 09-21-2023 Encounter for gynecological examination (general) (routine) without abnormal findings [facility] Start: 09-17-2023 End: 09-17-2023 ambulatory [facility] Start: 08-13-2023 End: 08-13-2023 ambulatory [facility] Start: 06-16-2023 End: 06-16-2023 ambulatory [facility] Work Phone: Start: 06-16-2023 End: 06-16-2023 Patient encounter procedure [facility] Work Phone: Start: 12-19-2022 Office outpatient vi sit 15 minutes Inessa Lewis [facility] Start: 12-19-2022 End: 12-19-2022 ambulatory Inessa Lewis [facility] [employer] Other Start: 12-19-2022 End: 12-19-2022 Departed Referred BPM ANALYST Inessa Lewis Work Phone: [facility] [place] Work Phone: Start: 08-19-2021 End: 08-19-2021 ambulatory Janny Gonzalez Other [employer] Other Start: 08-19-2021 Telephone encounter Janny Gonzalez [facility] Start: 08-15-2021 End: 08-15-2021 ambulatory Janny Gonzalez Other [employer] Other Start: 08-15-2021 Office outpatient ne w 20 minutes Janny Gonzalez [facility] Start: 02-27-2020 Patient encounter procedure [facility] Facility:[facility] Start: 01-30-2020 End: 01-31-2020 Patient encounter procedure [facility] Facility:[facility] Start: 01-16-2020 End: 01-16-2020 Patient encounter procedure CATHRYN BARNES Facility:[facility]1 Start: 12-27-2019 End: 12-28-2019 Patient encounter procedure [facility] Facility:[facility] Start: 11-29-2019 End: 11-30-2019 Patient encounter procedure [facility] Facility:[facility] Start: 11-28-2019 End: 11-28-2019 Patient encounter [place] [facility] [place] Procedures Date Procedure [...] PM EDT Routine [facility] [address] [place] [address] Jenna Thomas PA [address] [address] [facility] Start: 02-14-2024 End: 02-14-2024 Patient encounter procedure 02/14/2024 2:30 PM EDT Routine [facility] [address] [place] [id number] Surya Haq DO [address] [place], [place] [id number] [facility] Start: 02-07-2024 End: 02-06-2025 US biophysical profile w non stress test US biophysical profile w non stress test Imaging Routine contractions Size of fetus inconsistent with dates, antepartum Nonintractable headache, unspecified chronicity pattern, unspecified headache type History of syphilis Expected: 02/07/2024 (Approximate), Expires: 02/06/2025 [facility] Work Phone: Comment on above: Expected: 02/07/2024 (Approximate), Expires: 02/06/2025 Start: 02-07-2024 End: 02-07-2024 Patient encounter procedure 02/07/2024 9:50 AM EDT Routine [facility] [address] [place] [id number] Jenna Thomas, PA [address] [place], [place] [id number] Arrived [facility] Comment on above: Arrived Start: 12-19-2022 [facility] Atopobium vaginae DN A [Presence] in Vaginal fluid by KENNETH with probe detection [facility] Bacterial vaginosis associated bacterium 2 DNA [Presence] in Vaginal fluid by KENNETH with probe detection [facility] Megasphaera sp type 1 DNA [Presence] in Vaginal fluid by KENNETH with probe detection [facility] Payers Date Payer Category Payer Self-pay [id number] 2022 Medicaid [facility] [id number] 2022 Medicaid [id number] 2019 Unknown [id number] 1997 Unknown [id number] 2.16.840.1.928821.3.579.2.593 1997 Unknown [id number] 2.16.840.1.000807.3.579.2.593 1997 Unknown [id number] 2.16.840.1.321391.3.579.2.59 1997 Unknown [id number] 2.16.840.1.736688.3.579.2.593 1997 Unknown [id number] 2.16.840.1.918586.3.579.2.593 1997 Unknown [id number] 2.16.840.1.483392.3.579.2.593 1997 Unknown [id number] 2.16.840.1.650683.3.579.2.128 1997 Unknown [id number] 2.16.840.1.454613.3.579.2.1285 1997 Unknown [id number] 2.16.840.1.978380.3.579.2.128 1997 Unknown [id number] 2.16.840.1.631818.3.579.2.1285 1997 Unknown [id number] 2.16.840.1.481022.3.579.2.1285 1997 Unknown [id number] 2.16.840.1.498376.3.579.2.1285 1997 Unknown [id number] 2.16.840.1.291702.3.579.2.1285 1997 Unknown [id number] 2.16.840.1.387258.3.579.2.1285 1997 Unknown [id number] 2.16.840.1.083398.3.579.2.1285 1997 Unknown [id number] 2.16.840.1.850544.3.579.2.1285 1997 Unknown [id number] 2.16840.1.170899.3.579.2.1285 1997 Unknown [id number] 2.16.840.1.985330.3.579.2.1285 1997 Unknown [id number] 2.16.840.1.031399.3.579.2.1285 1997 Unknown [id number] 2.16.840.1.958953.3.579.2.1285 1997 Unknown [id number] 2.16840.1.650292.3.579.2.1285 1997 Unknown [id number] 2.16.840.1.650774.3.579.2.1258 1997 Unknown [id number] 2.16.840.1.381594.3.579.2.1258 1997 Unknown [id number] 2.16.840.1.653896.3.579.2.1258 1997 Unknown [id number] 2.16.840.1.988132.3.579.2.1258 1997 Unknown [id number] 2.16.840.1.916035.3.579.2.1259 1997 Unknown [id number] 2.16.840.1.836219.3.579.2.9 1997 Unknown [id number] 2.16.840.1.983380.3.579.2.9 1997 Unknown [id number] 2.16.840.1.900916.3.579.2.1259 1959 Unknown [id number] Unknown [id number] 2.16.840.1.136323.19 Unknown [id number] 2.16.840.1.715576.3.579.2.531 Social History Date Type Detail Facility Unknown if ever smoked [facility] [employer] Other Sex Assigned At [facility] [employer] Other Start: 1997 Sex Assigned At Female F [facility] Start: 06-16-2023 Tobacco smoking status [facility] Never smoked tobacco (finding) [facility] Tobacco smoking status [facility] Tobacco smoking consumption unknown [facility] Start: 06-20-2023 [facility] Start: 1997 Sex assigned at Not on file [facility] Clinical Notes 08-15-2021 to 02-28-2024 [...] Oral, Every 8 hours PRN Prenat w/o X-HhAyu-Phhq-FA-DHA ([employer] DHA) 31-0.6-0.4-200 MG capsule 1 capsule, [...] nursing note reviewed. Exam conducted with a help desk team leader present. Vitals: There is no height or [...] Surya Haq DO documented in this encounter [facility] 02-21-2024 History of Presen t illness [...] Oral, Every 8 hours PRN Prenat w/o C-MyTak-Vccw-FA-DHA ([employer]Start DHA) 31-0.6-0.4-200 MG capsule 1 capsule, [...] JATINDER Pineda documented in this encounter [facility] 02-14-2024 History of Presen t illness [...] Oral, Every 8 hours PRN Prenat w/o C-KyTyg-Hlje-FA-DHA ([employer] DHA) 31-0.6-0.4-200 MG capsule 1 capsule, [...] nursing note reviewed. Exam conducted with a help desk team leader present. Vitals: There is no height or [...] Surya Haq DO documented in this encounter [facility] 02-07-2024 History of Presen t illness [...] Oral, Every 8 hours PRN Prenat w/o A-ZcNlh-Tflf-FA-DHA ([employer] DHA) 31-0.6-0.4-200 MG capsule 1 capsule, [...] nursing note reviewed. Exam conducted with a help desk team leader present. Vitals: There is no height or [...] Delivery: 03/12/24. Patient to schedule NST/BPP's at [facility]. Order given to patient and also faxed to [facility] scheduling and [facility]BC. Patient to return to clinic in 1 week. Documented by Malinda Bundy LPN on behalf of: JATINDER Pineda documented in this encounter [facility] 12-19-2022 Evaluation note Encounter Date Diagnosis [...] in 4-6 days. FU with PCP or [facility] in not improving over next 5-7 days. [employer] Other 04-22-2022 Evaluation note* Encounter Date Diagnosis [...] results. 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 Immediate eval if abdominal pain, fever, chills, body aches, back/flank pain, nausea, urinary complaints. Patient may use OTC external yeast infection creams for external irritation, do not insert creams or meds as Diflucan rx will treat. Avoid scratching and douching. Patient verbalizes understanding and is agreeable to treatment plan [employer] Other evaluation noteNo [employer] Other evaluation noteNo assessment information available [facility] Work Phone: Evaluation note* Diagnosis Onset Date Resolution Status Pre-employment examination a [facility] Work Phone: Evaluation note* Diagnosis [...] wisdom teeth Hospitalization History Fall Pneumothorax 2021 [employer] Other History general Narrative - Reported* Type Description Date Surgical History wisdom teeth Surgical History 1 Hospitalization History Fall Pneumothorax 2021 Hospitalization History 2016 [employer] Other Summary Purpose Family History No Family [...] Complaint physical Reason for Visit Pre-employment exami [facility] Additional Source Comments INFORMATION SOURCE (unrecogn ized section and content) DATE CREATED AUTHOR 02/19/2020 [facility] DATE CREATED AUTHOR AUTHOR'S ORGANIZ ATION 01/06/2023 [facility] DATE CREATED AUTHOR AUTHOR'S ORGANIZ ATION 09/22/2023 [facility] DATE CREATED AUTHOR AUTHOR'S ORGANIZ ATION 11/10/2023 [facility] DATE CREATED AUTHOR AUTHOR'S ORGANIZ ATION 01/03/2024 [facility] DATE CREATED AUTHOR AUTHOR'S ORGANIZ ATION 02/29/2024 [facility] dical Specialists EPIC REASON FOR [...] BE BASED ON THE PRIMARY CLINICAL RECORDS. [facility]. provides no warranty or guarantee of the accuracy or completeness of information in this document.
[2024-03-06 06:55] LABS: Basophils Absolute Auto 0.1 10^3/uL (0.0-0.1); Basophils Percent Auto 0.6 % (0.2-2.0); Eosinophils Absolute Auto 0.1 10^3/uL (0.0-0.7); Eosinophils Percent Auto 1.1 % (0.9-7.0); Hematocrit 36.4 % (36.0-48.0); Hemoglobin 12.5 g/dL (12.0-16.0); Immature Granulocytes Abs Auto 0.09 10^3/uL (0.00-0.03); Immature Granulocytes Pct Auto 0.8 % (0.0-0.5); Lymphocytes Percent Auto 27.9 % (20.5-60.0); Mean Corpuscular HGB Conc 34.3 g/dL (29.9-35.2); Mean Corpuscular Hemoglobin 32.1 pg (26.7-34.0); Mean Corpuscular Volume 93.3 fL (81.0-99.0); Mean Platelet Volume 10.6 fL (9.5-13.5); Monocytes Percent Auto 8.8 % (1.7-12.0); Neutrophils Absolute Auto 6.6 10^3/uL (1.4-6.5); Neutrophils Percent Auto 60.8 % (43.0-75.0); Platelet Count 324 10^3/uL (150-450); Red Cell Distribution Width 11.9 % (11.0-15.0); White Blood Count 10.9 10^3/uL (4.0-11.0)
[2024-03-06 07:12] LABS: Amphetamine Screen Urine NEGATIVE (NEGATIVE); Barbiturates Screen Urine NEGATIVE (NEGATIVE); Benzodiazepines Screen Urine NEGATIVE (NEGATIVE); Buprenorphine Screen Urine NEGATIVE (NEGATIVE); Cannabinoid Screen Urine POSITIVE (NEGATIVE); Cocaine Screen Urine NEGATIVE (NEGATIVE); Methadone Screen Urine NEGATIVE (NEGATIVE); Methamphetamines Screen Urine NEGATIVE (NEGATIVE); Opiate Screen Urine NEGATIVE (NEGATIVE); Oxycodone Screen Urine NEGATIVE (NEGATIVE); Phencyclidine Screen Urine NEGATIVE (NEGATIVE); Tricyclic Antidepressant Urine NEGATIVE (NEGATIVE)
[2024-03-06] MEDS: FAMOTIDINE/PF 20 MG/2 ML VIAL IV (07:21)
[2024-03-06] MEDS: CITRIC ACID/SODIUM CITRATE 30 ML SOLUTION ORACIT SHOHL'S SOLN PO (07:21)
[2024-03-06] MEDS: METOCLOPRAMIDE HCL 10 MG/2 ML VIAL IVP (07:21)
[2024-03-06] MEDS: CEFAZOLIN SODIUM/DEXTROSE,ISO 2 GM/50 ML PIGGYBACK IV ×2 (07:25→13:12)
[2024-03-06] MEDS: 0.9 % SODIUM CHLORIDE 1,000 ML 1000 ML IV (07:28)
[2024-03-06 07:43] LABS: Bilirubin Urine NEGATIVE (NEGATIVE); Blood Urine NEGATIVE (NEGATIVE); Clarity Urine CLEAR (CLEAR); Color Urine LT. YELLOW (YELLOW); Glucose Urine UA NEGATIVE (NEGATIVE); Ketones Urine NEGATIVE (NEGATIVE); Leukocyte Esterase Urine NEGATIVE (NEGATIVE); Nitrite Urine NEGATIVE (NEGATIVE); Protein Urine NEGATIVE (NEG/TRACE); Urobilinogen Urine 0.2 EU/dL (0.2-1.0); pH Urine 6.5 (5.0-9.0)
[2024-03-06 07:55] LABS: Bacteria Urine MODERATE #/HPF (NONE SEEN); Mucus Urine NONE SEEN (NONE SEEN); RBC Urine NONE SEEN #/HPF (0-2); Squamous Epithelial Cell Urine MANY #/LPF (NONE/RARE); WBC Urine NONE SEEN #/HPF (NONE SEEN)
[2024-03-06 07:56] LABS: Cast Seen? NONE SEEN #/LPF (NONE SEEN); Crystals Seen? None Seen #/HPF (None Seen); Urine Culture Indicated YES
--- NOTE | 2024-03-06 08:29 | P.ON_ITS ---
Brief Operative Note Date of procedure: 03/06/24 Pre-op diagnosis general: iup at 39wks, previous c/s Post-op diagnosis: same as pre-op Procedure: NAME OF PROCEDURE: [ section ] PROCEDURE: Patient was taken back to the Operating Room where she was given a spinal anesthesia with Duramorph without difficulty. She was prepped and draped in the normal sterile fashion. A Pfannenstiel skin incision was then made 2 cm above the symphysis pubis and carried down to underlying rectus fascia using a Bovie. The fascia was incised in the midline and extended laterally using Weller scissors. Two Annie clamps were placed on the superior aspect of the fascia and dissected off the underlying rectus muscles. The same was performed on the inferior aspect as well. The muscles were then in the midline. Peritoneum was identified and entered bluntly. The peritoneum was then extended superiorly and inferiorly with good visualization of the bladder. The bladder blade was inserted. A low transverse incision was made on the patient's uterus and extended laterally digitally. The was then delivered atraumatically after the bladder blade was removed in the cephalic position. The cord was clamped and cut. Cord blood was obtained. The was handed off to awaiting team. The patient's placenta was spontaneously delivered. The uterus was then exteriorized. The uterus was cleared of all clots and debris. The bladder blade was reinserted. The patient's uterine incision was closed using #0 Vicryl in a running lock fashion. Excellent hemostasis was assured. The uterus was then returned to the patient's abdomen. The patient's abdomen was copiously irrigated using warm saline. Peritoneal gutters were cleared of all clots and debris. Again excellent hemostasis was assured. The patient's peritoneum was closed using 3-0 Vicryl in a running fashion. The patient's fascia was closed using #0 Vicryl in a running fashion. The patient's skin was closed using 4-0 Vicryl subcuticularly. The patient tolerated the procedure well. Sponge, lap, and needle counts were correct x2. The patient was taken to the Recovery Room in stable condition. Anesthesia: spinal Surgeon: Raj Haq Barrelhead Inspector: Jo Allred Estimated blood loss (mL): 575 Pathology: none sent Condition: stable Disposition: PACU Urinary Catheter Management Urinary Catheter Management Urethral: Cath placed during this visit: no
--- NOTE | 2024-03-06 08:30 | PM.OBPRCCS ---
Procedure Pre-op/Post-op diagnoses: Pre-Op/Post-Op Diagnoses Operation Date: 03/06/24 07:30 <No data on this case meets the specified criteria> Procedure: Procedures Operation Date: 03/06/24 07:30 Actual Procedure Side Surgeon p Repeat Not Applicable Raj Haq DO Operational Risk Manager: Jo Allred Estimated blood loss (mL): 575 Disposition: PACU Anesthesia type: Spinal
[2024-03-06] MEDS: OXYTOCIN/0.9 % SODIUM CHLORIDE 20 UNITS/1,000 ML PLAST..BAG 125 UNIT IV (08:55)
[2024-03-06] MEDS: KETOROLAC TROMETHAMINE 30 MG/ML VIAL IVP ×3 (09:24→21:04)
--- NOTE | 2024-03-06 14:31 | PC.NURSE ---
0735: to OR per bed with OR team
[2024-03-06] MEDS: ENOXAPARIN SODIUM 40 MG/0.4 ML SYRINGE SUBQ (21:04)
[2024-03-07 00:03] VITALS: BP 115/60; PULSE 72; TEMP 36.9
[2024-03-07] MEDS: KETOROLAC TROMETHAMINE 30 MG/ML VIAL IVP ×4 (03:11→21:55)
[2024-03-07 03:16] VITALS: BP 108/57; PULSE 60; TEMP 36.7
[2024-03-07 07:12] LABS: Basophils Absolute Auto 0.1 10^3/uL (0.0-0.1); Basophils Percent Auto 0.3 % (0.2-2.0); Eosinophils Percent Auto 0.2 % (0.9-7.0); Hematocrit 29.8 % (36.0-48.0); Immature Granulocytes Abs Auto 0.13 10^3/uL (0.00-0.03); Immature Granulocytes Pct Auto 0.8 % (0.0-0.5); Lymphocytes Absolute Auto 3.2 10^3/uL (1.2-3.8); Lymphocytes Percent Auto 20.6 % (20.5-60.0); Mean Corpuscular HGB Conc 33.6 g/dL (29.9-35.2); Mean Corpuscular Hemoglobin 31.8 pg (26.7-34.0); Mean Corpuscular Volume 94.9 fL (81.0-99.0); Mean Platelet Volume 10.3 fL (9.5-13.5); Monocytes Percent Auto 6.7 % (1.7-12.0); Neutrophils Percent Auto 71.4 % (43.0-75.0); Platelet Count 281 10^3/uL (150-450); Red Blood Count 3.14 10^6/uL (4.20-5.40); White Blood Count 15.4 10^3/uL (4.0-11.0)
--- NOTE | 2024-03-07 08:38 | P.OBPN_ITS ---
OB - PN: Subj Subjective Patient comments: no complaints and pain well controlled [place] status: doing well Exam Constitutional Vital Signs, click to edit/add: Last Vital Signs Temp 98.1 F 03/07/24 03:16 Pulse 60 03/07/24 03:16 Resp 14 03/06/24 21:08 BP 108/57 03/07/24 03:16 Pulse Ox 100 03/06/24 11:16 O2 Del Method Room Air 03/07/24 03:30 Documenting provider has reviewed patient's vital signs: yes Common normals: no apparent distress Respiratory Common normals: normal respiratory effort and clear to auscultation bilaterally Cardio Common normals: regular rate and regular rhythm GI Common normals: Normal to inspection, nondistended, normoactive bowel sounds present Extremity Common normals: no calf tenderness Results Labs Labs: Short CBC 03/07/24 Range/Units 06:57 WBC 15.4 H (4.0-11.0) 10^3/uL Hgb 10.0 L (12.0-16.0) g/dL Hct 29.8 L (36.0-48.0) % Plt Count 281 (150-450) 10^3/uL Urinary Catheter Management Urinary Catheter Management Urethral: Cath placed during this visit: no OB - PN: A/P Plan - day: 1 Plan: routine postop care Time Spent with Patient Time: Total time spent is greater than 50% in coordination of care (as documented) at patient's floor/unit and/or counseling patient: Total time spent with greater than 50% in coordination of care (as documented) at patient's floor/unit and/or counseling patient: less than 15 minutes
[2024-03-07 08:59] VITALS: BP 118/74
[2024-03-07 09:00] VITALS: TEMP 36.6
[2024-03-07] MEDS: DOCUSATE SODIUM 100 MG CAPSULE PO ×2 (09:02→20:11)
--- NOTE | 2024-03-07 14:56 | SWNOTE1 ---
SW consulted due to THC use during and on admission. MERE spoke with nurse, pt was also incarcerated during . MERE met with pt and father of baby in room. They do have everything they need at home for baby. There is also a 7 year old in the home as well. They voiced they have good support at home between friends and family. They do have WIC and will be calling once home. SW did ask about marijuana use. Pt voiced she took CBD capsules to help her relax. She stated she had bad [place] and she was uncomfortable during . She does not plan on using once home. Pt does not have a medical marijuana card at this time. SW did ask pt about being incarcerated. Pt voiced she got an LUIZ and after that she was caught driving under suspension. She states she is now done with probation and the court is not involved anymore. Pt and father of baby caring for baby appropriately. No further concerns. SW advised pt to not use marijuana around baby, she again voiced she will not be using once home. MERE spoke with her about post- depression, pt is aware of the signs. MERE advised pt and father of baby that SW is mandated reported and report will be called in. They voiced understanding. MERE called report to [facility] C[facility]. MERE completed HIPAA form and sent to
[2024-03-07 15:30] VITALS: BP 121/73; TEMP 36.7
[2024-03-07] MEDS: ENOXAPARIN SODIUM 40 MG/0.4 ML SYRINGE SUBQ (20:11)
[2024-03-08 00:17] VITALS: BP 114/69
[2024-03-08] MEDS: OXYCODONE HCL/ACETAMINOPHEN 5MG/325MG 1 TAB PO (00:21)
[2024-03-08 00:25] VITALS: TEMP 36.5
--- NOTE | 2024-03-08 01:37 | W.PC.ACHO ---
Registration Status: ADM IN Primary Language: [place] Preferred Language: [place] Report given to Chiquis CROWE. Active Medications Generic Name Dose Route Start Last Admin Trade Name Freq PRN Reason Stop Dose Admin Al Hydroxide/Mg Hydroxide 2,400 mg 03/06/24 08:31 Magnesium Hydroxide 2,400 Mg/10 Ml Oral.Susp PO Q6H PRN Dyspepsia Diphtheria/Pertussis/Tetanus Vacc 0.5 ml 03/08/24 09:00 Adacel Diph,Pertuss(Acell),Tet Vac/Pf 0.5 Ml Adult Syringe IM 03/08/24 09:01 .ONCE ONE Docusate Sodium 100 mg 03/07/24 09:00 03/07/24 20:11 Docusate Sodium 100 Mg Capsule PO 100 mg BID TAMI Administration Enoxaparin Sodium 40 mg 03/06/24 20:00 03/07/24 20:11 Enoxaparin Sodium 40 Mg/0.4 Ml Syringe SUBQ 40 mg Q24H TAMI Administration Sodium Chloride 1,000 mls @ 125 mls/hr 03/06/24 06:00 Sodium Chloride 0.9% 1,000 Ml IV .Q8H TAMI Promethazine HCl 25 mg/ Sodium 51 mls @ 204 mls/hr 03/06/24 08:31 Chloride IV Q6H PRN Nausea And Vomiting Ibuprofen 800 mg 03/06/24 08:31 Ibuprofen 400 Mg Tablet PO Q8H PRN Pain Ketorolac Tromethamine 30 mg 03/06/24 08:31 03/07/24 21:55 Ketorolac Tromethamine 30 Mg/Ml Vial IVP 03/08/24 08:32 30 mg Q6H PRN Administration Pain Measles/Mumps/Rubella Vaccine Live 0.5 ml 03/08/24 09:00 Measles,Mumps,Rubella Vacc/Pf 0.5 Ml Vial SQ 03/08/24 09:01 .ONCE ONE Ondansetron HCl 4 mg 03/06/24 08:31 Ondansetron Pf 4 Mg/2 Ml Vial IV Q6H PRN Nausea And Vomiting Ondansetron HCl 4 mg 03/06/24 08:31 Ondansetron 4 Mg Rapdis Tablet PO Q6H PRN Nausea And Vomiting Oxycodone/Acetaminophen 2 tab 03/06/24 08:31 Oxycodone Hcl/Acetaminophen 5mg/325mg PO Q4H PRN Pain Scale 7-10 Oxycodone/Acetaminophen 1 tab 03/06/24 08:31 03/08/24 00:21 Oxycodone Hcl/Acetaminophen 5mg/325mg PO 1 tab Q4H PRN Administration Pain Scale 4-6 Senna 17.2 mg 03/06/24 20:00 Sennosides 8.6 Mg Tablet PO QHS PRN Constipation Simethicone 80 mg 03/06/24 08:31 Simethicone 80 Mg Tab.Chew PO QID PRN Abdominal Distention Respiratory Oxygen Delivery Method Room Air Oxygen Delivery Method Room Air Oxygen Delivery Method Room Air Oxygen Delivery Method Room Air Bowels Bowel Pattern No Bowel Movement Bowel Pattern No Bowel Movement Bowel Pattern No Bowel Movement Renal Bladder Pattern Continent
[2024-03-08] MEDS: KETOROLAC TROMETHAMINE 30 MG/ML VIAL IVP (03:53)
[2024-03-08] MEDS: OXYCODONE HCL/ACETAMINOPHEN 5MG/325MG 2 TAB PO ×2 (05:28→11:17)
[2024-03-08 08:44] VITALS: BP 113/74
[2024-03-08 08:45] VITALS: TEMP 36.7
[2024-03-08] MEDS: DOCUSATE SODIUM 100 MG CAPSULE PO (08:45)
--- NOTE | 2024-03-08 10:48 | P.OBPN_ITS ---
OB - PN: Subj Subjective Patient comments: no complaints and pain well controlled [place] status: doing well Exam Constitutional Vital Signs, click to edit/add: Last Vital Signs Temp 98.0 F 03/08/24 08:45 Pulse 60 03/07/24 03:16 Resp 16 03/08/24 08:45 BP 113/74 03/08/24 08:44 Pulse Ox 100 03/06/24 11:16 O2 Del Method Room Air 03/08/24 08:45 Documenting provider has reviewed patient's vital signs: yes Common normals: no apparent distress Respiratory Common normals: normal respiratory effort and clear to auscultation bilaterally Cardio Common normals: regular rate and regular rhythm GI Common normals: Normal to inspection, nondistended, normoactive bowel sounds present Extremity Common normals: no calf tenderness Urinary Catheter Management Urinary Catheter Management Urethral: Cath placed during this visit: no OB - PN: A/P Plan - day: 2 Plan: routine postop care, discharge home and other (fu 1wk) Time Spent with Patient Time: Total time spent is greater than 50% in coordination of care (as documented) at patient's floor/unit and/or counseling patient: Total time spent with greater than 50% in coordination of care (as documented) at patient's floor/unit and/or counseling patient: less than 15 minutes
[2024-03-12 00:06] LABS: Cannabinoid Positive (.); Carboxy THC Conf, MS, UR 236 ng/mL (Cutoff=10)
== END 2024-03-08 12:20 | disposition home or self-care (01) | DRG 540 ==
PROVIDERS: Admitting Provider Obstetrics & Gynecology; Visit Provider Obstetrics & Gynecology
PROC: 10D00Z1 Extraction of Products of Conception, Low, Open Approach (ICD-10-PCS; CPT 59514; principal; 2024-03-06 07:30)
DX: O34.219 Maternal care for unspecified type scar from previous cesarean delivery (principal); Z3A.39 39 weeks gestation of pregnancy; Z37.0 Single live birth; O99.324 Drug use complicating childbirth; F12.90 Cannabis use, unspecified, uncomplicated
CPT/HCPCS: 36415; 59050; 76818; 80307; 80349; 81001; 85025; 86850; 86900; 86901; 87086; 94667; 94668; J0690; J1100; J1650; J1885; J2274; J2371; J2405; J2765

== ENCOUNTER 2024-03-17 08:38 | Outpatient (OUT) | payer MEDICAID, SELFPAY ==
--- OUTSIDE RECORDS SUMMARY | 2024-03-17 09:00 | XMS_ITS | CCD ---
Author Organization [facility] Care Team Providers Care Diamond Blender Name Role Phone MISC, DOCTOR Primary Care [...] Admitting Unavailable SONAM TENORIO Referring Unavailable LIZZETTE, FLY A Primary Care Unavailable SONAM TENORIO Attending Unavailable LIZZETTE, FLY A Referring Unavailable LIZZETTE, FLY A Primary Care Unavailable LIZZETTE, FLY A Referring Unavailable LIZZETTE, FLY A Primary Care Unavailable LIZZETTE, FLY A Referring Unavailable LIZZETTE, FLY A Primary Care Unavailable LIZZETTE, FLY A Referring Unavailable LIZZETTE, FLY A Primary Care Unavailable DANDY RAMSEY Attending Unavailable LIZZETTE, FLY A Referring Unavailable LIZZETTE, FLY A Primary Care Unavailable SONAM TENORIO Referring Unavailable LIZZETTE, FLY A Primary Care Unavailable FRANCESGIUSEPPEErikEDELMIRAWALDO Attending Unavailable LIZZETTE, FLY A Referring Unavailable LIZZETTE, FLY A Primary Care Unavailable KROTZERTRACIA M Attending Unavailable KROTZER, SONAM M Referring Unavailable LIZZETTE, FLY A Primary Care Unavailable LIZZETTE, FLY A Referring Unavailable LIZZETTE, FLY A Primary Care Unavailable KROTZER, SONAM M Referring Unavailable LIZZETTE, FLY A Primary Care Unavailable LIZZETTE, FLY A Primary Care Unavailable JEANNE SMART Attending Unavailable RIO, MALINDA Admitting Unavailable RIO, MALINDA Attending Unavailable LIZZETTE, FLY A Primary Care Unavailable LIZZETTE, FLY A Primary Care Unavailable OSVALDO, TIBERIU S Admitting Unavailable OSVALDO, TIBERIU S Attending Unavailable LIZZETTE, FLY A Primary Care Unavailable Unavailable Primary Care Provider Unavaildot e WILLIAM, JENNA Attending Unavailable EUN, SURYA Attending Unavailable WILLIAM, JENNA Attending Unavailable EUN, SURYA Attending Unavailable WILLIAM, JENNA Attending Unavailable EUN, SURYA Attending Unavailable WILLIAM, JENNA Attending Unavailable EUN, SURYA Attending Unavailable WILLIAM, JENNA Attending Unavailable Medications [...] omeprazole 20 mg delayed release oral capsule (17 sources) Proton Pump Inhibitor Start: 12-02-2023 End: 12-01-2024 take 1 capsule by mouth before mealtime omeprazole (PriLOSEC) [address] capsule Indications: Heartburn during , antepartum Take 1 capsule (20 mg) by mouth in the morning. Take before meals. Do not crush or chew.. 30 capsule 11 12/02/2023 12/01/2024 Active ondansetron 4 mg disintegrating oral tablet (17 sources) Serotonin-3 Receptor Antagonist Start: 09-21-2023 take 1 tablet by mouth every eight hours as needed ondansetron ODT (Zofran-ODT) 4 MG disintegrating tablet Take 4 mg by mouth every 8 (eight) hours if needed 09/21/2023 Active Prenat w/o W-FaWeg-Zwvb-FA-DHA (TriStart DHA) 31-0.6-0.4-200 MG capsule (17 sources) Start: 08-13-2023 take 1 capsule by mouth in the morning Prenat w/o X-SrCud-Mkgq-FA-DHA (TriStart DHA) 31-0.6-0.4-200 MG capsule Take 1 capsule by mouth in the morning. 08/13/2023 Active Vit-Fe Fumarate-FA (WesTab Plus) 27-1 MG tablet (17 sources) Start: 08-26-2023 take 1 tablet by [...] 3 hrs for 2 days Dec, Not-Taking Magnesium (14 sources) Start: 12-09-2023 End: 03-08-2024 take 1 tablet by mouth once daily magnesium 200 MG tablet Indications: Nonintractable headache, unspecified chronicity pattern, unspecified headache type Take 1 tablet (200 mg) by mouth Daily 90 tablet 12/09/2023 03/08/2024 Start: 12-09-2023 End: 03-08-2024 take 1 tablet by mouth once daily magnesium 200 MG tablet Indications: Nonintractable headache, unspecified chronicity pattern, unspecified headache type Take 1 tablet (200 mg) by mouth Daily 90 tablet 12/09/2023 03/08/2024 Active Problems Problem Classification Problem Date Documented [...] [Encounter for immunization] Onset: 12-20-2019 Episodic Other aftercare (2 sources) Postoperative visit; Translations: [Encounter for other specified surgical aftercare] 03-14-2024 Episodic Other complications of (1 source) Syphilis [...] Test Name Value Interpretation Reference Range Facility ALL CBC WITH AUTO DIFFon BASOPHILS ABSOLUTE AUTO 0.1 [facility] Basophils/100 WBC (Bld) 0.3 % 0.2 - 2.0 % [facility] Eosinophils/100 WBC (Bld) 0.2 % Low 0.9 - 7.0 % [facility] Erythrocyte distribution width (RBC) [Ratio] 12 % 11.0 - 15.0 % [facility] Hematocrit (Bld) [Volume fraction] 29.8 % Low 36.0 - 48.0 % [facility] Hemoglobin (Bld) [Mass/Vol] 10 g/dL Low 12.0 - 16.0 g/dL [facility] IMMATURE GRANULOCYTES ABS AUTO 0.13 High [facility] Immature granulocytes/100 WBC (Bld) 0.8 % High 0.0 - 0.5 % [facility] Interpretation and review of laboratory results Abnormal [facility] LYMPHOC[facility] ABSOLUTE AUTO 3.2 [facility] Lymphocytes/100 WBC (Bld) 20.6 % 20.5 - 60.0 % [facility] MCH (RBC) [Entitic mass] 31.8 pg 26.7 - 34.0 pg [facility] MCHC (RBC) [Mass/Vol] 33.6 g/dL 29.9 - 35.2 g/dL [facility] MCV (RBC) [Entitic vol] 94.9 fL 81.0 - 99.0 fL [facility] MONOCYTES ABSOLUTE AUTO 1 High [facility] Monocytes/100 WBC (Bld) 6.7 % 1.7 - 12.0 % [facility] NEUTROPHILS ABSOLUTE AUTO 11 High [facility] Neutrophils/100 WBC (Bld) 71.4 % 43.0 - 75.0 % [facility] Platelet mean volume (Bld) [Entitic vol] 10.3 fL 9.5 - 13.5 fL [facility] TBH EO # 0 [facility] TBH PLT 281 [facility] TB[facility] RBC 3.14 Low [facility] TBH WBC 15.4 High [facility] ALL CBC WITH AUTO DIFFon BASOPHILS ABSOLUTE AUTO 0.1 [facility] Basophils/100 WBC (Bld) 0.6 % 0.2 - 2.0 % [facility] Eosinophils/100 WBC (Bld) 1.1 % 0.9 - 7.0 % [facility] Erythrocyte distribution width (RBC) [Ratio] 11.9 % 11.0 - 15.0 % [facility] Hematocrit (Bld) [Volume fraction] 36.4 % 36.0 - 48.0 % [facility] Hemoglobin (Bld) [Mass/Vol] 12.5 g/dL 12.0 - 16.0 g/dL [facility] IMMATURE GRANULOCYTES ABS AUTO 0.09 High [facility] Immature granulocytes/100 WBC (Bld) 0.8 % High 0.0 - 0.5 % [facility] Interpretation and review of laboratory results Abnormal [facility] LYMPHOCYTES ABSOLUTE AUTO 3 [facility] Lymphocytes/100 WBC (Bld) 27.9 % 20.5 - 60.0 % [facility] MCH (RBC) [Entitic mass] 32.1 pg 26.7 - 34.0 pg [facility] MCHC (RBC) [Mass/Vol] 34.3 g/dL 29.9 - 35.2 g/dL [facility] MCV (RBC) [Entitic vol] 93.3 fL 81.0 - 99.0 fL [facility] MONOCYTES ABSOLUTE AUTO 1 High [facility] Monocytes/100 WBC (Bld) 8.8 % 1.7 - 12.0 % [facility] NEUTROPHILS ABSOLUTE AUTO 6.6 High [facility] Neutrophils/100 WBC (Bld) 60.8 % 43.0 - 75.0 % [facility] Platelet mean volume (Bld) [Entitic vol] 10.6 fL 9.5 - 13.5 fL [facility] TBH EO # 0.1 [facility] PLT 324 [facility] TB RBC 3.9 Low [facility] TB WBC 10.9 [facility] Urinalysis macro (dipstick) panel (U)on 02-28-2024 Bilirubin, UA Negative Negative - 4(70) +++ mg/dL [facility] Blood, UA Negative Negative - 50 Eriberto/mcL [facility] Clarity, UA Clear [facility] re Color, UA Yellow [facility] Glucose, UA Negative Negative - 2000(110) ++++ mg/dL [facility] Interpretation and review of laboratory results Normal [facility] re Ketones, UA Negative Negative - 160(16) ++++ mg/dL [facility] Leukocytes, UA Negative Negative - 500+++ Pk/mcL [facility] Nitrite, UA Negative Negative - Positive [facility] Healthcare pH, UA 6.5 5 - 9 [facility] Protein, UA Negative Negative - 1999(20) ++++ mg/dL [facility] Healthcare Spec Grav, UA 1.025 1 - 1.03 [facility] care Urobilinogen, UA 0.2 0.2 - 12 mg/dL [facility] Urinalysis macro (dipstick) panel (U)Ordered By: Carmenza Donovan on 02-15-2024 Bilirubin, UA Negative Negative - 4(70) +++ mg/dL [facility] Blood, UA Negative Negative - 50 Eriberto/mcL [facility] Healthcare Clarity, UA Clear [facility] Color, UA Yellow [facility] Glucose, UA Negative Negative - 1999(110) ++++ mg/dL [facility] Interpretation and review of laboratory results Normal [facility] re Ketones, UA Negative Negative - 160(16) ++++ mg/dL [facility] Healthcare Leukocytes, UA Negative Negative - 500+++ Pk/mcL [facility] Healthcare Nitrite, UA Negative Negative - Positive [facility] pH, UA 5.5 5 - 9 [facility] Protein, UA Negative Negative - 1999(20) ++++ mg/dL [facility] Healthcare Spec Grav, UA 1.02 1 - 1.03 [facility] care Urobilinogen, UA 1.0 0.2 - 12 mg/dL [facility] Urinalysis macro (dipstick) panel (U)on 02-07-2024 Bilirubin, UA Negative Negative - 4(70) +++ mg/dL [facility] Healthcare Blood, UA Negative Negative - 50 Eriberto/mcL [facility] Clarity, UA Clear [facility] Color, UA Yellow [facility] Glucose, UA Negative Negative - 1999(110) ++++ mg/dL [facility] Interpretation and review of laboratory results Abnormal [facility] Ketones, UA Negative Negative - 160(16) ++++ mg/dL [facility] Healthcare Leukocytes, UA Negative Negative - 500+++ Pk/mcL [facility] Healthcare Nitrite, UA Negative Negative - Positive [facility] pH, UA 5.5 5 - 9 [facility] Protein, UA Negative Negative - 1999(20) ++++ mg/dL [facility] Spec Grav, UA 1.025 1 - 1.03 [facility] Urobilinogen, UA 1.0 0.2 - 12 mg/dL [facility] URINALYSISon 11-30-2023 Bilirubin Ql (U) Negative Normal NEG [facility] Comment on above: Performed By: #### [place], 63625-0, AHP, 35727-2, 79070-2, 54717- 4, 47311-5 #### [facility] ([id number]) [address] [facility] [address] [place] [address] #### 71917-2, 81781-5 #### [facility] ([id number]) [address] [place] [address] BLOOD/HGB Negative Normal NEG [facility] Comment on above: Performed By: #### C ERICK, , AHP, 00933-3, 37932-2, 69378- 4, 47067-9 #### [facility] ([id number]) [address] [facility], [address] [place] [address] #### 41859-9, 06816-5 #### [facility] ([id number]) [address] [place] [address] Color (U) YELLOW Normal YELLOW [facility] Comment on above: Performed By: #### Joan SUAREZ, 93413-4, AHP, 47914-1, 02728-8, 29160- 4, 46727-1 #### [facility] ([id number]) [address] [facility] [facility], [address] [place] [address] #### 25131-1, 52505-6 #### [facility] ([id number]) [address] [place] [address] Glucose Ql (U) Negative Normal NEG [facility] Comment on above: Performed By: #### Joan BC, 13619-4, AHP, 79149-6, 05802-8, 07969- 4, 01144-7 #### [facility] ([id number]) [address], [address] [place] [address] #### 34428-0, 59633-7 #### [facility] ([id number]) [address] [place] [address] Ketones Ql (U) Negative Normal NEG [facility] Comment on above: Performed By: #### C BC, 38578-4, AHP, 11819-2, 89737-8, 00877- 4, 80332-1 #### [facility] ([id number]) [address], [address] [place] [address] #### 01116-4, 17543-6 #### [facility] ([id number]) [address] [place] [address] Leukocyte esterase Test strip Ql (U) Negative Normal NEG [facility] Comment on above: Performed By: #### C BC, 02741-3, AHP, 23096-9, 01793-9, 47240- 4, 72733-0 #### [facility] ([id number]) [address], [address] [place] [address] #### 54062-6, 05767-4 #### [facility] ([id number]) [address] [place] [address]408 Nitrite Ql (U) Negative Normal NEG [facility] Comment on above: Performed By: #### C BC, 42717-5, AHP, 33857-9, 92102-6, 00256- 4, 03088-5 #### [facility] ([id number]) [address], [address] [place] [address] #### 73811-1, 67505-4 #### [facility] ([id number]) [address] [place] [address] pH (U) 7.0 [pH] Normal 5.0-8.5 [facility] Comment on above: Performed By: #### C ERICK, 12576-3, AHP, 86837-6, 96925-6, 66747- 4, 52850-1 #### [facility] ([id number]) [address], [address] [place] [address] #### 02141-7, 76829-9 #### [facility] ([id number]) [address] [place] [address]8826 Protein Ql (U) Negative Normal NEG [facility] Comment on above: Performed By: #### Joan SUAREZ, 64785-5, AHP, 19537-2, 14669-4, 28050- 4, 77991-2 #### [facility] ([id number]) [address], [address] [place] [address] #### 67604-0, 52873-8 #### [facility] ([id number]) [address] [place] [address]297 Specific gravity (U) [Rel density] 1.025 Normal 1.003-1.035 [facility] Comment on above: Performed By: #### Joan SUAREZ, 45491-9, AHP, 35351-8, 05254-2, 63096- 4, 28600-4 #### [facility] ([id number]) [address], [address] [place] [address] #### 72949-0, 58421-1 #### [facility] ([id number]) [address] [place] [address]39[address] TURBIDITY CLEAR Normal CLEAR [facility] Comment on above: Performed By: #### Joan SUAREZ, 70110-5, AHP, 61690-2, 60394-1, 44833- 4, 51508-4 #### [facility] ([id number]) [address] [place] [address], [address] [address] #### 93812-6, 31304-7 #### [facility] ([id number]) [address] [place] [address] Urobilinogen Qn (U) 0.2 {Saleem'U}/dL Normal <1.1 [facility] Comment on above: Performed By: #### C ERICK, 72200-8, AHP, 92603-1, 61932-1, 87604- 4, 54560-8 #### [facility] ([id number]) [address] [place] [address], [address] [address] #### 17036-7, 00485-9 #### [facility] ([id number]) [address] [place] [address] CHLAMYDIA/GC PCR, FLon 09-20 CHLAMYDIA/GC PCR, FL [...] are dependent on adequate specimen collection. Normal [facility] Comment on above: Performed By: #### C ERICK, 48435-2, P, 68973-9, 55518-7, 85132- 4, 15259-9 #### [facility] ([id number]) [address] [place] [address] #### 69559-2, 08453-8 #### [facility] ([id number]) [address] [place] [address] DRUG SCREEN, URINEon 024 AMPHETAMINE/METHAMP Negative Normal NEG [facility] Comment on above: Result Comment: AMPH /METH screening cut off = 1000 ng/mL Performed By: #### D DOWNING #### [facility] ([id number]) [address], [address] [place] [address] BARBITURATES Negative Normal NEG Comment on above: Result Comment: Venita iturates screening cut off value = 200 ng/mL Performed By: #### D DOWNING #### [facility] ([id number]) [address] [place] [address] BENZODIAZEPINES Negative Normal NEG Comment on above: Result Comment: Ander odiazepines screening cut off value = 200 ng/mL Performed By: #### D DOWNING #### [facility] ([id number]) [address], [address] [place] [address] CANNABINOIDS Positive Abnormal NEG Comment on above: Result Comment: Conf irmation available upon request. Cannabinoids/THC screening cut off value = 50 ng/mL Performed By: #### D DOWNING #### [facility] ([id number]) [address], [address] [place] [address] COCAINE METABOLITE Negative Normal NEG [facility] Comment on above: Result Comment: Coca ine screening cut off value = 300 ng/mL Performed By: #### D DOWNING #### [facility] ([id number]) [address], [address] [place] [address] ECSTASY Negative Normal NEG Comment on above: Result Comment: Ecst asy screening cut off value = 500 ng/mL This report is intended for use in clinical monitoring or management of patients. Performed By: #### D DOWNING #### [facility] ([id number]) [address], [address] [place] [address] METHADONE Negative Normal NEG Comment on above: Result Comment: Meth adone screening cut off value = 300 ng/mL. Performed By: #### D DOWNING #### [facility] ([id number]) [address] [address] [place] [address] OPIATES Negative Normal NEG Comment on above: Result Comment: Opia monica screening cut off value = 300 ng/mL NOTE: This test is used for the detection of codeine, hydrocodone (>1000 ng/mL), morphine and hydromorphone (>900 ng/mL) in urine. Performed By: #### D DOWNING #### [facility] ([id number]) [address] [facility] [address] [place] [address] OXYCODONE Negative Normal NEG Comment on above: Result Comment: Oxyc odone screening cut off value = 300 ng/mL NOTE: This test is used for the detection of oxycodone and oxymorphone in urine. Performed By: #### D DOWNING #### [facility] ([id number]) [address] [address] PHENCYCLIDINE Negative Normal NEG Comment on above: Result Comment: Phen cyclidine screening cut off value = 25 ng/mL Performed By: #### D DOWNING #### [facility] ([id number]) [address] [place] [address] URINALYSISon 09-21-2023 Bilirubin Ql (U) Negative Normal NEG [facility] Comment on above: Performed By: #### U A #### [facility] ([id number]) [address] [place] [address] BLOOD/HGB Negative Normal NEG Comment on above: Performed By: #### U A #### [facility] ([id number]) [address] [place] [address] Color (U) YELLOW Normal YELLOW Comment on above: Performed By: #### U A #### [facility] ([id number]) [address] [place] [address] Glucose Ql (U) Negative Normal NEG Comment on above: Performed By: #### U A #### [facility] ([id number]) [address], [address] [place] [address] Ketones Ql (U) >150 Abnormal NEG Comment on above: Performed By: #### U A #### [facility] ([id number]) [address], [address] [place] [address] Leukocyte esterase Test strip Ql (U) Negative Normal NEG Comment on above: Performed By: #### U A #### [facility] ([id number]) [address], [address] [place] [address] Nitrite Ql (U) Negative Normal NEG Comment on above: Performed By: #### U A #### [facility] ([id number]) [address], [address] [place] [address] pH (U) 6.0 [pH] Normal 5.0-8.5 Comment on above: Performed By: #### U A #### [facility] ([id number]) [address], [address] [place] [address] Protein Ql (U) Negative Normal NEG Comment on above: Performed By: #### U A #### [facility] ([id number]) [address], [address] [place] [address] Specific gravity (U) [Rel density] 1.019 Normal 1.003-1.035 Comment on above: Performed By: #### U A #### [facility] ([id number]) [address], [address] [place] [address] TURBIDITY CLEAR Normal CLEAR Comment on above: Performed By: #### U A #### [facility] ([id number]) [address] [facility], [address] [place] [address] Urobilinogen (U) [Mass/Vol] mg/dL Normal <1.1 Comment on above: Performed By: #### U A #### [facility] ([id number]) [address] [place] [address], [address] [place] [address] URINE CULTUREon 09-21-2023 Bacteria identified Cx Nom (U) CULTURE RESULTS 10,000 to 50,000 ORGANISMS/mL ESCHERICHIA COLI <10,000 ORGANISMS/mL NORMAL URO GENITAL JACKIE Normal Comment on above: Performed By: #### 6 30-4 #### [facility] ([id number]) [address] [place] [address] ACUTE HEPATITIS PANELon 08-25 ANTI HCV W/PCR REFLX Non-Reactive Normal NRCT [facility] Comment on above: Result Comment: If recent infection suspected, recommend repeat testing (>2 months). Ytwqcf-em-mqlijc ratio is <0.80. Performed By: #### C BC, 75294-4, AHP, 76790-4, 16657-4, 61424-6, 33929-2 #### [facility] ([id number]) [address] [place] [address] #### 85226-6, 47493-8 #### [facility] ([id number]) [address] [place] [address] HEPATITIS A IGM Non-Reactive Normal NRCT [facility] Comment on above: Performed By: #### C BC, 05285-5, AHP, 93986-6, 91908-3, 93359- 4, 95455-8 #### [facility] ([id number]) [address] [place] [address] #### 95441-9, 18213-3 #### [facility] ([id number]) [address] [place] [address] [place] [address] HEPATITIS B CORE IGM Negative Normal NEG [facility] Comment on above: Performed By: #### C ERICK, 84915-1, AHP, 78069-6, 26291-0, 04795- 4, 80988-5 #### [facility] ([id number]) [address], [address] [place] [address] #### 22847-4, 44051-7 #### [facility] ([id number]) [address] [place] [address] HEPATITIS B SURF AG Negative Normal NEG [facility] Comment on above: Performed By: #### C ERICK, , AHP, 23087-9, 95460-3, 52007- 4, 99768-1 #### [facility] ([id number]) [address] [facility], [address] [place] [address] #### 50567-1, 26810-3 #### [facility] ([id number]) [address] [place] [address] COMPLETE BLOOD COUNTon 09-16 Erythrocyte distribution width (RBC) [Ratio] 13.0 % Normal 11.5-15.0 [facility] Comment on above: Performed By: #### Joan SUAREZ, 16046-8, AHP, 47295-8, 51946-8, 15232- 4, 83795-8 #### [facility] ([id number]) [address] [facility] [place] [address] #### 35206-0, 25974-4 #### [facility] ([id number]) [address] [place] [address] Hematocrit (Bld) [Volume fraction] 36.1 % Normal 35-47 [facility] Comment on above: Performed By: #### Joan SUAREZ, 76585-4, AHP, 17030-5, 85204-7, 96385- 4, 05946-6 #### [facility] ([id number]) [address] [place] [address] #### 49853-8, 49321-1 #### [facility] ([id number]) [address] [place] [address] Hemoglobin (Bld) [Mass/Vol] 12.5 g/dL Normal 11.7-15.5 [facility] Comment on above: Performed By: #### C BC, 92366-7, AHP, 85048-8, 33982-0, 20508- 4, 42404-1 #### [facility] ([id number]) [address], [address] [place] [address] #### 80275-7, 47999-5 #### [facility] ([id number]) [address] [place] [address] MCH (RBC) [Entitic mass] 32.0 pg Normal 27-34 [facility] Comment on above: Performed By: #### C BC, 44173-2, AHP, 55858-9, 00174-9, 92931- 4, 73625-2 #### [facility] ([id number]) [address] [place] [address] #### 03003-8, 58634-0 #### [facility] ([id number]) [address] [place] [address] MCHC (RBC) [Mass/Vol] 34.6 g/dL Normal 32-36 [facility] Comment on above: Performed By: #### C BC, 51250-7, AHP, 14649-6, 24623-4, 65982- 4, 06814-3 #### [facility] ([id number]) [address], [address] [place] [address] #### 71506-7, 30844-9 #### [facility] ([id number]) [address] [place] [address] 16496 MCV (RBC) [Entitic vol] 93 fL Normal 80-100 [facility] Comment on above: Performed By: #### C ERICK, 20819-6, AHP, 97750-5, 69078-0, 70020- 4, 86907-6 #### [facility] ([id number]) [address], [address] [place] [address] #### 09557-6, 85081-6 #### [facility] ([id number]) [address] [place] [address] 98469 Platelet mean volume (Bld) [Entitic vol] 8.7 fL Normal 7-12 [facility] Comment on above: Performed By: #### C ERICK, 34046-0, AHP, 32542-0, 19321-7, 55667- 4, 71154-0 #### [facility] ([id number]) [address], [address] [place] [address] #### 93596-6, 92607-8 #### [facility] ([id number]) [address] [place], [place] [id number] Platelets (Bld) [#/Vol] 300 10*3/uL Normal 150-450 [facility] Comment on above: Performed By: #### Joan SUAREZ, 36409-1, AHP, 18078-4, 67514-3, 63421- 4, 62284-6 #### [facility] ([id number]) [address], [address] [place] [address] #### 45365-3, 01487-7 #### [facility] ([id number]) [address] [place] [address] RBC COUNT 3.90 X10E12/L Normal 3.80-5.20 [facility] Comment on above: Performed By: #### C BC, 80289-2, AHP, 69409-5, 87064-0, 82849- 4, 39400-8 #### [facility] ([id number]) [address], [address] [place] [address] #### 43476-8, 75961-2 #### [facility] ([id number]) [address] [place] [address] WBC (Bld) [#/Vol] 9.7 10*3/uL Normal 4.0-11.0 [facility] Comment on above: Performed By: #### C ERICK, 80648-8, P, 09094-9, 70211-6, 62054- 4, 30100-5 #### [facility] ([id number]) [address] [facility] [facility], [address] [place] [address] #### 25383-2, 14762-9 #### [facility] ([id number]) [address] [place] [address] HCG.beta subunit IA 3rd IS Q non 09-17-2023 [place] [address] m[IU]/mL Normal P [facility] Comment on above: Result Comment: [...] nontrophoblastic neoplasms. Performed By: #### C BC, 81713-5, P, 44506-6, 31341-7, 09503-8, 70272-7 #### [facility] ([id number]) [address] [place] [address], [address] [place] [address] #### 11203-5, 10663-0 #### [facility] ([id number]) [address] [place] [address] HIV 1+2 Ab+HIV1 p24 Ag IA Ql on 09-17-2023 HIV 1 and 2 Ab/Ag Screen Non-Reactive Normal NRCT [facility] Comment on above: Result Comment: This [...] results or diagnoses. Performed By: #### Joan , 97142-6, [facility], 01550-4, 93233-2, 19022-0, 27572-8 #### [facility] ([id number]) [address] [place] [address], [address] [place] [address] #### 64513-1, 76577-0 #### [facility] ([id number]) [address] [place] [address] Reagin Ab RPR (S) [Titer]on 09-17-2023 RPR TITER, SERUM SEE COMMENTS 09/21/2023 10:37 AM Abnormal [facility] Comment on above: Result Comment: NOTE Test Result Flag Unit RefValue RPR, Titer, S 1:1 A Negative Results consistent with untreated or recently treated syphilis. Clinical correlation required. For additional information on interpretation of the syphilis reverse algorithm and results, see: [email or web address] it-[email or web address]/Syphilis_Serology_Algorithm.pdf Test Performed by: [place] [address] Corporate Law Assistant: Luke Downey M.D. Ph.D.; CLIA# [id number] Performed By: #### C BC, 62016-7, AHP, 53590-9, 71005-6, 89236-2, 44235-1 #### [facility] ([id number]) [address] [place] [address], [address] [address] #### 25095-5, 46077-8 #### [facility] ([id number]) [address] [place] [address] Reagin Ab RPR Ql (S)on 09-16 RPR WITH REFLEX TO RTPPA Positive Abnormal Negative [facility] Comment on above: Result Comment: NOTE Specimen reflexed to determine RPR titer. For additional information on interpretation of the syphilis reverse algorithm and results, see: [email or web address] 911/ it-mmfiles/Syphilis_Serology_Algorithm.pdf Test Performed by: [place] [id number] Corporate Law Assistant: Luke Downey M.D. Ph.D.; CLIA# [id number] Performed By: #### C BC, 14277-0, AHP, 43696-5, 65003-3, 58778-6, 40616-0 #### [facility] ([id number]) [address] [place] [address], [address] [address] #### 72849-5, 61787-9 #### [facility] ([id number]) [address] [place] [address] Rubella virus Ab Ql (S)on RUBELLA IMMUNE IgG 1.0 AI Normal [facility] Comment on above: Result Comment: Interpretation-------- <0.8 NEGATIVE-considered Not Immune 0.8-0.9 EQUIVOCAL-consider retesting with new specimen >0.9 POSITIVE-considered Immune Performed By: #### C ERICK, 60817-9, AHP, 72361-0, 94964-7, 14117-3, 52993-7 #### [facility] ([id number]) [address] [place] [address], [address] [place] [address] #### 10694-2, 34210-4 #### [facility] ([id number]) [address] [place] [address] T. pallidum IgG+IgM IA Ql (S )on 09-17-2023 Syphilis Total >8.0 High 0.0-0.8 [facility] Comment on above: Result Comment: REAC TIVE This specimen will be sent to a reference lab for additional testing which includes RPR with reflex to TP-PA if RPR is negative. The RPR will help distinguish between infections with T.pallidum (syphilis) versus a falsely reactive treponemal antibody result. Please see the syphilis testing algorithm link below for more information. [email or web address] Performed By: #### C BC, 97796-1, AHP, 42210-4, 66861-2, 74883-7, 47437-9 #### [facility] ([id number]) [address] [place] [address], [address] [place] [address] #### 00445-9, 02373-0 #### [facility] ([id number]) [address] [facility], [place] [address] US PREG TRANSABD FU PER FETU on 09-17-2023 US PREG TRANSABD FU PER FETU US PREG TRANSABD FU PER FETU US PREG TRANSABD FU PER FETU: 09/17/2023 8:25 AM Clinical: Check dates and viability. Real-time transabdominal sonography pelvis performed.. Transvaginal sonography pelvis performed for better evaluation of the pelvic organs. No comparison. There is a single live intrauterine . [place]-rump length of 8.8 cm corresponds to 14 [...] Frances MD on 09/17/2023 11:55 AM Normal [facility] VZV IgG IA Ql (S)on 09-17-19 VARICELLA IgG 3.1 AI High <0.9 [facility] Comment on above: Result Comment: Interpretation-------- <0.9 Negative 0.9 - 1.0 Equivocal >1.0 Positive Performed By: #### C , 13903-4, [facility], 80740-5, 90971-2, 68022-7, 31382-3 #### [facility] ([id number]) [address] [facility] [place] [address] #### 26646-4, 58969-1 #### [facility] ([id number]) [address] [place] [address], [place] [address] Urinalysis - AUTOMATEDon Appearance (U) CLEAR [employer] Other Bilirubin Ql (U) Negative [employer]soft ast [employer] Other Color (U) YELLOW [employer] Other Glucose Ql (U) Negative [employer] Other Hemoglobin Ql (U) NEGTIVE Platform[employer] oast [employer] Other Ketones Ql (U) Negative [employer] Other Leukocyte esterase Test strip Ql (U) Negative [employer] Other Nitrite Ql (U) Negative [employer] Other pH (U) 7.5 [pH] [employer] Other Protein Ql (U) Negative [employer] Other Specific gravity (U) [Rel density] 1.015 [employer] Other Urobilinogen (U) [Mass/Vol] 0.2 mg/dL [employer] Other Urinalysis - AUTOMATED [employer] Other Vaginitis Plus (VG+)on 12-19 Atopobium Vaginae High - 2 Critically abnormal . [facility] Comment on above: Performed By: #### V AGINITIS+ #### [facility] , BVAB2 High - 2 Critically abnormal . [facility] Comment on above: Performed By: #### V AGINITIS+ #### [facility] , Makenzie Albicans, KENNETH Negative Normal Negative [facility] Comment on above: Result Comment: This test was developed and its performance characteristics determined by [facility]. It has not been cleared or approved by the Food and Drug Administration. Performed By: #### V AGINITIS+ #### [facility] , Makenzie Glabrata, KENNETH Negative Normal Negative [facility] Comment on above: Result Comment: This test was developed and its performance characteristics determined by [facility]. It has not been cleared or approved by the Food and Drug Administration. PERFORMED BY: [facility] [place] [address] PATHOLOGIST RETAIL BANKING MANAGER LEO PATEL M.D. Performed By: #### V AGINITIS+ #### [facility] , Chlamydia Trachomotis, KENNETH Positive Critically abnormal Negative [facility] Comment on above: Performed By: #### V AGINITIS+ #### [facility] , Megasphaera High - 2 Critically abnormal . [facility] Comment on above: Result Comment: Calc ulate [...] developed and its performance characteristics determined by [facility]. It has not been cleared or approved by the Food and Drug Administration. Performed By: #### V AGINITIS+ #### [facility] , Neisseria Gonorrhoeae, KENNETH Negative Normal Negative [facility] Comment on above: Result Comment: Perf ormed at: =G - [facility] [address] [id number] Corporate Law Assistant: Brianne Shabazz MD, Phone: [phone] Performed By: #### V AGINITIS+ #### [facility] , Tric Vag KENNETH Negative Normal Negative [facility] Comment on above: Performed By: #### V [...] TIESHA CASTILLO Date: 2020-01-30 14:39 Normal [facility] XR ANKLE LT MIN 3 [...] YAKOV DAWSON Date: 2019-12-27 09:54 Normal [facility] XR ANKLE LT MIN 3 [...] TIESHA CASTILLO Date: 2019-11-29 13:43 Normal [facility] XR FOOT RT MIN 3 VIEWSon XR FOOT RT MIN 3 VIEWS EXAM: Right foot HISTORY: Pain after a fall. TECHNIQUE: 3 views of the right foot were obtained. FINDINGS: There is no evidence of fracture or dislocation. There are no suspicious bone lesions. Soft tissues are normal. IMPRESSION: Unremarkable exam. Electronically authenticated by: JUDE MCDANIEL Date: 2019-11-28 16:48 Normal [facility] XR TIB_FIB LT 2Von 0 [...] by: JUDE MCDANIEL Date: 2019-11-28 16:47 Normal [facility] Vital Signs Date Time Vital Sign Value Performing Clinician Facility 03-14-2024 15:08-0500 Body weight 77.11 kg Jenna TOBIAS Work Phone: [facility] 03-14-2024 15:08-0500 Diastolic blood pressure 70 mm[Hg] Jenna TOBIAS Work Phone: [facility] 03-14-2024 15:08-0500 Systolic blood pressure 122 mm[Hg] Jenna TOBIAS Work Phone: [facility] 02-28-2024 15:51-0500 Body weight 83.92 kg Surya Eun DO Work Phone: [facility] 02-28-2024 15:51-0500 Diastolic blood pressure 72 mm[Hg] Surya Eun DO Work Phone: [facility] 02-28-2024 15:51-0500 Systolic blood pressure 108 mm[Hg] Surya Eun DO Work Phone: [facility] 02-21-2024 14:34-0400 Body weight 84.82 kg Jenna TOBIAS Work Phone: [facility] 02-21-2024 14:34-0400 Diastolic blood pressure 70 mm[Hg] Jenna TOBIAS Work Phone: [facility] 02-21-2024 14:34-0400 Systolic blood pressure 118 mm[Hg] Jenna TOBIAS Work Phone: [facility] 02-14-2024 15:25-0400 Body weight 83.01 kg Surya Eun DO Work Phone: [facility] 02-14-2024 15:25-0400 Diastolic blood pressure 72 mm[Hg] Surya Eun DO Work Phone: [facility] 02-14-2024 15:25-0400 Systolic blood pressure 118 mm[Hg] Surya Eun DO Work Phone: [facility] 02-07-2024 10:03-0400 Body weight 82.01 kg Jenna Thomas PA Work Phone: [facility] 02-07-2024 10:03-0400 Diastolic blood pressure 70 mm[Hg] Jenna Thomas PA Work Phone: [facility] 02-07-2024 10:03-0400 Systolic blood pressure 114 mm[Hg] Jenna Thomas PA Work Phone: [facility] 06-16-2023 13:06-0500 Body temperature 98.6 [degF] [facility] 06-16-2023 13:06-0500 Body weight 63.5 kg [facility] 06-16-2023 13:06-0500 Diastolic blood pressure 76 mm[Hg] [facility] 06-16-2023 13:06-0500 Heart rate 87 /min [facility] 06-16-2023 13:06-0500 Respiratory rate 18 /min [facility] 06-16-2023 13:06-0500 SaO2% (BldA) [Mass fraction] 98 % [facility] 06-16-2023 13:06-0500 Systolic blood pressure 119 mm[Hg] [facility] 12-19-2022 11:25-0400 Body height 160.02 cm Inessa Lewis Other [facility] [employer] Other 12-19-2022 11:25-0400 Body mass index (BMI) [Ratio] 24.3 kg/m2 Inessa Lewis Other [facility] [employer] Other 12-19-2022 11:25-0400 Body temperature 98.7 [degF] Inessa Lewis Other [employer] Other 12-19-2022 11:25-0400 Body weight 62.23 kg Inessa Debbie Other [employer] Other 12-19-2022 11:25-0400 Diastolic blood pressure 66 mm[Hg] Inessa Debbie Other [employer] Other 12-19-2022 11:25-0400 Respiratory rate 18 /min Inessa Debbie Other [employer] Other 12-19-2022 11:25-0400 SaO2% (BldA) [Mass fraction] 99 % Inessa Debbie Other [employer] Other 12-19-2022 11:25-0400 Systolic blood pressure 104 mm[Hg] Inessa Lewis Other [employer] Other 08-15-2021 11:45-0400 Body height 160.02 cm Janny Gonzalez Other [employer] Other 08-15-2021 11:45-0400 Body mass index (BMI) [Ratio] 22.32 kg/m2 Janny Gonzalez Other [employer] Other 08-15-2021 11:45-0400 Body temperature 97.9 [degF] Janny Gonzalez Other [employer] Other 08-15-2021 11:45-0400 Body weight 57.15 kg Janny Gonzalez Other [employer] Other 08-15-2021 11:45-0400 Diastolic blood pressure 71 mm[Hg] Janny Gonzalez Other [employer] Other 08-15-2021 11:45-0400 Respiratory rate 18 /min Janny Gonzalez Other [employer] Other 08-15-2021 11:45-0400 SaO2% (BldA) [Mass fraction] 100 % Janny Gonzalez Other [employer] Other 08-15-2021 11:45-0400 Systolic blood pressure 123 mm[Hg] Janny Gonzalez Other [employer] Other Encounters Encounter Date Encounter Type Care Provider Facility Start: 03-14-2024 End: 03-14-2024 Postop follow up visit related to original px Jenna TOBIAS Work Phone: [facility] Comment on above: Postoperative visit; S/P section Start: 03-14-2024 End: 03-14-2024 ambulatory JENNA THOMAS Not Available Start: 03-14-2024 End: 03-14-2024 Bamboo flowsheet Jenna TOBIAS Work Phone: [facility] Start: 03-14-2024 End: 03-14-2024 Bamboo flowsheet Jenna TOBIAS Work Phone: [facility] Start: 03-07-2024 End: 03-07-2024 Clinisync Result Encounter Surya Eun DO Work Phone: [facility] Unsolicited Start: 03-07-2024 End: 03-07-2024 Clinisync Result Encounter Surya Eun DO Work Phone: [facility] Unsolicited Start: 03-06-2024 End: 03-06-2024 Clinisync Result Encounter Surya Eun DO Work Phone: [facility] Unsolicited Start: 03-06-2024 End: 03-06-2024 Clinisync Result Encounter Surya Eun DO Work Phone: [facility] External Department Unsolicited Start: 02-28-2024 End: 02-28-2024 Office outpatient visit 15 minutes Surya Eun DO Work Phone: [facility] Comment on above: Third trimester preg emerald; 38 weeks gestation of Start: 02-28-2024 End: 02-28-2024 ambulatory SURYA EUN Not Available Start: 02-28-2024 End: 02-28-2024 Bamboo flowsheet Surya Eun DO Work Phone: [facility] Start: 02-28-2024 End: 02-28-2024 Bamboo flowsheet Surya Eun DO Work Phone: [facility] Start: 02-21-2024 End: 02-21-2024 ambulatory JENNA THOMAS Not Available Start: 02-21-2024 End: 02-21-2024 Office outpatient visit 15 minutes Jenna TOBIAS Work Phone: [facility] Comment on above: Third trimester preg emerald; 37 weeks gestation of ; Sinusitis, unspecified chronicity, unspecified location Start: 02-21-2024 End: 02-21-2024 Bamboo flowsheet Jenna TOBIAS Work Phone: [facility] Start: 02-21-2024 End: 02-21-2024 Bamboo flowsheet Jenna TOBIAS Work Phone: [facility] Start: 02-14-2024 End: 02-14-2024 ambulatory SURYA EUN Not Available Start: 02-14-2024 End: 02-14-2024 Office outpatient visit 15 minutes Surya Eun DO Work Phone: [facility] Comment on above: Second trimester pre gnancy; 36 weeks gestation of ; Third trimester Start: 02-14-2024 End: 02-14-2024 Bamboo flowsheet Surya Eun DO Work Phone: [facility] Start: 02-14-2024 End: 02-14-2024 [...] syphilis Start: 02-07-2024 End: 02-07-2024 ambulatory JENNA ANDERSONEY Not Available Start: 01-20-2024 End: 01-20-2024 ambulatory SURYA EUN Not Available Start: 01-06-2024 End: 01-06-2024 ambulatory JENNA WILLIAM Not Available Start: 01-02-2024 End: 01-02-[address] [facility] Start: 01-02-2024 End: 01-02-2024 Emergency department patient visit [facility] Start: 12-23-2023 End: 12-23-2023 ambulatory SURYA EUN Not Available Start: 12-02-2023 End: 12-02-2023 ambulatory JENNA WILLIAM Not Available Start: 11-30-2023 End: 11-30-2023 ambulatory MALINDA [facility] Start: 11-04-2023 End: 11-04-2023 ambulatory SONAM [facility]EN[facility] Start: 10-06-2023 End: 10-06-2023 [facility] Start: 10-05-2023 End: 10-05-2023 Emergency department patient visit [facility] Start: 09-29-2023 End: 09-29-2023 ambulatory [facility] Start: 09-22-2023 End: 09-22-2023 ambulatory [facility] Start: 09-21-2023 End: 09-22-2023 ambulatory [facility] Start: 09-21-2023 End: 09-21-2023 ambulatory [facility] Start: 09-21-2023 Encounter for gynecological examination (general) (routine) without abnormal findings [facility] Start: 09-21-2023 End: 09-21-2023 ambulatory S[facility] Start: 09-21-2023 Encounter for gynecological examination (general) (routine) without abnormal findings [facility] Start: 09-17-2023 End: 09-17-2023 ambulatory [facility] Start: 08-13-2023 End: 08-13-2023 ambulatory [facility] Start: 06-16-2023 End: 06-16-2023 ambulatory [facility] Work Phone: Start: 06-16-2023 End: 06-16-2023 Patient encounter procedure [facility] [place] Work Phone: Start: 12-19-2022 Office outpatient vi sit 15 minutes Inessa Lewis [facility] [place] Start: 12-19-2022 End: 12-19-2022 ambulatory Inessa Lewis [employer] Other Start: 12-19-2022 End: 12-19-2022 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 Inessa Lewis Work Phone: [facility] [place] Work Phone: Start: 08-19-2021 End: 08-19-2021 ambulatory Janny Gonzalez Other [employer] Other Start: 08-19-2021 Telephone encounter Janny Gonzalez [facility] Start: 08-15-2021 End: 08-15-2021 ambulatory Janny Gonzalez Other [place] [employer] Other Start: 08-15-2021 Office outpatient ne w 20 minutes Janny Carlos [facility] [place] Start: 02-27-2020 Patient encounter procedure [facility] Facility:[facility] Start: 01-30-2020 End: 01-31-2020 Patient encounter procedure [facility] Facility:[facility] Start: 01-16-2020 End: 01-16-2020 Patient encounter procedure CATHRYN BARNES Facility:[facility]1 Start: 12-27-2019 End: 12-28-2019 Patient encounter procedure [facility] Facility:[facility] Start: 11-29-2019 End: 11-30-2019 Patient encounter procedure [facility] Facility:[facility]1 Start: 11-28-2019 End: 11-28-2019 Patient encounter procedure DOCTOR MISC Facility:[facility]1 Procedures Date Procedure Procedure Detail Performing Clinician Start: 03-07-2024 ALL CBC WITH AUTO DIFF Surya Eun DO Work Phone: Start: 03-06-2024 ALL CBC WITH AUTO DIFF Surya Eun DO Work Phone: Start: 02-28-2024 Urnls dip stick/tabl et rgnt non-auto w/o micrscp Surya Eun DO Work Phone: Start: 02-15-2024 Urnls dip stick/tabl et rgnt non-auto w/o micrscp Surya Eun DO Work Phone: Start: 02-07-2024 Urnls dip stick/tabl et rgnt non-auto w/o micrscp Surya Eun DO Work Phone: H/O: section S/P sectio n Jenna TOBIAS Work Phone: Plan of Treatment Date Care Activity Detail Author Start: 04-27-2024 End: 04-27-2024 ambulatory 04/27/2024 10:30 AM EST Visit [facility] [address] [facility] [facility] [place] [place] [address] Jenna Thomas PA [address] [place], [place] [id number] [facility] Start: 03-14-2024 End: 03-14-2024 Patient encounter procedure [facility] Comment on above: Arrived Start: 02-28-2024 End: 02-28-2024 Patient encounter procedure [facility] Comment on above: Arrived Start: 02-21-2024 End: 02-21-2024 Patient encounter procedure 02/21/2024 2:20 PM EDT Routine [facility] [address] [facility] [place] [address] Jenna Thoams PA [address] [facility] [address] [place], [place] [id number] [facility] Start: 02-14-2024 End: 02-14-2024 Patient encounter procedure 02/14/2024 2:30 PM EDT Routine [facility] [address] [place] [id number] Surya Haq DO [address] [facility] [address] [place], [place] [id number] [facility] Start: 02-07-2024 End: 02-06-2025 [...] AM EDT Routine [facility] [address] [facility] [place] [address] Jenna Thomas PA [address] [place] [address] [place] [address] Arrived [facility] Comment on above: Arrived Start: 12-19-2022 [facility] Atopobium vaginae DN A [Presence] in Vaginal fluid by KENNETH with probe detection [facility] Bacterial vaginosis associated bacterium 2 DNA [Presence] in Vaginal fluid by KENNETH with probe detection [facility] Megasphaera sp type 1 DNA [Presence] in Vaginal fluid by KENNETH with probe detection [facility] Payers Date Payer Category Payer Self-pay [id number] 2022 Medicaid [facility] [id number] 2022 Medicaid [id number] .16.840.1.064891.19 2019 Unknown [id number] 1997 Unknown [id number] 2.16.840.1.071926.3.579.2.593 1997 Unknown [id number] 2.16.840.1.393916.3.579.2.59 1997 Unknown [id number] 2.16.840.1.887680.3.579.2.593 1997 Unknown [id number] 2.16.840.1.452677.3.579.2.593 1997 Unknown [id number] 2.16.840.1.347787.3.579.2.59 1997 Unknown [id number] 2.16.840.1.220996.3.579.2. 1997 Unknown [id number] 2.16.840.1.298114.3.579.2.1285 1997 Unknown [id number] 2.16.840.1.855807.3.579.2.1285 1997 Unknown [id number] 2.16.840.1.460843.3.579.2.1285 1997 Unknown [id number] 2.16.840.1.074328.3.579.2.1285 1997 Unknown [id number] 2.16.840.1.643006.3.579.2.1285 1997 Unknown [id number] 2.840.1.453523.3.579.2.1285 1997 Unknown [id number] 2.16840.1.492076.3.579.2.1285 1997 Unknown [id number] 2.16840.1.980187.3.579.2.1285 1997 Unknown [id number] 2.840.1.200583.3.579.2.1285 1997 Unknown [id number] 2.840.1.358487.3.579.2.1285 1997 Unknown [id number] 2.16.840.1.761799.3.579.2.1285 1997 Unknown [id number] 2.16.840.1.070836.3.579.2.1285 1997 Unknown [id number] 2.16.840.1.570764.3.579.2.1285 1997 Unknown [id number] 2.16840.1.404610.3.579.2.1285 1997 Unknown [id number] 2.16.840.1.111934.3.579.2.1286 1997 Unknown [id number] 2.16.840.1.435851.3.579.2.1258 1997 Unknown [id number] 2.16.840.1.204450.3.579.2.1258 1997 Unknown [id number] 2.16.840.1.602730.3.579.2.1258 1997 Unknown [id number] 2.16.840.1.600454.3.579.2.1258 1997 Unknown [id number] 2.16.840.1.760491.3.579.2.1258 1997 Unknown [id number] 2.16.840.1.928792.3.579.2.1258 1997 Unknown [id number] 2.16.840.1.014717.3.579.2.1258 1997 Unknown [id number] 2.16.840.1.345034.3.579.2.1258 1997 Unknown [id number] 2.16.840.1.230956.3.579.2.9 1959 Unknown [id number] Unknown [id number] 2.16.840.1.326294.19 Unknown [id number] 2.16.840.1.266217.3.579.2.531 Social History Date Type Detail Facility Unknown if ever smoked [facility] [employer] Other Sex Assigned At [facility] [employer] Other Start: 1997 Sex Assigned At Female F [facility] Start: 06-16-2023 Tobacco smoking status NYIS Never smoked tobacco (finding) [facility] Tobacco smoking status [facility] Tobacco smoking consumption unknown [facility] Start: 06-20-2023 [facility] Start: 1997 Sex assigned at Not on file [facility] Clinical Notes 08-15-2021 to 03-14-2024 JATINDER Pineda - 03/14/2024 2:40 PM Cori Claderon - 02/28/2024 3:00 PM JATINDER Garcia - 02/21/2024 2:20 PM EDTSalejandranaheed BundySISSY - 02/14/2024 2:30 PM EDT Note Date & Type Note Facility 03-14-2024 History of Presen t illness Narrative Reason for Appointment: Patient ID: Kelly Harrell is a 28 y.o. female who presents for Post-op Visit (Pt present today for post operative c/s visit. Pt delivered on 03/06/2024.) Patient presents today for 1 Week Post Op Follow Up appointment. MEDICATIONS Current Outpatient Medications Medication Instructions diphenhydrAMINE (BENADRYL ALLERGY) 25 mg, Oral, Nightly PRN diphenhydrAMINE (UNISOM) 50 mg, Oral, Nightly PRN omeprazole (PRILOSEC) 20 mg, Oral, Daily before breakfast, Do not crush or chew. ondansetron ODT (ZOFRAN-ODT) 4 mg, Oral, Every 8 hours PRN Prenat w/o T-ArUiy-Mwhi-FA-DHA (TriStart DHA) 31-0.6-0.4-200 MG capsule 1 capsule, [...] No family history on file. SURGICAL HISTORY Past Surgical History: Procedure Laterality Date SECTION, CLASSIC 03/06/2024 REVIEW OF SYSTEMS Review of Systems: Review [...] breath sounds. Abdominal: Palpations: Abdomen is soft. Comments: Pfannenstiel incision healing well Musculoskeletal: General: Normal range of motion. Neurological: General: No focal deficit present. Mental Status: She is alert and oriented to person, place, and time. Psychiatric: Mood and Affect: Mood normal. Behavior: Behavior normal. Thought Content: Thought content normal. Judgment: Judgment normal. Vitals and nursing note reviewed. Vitals: There is no height or weight on file to calculate BMI. BP: Patient's last menstrual period was 06/06/2023. ASSESSMENT & PLAN ICD-10-CM 1. Postoperative visit Z48.89 2. S/P section Z98.891 Patient presents today for a one week postop section check. Patient is doing well with minor complaints of pain. Incision has been noted as healing well with no signs and symptoms of infection. Pt is complaining of some post depression/crying spells. Pt is currently breast feeding infant and desires no b/c at this time. Follow Up: Patient is to return in 5 weeks for 6 week evaluation. Documented by Jeannette Cat MA on behalf of: JATINDER Pineda documented in this encounter [facility] 02-28-2024 History of Presen t illness Narrative [...] Oral, Every 8 hours PRN Prenat w/o I-GaQnt-Xyfi-FA-DHA (TriStart DHA) 31-0.6-0.4-200 MG capsule 1 capsule, [...] nursing note reviewed. Exam conducted with a jacquard plate maker present. Vitals: There is no height or [...] Surya Haq DO documented in this encounter [facility] 02-21-2024 History of Presen t illness [...] Oral, Every 8 hours PRN Prenat w/o V-SlXep-Mcdb-FA-DHA (TriStart DHA) 31-0.6-0.4-200 MG capsule 1 capsule, [...] of: JATINDER Pineda documented in this encounter [facility] 02-14-2024 History of Presen t illness [...] Oral, Every 8 hours PRN Prenat w/o D-UmHbv-Uupk-FA-DHA (TriStart DHA) 31-0.6-0.4-200 MG capsule 1 capsule, [...] nursing note reviewed. Exam conducted with a jacquard plate maker present. Vitals: There is no height or [...] Surya Haq DO documented in this encounter [facility] 02-07-2024 History of Presen t illness [...] Oral, Every 8 hours PRN Prenat w/o A-UiCeu-Vomq-FA-DHA (TriStart DHA) 31-0.6-0.4-200 MG capsule 1 capsule, [...] nursing note reviewed. Exam conducted with a jacquard plate maker present. Vitals: There is no height or [...] of: JATINDER Pineda documented in this encounter [facility] 12-19-2022 Evaluation note Encounter Date Diagnosis [...] in 4-6 days. FU with PCP or [facility] in not improving over next 5-7 days. [employer] Other 04-22-2022 Evaluation note* Encounter Date Diagnosis [...] results. Patient to follow with PCP or RN PROVIDER RELATIONS as needed for persistent or worsening symptoms. Immediate eval if abdominal pain, fever, chills, body aches, back/flank pain, nausea, urinary complaints. Patient may use OTC external yeast infection creams for external irritation, do not insert creams or meds as Diflucan rx will treat. Avoid scratching and douching. Patient verbalizes understanding and is agreeable to treatment plan [employer] Other Ev[facility] noteNo InformationNort [employer] Other evaluation noteNo assessment information available [facility] Work Phone: evaluation note* Diagnosis Onset Date Resolution Status Pre-employment examination a [facility] Work Phone: Evmmqhjwuw note* Diagnosis Third trimester state, incidental contractions [...] gestation of [facility] Diagnosis Postoperative visit S/P section Other postprocedural status [facility] N[facility]ative - Reported* Type Description Date Surgical History wisdom teeth Hospitalization History Fall Pneumothorax 2021 [facility] Other History general Narrative - Reported* Type Description Date Surgical History wisdom teeth Surgical History 1 Hospitalization History Fall Pneumothorax 2021 Hospitalization History 2016 [facility] Other Summary Purpose Family History No Family [...] and content) DATE CREATED AUTHOR 02/19/2020 [facility] DATE CREATED AUTHOR AUTHOR'S ORGANIZ ATION 01/06/2023 [facility] DATE CREATED AUTHOR AUTHOR'S ORGANIZ ATION 09/22/2023 DATE CREATED AUTHOR AUTHOR'S ORGANIZ ATION 11/10/2023 [facility] DATE CREATED AUTHOR AUTHOR'S ORGANIZ ATION 01/03/2024 [facility] DATE CREATED AUTHOR AUTHOR'S ORGANIZ ATION 03/17/2024 [facility] EPIC REASON FOR VISIT (unrecogniz ed section and content) Reason Comments Post-op Visit Pt present today for post operative c/s visit. Pt delivered on 03/06/2024. Reason Comments Routine Visit POSS BVPOSS YEAST INFECTION Care Teams (unrecognized sec tion and content) Team Status: Inactive Member Role Status Dates Inessa Lewis APRN Attending Provider Active Team Status: Active Member Role Status Dates NIURKA Merritt Primary Care Provider Active Team Status: Inactive [...] BE BASED ON THE PRIMARY CLINICAL RECORDS. [facility] [employer] [facility]. provides no warranty or guarantee of the accuracy or completeness of information in this document.
--- NOTE | 2024-03-17 11:50 | PC.NURSE ---
Kelly and 11 day old Alan arrive for follow up visit. Kelly states both are doing well. Describes successful , deep latches, no pain, baby gulping or frequently swallowing during the feed. States baby has a ton of wet and stool diapers. Using Desitin ointment for diaper area care as baby stools with each feeding Kelly with VSS and assessment WNL. Denies concerns or complaints today. Incision open to air and healing well. No redness or drainage noted. Steri strips intact. Taking Motrin 800mg for discomfort as needed. States pumps as well a couple times per day , obtains 3-6 oz per pump, depends on when baby last fed. Plans to return to work by 8 weeks. Alan awake and alert. Tracks mom's voice. VSS and assessment WNL. Infant is above weight at 11 days. Doing well with output and feedings. Infant does not display hunger cues, mom states I fed him in the car when we got here, we were early Mom denies concerns regarding . Does inquire about care for the uncircumcised boy. Instructed to Clean what you see , do not retract foreskin, will naturally release and retract when ready. Educate child as he is potty training to care for himself as well. Mom encouraged to instruct other care givers on proper care for intact male child. Verbalized understanding. Aware to call as needed. Leaves ambulatory for home.
[2024-03-17 11:51] VITALS: BP 115/73; PULSE 74; TEMP 36.6
== END 2024-03-17 11:20 | disposition home or self-care (01) ==
LOC: FBCO 08:39
PROVIDERS: Visit Provider Obstetrics & Gynecology
DX: Z39.2 Encounter for routine postpartum follow-up (principal)